=== PATIENT | male | born 1945 | race Caucasian/White ===

== ENCOUNTER 2020-09-05 13:49 | Inpatient (IN) | payer MEDICARE, BC ==
--- NOTE | 2020-09-05 14:18 | EDM.PDOC ---
ED HPI GENERAL MEDICAL PROBLEM - General Chief Complaint: General Time Seen by Provider: 09/05/20 14:00 Source of Information: Reports: Patient History Limitations: Reports: No Limitations - History of Present Illness INITIAL COMMENTS - FREE TEXT/NARRATIVE: This 75 yo male was brought to the ED due to a ground level fall. The patient reports he was found on the floor by his son just prior to calling the ambulance. The patient reports he has a history of MS and fell at about midnight due to his left leg giving out while he was attempting to get back to bed. The patient reports he has been experiencing increased pain in his left knee, left foot, right elbow and right shoulder due to the fall. The patient reports he did not hit his head or have any loss of consciousness. The patient reports he could not get himself off the floor due to the MS. Onset: Today Duration: Hour(s):, Constant Location: Reports: Upper Extremity, Right, Lower Extremity, Left Quality: Reports: Ache, Dull, Throbbing Severity: Moderate Improves with: Reports: None Worsens with: Reports: None Context: Reports: Activity Associated Symptoms: Reports: No Other Symptoms Left Foot Pain Score (Numeric/FACES): 2 - Related Data Allergies Allergy/AdvReac Type Severity Reaction Status Date / Time No Known Allergies Allergy Verified 09/05/20 13:58 Home Meds: Home Meds . [No Known Home Meds] 09/05/20 [History] Past Medical History HEENT History: Reports: None Cardiovascular History: Reports: Stents Respiratory History: Reports: None Gastrointestinal History: Reports: None Genitourinary History: Reports: None Musculoskeletal History: Reports: Other (See Below) Other Musculoskeletal History: MS Neurological History: Reports: None Psychiatric History: Reports: None Endocrine/Metabolic History: Reports: None Hematologic History: Reports: None Oncologic (Cancer) History: Reports: None Dermatologic History: Reports: None - Infectious Disease History Infectious Disease History: Reports: None - Past Surgical History Head Surgeries/Procedures: Reports: None Social & Family History - Family History Family Medical History: No Pertinent Family History - Caffeine Use Caffeine Use: Reports: Soda - Recreational Drug Use Recreational Drug Use: No ED ROS GENERAL - Review of Systems Review Of Systems: Comprehensive ROS is negative, except as noted in HPI. ED EXAM, GENERAL - Physical Exam Exam: See Below Exam Limited By: No Limitations General Appearance: Alert, WD/WN, Moderate Distress Eye Exam: Bilateral Eye: EOMI, Normal Inspection, PERRL Ears: Normal External Exam, Normal Canal, Hearing Grossly Normal, Normal TMs Nose: Normal Inspection, Normal Mucosa, No Blood Throat/Mouth: Normal Inspection, Normal Lips, Normal Teeth, Normal Gums, Normal Oropharynx, Normal Voice, No Airway Compromise Head: Atraumatic, Normocephalic Neck: Normal Inspection, Supple, Non-Tender, Full Range of Motion Respiratory/Chest: No Respiratory Distress, Lungs Clear, Normal Breath Sounds, No Accessory Muscle Use, Chest Non-Tender Cardiovascular: Normal Peripheral Pulses, Regular Rate, Rhythm, No Edema, No Gallop, No JVD, No Murmur, No Rub GI/Abdominal: Normal Bowel Sounds, Soft, Non-Tender, No Organomegaly, No Distention, No Abnormal Bruit, No Mass, Pelvis Stable (Male) Exam: Deferred Rectal (Males) Exam: Deferred Back Exam: Normal Inspection, Full Range of Motion, NT Extremities: Arm Pain (right anterior shoulder pain, right elbow pain and redness, left knee pain with bruising and left foot pain with lateral bruising) Neurological: Alert, Oriented, CN II-XII Intact, Normal Cognition Psychiatric: Normal Affect, Normal Mood Skin Exam: Warm, Dry, Intact, No Rash Lymphatic: No Adenopathy Course - Vital Signs Last Recorded V/S: Last Vital Signs Temp 36.4 C 09/05/20 13:51 Pulse 107 H 09/05/20 14:38 Resp 18 09/05/20 14:38 BP 135/90 09/05/20 14:38 Pulse Ox 95 09/05/20 14:38 Departure - Departure Time of Disposition: 15:52 Disposition: Refer to Observation Condition: Fair Clinical Impression: Fall from ground level, Left leg weakness, Impaired activities of daily living - Discharge Information Care Plan Goals: Discussed the patient's history, examination and x-ray results with Dr. Chi. Dr. Chi accepted the patient for continued evaluation and further management as an observation patient at [facility] in [place]. Sepsis Event Note (ED) - Evaluation Sepsis Screening Result: No Definite Risk - Focused Exam Vital Signs: Vital Signs Temp Pulse Resp BP Pulse Ox 09/05/20 14:38 107 H 18 135/90 95 09/05/20 13:51 36.4 C 110 H 20 150/75 H 97
--- NOTE | 2020-09-05 14:44 | CR ---
EXAMINATION: Knee 3V Lt SEX: Male AGE: 75 years CLINICAL HISTORY: 75-year-old male injured in ground-level fall. Interpretation (3 views): Soft tissue swelling anteromedially. Homogeneous normal bone mineral density for age and gender. Reactive arthritic sclerosis and bone spurs involving the margins of the tibial plateau as well as intercondylar tibial spine and patellofemoral surface of the patella. No sign of joint effusion, left knee fracture or dislocation. No foreign bodies.
--- NOTE | 2020-09-05 14:45 | CR ---
EXAMINATION: Foot Comp Min 3V Lt SEX: Male AGE: 75 years CLINICAL HISTORY: 75-year-old male injured in ground-level fall Interpretation: Pes cavus and mild arthritic changes left forefoot. Reactive arthritic changes talonavicular joint. Tiny heel spur at insertion Achilles tendon posteriorly on the os calcis. No sign of left foot fracture or dislocation. No foreign bodies.
--- NOTE | 2020-09-05 14:47 | CR ---
EXAMINATION: Shoulder Comp Rt SEX: Male AGE: 75 years CLINICAL HISTORY: 75-year-old male injured right shoulder (Ground level fall). INTERPRETATION: Subtle changes suggesting possible rotator cuff damage. Hill-Sachs notch like deformity lateral aspect of the humeral head. No juxta-articular rotator cuff tendon calcifications. No sign of right shoulder fracture, acute glenohumeral dislocation or acromioclavicular separation. No foreign bodies. Underlying right lung apex clear. CONCLUSION: No fracture or dislocation right shoulder.
--- NOTE | 2020-09-05 14:54 | CR ---
EXAMINATION: Elbow 4V Rt SEX: Male AGE: 75 years CLINICAL HISTORY: 75-year-old male injured right elbow (ground level fall). Interpretation: Severe arthritic reactive changes (sclerosis) radial head and ulnar aspect right elbow. Large bone spur arising off the olecranon process proximal right ulna. Cortical irregularity proximal radius suggesting occult radial head fracture and/or impaction but .... No joint effusion. "Fracture" may be old and close clinical correlation requested (point tenderness laterally? ) No sign of other fracture or dislocation right elbow. No foreign bodies.
[2020-09-05] MEDS ORDERED: Acetaminophen 325 MG Tab PO PRN (16:40)
[2020-09-05] MEDS ORDERED: Docusate Sodium 100 MG Cap PO PRN (16:40)
[2020-09-05] MEDS ORDERED: Magnesium Hydroxide 400 MG/5 ML Susp 30 ML Cup PO PRN (16:40)
[2020-09-05] MEDS ORDERED: Ondansetron 4 MG/2 ML SDV IVPUSH PRN (16:40)
[2020-09-05] MEDS ORDERED: Sodium Chloride 0.9% 1,000 ML IV SCH (16:45)
--- NOTE | 2020-09-05 16:52 | PCM.HP ---
H&P History of Present Illness - General Date of Service: 09/05/20 Admit Problem/Dx: Admission Diagnosis/Problem Admission Diagnosis/Problem Lower extremity pain, diffuse Source of Information: Patient History Limitations: Reports: No Limitations - History of Present Illness Initial Comments - Free Text/Narative: Luan is 75-year-old male with history of multiple sclerosis with weakness to the right lower extremities, not on any home medication, patient currently does not Dr. Rodrigo Oakley, PCP who lives at home by himself. He was brought to the ED in the company of son for evaluation following a ground-level fall. Per patient he fell down last night and was unable to get up. Son tried to reach out to him but there was no response. He decided to check on him this morning and found him on the floor by his bed. He denies hitting his head or losing consciousness. It is unclear how long patient was on the floor. Of note patient fell last Saturday and sustained multiple bruises to the bilateral knees, ankles and lower back. He reports mild pain to the knees. He is unable to bear weight. Denies any other symptoms. Trauma work-up was negative for fractures. Admission was requested for further management. Onset of Symptoms: Reports: Sudden Duration of Symptoms: Reports: Hour(s): Location: Reports: Lower Extremity, Left, Lower Extremity, Right Quality: Reports: Ache (Per HPI) Improves with: Reports: None Worsens with: Reports: None Associated Symptoms: Reports: No Other Symptoms Left Foot Pain Score (Numeric/FACES): 2 - Related Data Allergies/Adverse Reactions: Allergies Allergy/AdvReac Type Severity Reaction Status Date / Time No Known Allergies Allergy Verified 09/05/20 16:24 Home Medications: Home Meds . [No Known Home Meds] 09/05/20 [History] Past Medical History HEENT History: Reports: None Cardiovascular History: Reports: Stents Respiratory History: Reports: None Gastrointestinal History: Reports: Chronic Constipation Genitourinary History: Reports: Retention, Urinary Musculoskeletal History: Reports: Fracture, Other (See Below) Other Musculoskeletal History: MS Neurological History: Reports: None Psychiatric History: Reports: None Endocrine/Metabolic History: Reports: None Hematologic History: Reports: None Oncologic (Cancer) History: Reports: None Dermatologic History: Reports: None - Infectious Disease History Infectious Disease History: Reports: None - Past Surgical History HEENT Surgical History: Reports: Tonsillectomy Cardiovascular Surgical History: Reports: Other (See Below) Other Cardiovascular Surgeries/Procedures: Aortic stent GI Surgical History: Reports: Appendectomy Male Surgical History: Reports: None Musculoskeletal Surgical History: Reports: None Social & Family History - Family History Family Medical History: No Pertinent Family History - Tobacco Use Tobacco Use Status *Q: Never Tobacco User - Caffeine Use Caffeine Use: Reports: Soda - Recreational Drug Use Recreational Drug Use: No H&P Review of Systems - Review of Systems: Review Of Systems: See Below (As per HPI) General: Reports: No Symptoms HEENT: Reports: No Symptoms Pulmonary: Reports: No Symptoms Cardiovascular: Reports: No Symptoms Gastrointestinal: Reports: No Symptoms Genitourinary: Reports: No Symptoms Musculoskeletal: Reports: No Symptoms Skin: Reports: No Symptoms Psychiatric: Reports: No Symptoms Neurological: Reports: No Symptoms Hematologic/Lymphatic: Reports: No Symptoms Immunologic: Reports: No Symptoms Exam - Exam Exam: See Below (As per HPI) - Vital Signs Vital Signs: Last Vital Signs Temp 97.6 F 09/05/20 13:51 Pulse 107 H 09/05/20 14:38 Resp 18 09/05/20 14:38 BP 135/90 09/05/20 14:38 Pulse Ox 95 09/05/20 14:38 Weight: 206 lb 4.8 oz - Exam General: Alert, Oriented, 4 HEENT: PERRLA, Hearing Intact, Mucosa Moist & [place], Nares Patent, Normal Nasal Septum, Posterior Pharynx Clear, Conjunctiva Clear, EOMI, EACs Clear, TMs Clear Neck: Supple, Trachea Midline, 2 Lungs: Clear to Auscultation, Normal Respiratory Effort Cardiovascular: Regular Rate, Regular Rhythm GI/Abdominal Exam: Normal Bowel Sounds, Soft, Non-Tender, No Organomegaly, No Distention, No Abnormal Bruit, No Mass, Pelvis Stable (Male) Exam: No Hernia, Normal Inspection, Normal Prostate, Circumcised Rectal (Males) Exam: Normal Exam, Normal Rectal Tone, Prostate Normal Back Exam: Normal Inspection, Full Range of Motion, NT Extremities: Normal Range of Motion, Non-Tender, No Pedal Edema, Normal Capillary Refill, Other (Multiple bruises to bilateral knees and ankles and normal from previous fall) Skin: Warm, Dry, Intact Neurological: Cranial Nerves Intact, Reflexes Equal Bilateral Neuro Extensive - Mental Status: Alert, Oriented x3, Normal Mood/Affect, Normal Cognition Neuro Extensive - Motor, Sensory, Reflexes: CN II-XII Intact, Normal Gait, Normal Reflexes Psychiatric: Alert, Normal Affect, Normal Mood - Patient Data Lab Results Last 24 hrs: Laboratory Results - last 24 hr 09/05/20 Range/Units 15:55 SARS CoV-2 RNA Rapid DAYAMI Negative (NEGATIVE) Problem List Initiated/Reviewed/Updated: Yes Orders Last 24hrs: Active Orders 24 hr Category Date Time Status Admission Diagnosis [ADT] Urgent ADT 09/05/20 15:47 Ordered Admission Status [Patient Status] [ADT] Routine ADT 09/05/20 15:47 Active Ambulate [RC] ASDIRECTED Care 09/05/20 16:40 Ordered Intake and Output [RC] QSHIFT Care 09/05/20 16:40 Ordered Oxygen Therapy [RC] PRN Care 09/05/20 16:40 Ordered VTE/DVT Education [RC] PER UNIT ROUTINE Care 09/05/20 16:40 Ordered Vital Signs [RC] Q4H Care 09/05/20 16:40 Ordered OT Evaluation and Treatment [CONS] Routine Cons 09/05/20 16:40 Ordered PT Evaluation and Treatment [CONS] Routine Cons 09/05/20 16:40 Ordered Regular Diet [DIET] Diet 09/05/20 Dinner Ordered Acetaminophen [TylenoL] Med 09/05/20 16:40 Ordered 650 mg PO Q4H PRN Docusate Sodium [Colace] Med 09/05/20 16:40 Ordered 100 mg PO BID PRN Heparin Sodium Med 09/05/20 21:00 Ordered 5,000 units SUBCUT Q12HR Magnesium Hydroxide [Milk of Magnesia] Med 09/05/20 16:40 Ordered 30 ml PO Q12H PRN Ondansetron [Zofran] Med 09/05/20 16:40 Ordered 4 mg IVPUSH Q6H PRN Sodium Chloride 0.9% @ 125 MLS/HR (1000ml) Med 09/05/20 16:45 Ordered Sodium Chloride 0.9% [Normal Saline] 1,000 ml IV ASDIRECTED Resuscitation Status Routine Resus Stat 09/05/20 16:40 Ordered Assessment/Plan Comment:: #Status post ground-level fall Patient with recurrent falls at home Trauma work-up negative Admit to medical floor Monitor vitals IV fluids Sent for BMP, CBC, CK, magnesium, phosphorus Physical therapy and Occupational Therapy #Multiple sclerosis with left-sided weakness Physical therapy and Occupational Therapy obesity #Obesity Counseling provided #General diet #CODE STATUS -I discussion with patient and he preferred to remain full code at this time
[2020-09-05 19:06] LABS: ANION GAP 14.6 mEq/L (7-13); CHLORIDE,CL 105 mmol/L (98-107); SODIUM,NA 143 mmol/L (136-145)
[2020-09-05] MEDS: Heparin Sodium 5,000 Units/ML Vial SUBCUT SCH (20:34)
[2020-09-06] MEDS: Sodium Chloride 0.9% 1,000 ML IV SCH ×2 (00:24→07:26)
[2020-09-06 07:06] LABS: ANION GAP 16.6 mEq/L (7-13); CHLORIDE,CL 107 mmol/L (98-107); SODIUM,NA 145 mmol/L (136-145)
[2020-09-06] MEDS: Heparin Sodium 5,000 Units/ML Vial SUBCUT SCH (08:51)
[2020-09-06] MEDS ORDERED: Metoprolol Tartrate 5 MG/5 ML SDV IVPUSH ONE (09:13)
--- NOTE | 2020-09-06 09:39 | CR ---
PROCEDURE INFORMATION: Exam: XR Chest, 1 View Exam date and time: 09/06/2020 9:32 AM Age: 75 years old Clinical indication: Other: Sepsis TECHNIQUE: Imaging protocol: XR of the chest Views: 1 view. COMPARISON: No relevant prior studies available. FINDINGS: Limitations: The patient is leaning toward the right there is mild NEWMAN positioning. Lungs: The lungs are normally expanded and clear. Pleural spaces: No pleural effusion or pneumothorax. Heart/Mediastinum: Normal dimensions of the heart. Vasculature: Normal pulmonary vessels and width of the vascular pedicle. Bones/joints: Median sternotomy wires are present. IMPRESSION: No acute disease.
[2020-09-06] MEDS ORDERED: Sodium Chloride 0.9% 1,000 ML IV SCH (09:45)
[2020-09-06] MEDS ORDERED: Adenosine 6 MG/2 ML SDV IVPUSH ONE ×2 (09:47→10:29)
[2020-09-06] MEDS ORDERED: Piperacillin/Tazobactam 3.375 GM in Sodium Chloride 0.9% 100 ML IV SCH (10:00)
--- NOTE | 2020-09-06 11:03 | PCM.DCSUM1 ---
Discharge Summary - Hospital Course Free Text/Narrative:: Luan is 75-year-old male with history of multiple sclerosis with weakness to the right lower extremities, not on any home medication, patient currently does not doctor with PCP who lives at home by himself. He was brought to the ED in the company of son for evaluation following a ground-level fall. Per patient he fell down last night and was unable to get up. Trauma work-up was negative. CPK was elevated at > 4000. He had leukocytosis at 18 K thought to be reactive. Vitals were within normal limits. Patient was admitted for strengthening. He was started on IV fluid for rhabdomyolysis. This morning patient reported he was tachycardic. He was placed on telemetry on monitor with heart rate in the 170s. He became hypotensive. Patient did not complain of any symptoms. No dizziness, chest pain. Repeat labs this morning; electrolytes within normal limits. WBC is trending down to 16. EKG shows SVT 175. Adenosine 6 mg IV push was administered. Heart rate improved to 97 and blood pressure also improved 106/76. 1 L of NS bolus was running. He was started on empiric antibiotic with Vanco and Zosyn. Decision was made to transfer the patient to higher level of care. I spoke with Dr. Quintanilla at [facility] in [place] who agreed to accept patient. Patient was transferred to above facility by [facility]. - Discharge Data Discharge Date: 09/06/20 Discharge Disposition: DC/Tfer to Acute Hospital 02 Condition: Good - Referral to Home Health Primary Care Physician: PCP None - Patient Summary/Data Consults: Consultations 09/05/20 16:40 OT Evaluation and Treatment [CONS] Routine PT Evaluation and Treatment [CONS] Routine - Patient Instructions Diet: Heart Healthy Diet Activity: As Tolerated Showering/Bathing: November Shower - Discharge Plan *PRESCRIPTION DRUG MONITORING PROGRAM REVIEWED*: Not Applicable *COPY OF PRESCRIPTION DRUG MONITORING REPORT IN PATIENT DAWOOD: Not Applicable Home Medications: Home Meds . [No Known Home Meds] 09/05/20 [History] Oxygen Therapy Mode: Room Air Referrals: PCP,None [Primary Care Provider] - - Discharge Summary/Plan Comment DC Time >30 min.: Yes - General Info Date of Service: 09/06/20 Admission Dx/Problem (Free Text: Admission Diagnosis/Problem Admission Diagnosis/Problem Lower extremity pain,weakness Functional Status: Reports: Pain Controlled - Review of Systems General: Reports: No Symptoms HEENT: Reports: No Symptoms Pulmonary: Reports: No Symptoms Cardiovascular: Reports: No Symptoms Gastrointestinal: Reports: No Symptoms Genitourinary: Reports: No Symptoms Musculoskeletal: Reports: No Symptoms Skin: Reports: No Symptoms Neurological: Reports: No Symptoms Psychiatric: Reports: No Symptoms - Patient Data Vitals - Most Recent: Last Vital Signs Temp 98.9 F 09/05/20 23:09 Pulse 180 H 09/06/20 10:02 Resp 20 09/05/20 23:09 BP 79/59 L 09/06/20 10:02 Pulse Ox 96 09/05/20 23:09 Weight - Most Recent: 213 lb I&O - Last 24 hours: Intake & Output 09/05/20 09/06/20 09/06/20 22:59 06:59 14:59 Intake Total 200 240 Balance 200 240 Lab Results - Last 24 hrs: Laboratory Results - last 24 hr 09/05/20 09/05/20 09/05/20 Range/Units 15:55 18:25 18:25 WBC 18.3 H (5.0-10.0) 10^3/uL RBC 5.00 (4.6-6.2) 10^6/uL Hgb 16.4 (14.0-18.0) g/dL Hct 47.3 (40.0-54.0) % MCV 94.6 (80-100) fL MCH 32.8 (27.0-34.0) pg MCHC 34.7 (33.0-35.0) g/dL Plt Count 198 (150-450) 10^3/uL Neut % (Auto) 86.0 H (42.2-75.2) % Lymph % (Auto) 7.2 L (20.5-50.1) % Scott % (Auto) 6.6 (2-8) % Eos % (Auto) 0.1 L (1.0-3.0) % Baso % (Auto) 0.1 (0.0-1.0) % Sodium 143 (136-145) mmol/L Potassium 3.6 (3.5-5.1) mmol/L Chloride 105 (98-107) mmol/L Carbon Dioxide 27 (21-32) mmol/L Anion Gap 14.6 H (7-13) mEq/L BUN 17 (7-18) mg/dL Creatinine 1.12 (0.70-1.30) mg/dL Est Cr Clr Drug Dosing 53.28 mL/min Estimated GFR (MDRD) > 60 Glucose 153 H (74-99) mg/dL Calcium 9.0 (8.5-10.1) mg/dL Phosphorus 2.3 L (2.6-4.7) mg/dL Magnesium 1.9 (1.8-2.4) mg/dL Creatine Kinase 5162 H (39-308) U/L SARS CoV-2 RNA Rapid DAYAMI Negative (NEGATIVE) 09/06/20 09/06/20 09/06/20 Range/Units 05:55 05:55 05:55 WBC 16.4 H (5.0-10.0) 10^3/uL RBC 4.73 (4.6-6.2) 10^6/uL Hgb 15.6 (14.0-18.0) g/dL Hct 45.6 (40.0-54.0) % MCV 96.4 (80-100) fL MCH 33.0 (27.0-34.0) pg MCHC 34.2 (33.0-35.0) g/dL Plt Count 183 (150-450) 10^3/uL Neut % (Auto) 76.0 H (42.2-75.2) % Lymph % (Auto) 13.9 L (20.5-50.1) % Scott % (Auto) 9.6 H (2-8) % Eos % (Auto) 0.4 L (1.0-3.0) % Baso % (Auto) 0.1 (0.0-1.0) % Sodium 145 (136-145) mmol/L Potassium 3.6 (3.5-5.1) mmol/L Chloride 107 (98-107) mmol/L Carbon Dioxide 25 (21-32) mmol/L Anion Gap 16.6 H (7-13) mEq/L BUN 18 (7-18) mg/dL Creatinine 1.06 (0.70-1.30) mg/dL Est Cr Clr Drug Dosing 56.30 mL/min Estimated GFR (MDRD) > 60 Glucose 113 H (74-99) mg/dL Calcium 8.4 L (8.5-10.1) mg/dL Phosphorus 2.8 (2.6-4.7) mg/dL Magnesium 1.9 (1.8-2.4) mg/dL Creatine Kinase 4654 H (39-308) U/L SARS CoV-2 RNA Rapid DAYAMI (NEGATIVE) Med Orders - Current: Current Medications Acetaminophen (Tylenol) 650 mg PO Q4H PRN PRN Reason: Pain (Mild 1-3)/fever Last Admin: 09/05/20 20:31 Dose: 650 mg Documented by: Docusate Sodium (Colace) 100 mg PO BID PRN PRN Reason: Constipation Heparin Sodium (Porcine) (Heparin Sodium) 5,000 units SUBCUT Q12HR [facility] Last Admin: 09/06/20 08:51 Dose: 5,000 units Documented by: Sodium Chloride (Normal Saline) 1,000 mls @ 250 mls[facility] Last Admin: 09/06/20 07:26 Dose: 150 mls/hr Documented by: Sodium Chloride (Normal Saline) 1,000 mls @ 999 mls[facility] Last Admin: 09/06/20 09:25 Dose: 999 mls/hr Documented by: Piperacillin Sod/Tazobactam (Sod 3.375 gm/ Sodium Chloride) 100 mls @ 200 mls/hr IV Q6H [facility] Last Admin: 09/06/20 09:49 Dose: 200 mls/hr Documented by: Vancomycin HCl 1 gm/ Sodium (Chloride) 250 mls @ 166.667 mls/hr IV Q8H [facility] Last Admin: 09/06/20 10:22 Dose: 166.667 mls/hr Documented by: Magnesium Hydroxide (Milk Of Magnesia) 30 ml PO Q12H PRN PRN Reason: Constipation Ondansetron HCl (Zofran) 4 mg IVPUSH Q6H PRN PRN Reason: Nausea/Vomiting Vancomycin HCl (Pharmacy To Dose - Vancomycin) 1 dose .XX ASDIRECTED [facility] Discontinued Medications Adenosine (Adenocard) 6 mg IVPUSH NOW ONE Stop: 09/06/20 09:48 Last Admin: 09/06/20 09:56 Dose: 6 mg Documented by: Adenosine (Adenocard) 12 mg IVPUSH NOW ONE Stop: 09/06/20 10:30 Sodium Chloride (Normal Saline) 1,000 mls @ 125 mls/hr IV ASDIRECTED JOSLYN Last Infusion: 09/05/20 20:33 Dose: 150 mls/hr Documented by: Metoprolol Tartrate (Lopressor) 5 mg IVPUSH ONETIME ONE Stop: 09/06/20 09:14 Last Admin: 09/06/20 10:02 Dose: Not Given Documented by: - Exam Quality Assessment: Reports: DVT Prophylaxis General: Reports: Alert, Oriented HEENT: Reports: Pupils Equal, Pupils Reactive, EOMI, Mucous Membr. Moist/[place] Neck: Reports: Supple Lungs: Reports: Clear to Auscultation, Normal Respiratory Effort Cardiovascular: Reports: Regular Rate, Regular Rhythm GI/Abdominal Exam: Normal Bowel Sounds, Soft, Non-Tender, No Organomegaly, No Distention, No Abnormal Bruit, No Mass, Pelvis Stable (Male) Exam: No Hernia, Normal Inspection, Normal Prostate, Circumcised Rectal (Males) Exam: Normal Exam, Normal Rectal Tone, Prostate Normal Back Exam: Reports: Normal Inspection, Full Range of Motion Extremities: Normal Inspection, Normal Range of Motion, Non-Tender, No Pedal Edema, Normal Capillary Refill Skin: Reports: Warm, Dry, Intact Wound/Incisions: Reports: Healing Well Neurological: Reports: No New Focal Deficit Psy/Mental Status: Reports: Alert, Normal Affect, Normal Mood
== END 2020-09-06 10:55 | DRG 558 ==
LOC: DL.ED 13:49 → DL.MS 15:47 → OBSVTOIN 09-06 09:12
PROVIDERS: ADMIT Student in an Organized Health Care Education/Training Program; ATTEND Student in an Organized Health Care Education/Training Program
DX: M62.82 Rhabdomyolysis (principal); R53.1 Weakness; G35 Multiple sclerosis; I95.9 Hypotension, unspecified; R00.0 Tachycardia, unspecified; Z95.5 Presence of coronary angioplasty implant and graft; K59.09 Other constipation; R33.9 Retention of urine, unspecified; Z90.89 Acquired absence of other organs; Z90.49 Acquired absence of other specified parts of digestive tract; W19.XXXA Unspecified fall, initial encounter; R29.6 Repeated falls; Y92.009 Unspecified place in unspecified non-institutional (private) residence as the place of occurrence of the external cause; E66.9 Obesity, unspecified; Z20.822 Contact with and (suspected) exposure to COVID-19; Z68.33 Body mass index [BMI] 33.0-33.9, adult
CPT/HCPCS: 36415 ×2; 73030; 73080; 73562; 73630; 80048 ×2; 82550 ×2; 83735 ×2; 84100 ×2; 84145; 85025 ×2; A9270; J1644 ×2; J7030 ×3; U0002; 71045; 87040; 93005; 96372; 99284; G0378; J0153; J2543; J3370; J3490; J7050

== ENCOUNTER 2020-10-14 18:19 | Inpatient (IN) | payer MEDICARE, BC ==
--- NOTE | 2020-10-14 18:55 | EDM.PDOC ---
<Angelo Crawford Elise - Last Filed: 10/14/20 18:48> ED HPI GENERAL MEDICAL PROBLEM - General Chief Complaint: Lower Extremity Injury/Pain Stated Complaint: LEFT HIP PAIN Time Seen by Provider: 10/14/20 18:56 Source of Information: Reports: Patient, Family History Limitations: Reports: Other (pt and son are poor historians) - History of Present Illness INITIAL COMMENTS - FREE TEXT/NARRATIVE: 75 y/o F c/o L hip pn x 1 month. The pn is constant but increases with movement, rates it 01/21. Pt was evaluated at [place] [facility] Sep 05 of this year after falling in his home and injuring is L leg. Pt was admitted but then on Sep 06 he was flown to [place] for cardiac workup. Pt was treated adn discharged from [place] on September 14 and sent to [facility] here in [place]. On Saturday pt was discharged from [facility] into the care of his two sons. Pt went to live at one of the son's house. Today the sons broguth pt to ER because they cannot take care of him as he cannot bear weight on his L hip and therefore cannot get around the house. Sons report poor food intake but state he is drinking ok. Hx of MS and decreased mobility. Denies fever, cough, chills, drugs, etoh, cp, db, abd pn, vision prob. Onset: Gradual Duration: Day(s): Location: Reports: Lower Extremity, Left Quality: Reports: Ache, Sharp Severity: Moderate Improves with: Reports: None Worsens with: Reports: Movement - Related Data Allergies Allergy/AdvReac Type Severity Reaction Status Date / Time atorvastatin AdvReac Intermediate Muscle Verified 10/14/20 18:32 Aches Home Meds: Home Meds Ibuprofen 400 mg PO Q6HR PRN 10/14/20 [History] Melatonin 3 mg PO BEDTIME PRN 10/14/20 [History] Metoprolol Tartrate 75 mg PO BID 10/14/20 [History] Tamsulosin [Tamsulosin 24 Hr] 0.4 mg PO DAILY 10/14/20 [History] polyethylene glycoL 3350 [MiraLAX] 17 gm PO DAILY PRN 10/14/20 [History] Past Medical History HEENT History: Reports: None Cardiovascular History: Reports: Stents Respiratory History: Reports: None Gastrointestinal History: Reports: Chronic Constipation Genitourinary History: Reports: Retention, Urinary Musculoskeletal History: Reports: Fracture, Other (See Below) Other Musculoskeletal History: MS Neurological History: Reports: None Psychiatric History: Reports: None Endocrine/Metabolic History: Reports: None Hematologic History: Reports: None Oncologic (Cancer) History: Reports: None Dermatologic History: Reports: None - Infectious Disease History Infectious Disease History: Reports: None - Past Surgical History HEENT Surgical History: Reports: Tonsillectomy Cardiovascular Surgical History: Reports: Other (See Below) Other Cardiovascular Surgeries/Procedures: Aortic stent GI Surgical History: Reports: Appendectomy Male Surgical History: Reports: None Musculoskeletal Surgical History: Reports: None Social & Family History - Family History Family Medical History: No Pertinent Family History - Caffeine Use Caffeine Use: Reports: Soda Review of Systems - Review of Systems Review Of Systems: Comprehensive ROS is negative, except as noted in HPI. Departure - Departure Disposition: Home, Self-Care 01 Clinical Impression: Tinea, Multiple sclerosis, Left hip pain, Hypokalemia Decubitus skin ulcer Qualifiers: Pressure injury location: buttock Pressure injury stage: stage 3 Laterality: unspecified laterality Qualified Code(s): L89.303 - Pressure ulcer of unspecified buttock, stage 3 - Discharge Information <Josefina Coleman - Last Filed: 10/15/20 05:42> ED HPI GENERAL MEDICAL PROBLEM Left Hip Pain Score (Numeric/FACES): 6 ED EXAM, GENERAL - Physical Exam Exam: See Below Exam Limited By: No Limitations General Appearance: Alert, Mild Distress, Other (generalized weakness, pain with movment left hip, grimacing) Eye Exam: Bilateral Eye: EOMI Ears: Normal External Exam, Hearing Grossly Normal Nose: Normal Inspection Throat/Mouth: Normal Inspection Head: Atraumatic, Normocephalic Neck: Normal Inspection Respiratory/Chest: No Respiratory Distress, Lungs Clear, Normal Breath Sounds Cardiovascular: Regular Rate, Rhythm, Tachycardia. No: No Edema (1+pedal) GI/Abdominal: Normal Bowel Sounds, Soft (Male) Exam: Rash Rectal (Males) Exam: Other (coccyx decub open, red erythematous base no drainage excoriation, odor) Back Exam: Normal Inspection Extremities: Normal Inspection Neurological: Alert, Oriented, Other (general weakness) Psychiatric: Normal Affect Course - Re-Assessments/Exams Free Text/Narrative Re-Assessment/Exam: 10/14/20 20:12 Dr Mast accepting for admission. Departure - Departure Time of Disposition: 20:09 Condition: Fair - Discharge Information *PRESCRIPTION DRUG MONITORING PROGRAM REVIEWED*: No *COPY OF PRESCRIPTION DRUG MONITORING REPORT IN PATIENT DAWOOD: No <Shahram Villaseñor - Last Filed: 10/15/20 07:40> Course - Vital Signs Last Recorded V/S: Last Vital Signs Temp 97.6 F 10/14/20 20:45 Pulse 90 10/14/20 22:19 Resp 16 10/14/20 20:45 BP 136/67 10/14/20 22:19 Pulse Ox 97 10/14/20 20:45 - Orders/Labs/Meds Orders: Active Orders 24 hr Category Date Time Status CULTURE BLOOD [BC] Stat Lab 10/14/20 19:00 Received Medication Orders Acetaminophen (Acetaminophen 325 Mg Tab) 650 mg PO Q4H PRN PRN Reason: Pain (Mild 1-3)/fever Bisacodyl (Bisacodyl 5 Mg Tab) 5 mg PO DAILY PRN PRN Reason: Constipation Docusate Sodium (Docusate Sodium 100 Mg Cap) 100 mg PO BID PRN PRN Reason: Constipation Heparin Sodium (Porcine) (Heparin Sodium 5,000 Units/Ml Vial) 5,000 units SUBCUT Q12HR JOSLYN Ibuprofen (Ibuprofen 200 Mg Tab) 400 mg PO Q6HR PRN PRN Reason: Pain Melatonin (Melatonin 3 Mg Tab) 3 mg PO BEDTIME PRN PRN Reason: Sleep Last Admin: 10/14/20 22:19 Dose: 3 mg Documented by: PEACE Metoprolol Tartrate (Metoprolol Tartrate 50 Mg Tab) 75 mg PO BID JOSLYN Nystatin (Nystatin Ointment 15 Gm Tube) 1 gm TOP QID PRN PRN Reason: Rash Last Admin: 10/14/20 22:42 Dose: 1 applic Documented by: PEACE Ondansetron HCl (Ondansetron 4 Mg/2 Ml Sdv) 4 mg IVPUSH Q4H PRN PRN Reason: Nausea/Vomiting Oxycodone/Acetaminophen (Acetaminophen/Oxycodone 325-5 Mg Tab) 1 tab PO Q4H PRN PRN Reason: Pain (moderate 4-6) Last Admin: 10/14/20 22:20 Dose: 1 tab Documented by: PEACE Polyethylene Glycol (Polyethylene Glycol 3350 Powder 17 Gm Packet) 17 gm PO DAILY PRN PRN Reason: Constipation Senna/Docusate Sodium (Docusate Sodium/Sennosides 50-8.6 Mg Tab) 1 tab PO BEDTIME PRN PRN Reason: Constipation Last Admin: 10/14/20 22:19 Dose: 1 tab Documented by: PEACE Tamsulosin HCl (Tamsulosin 0.4 Mg Cap.Er) 0.4 mg PO DAILY JOSLYN Labs: Laboratory Tests 10/14/20 10/14/20 10/14/20 Range/Units 19:00 19:00 19:00 WBC 11.0 H (5.0-10.0) 10^3/uL RBC 4.62 (4.6-6.2) 10^6/uL Hgb 14.4 (14.0-18.0) g/dL Hct 43.9 (40.0-54.0) % MCV 95.0 (80-100) fL MCH 31.2 (27.0-34.0) pg MCHC 32.8 L (33.0-35.0) g/dL Plt Count 221 (150-450) 10^3/uL Neut % (Auto) 75.2 (42.2-75.2) % Lymph % (Auto) 12.5 L (20.5-50.1) % Archer % (Auto) 8.9 H (2-8) % Eos % (Auto) 3.1 H (1.0-3.0) % Baso % (Auto) 0.3 (0.0-1.0) % PT 10.6 (9.0-12.0) SEC INR 1.1 (0.9-1.2) Sodium 146 H (136-145) mmol/L Potassium 3.2 L (3.5-5.1) mmol/L Chloride 106 (98-107) mmol/L Carbon Dioxide 26 (21-32) mmol/L Anion Gap 17.2 H (7-13) mEq/L BUN 25 H (7-18) mg/dL Creatinine 1.19 (0.70-1.30) mg/dL Est Cr Clr Drug Dosing 51.89 mL/min Estimated GFR (MDRD) 60 BUN/Creatinine Ratio 21.0 (No establ ref range) Glucose 113 H (74-99) mg/dL Calcium 8.8 (8.5-10.1) mg/dL Total Bilirubin 0.6 (0.2-1.0) mg/dL AST 14 L (15-37) U/L ALT 19 (16-63) U/L Alkaline Phosphatase 79 (46-116) U/L Creatine Kinase 117 (39-308) U/L C-Reactive Protein 13.2 H (0.0-0.9) mg/dL Total Protein 6.9 (6.4-8.2) g/dL Albumin 3.1 L (3.4-5.0) g/dL Globulin 3.8 Albumin/Globulin Ratio 0.82 Amylase 44 (25-115) U/L SARS-CoV-2 RNA (DAYAMI) (NEGATIVE) 10/14/20 Range/Units 19:00 WBC (5.0-10.0) 10^3/uL RBC (4.6-6.2) 10^6/uL Hgb (14.0-18.0) g/dL Hct (40.0-54.0) % MCV (80-100) fL MCH (27.0-34.0) pg MCHC (33.0-35.0) g/dL Plt Count (150-450) 10^3/uL Neut % (Auto) (42.2-75.2) % Lymph % (Auto) (20.5-50.1) % Archer % (Auto) (2-8) % Eos % (Auto) (1.0-3.0) % Baso % (Auto) (0.0-1.0) % PT (9.0-12.0) SEC INR (0.9-1.2) Sodium (136-145) mmol/L Potassium (3.5-5.1) mmol/L Chloride (98-107) mmol/L Carbon Dioxide (21-32) mmol/L Anion Gap (7-13) mEq/L BUN (7-18) mg/dL Creatinine (0.70-1.30) mg/dL Est Cr Clr Drug Dosing mL/min Estimated GFR (MDRD) BUN/Creatinine Ratio (No establ ref range) Glucose (74-99) mg/dL Calcium (8.5-10.1) mg/dL Total Bilirubin (0.2-1.0) mg/dL AST (15-37) U/L ALT (16-63) U/L Alkaline Phosphatase (46-116) U/L Creatine Kinase (39-308) U/L C-Reactive Protein (0.0-0.9) mg/dL Total Protein (6.4-8.2) g/dL Albumin (3.4-5.0) g/dL Globulin Albumin/Globulin Ratio Amylase (25-115) U/L SARS-CoV-2 RNA (DAYAMI) Negative (NEGATIVE) Meds: Medications Generic Name Dose Route Start Last Admin Trade Name Freq PRN Reason Stop Dose Admin Acetaminophen 650 mg 10/14/20 21:32 Acetaminophen 325 Mg Tab PO Q4H PRN Pain (Mild 1-3)/fever Bisacodyl 5 mg 10/14/20 21:32 Bisacodyl 5 Mg Tab PO DAILY PRN Constipation Docusate Sodium 100 mg 10/14/20 21:32 Docusate Sodium 100 Mg Cap PO BID PRN Constipation Heparin Sodium (Porcine) 5,000 units 10/15/20 09:00 Heparin Sodium 5,000 Units/Ml Vial SUBCUT Q12HR JOSLYN Ibuprofen 400 mg 10/14/20 21:38 Ibuprofen 200 Mg Tab PO Q6HR PRN Pain Melatonin 3 mg 10/14/20 21:38 10/14/20 22:19 Melatonin 3 Mg Tab PO 3 mg BEDTIME PRN Administration Sleep Metoprolol Tartrate 75 mg 10/15/20 09:00 Metoprolol Tartrate 50 Mg Tab PO BID JOSLYN Nystatin 1 gm 10/14/20 20:14 10/14/20 22:42 Nystatin Ointment 15 Gm Tube TOP 1 applic QID PRN Administration Rash Ondansetron HCl 4 mg 10/14/20 21:32 Ondansetron 4 Mg/2 Ml Sdv IVPUSH Q4H PRN Nausea/Vomiting Oxycodone/Acetaminophen 1 tab 10/14/20 21:32 10/14/20 22:20 Acetaminophen/Oxycodone 325-5 Mg Tab PO 1 tab Q4H PRN Administration Pain (moderate 4-6) Polyethylene Glycol 17 gm 10/14/20 21:38 Polyethylene Glycol 3350 Powder 17 Gm Packet PO DAILY PRN Constipation Senna/Docusate Sodium 1 tab 10/14/20 21:32 10/14/20 22:19 Docusate Sodium/Sennosides 50-8.6 Mg Tab PO 1 tab BEDTIME PRN Administration Constipation Tamsulosin HCl 0.4 mg 10/15/20 09:00 Tamsulosin 0.4 Mg Cap.Er PO DAILY JOSLYN Discontinued Medications Generic Name Dose Route Start Last Admin Trade Name Freq PRN Reason Stop Dose Admin Metoprolol Tartrate 75 mg 10/14/20 22:01 10/14/20 22:19 Metoprolol Tartrate 50 Mg Tab PO 10/14/20 22:02 75 mg ONETIME ONE Administration - Re-Assessments/Exams Free Text/Narrative Re-Assessment/Exam: 10/14/20 I personally performed or re-performed the physical examination and medical decision making. I have verified all student documentation or findings, including history, physical exam and/or medical decision making.
[2020-10-14 19:25] LABS: ANION GAP 17.2 mEq/L (7-13)
--- NOTE | 2020-10-14 19:52 | CT ---
PROCEDURE INFORMATION: Exam: CT Left Lower Extremity Without Contrast, Hip Exam date and time: 10/14/2020 7:33 PM Age: 75 years old Clinical indication: Other: Fell a week ago--unable to walk; Additional info: Pain, fall 09/05 non weight bearing TECHNIQUE: Imaging protocol: CT of the Left lower extremity without contrast was performed. Exam focused on the hip. Radiation optimization: All CT scans at this facility use at least one of these dose optimization techniques: automated exposure control; mA and/or kV adjustment per patient size (includes targeted exams where dose is matched to clinical indication); or iterative reconstruction. COMPARISON: No relevant prior studies available. FINDINGS: Bones/joints: Severe central spinal stenosis L4-L5. Osteoporosis. Degenerative arthropathy both hip joints including femoroacetabular osteophytosis. Soft tissues: There is a small umbilical hernia. There is no evidence of incarceration. Vasculature: The aortoiliac vessels demonstrate mild atherosclerotic calcification. Reproductive: The prostate gland demonstrates moderate hyperplasia. IMPRESSION: 1. Moderate prostatic hyperplasia. 2. Severe central spinal stenosis L4-L5. 3. No acute findings.
[2020-10-14] MEDS ORDERED: Acetaminophen/oxyCODONE 325-5 MG Tab PO PRN (21:32)
[2020-10-14] MEDS ORDERED: Docusate Sodium 100 MG Cap PO PRN (21:32)
[2020-10-14] MEDS ORDERED: Ondansetron 4 MG/2 ML SDV IVPUSH PRN (21:32)
[2020-10-14] MEDS ORDERED: Bisacodyl 5 MG Tab PO PRN (21:32)
[2020-10-14] MEDS ORDERED: Acetaminophen 325 MG Tab PO PRN (21:32)
[2020-10-14] MEDS ORDERED: Polyethylene Glycol 3350 Powder 17 GM Packet PO PRN (21:38)
[2020-10-14] MEDS ORDERED: Melatonin 3 MG Tab PO PRN (21:38)
[2020-10-14] MEDS ORDERED: Ibuprofen 200 MG Tab PO PRN (21:38)
--- NOTE | 2020-10-14 21:46 | PCM.HP ---
H&P History of Present Illness - General Date of Service: 10/14/20 Admit Problem/Dx: Admission Diagnosis/Problem Admission Diagnosis/Problem Weakness Source of Information: Patient, Provider (ER) History Limitations: Reports: No Limitations - History of Present Illness Initial Comments - Free Text/Narative: 75 y/o F c/o L hip pn x 1 month. The pn is constant but increases with movement, rates it 01/21. Pt was evaluated at [place] [facility] Sep 05 of this year after falling in his home and injuring is L leg. Pt was admitted but then on Sep 06 he was flown to [place] for cardiac workup. Pt was treated adn discharged from [place] on September 14 and sent to [facility] here in [place]. On Saturday pt was discharged from [facility] into the care of his two sons. Pt went to live at one of the son's house. Today the sons broguth pt to ER because they cannot take care of him as he cannot bear weight on his L hip and therefore cannot get around the house. Sons report poor food intake but state he is drinking ok. Hx of MS and decreased mobility unability to walk since Aug 2020. Used to walk with walker Denies fever, cough, chills, drugs, etoh, cp, db, abd pn, vision prob. Pt had urinary and stool inconstance. His left hip pian is better at present Decubitus ulcer noted in ER PSH: Stent to thoracic aortic aneurism, Appendicitis . Onset of Symptoms: Reports: Gradual Duration of Symptoms: Reports: Week(s): Improves with: Reports: None Worsens with: Reports: None Associated Symptoms: Reports: No Other Symptoms Left Hip Pain Score (Numeric/FACES): 6 - Related Data Allergies/Adverse Reactions: Allergies Allergy/AdvReac Type Severity Reaction Status Date / Time atorvastatin AdvReac Intermediate Muscle Verified 10/14/20 18:32 Aches Home Medications: Home Meds Ibuprofen 400 mg PO Q6HR PRN 10/14/20 [History] Melatonin 3 mg PO BEDTIME PRN 10/14/20 [History] Metoprolol Tartrate 75 mg PO BID 10/14/20 [History] Tamsulosin [Tamsulosin 24 Hr] 0.4 mg PO DAILY 10/14/20 [History] polyethylene glycoL 3350 [MiraLAX] 17 gm PO DAILY PRN 10/14/20 [History] Past Medical History HEENT History: Reports: None Cardiovascular History: Reports: Stents Respiratory History: Reports: None Gastrointestinal History: Reports: Chronic Constipation Genitourinary History: Reports: Retention, Urinary, Urinary Incontinence Musculoskeletal History: Reports: Fracture, Other (See Below) Other Musculoskeletal History: MS Neurological History: Reports: None, MS Psychiatric History: Reports: None Endocrine/Metabolic History: Reports: None Hematologic History: Reports: None Oncologic (Cancer) History: Reports: None Dermatologic History: Reports: None - Infectious Disease History Infectious Disease History: Reports: None - Past Surgical History Head Surgeries/Procedures: Reports: None HEENT Surgical History: Reports: Tonsillectomy Cardiovascular Surgical History: Reports: Other (See Below) Other Cardiovascular Surgeries/Procedures: Aortic stent GI Surgical History: Reports: Appendectomy Male Surgical History: Reports: None Musculoskeletal Surgical History: Reports: None Social & Family History - Family History Family Medical History: No Pertinent Family History - Tobacco Use Tobacco Use Status *Q: Never Tobacco User - Caffeine Use Caffeine Use: Reports: None - Recreational Drug Use Recreational Drug Use: No H&P Review of Systems - Review of Systems: Review Of Systems: See Below General: Denies: Fever, Chills Pulmonary: Denies: Shortness of Breath Cardiovascular: Denies: Chest Pain Gastrointestinal: Reports: Other (stool incontenet ). Denies: Abdominal Pain Genitourinary: Reports: Other (urine icnconetent ) Musculoskeletal: Denies: Neck Pain Psychiatric: Reports: Other (ulcer to lower back). Denies: Confusion Neurological: Reports: Other (reports memory dificulties ). Denies: Confusion Exam - Exam Exam: See Below - Vital Signs Vital Signs: Last Vital Signs Temp 97.6 F 10/14/20 20:45 Pulse 91 10/14/20 20:45 Resp 16 10/14/20 20:45 BP 121/72 10/14/20 20:45 Pulse Ox 97 10/14/20 20:45 Weight: 200 lb - Exam Quality Assessment: No: Supplemental Oxygen General: Alert, Oriented HEENT: Conjunctiva Clear Neck: Supple Lungs: Clear to Auscultation Cardiovascular: Regular Rate, Regular Rhythm (Male) Exam: Deferred, Other (diaper ) Rectal (Males) Exam: Deferred Extremities: Limited Range of Motion (worse on RT Lower ext) Neuro Extensive - Mental Status: Alert Neuro Extensive - Motor, Sensory, Reflexes: Other (RT lower ext weakness, Leg> arm) Psychiatric: Alert, Normal Affect - Patient Data Lab Results Last 24 hrs: Laboratory Results - last 24 hr 10/14/20 10/14/20 10/14/20 Range/Units 19:00 19:00 19:00 WBC 11.0 H (5.0-10.0) 10^3/uL RBC 4.62 (4.6-6.2) 10^6/uL Hgb 14.4 (14.0-18.0) g/dL Hct 43.9 (40.0-54.0) % MCV 95.0 (80-100) fL MCH 31.2 (27.0-34.0) pg MCHC 32.8 L (33.0-35.0) g/dL Plt Count 221 (150-450) 10^3/uL Neut % (Auto) 75.2 (42.2-75.2) % Lymph % (Auto) 12.5 L (20.5-50.1) % Motley % (Auto) 8.9 H (2-8) % Eos % (Auto) 3.1 H (1.0-3.0) % Baso % (Auto) 0.3 (0.0-1.0) % PT 10.6 (9.0-12.0) SEC INR 1.1 (0.9-1.2) Sodium 146 H (136-145) mmol/L Potassium 3.2 L (3.5-5.1) mmol/L Chloride 106 (98-107) mmol/L Carbon Dioxide 26 (21-32) mmol/L Anion Gap 17.2 H (7-13) mEq/L BUN 25 H (7-18) mg/dL Creatinine 1.19 (0.70-1.30) mg/dL Est Cr Clr Drug Dosing 51.89 mL/min Estimated GFR (MDRD) 60 BUN/Creatinine Ratio 21.0 (No establ ref range) Glucose 113 H (74-99) mg/dL Calcium 8.8 (8.5-10.1) mg/dL Total Bilirubin 0.6 (0.2-1.0) mg/dL AST 14 L (15-37) U/L ALT 19 (16-63) U/L Alkaline Phosphatase 79 (46-116) U/L Creatine Kinase 117 (39-308) U/L C-Reactive Protein 13.2 H (0.0-0.9) mg/dL Total Protein 6.9 (6.4-8.2) g/dL Albumin 3.1 L (3.4-5.0) g/dL Globulin 3.8 Albumin/Globulin Ratio 0.82 Amylase 44 (25-115) U/L SARS-CoV-2 RNA (DAYAMI) (NEGATIVE) 10/14/20 Range/Units 19:00 WBC (5.0-10.0) 10^3/uL RBC (4.6-6.2) 10^6/uL Hgb (14.0-18.0) g/dL Hct (40.0-54.0) % MCV (80-100) fL MCH (27.0-34.0) pg MCHC (33.0-35.0) g/dL Plt Count (150-450) 10^3/uL Neut % (Auto) (42.2-75.2) % Lymph % (Auto) (20.5-50.1) % Motley % (Auto) (2-8) % Eos % (Auto) (1.0-3.0) % Baso % (Auto) (0.0-1.0) % PT (9.0-12.0) SEC INR (0.9-1.2) Sodium (136-145) mmol/L Potassium (3.5-5.1) mmol/L Chloride (98-107) mmol/L Carbon Dioxide (21-32) mmol/L Anion Gap (7-13) mEq/L BUN (7-18) mg/dL Creatinine (0.70-1.30) mg/dL Est Cr Clr Drug Dosing mL/min Estimated GFR (MDRD) BUN/Creatinine Ratio (No establ ref range) Glucose (74-99) mg/dL Calcium (8.5-10.1) mg/dL Total Bilirubin (0.2-1.0) mg/dL AST (15-37) U/L ALT (16-63) U/L Alkaline Phosphatase (46-116) U/L Creatine Kinase (39-308) U/L C-Reactive Protein (0.0-0.9) mg/dL Total Protein (6.4-8.2) g/dL Albumin (3.4-5.0) g/dL Globulin Albumin/Globulin Ratio Amylase (25-115) U/L SARS-CoV-2 RNA (DAYAMI) Negative (NEGATIVE) Result Diagrams: 10/14/20 19:00 10/14/20 19:00 Problem List Initiated/Reviewed/Updated: Yes Orders Last 24hrs: Active Orders 24 hr Category Date Time Status Admission Diagnosis [ADT] Stat ADT 10/14/20 20:12 Ordered Admission Status [Patient Status] [ADT] Routine ADT 10/14/20 20:12 Active Oxygen Therapy [RC] PRN Care 10/14/20 21:32 Ordered VTE/DVT Education [RC] PER UNIT ROUTINE Care 10/14/20 21:32 Ordered Vital Signs [RC] Q4H Care 10/14/20 21:32 Ordered Consult to Wound Ostomy Continence Nurse [CONS] Routine Cons 10/14/20 21:32 Ordered OT Evaluation and Treatment [CONS] Routine Cons 10/14/20 21:32 Ordered PT Evaluation and Treatment [CONS] Routine Cons 10/14/20 21:32 Ordered Regular Diet [DIET] Diet 10/14/20 Breakfast Ordered CULTURE BLOOD [BC] Stat Lab 10/14/20 19:00 Received UA RFX PHILIP AND CULT IF INDIC [URIN] Stat Lab 10/14/20 18:52 Ordered Acetaminophen [TylenoL] Med 10/14/20 21:32 Ordered 650 mg PO Q4H PRN Acetaminophen/oxyCODONE [Percocet 325-5 MG] Med 10/14/20 21:32 Ordered 1 tab PO Q4H PRN Docusate Sodium [Colace] Med 10/14/20 21:32 Ordered 100 mg PO BID PRN Docusate Sodium/Sennosides [Senna Plus] Med 10/14/20 21:32 Ordered 1 tab PO BEDTIME PRN Heparin Sodium Med 10/15/20 09:00 Ordered 5,000 units SUBCUT Q12HR Ibuprofen [Motrin] Med 10/14/20 21:38 Ordered 400 mg PO Q6HR PRN Melatonin Med 10/14/20 21:38 Ordered 3 mg PO BEDTIME PRN Metoprolol Tartrate [Lopressor] Med 10/15/20 09:00 Ordered 75 mg PO BID Nystatin [Nystatin Ointment] Med 10/14/20 20:14 Active 1 gm TOP QID PRN Ondansetron [Zofran] Med 10/14/20 21:32 Ordered 4 mg IVPUSH Q4H PRN Tamsulosin [Flomax] Med 10/15/20 09:00 Ordered 0.4 mg PO DAILY bisacodyL [Dulcolax] Med 10/14/20 21:32 Ordered 5 mg PO DAILY PRN polyethylene glycoL 3350 [MiraLAX] Med 10/14/20 21:38 Ordered 17 gm PO DAILY PRN Resuscitation Status Routine Resus Stat 10/14/20 21:32 Ordered Medication Orders Acetaminophen (Acetaminophen 325 Mg Tab) 650 mg PO Q4H PRN PRN Reason: Pain (Mild 1-3)/fever Bisacodyl (Bisacodyl 5 Mg Tab) 5 mg PO DAILY PRN PRN Reason: Constipation Docusate Sodium (Docusate Sodium 100 Mg Cap) 100 mg PO BID PRN PRN Reason: Constipation Heparin Sodium (Porcine) (Heparin Sodium 5,000 Units/Ml Vial) 5,000 units SUBCUT Q12HR JOSLYN Ibuprofen (Ibuprofen 200 Mg Tab) 400 mg PO Q6HR PRN PRN Reason: Pain Melatonin (Melatonin 3 Mg Tab) 3 mg PO BEDTIME PRN PRN Reason: Sleep Metoprolol Tartrate (Metoprolol Tartrate 50 Mg Tab) 75 mg PO BID [facility] Nystatin (Nystatin Ointment 15 Gm Tube) 1 gm TOP QID PRN PRN Reason: Rash Ondansetron HCl (Ondansetron 4 Mg/2 Ml Sdv) 4 mg IVPUSH Q4H PRN PRN Reason: Nausea/Vomiting Oxycodone/Acetaminophen (Acetaminophen/Oxycodone 325-5 Mg Tab) 1 tab PO Q4H PRN PRN Reason: Pain (moderate 4-6) Polyethylene Glycol (Polyethylene Glycol 3350 Powder 17 Gm Packet) 17 gm PO DAILY PRN PRN Reason: Constipation Senna/Docusate Sodium (Docusate Sodium/Sennosides 50-8.6 Mg Tab) 1 tab PO BEDTIME PRN PRN Reason: Constipation Tamsulosin HCl (Tamsulosin 0.4 Mg Cap.Er) 0.4 mg PO DAILY [facility]
[2020-10-14] MEDS ORDERED: Metoprolol Tartrate 50 MG Tab PO ONE (22:01)
[2020-10-14] MEDS: Nystatin Ointment 15 GM Tube TOP PRN (22:42)
[2020-10-15] MEDS: Heparin Sodium 5,000 Units/ML Vial SUBCUT SCH ×2 (09:43→21:22)
[2020-10-15] MEDS: Tamsulosin 0.4 MG Cap.ER PO SCH (09:44)
[2020-10-15] MEDS: Metoprolol Tartrate 50 MG Tab PO SCH ×2 (09:44→21:22)
[2020-10-15] MEDS: Nystatin Ointment 15 GM Tube TOP PRN (09:47)
--- NOTE | 2020-10-15 09:54 | PCM.SN.2 ---
- Free Text/Narrative Note: This is an addindum to the H/P from October 14/2021 A/P Left hip injury X 2 months ago, advanced MS, urinary and stool incontinence, inability to ambulate PT/OT and social research assistant consultation. Pressure ulcer to sacral area: pressure ulcer precautions DVT prophylaxis with heparin Pt expressed his wishes to be listed as DNR/DNI
--- NOTE | 2020-10-15 10:00 | PCM.PN ---
- General Info Date of Service: 10/15/20 Admission Dx/Problem (Free Text): Admission Diagnosis/Problem Admission Diagnosis/Problem Weakness Subjective Update: no pain in Left hip since arrival to hospital Functional Status: Reports: Pain Controlled - Review of Systems General: Denies: Fever Pulmonary: Denies: Shortness of Breath Cardiovascular: Denies: Chest Pain Gastrointestinal: Reports: Other (stool incontenace ). Denies: Abdominal Pain Genitourinary: Reports: Other (urianry incontenence ). Denies: Dysuria Skin: Reports: Other (no pain to left hip) Neurological: Denies: Confusion Psychiatric: Denies: Confusion - Patient Data Vitals - Most Recent: Last Vital Signs Temp 98.5 F 10/15/20 08:00 Pulse 74 10/15/20 09:44 Resp 20 10/15/20 08:00 BP 106/59 L 10/15/20 09:44 Pulse Ox 96 10/15/20 08:00 Weight - Most Recent: 200 lb I&O - Last 24 Hours: Intake & Output 10/14/20 10/15/20 10/15/20 22:59 06:59 14:59 Intake Total 600 100 Balance 600 100 Lab Results Last 24 Hours: Laboratory Results - last 24 hr 10/14/20 10/14/20 10/14/20 Range/Units 19:00 19:00 19:00 WBC 11.0 H (5.0-10.0) 10^3/uL RBC 4.62 (4.6-6.2) 10^6/uL Hgb 14.4 (14.0-18.0) g/dL Hct 43.9 (40.0-54.0) % MCV 95.0 (80-100) fL MCH 31.2 (27.0-34.0) pg MCHC 32.8 L (33.0-35.0) g/dL Plt Count 221 (150-450) 10^3/uL Neut % (Auto) 75.2 (42.2-75.2) % Lymph % (Auto) 12.5 L (20.5-50.1) % Coffee % (Auto) 8.9 H (2-8) % Eos % (Auto) 3.1 H (1.0-3.0) % Baso % (Auto) 0.3 (0.0-1.0) % PT 10.6 (9.0-12.0) SEC INR 1.1 (0.9-1.2) Sodium 146 H (136-145) mmol/L Potassium 3.2 L (3.5-5.1) mmol/L Chloride 106 (98-107) mmol/L Carbon Dioxide 26 (21-32) mmol/L Anion Gap 17.2 H (7-13) mEq/L BUN 25 H (7-18) mg/dL Creatinine 1.19 (0.70-1.30) mg/dL Est Cr Clr Drug Dosing 51.89 mL/min Estimated GFR (MDRD) 60 BUN/Creatinine Ratio 21.0 (No establ ref range) Glucose 113 H (74-99) mg/dL Calcium 8.8 (8.5-10.1) mg/dL Total Bilirubin 0.6 (0.2-1.0) mg/dL AST 14 L (15-37) U/L ALT 19 (16-63) U/L Alkaline Phosphatase 79 (46-116) U/L Creatine Kinase 117 (39-308) U/L C-Reactive Protein 13.2 H (0.0-0.9) mg/dL Total Protein 6.9 (6.4-8.2) g/dL Albumin 3.1 L (3.4-5.0) g/dL Globulin 3.8 Albumin/Globulin Ratio 0.82 Amylase 44 (25-115) U/L SARS-CoV-2 RNA (DAYAMI) (NEGATIVE) 10/14/20 Range/Units 19:00 WBC (5.0-10.0) 10^3/uL RBC (4.6-6.2) 10^6/uL Hgb (14.0-18.0) g/dL Hct (40.0-54.0) % MCV (80-100) fL MCH (27.0-34.0) pg MCHC (33.0-35.0) g/dL Plt Count (150-450) 10^3/uL Neut % (Auto) (42.2-75.2) % Lymph % (Auto) (20.5-50.1) % Coffee % (Auto) (2-8) % Eos % (Auto) (1.0-3.0) % Baso % (Auto) (0.0-1.0) % PT (9.0-12.0) SEC INR (0.9-1.2) Sodium (136-145) mmol/L Potassium (3.5-5.1) mmol/L Chloride (98-107) mmol/L Carbon Dioxide (21-32) mmol/L Anion Gap (7-13) mEq/L BUN (7-18) mg/dL Creatinine (0.70-1.30) mg/dL Est Cr Clr Drug Dosing mL/min Estimated GFR (MDRD) BUN/Creatinine Ratio (No establ ref range) Glucose (74-99) mg/dL Calcium (8.5-10.1) mg/dL Total Bilirubin (0.2-1.0) mg/dL AST (15-37) U/L ALT (16-63) U/L Alkaline Phosphatase (46-116) U/L Creatine Kinase (39-308) U/L C-Reactive Protein (0.0-0.9) mg/dL Total Protein (6.4-8.2) g/dL Albumin (3.4-5.0) g/dL Globulin Albumin/Globulin Ratio Amylase (25-115) U/L SARS-CoV-2 RNA (DAYAMI) Negative (NEGATIVE) Med Orders - Current: Current Medications Acetaminophen (Acetaminophen 325 Mg Tab) 650 mg PO Q4H PRN PRN Reason: Pain (Mild 1-3)/fever Bisacodyl (Bisacodyl 5 Mg Tab) 5 mg PO DAILY PRN PRN Reason: Constipation Docusate Sodium (Docusate Sodium 100 Mg Cap) 100 mg PO BID PRN PRN Reason: Constipation Heparin Sodium (Porcine) (Heparin Sodium 5,000 Units/Ml Vial) 5,000 units SUBCUT Q12HR [facility] Last Admin: 10/15/20 09:43 Dose: 5,000 units Documented by: Ibuprofen (Ibuprofen 200 Mg Tab) 400 mg PO Q6HR PRN PRN Reason: Pain Melatonin (Melatonin 3 Mg Tab) 3 mg PO BEDTIME PRN PRN Reason: Sleep Last Admin: 10/14/20 22:19 Dose: 3 mg Documented by: Metoprolol Tartrate (Metoprolol Tartrate 50 Mg Tab) 75 mg PO BID [facility] Last Admin: 10/15/20 09:44 Dose: 75 mg Documented by: Nystatin (Nystatin Ointment 15 Gm Tube) 1 gm TOP QID PRN PRN Reason: Rash Last Admin: 10/15/20 09:47 Dose: 1 applic Documented by: Ondansetron HCl (Ondansetron 4 Mg/2 Ml Sdv) 4 mg IVPUSH Q4H PRN PRN Reason: Nausea/Vomiting Oxycodone/Acetaminophen (Acetaminophen/Oxycodone 325-5 Mg Tab) 1 tab PO Q4H PRN PRN Reason: Pain (moderate 4-6) Last Admin: 10/14/20 22:20 Dose: 1 tab Documented by: Polyethylene Glycol (Polyethylene Glycol 3350 Powder 17 Gm Packet) 17 gm PO DAILY PRN PRN Reason: Constipation Senna/Docusate Sodium (Docusate Sodium/Sennosides 50-8.6 Mg Tab) 1 tab PO BEDTIME PRN PRN Reason: Constipation Last Admin: 10/14/20 22:19 Dose: 1 tab Documented by: Tamsulosin HCl (Tamsulosin 0.4 Mg Cap.Er) 0.4 mg PO DAILY [facility] Last Admin: 10/15/20 09:44 Dose: 0.4 mg Documented by: Discontinued Medications Metoprolol Tartrate (Metoprolol Tartrate 50 Mg Tab) 75 mg PO ONETIME ONE Stop: 10/14/20 22:02 Last Admin: 10/14/20 22:19 Dose: 75 mg Documented by: - Exam Quality Assessment: No: Supplemental Oxygen General: Oriented Lungs: Clear to Auscultation Cardiovascular: Regular Rhythm GI/Abdominal Exam: Soft, Non-Tender (Male) Exam: Deferred Skin: Other (3 X3 cmX 0.2 CM in depth ulcer to sacral area) Neurological: Other (RT side weakness worse in leg ( chronic)) Psy/Mental Status: Alert - Patient Data Lab Results Last 24 hrs: Laboratory Results - last 24 hr 10/14/20 10/14/20 10/14/20 Range/Units 19:00 19:00 19:00 WBC 11.0 H (5.0-10.0) 10^3/uL RBC 4.62 (4.6-6.2) 10^6/uL Hgb 14.4 (14.0-18.0) g/dL Hct 43.9 (40.0-54.0) % MCV 95.0 (80-100) fL MCH 31.2 (27.0-34.0) pg MCHC 32.8 L (33.0-35.0) g/dL Plt Count 221 (150-450) 10^3/uL Neut % (Auto) 75.2 (42.2-75.2) % Lymph % (Auto) 12.5 L (20.5-50.1) % Coffee % (Auto) 8.9 H (2-8) % Eos % (Auto) 3.1 H (1.0-3.0) % Baso % (Auto) 0.3 (0.0-1.0) % PT 10.6 (9.0-12.0) SEC INR 1.1 (0.9-1.2) Sodium 146 H (136-145) mmol/L Potassium 3.2 L (3.5-5.1) mmol/L Chloride 106 (98-107) mmol/L Carbon Dioxide 26 (21-32) mmol/L Anion Gap 17.2 H (7-13) mEq/L BUN 25 H (7-18) mg/dL Creatinine 1.19 (0.70-1.30) mg/dL Est Cr Clr Drug Dosing 51.89 mL/min Estimated GFR (MDRD) 60 BUN/Creatinine Ratio 21.0 (No establ ref range) Glucose 113 H (74-99) mg/dL Calcium 8.8 (8.5-10.1) mg/dL Total Bilirubin 0.6 (0.2-1.0) mg/dL AST 14 L (15-37) U/L ALT 19 (16-63) U/L Alkaline Phosphatase 79 (46-116) U/L Creatine Kinase 117 (39-308) U/L C-Reactive Protein 13.2 H (0.0-0.9) mg/dL Total Protein 6.9 (6.4-8.2) g/dL Albumin 3.1 L (3.4-5.0) g/dL Globulin 3.8 Albumin/Globulin Ratio 0.82 Amylase 44 (25-115) U/L SARS-CoV-2 RNA (DAYAMI) (NEGATIVE) 10/14/20 Range/Units 19:00 WBC (5.0-10.0) 10^3/uL RBC (4.6-6.2) 10^6/uL Hgb (14.0-18.0) g/dL Hct (40.0-54.0) % MCV (80-100) fL MCH (27.0-34.0) pg MCHC (33.0-35.0) g/dL Plt Count (150-450) 10^3/uL Neut % (Auto) (42.2-75.2) % Lymph % (Auto) (20.5-50.1) % Coffee % (Auto) (2-8) % Eos % (Auto) (1.0-3.0) % Baso % (Auto) (0.0-1.0) % PT (9.0-12.0) SEC INR (0.9-1.2) Sodium (136-145) mmol/L Potassium (3.5-5.1) mmol/L Chloride (98-107) mmol/L Carbon Dioxide (21-32) mmol/L Anion Gap (7-13) mEq/L BUN (7-18) mg/dL Creatinine (0.70-1.30) mg/dL Est Cr Clr Drug Dosing mL/min Estimated GFR (MDRD) BUN/Creatinine Ratio (No establ ref range) Glucose (74-99) mg/dL Calcium (8.5-10.1) mg/dL Total Bilirubin (0.2-1.0) mg/dL AST (15-37) U/L ALT (16-63) U/L Alkaline Phosphatase (46-116) U/L Creatine Kinase (39-308) U/L C-Reactive Protein (0.0-0.9) mg/dL Total Protein (6.4-8.2) g/dL Albumin (3.4-5.0) g/dL Globulin Albumin/Globulin Ratio Amylase (25-115) U/L SARS-CoV-2 RNA (DAYAMI) Negative (NEGATIVE) Result Diagrams: 10/14/20 19:00 10/14/20 19:00 Sepsis Event Note - Evaluation Sepsis Screening Result: No Definite Risk - Focused Exam Vital Signs: Vital Signs Temp Pulse Pulse Resp BP BP Pulse Ox 10/15/20 09:44 74 106/59 L 10/15/20 08:00 98.5 F 74 20 106/59 L 96 10/14/20 22:19 90 136/67 - Problem List Review Problem List Initiated/Reviewed/Updated: Yes - My Orders Last 24 Hours: My Active Orders 10/14/20 21:32 Oxygen Therapy [RC] PRN VTE/DVT Education [RC] 08,20 Vital Signs [RC] 00,04,08,12,16,20 Consult to Wound Ostomy Continence Nurse [CONS] Routine OT Evaluation and Treatment [CONS] Routine PT Evaluation and Treatment [CONS] Routine Acetaminophen [TylenoL] 650 mg PO Q4H PRN Acetaminophen/oxyCODONE [Percocet 325-5 MG] 1 tab PO Q4H PRN Docusate Sodium [Colace] 100 mg PO BID PRN Docusate Sodium/Sennosides [Senna Plus] 1 tab PO BEDTIME PRN Ondansetron [Zofran] 4 mg IVPUSH Q4H PRN bisacodyL [Dulcolax] 5 mg PO DAILY PRN Resuscitation Status Routine 10/14/20 21:38 Ibuprofen [Motrin] 400 mg PO Q6HR PRN Melatonin 3 mg PO BEDTIME PRN polyethylene glycoL 3350 [MiraLAX] 17 gm PO DAILY PRN 10/14/20 22:52 Up With Assistance [RC] ASDIRECTED 10/15/20 09:00 Heparin Sodium 5,000 units SUBCUT Q12HR Metoprolol Tartrate [Lopressor] 75 mg PO BID Tamsulosin [Flomax] 0.4 mg PO DAILY - Plan Plan:: A/P Left hip injury X 2 months ago, advanced MS, urinary and stool incontinence, inability to ambulate PT/OT and social welfare research worker consultation. Pressure ulcer to sacral area: pressure ulcer precautions DVT prophylaxis with heparin Pt expressed his wishes to be listed as DNR/DNI Detailed discussion with pt and his son Tomer [phone]: for PT and social welfare research worker consultation
[2020-10-15] MEDS ORDERED: Potassium Chloride 10 MEQ Tab.ER PO ONE (10:05)
[2020-10-15] MEDS: Nystatin Topical Powder 30 GM Bottle TOP SCH ×3 (12:47→21:24)
[2020-10-15] MEDS ORDERED: Carboxymethylcellulose Sodium 1% Ophth Gel 0.4 ML UD EYEBOTH PRN (19:43)
[2020-10-16] MEDS: Nystatin Topical Powder 30 GM Bottle TOP SCH ×2 (07:59→15:43)
[2020-10-16] MEDS: Metoprolol Tartrate 50 MG Tab PO SCH ×2 (07:59→21:34)
[2020-10-16] MEDS: Tamsulosin 0.4 MG Cap.ER PO SCH (07:59)
[2020-10-16] MEDS: Heparin Sodium 5,000 Units/ML Vial SUBCUT SCH ×2 (07:59→21:35)
--- NOTE | 2020-10-16 11:15 | PCM.PN ---
- General Info Date of Service: 10/16/20 Functional Status: Reports: Pain Controlled - Review of Systems General: Denies: Fever Pulmonary: Denies: Shortness of Breath Cardiovascular: Denies: Chest Pain Gastrointestinal: Denies: Abdominal Pain Musculoskeletal: Reports: Joint Pain (mild left hip pain with movement ) - Patient Data Vitals - Most Recent: Last Vital Signs Temp 98.3 F 10/16/20 08:00 Pulse 69 10/16/20 08:00 Resp 18 10/16/20 08:00 BP 106/68 10/16/20 08:00 Pulse Ox 93 L 10/16/20 08:00 Weight - Most Recent: 200 lb I&O - Last 24 Hours: Intake & Output 10/15/20 10/16/20 10/16/20 22:59 06:59 14:59 Intake Total 600 80 Balance 600 80 [place] Results Last 24 Hours: Microbiology 10/14/20 19:00 Aerobic Blood Culture - Preliminary Blood NO GROWTH AFTER 1 DAY Anaerobic Blood Culture - Preliminary NO GROWTH AFTER 1 DAY Med Orders - Current: Current Medications Acetaminophen (Acetaminophen 325 Mg Tab) 650 mg PO Q4H PRN PRN Reason: Pain (Mild 1-3)/fever Artificial Tears (Carboxymethylcellulose Sodium 1% Ophth Gel 0.4 Ml Ud) 0 each EYEBOTH TID PRN PRN Reason: Dry Eyes Bisacodyl (Bisacodyl 5 Mg Tab) 5 mg PO DAILY PRN PRN Reason: Constipation Last Admin: 10/16/20 07:59 Dose: 5 mg Documented by: Docusate Sodium (Docusate Sodium 100 Mg Cap) 100 mg PO BID PRN PRN Reason: Constipation Heparin Sodium (Porcine) (Heparin Sodium 5,000 Units/Ml Vial) 5,000 units SUBCUT Q12HR [facility] Last Admin: 10/16/20 07:59 Dose: 5,000 units Documented by: Ibuprofen (Ibuprofen 200 Mg Tab) 400 mg PO Q6HR PRN PRN Reason: Pain Melatonin (Melatonin 3 Mg Tab) 3 mg PO BEDTIME PRN PRN Reason: Sleep Last Admin: 10/14/20 22:19 Dose: 3 mg Documented by: Metoprolol Tartrate (Metoprolol Tartrate 50 Mg Tab) 75 mg PO BID [facility] Last Admin: 10/16/20 07:59 Dose: 75 mg Documented by: Nystatin (Nystatin Ointment 15 Gm Tube) 1 gm TOP QID PRN PRN Reason: Rash Last Admin: 10/14/20 22:42 Dose: 1 applic Documented by: Nystatin (Nystatin Topical Powder 30 Gm Bottle) 0 gm TOP TID [facility] Last Admin: 10/16/20 07:59 Dose: 1 applic Documented by: Ondansetron HCl (Ondansetron 4 Mg/2 Ml Sdv) 4 mg IVPUSH Q4H PRN PRN Reason: Nausea/Vomiting Oxycodone/Acetaminophen (Acetaminophen/Oxycodone 325-5 Mg Tab) 1 tab PO Q4H PRN PRN Reason: Pain (moderate 4-6) Last Admin: 10/14/20 22:20 Dose: 1 tab Documented by: Polyethylene Glycol (Polyethylene Glycol 3350 Powder 17 Gm Packet) 17 gm PO DAILY PRN PRN Reason: Constipation Last Admin: 10/16/20 08:02 Dose: 17 gm Documented by: Senna/Docusate Sodium (Docusate Sodium/Sennosides 50-8.6 Mg Tab) 1 tab PO BEDTIME PRN PRN Reason: Constipation Last Admin: 10/14/20 22:19 Dose: 1 tab Documented by: Tamsulosin HCl (Tamsulosin 0.4 Mg Cap.Er) 0.4 mg PO DAILY [facility] Last Admin: 10/16/20 07:59 Dose: 0.4 mg Documented by: Discontinued Medications Metoprolol Tartrate (Metoprolol Tartrate 50 Mg Tab) 75 mg PO ONETIME ONE Stop: 10/14/20 22:02 Last Admin: 10/14/20 22:19 Dose: 75 mg Documented by: Potassium Chloride (Potassium Chloride 10 Meq Tab.Er) 20 meq PO ONETIME ONE Stop: 10/15/20 10:06 Last Admin: 10/15/20 11:01 Dose: 20 meq Documented by: - Exam Quality Assessment: No: Supplemental Oxygen General: Oriented Lungs: Clear to Auscultation Cardiovascular: Regular Rate, Regular Rhythm GI/Abdominal Exam: Normal Bowel Sounds, Soft (Male) Exam: Deferred Extremities: No Pedal Edema, Other (able to bend his left thigh with no pain) - Patient Data Result Diagrams: 10/14/20 19:00 10/14/20 19:00 [place] Results Last 24 hrs: Microbiology 10/14/20 19:00 Aerobic Blood Culture - Preliminary Blood NO GROWTH AFTER 1 DAY Anaerobic Blood Culture - Preliminary NO GROWTH AFTER 1 DAY Sepsis Event Note - Evaluation Sepsis Screening Result: No Definite Risk - Focused Exam Vital Signs: Vital Signs Temp Pulse Pulse Resp BP BP Pulse Ox 10/16/20 08:00 98.3 F 69 18 106/68 93 L 10/16/20 07:59 69 106/68 10/16/20 04:00 98.1 F 69 18 122/59 L 95 10/16/20 00:00 98.3 F 65 18 136/69 98 - Problem List Review Problem List Initiated/Reviewed/Updated: Yes - My Orders Last 24 Hours: My Active Orders 10/15/20 14:00 Nystatin [Nystop] See Dose Instructions TOP TID 10/15/20 19:43 Carboxymethylcellulose Sodium [Refresh Celluvisc] 0 each EYEBOTH TID PRN - Plan Plan:: A/P Left hip injury X 2 months ago, advanced MS, urinary and stool incontinence, inability to ambulate PT/OT and director social consultation. Pressure ulcer to sacral area: pressure ulcer precautions DVT prophylaxis with heparin Pt expressed his wishes to be listed as DNR/DNI Detailed discussion with pt and his son Tomer [phone] on October 15: for PT and director social consultation
[2020-10-16] MEDS ORDERED: Magnesium Hydroxide 400 MG/5 ML Susp 30 ML Cup PO PRN (14:22)
[2020-10-17] MEDS: Nystatin Topical Powder 30 GM Bottle TOP SCH ×4 (00:39→20:20)
[2020-10-17] MEDS: Tamsulosin 0.4 MG Cap.ER PO SCH (08:42)
[2020-10-17] MEDS: Metoprolol Tartrate 50 MG Tab PO SCH ×2 (08:42→20:15)
[2020-10-17] MEDS: Heparin Sodium 5,000 Units/ML Vial SUBCUT SCH ×2 (08:43→20:20)
--- NOTE | 2020-10-17 11:20 | PCM.PN ---
- General Info Date of Service: 10/17/20 Functional Status: Reports: Pain Controlled - Review of Systems General: Denies: Fever Pulmonary: Denies: Shortness of Breath Cardiovascular: Denies: Chest Pain Musculoskeletal: Reports: Joint Pain (mild pain to Left hip) Neurological: Denies: Confusion Psychiatric: Denies: Confusion - Patient Data Vitals - Most Recent: Last Vital Signs Temp 98.1 F 10/17/20 08:00 Pulse 74 10/17/20 08:42 Resp 18 10/17/20 08:00 BP 104/66 10/17/20 08:42 Pulse Ox 95 10/17/20 08:00 Weight - Most Recent: 200 lb I&O - Last 24 Hours: Intake & Output 10/16/20 10/17/20 10/17/20 22:59 06:59 14:59 Intake Total 660 100 240 Balance 660 100 240 [place] Results Last 24 Hours: Microbiology 10/14/20 19:00 Aerobic Blood Culture - Preliminary Blood NO GROWTH AFTER 2 DAYS Anaerobic Blood Culture - Preliminary NO GROWTH AFTER 2 DAYS Med Orders - Current: Current Medications Acetaminophen (Acetaminophen 325 Mg Tab) 650 mg PO Q4H PRN PRN Reason: Pain (Mild 1-3)/fever Artificial Tears (Carboxymethylcellulose Sodium 1% Ophth Gel 0.4 Ml Ud) 0 each EYEBOTH TID PRN PRN Reason: Dry Eyes Bisacodyl (Bisacodyl 5 Mg Tab) 5 mg PO DAILY PRN PRN Reason: Constipation Last Admin: 10/16/20 07:59 Dose: 5 mg Documented by: Docusate Sodium (Docusate Sodium 100 Mg Cap) 100 mg PO BID PRN PRN Reason: Constipation Heparin Sodium (Porcine) (Heparin Sodium 5,000 Units/Ml Vial) 5,000 units SUBCUT Q12HR [facility] Last Admin: 10/17/20 08:43 Dose: 5,000 units Documented by: Ibuprofen (Ibuprofen 200 Mg Tab) 400 mg PO Q6HR PRN PRN Reason: Pain Magnesium Hydroxide (Magnesium Hydroxide 400 Mg/5 Ml Susp 30 Ml Cup) 30 ml PO BID PRN PRN Reason: Constipation Melatonin (Melatonin 3 Mg Tab) 3 mg PO BEDTIME PRN PRN Reason: Sleep Last Admin: 10/14/20 22:19 Dose: 3 mg Documented by: Metoprolol Tartrate (Metoprolol Tartrate 50 Mg Tab) 75 mg PO BID [facility] Last Admin: 10/17/20 08:42 Dose: 75 mg Documented by: Nystatin (Nystatin Ointment 15 Gm Tube) 1 gm TOP QID PRN PRN Reason: Rash Last Admin: 10/14/20 22:42 Dose: 1 applic Documented by: Nystatin (Nystatin Topical Powder 30 Gm Bottle) 0 gm TOP TID [facility] Last Admin: 10/17/20 08:45 Dose: 1 applic Documented by: Ondansetron HCl (Ondansetron 4 Mg/2 Ml Sdv) 4 mg IVPUSH Q4H PRN PRN Reason: Nausea/Vomiting Oxycodone/Acetaminophen (Acetaminophen/Oxycodone 325-5 Mg Tab) 1 tab PO Q4H PRN PRN Reason: Pain (moderate 4-6) Last Admin: 10/14/20 22:20 Dose: 1 tab Documented by: Polyethylene Glycol (Polyethylene Glycol 3350 Powder 17 Gm Packet) 17 gm PO DAILY PRN PRN Reason: Constipation Last Admin: 10/16/20 08:02 Dose: 17 gm Documented by: Senna/Docusate Sodium (Docusate Sodium/Sennosides 50-8.6 Mg Tab) 1 tab PO BEDTIME PRN PRN Reason: Constipation Last Admin: 10/14/20 22:19 Dose: 1 tab Documented by: Tamsulosin HCl (Tamsulosin 0.4 Mg Cap.Er) 0.4 mg PO DAILY [facility] Last Admin: 10/17/20 08:42 Dose: 0.4 mg Documented by: Discontinued Medications Metoprolol Tartrate (Metoprolol Tartrate 50 Mg Tab) 75 mg PO ONETIME ONE Stop: 10/14/20 22:02 Last Admin: 10/14/20 22:19 Dose: 75 mg Documented by: Potassium Chloride (Potassium Chloride 10 Meq Tab.Er) 20 meq PO ONETIME ONE Stop: 10/15/20 10:06 Last Admin: 10/15/20 11:01 Dose: 20 meq Documented by: - Exam Quality Assessment: No: Supplemental Oxygen (Male) Exam: Deferred Extremities: Normal Inspection, Other (able to bend Left hip) Skin: Intact Neurological: No: No New Focal Deficit Psy/Mental Status: Alert, Normal Affect, Normal Mood - Patient Data Result Diagrams: 10/14/20 19:00 10/14/20 19:00 [place] Results Last 24 hrs: Microbiology 10/14/20 19:00 Aerobic Blood Culture - Preliminary Blood NO GROWTH AFTER 2 DAYS Anaerobic Blood Culture - Preliminary NO GROWTH AFTER 2 DAYS Sepsis Event Note - Evaluation Sepsis Screening Result: No Definite Risk - Focused Exam Vital Signs: Vital Signs Temp Pulse Pulse Resp BP BP Pulse Ox 10/17/20 08:42 74 104/66 10/17/20 08:00 98.1 F 74 18 104/66 95 10/17/20 04:00 98.3 F 69 18 116/59 L 94 L 10/17/20 00:00 98.7 F 65 18 107/64 95 - Problem List Review Problem List Initiated/Reviewed/Updated: Yes - My Orders Last 24 Hours: My Active Orders 10/16/20 14:22 Magnesium Hydroxide [Milk of Magnesia] 30 ml PO BID PRN - Plan Plan:: A/P Left hip injury X 2 months ago, advanced MS, urinary and stool incontinence, inability to ambulate PT/OT and social media marketing analyst consultation. Pressure ulcer to sacral area: pressure ulcer precautions DVT prophylaxis with heparin Pt expressed his wishes to be listed as DNR/DNI Detailed discussion with pt and his son Tomer [phone] on October 15: for PT and social media marketing analyst consultation
--- NOTE | 2020-10-18 08:38 | PCM.DCSUM1 ---
Discharge Summary - Hospital Course Free Text/Narrative:: 75 y/o F c/o L hip pain x 1 month. The painn is constant but increases with movement, rates it 7/10. Pt was evaluated at [facility] Sep 05 of this year after falling in his home and injuring is L leg. Pt was admitted but then on Sep 06 he was flown to [place] for cardiac workup. Pt was discharged from [place] on September 14 and sent to [facility] here in [place]. [facility] into the care of his two sons. Pt went to live at one of the son's house. The Pt's sons brought pt to ER because they cannot take care of him as he cannot bear weight on his L hip and therefore cannot get around the house. Sons report poor food intake but state he is drinking ok. Hx of MS and decreased mobility inability to walk since Aug 2020. Used to walk with walker Pt had urinary and stool incontinence. PSH: Stent to thoracic aortic aneurism, Appendicitis. 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 To consider outpt referrals with neurology and ortho. Pressure ulcer to sacral area: pressure ulcer precautions DVT prophylaxis with heparin Pt expressed his wishes to be listed as DNR/DNI - Discharge Data Discharge Date: 10/18/20 Discharge Disposition: DC/Tfer to [facility] Condition: Poor - Referral to Home Health Primary Care Physician: PCP None - Patient Summary/Data Consults: Consultations 10/14/20 21:32 Consult to Wound Ostomy Continence Nurse [CONS] Routine OT Evaluation and Treatment [CONS] Routine PT Evaluation and Treatment [CONS] Routine - Patient Instructions Other/Special Instructions: TO consider referrals to ortho about Left hip pain and spinal stenosis. and to neurology about MS. - Discharge Plan *PRESCRIPTION DRUG MONITORING PROGRAM REVIEWED*: No *COPY OF PRESCRIPTION DRUG MONITORING REPORT IN PATIENT DAWOOD: No Home Medications: Home Meds Ibuprofen 400 mg PO Q6HR PRN 10/14/20 [History] Melatonin 3 mg PO BEDTIME PRN 10/14/20 [History] Metoprolol Tartrate 75 mg PO BID 10/14/20 [History] Tamsulosin [Tamsulosin 24 Hr] 0.4 mg PO DAILY 10/14/20 [History] polyethylene glycoL 3350 [MiraLAX] 17 gm PO DAILY PRN 10/14/20 [History] Oxygen Therapy Mode: Room Air Referrals: PCP,None [Primary Care Provider] - - Discharge Summary/Plan Comment DC Time >30 min.: No - General Info Date of Service: 10/18/20 Functional Status: Reports: Pain Controlled - Review of Systems General: Denies: Fever Pulmonary: Denies: Shortness of Breath Cardiovascular: Denies: Chest Pain Neurological: Denies: Confusion Psychiatric: Reports: Confusion - Patient Data Vitals - Most Recent: Last Vital Signs Temp 97.8 F 10/18/20 07:52 Pulse 72 10/18/20 07:52 Resp 20 10/18/20 07:52 BP 123/68 10/18/20 07:52 Pulse Ox 93 L 10/18/20 07:52 Weight - Most Recent: 200 lb I&O - Last 24 hours: Intake & Output 10/17/20 10/18/20 10/18/20 22:59 06:59 14:59 Intake Total 220 Balance 220 Lab Results - Last 24 hrs: Laboratory Results - last 24 hr 10/18/20 Range/Units 06:00 SARS-CoV-2 RNA (DAYAMI) Negative (NEGATIVE) PHILIP Results - Last 24 hrs: Microbiology 10/14/20 19:00 Aerobic Blood Culture - Preliminary Blood NO GROWTH AFTER 3 DAYS Anaerobic Blood Culture - Preliminary NO GROWTH AFTER 3 DAYS Med Orders - Current: Current Medications Acetaminophen (Acetaminophen 325 Mg Tab) 650 mg PO Q4H PRN PRN Reason: Pain (Mild 1-3)/fever Artificial Tears (Carboxymethylcellulose Sodium 1% Ophth Gel 0.4 Ml Ud) 0 each EYEBOTH TID PRN PRN Reason: Dry Eyes Bisacodyl (Bisacodyl 5 Mg Tab) 5 mg PO DAILY PRN PRN Reason: Constipation Last Admin: 10/16/20 07:59 Dose: 5 mg Documented by: Docusate Sodium (Docusate Sodium 100 Mg Cap) 100 mg PO BID PRN PRN Reason: Constipation Heparin Sodium (Porcine) (Heparin Sodium 5,000 Units/Ml Vial) 5,000 units SUBCUT Q12HR JOSLYN Last Admin: 10/17/20 20:20 Dose: 5,000 units Documented by: Ibuprofen (Ibuprofen 200 Mg Tab) 400 mg PO Q6HR PRN PRN Reason: Pain Magnesium Hydroxide (Magnesium Hydroxide 400 Mg/5 Ml Susp 30 Ml Cup) 30 ml PO BID PRN PRN Reason: Constipation Melatonin (Melatonin 3 Mg Tab) 3 mg PO BEDTIME PRN PRN Reason: Sleep Last Admin: 10/14/20 22:19 Dose: 3 mg Documented by: Metoprolol Tartrate (Metoprolol Tartrate 50 Mg Tab) 75 mg PO BID [facility] Last Admin: 10/17/20 20:15 Dose: 75 mg Documented by: Nystatin (Nystatin Ointment 15 Gm Tube) 1 gm TOP QID PRN PRN Reason: Rash Last Admin: 10/14/20 22:42 Dose: 1 applic Documented by: Nystatin (Nystatin Topical Powder 30 Gm Bottle) 0 gm TOP TID [facility] Last Admin: 10/17/20 20:20 Dose: 1 applic Documented by: Ondansetron HCl (Ondansetron 4 Mg/2 Ml Sdv) 4 mg IVPUSH Q4H PRN PRN Reason: Nausea/Vomiting Oxycodone/Acetaminophen (Acetaminophen/Oxycodone 325-5 Mg Tab) 1 tab PO Q4H PRN PRN Reason: Pain (moderate 4-6) Last Admin: 10/14/20 22:20 Dose: 1 tab Documented by: Polyethylene Glycol (Polyethylene Glycol 3350 Powder 17 Gm Packet) 17 gm PO DAILY PRN PRN Reason: Constipation Last Admin: 10/16/20 08:02 Dose: 17 gm Documented by: Senna/Docusate Sodium (Docusate Sodium/Sennosides 50-8.6 Mg Tab) 1 tab PO BEDTIME PRN PRN Reason: Constipation Last Admin: 10/14/20 22:19 Dose: 1 tab Documented by: Tamsulosin HCl (Tamsulosin 0.4 Mg Cap.Er) 0.4 mg PO DAILY [facility] Last Admin: 10/17/20 08:42 Dose: 0.4 mg Documented by: Discontinued Medications Metoprolol Tartrate (Metoprolol Tartrate 50 Mg Tab) 75 mg PO ONETIME ONE Stop: 10/14/20 22:02 Last Admin: 10/14/20 22:19 Dose: 75 mg Documented by: Potassium Chloride (Potassium Chloride 10 Meq Tab.Er) 20 meq PO ONETIME ONE Stop: 10/15/20 10:06 Last Admin: 10/15/20 11:01 Dose: 20 meq Documented by: - Exam Quality Assessment: Denies: Supplemental Oxygen General: Reports: Oriented HEENT: Reports: EOMI Lungs: Reports: Clear to Auscultation Cardiovascular: Reports: Regular Rate, Regular Rhythm GI/Abdominal Exam: Soft (Male) Exam: Deferred Rectal (Males) Exam: Deferred Skin: Reports: Other (decubetus to lower back) Neurological: Reports: No New Focal Deficit Psy/Mental Status: Reports: Alert, Normal Affect
[2020-10-18] MEDS: Metoprolol Tartrate 50 MG Tab PO SCH (09:06)
[2020-10-18] MEDS: Tamsulosin 0.4 MG Cap.ER PO SCH (09:06)
[2020-10-18] MEDS: Heparin Sodium 5,000 Units/ML Vial SUBCUT SCH (09:08)
[2020-10-18] MEDS: Nystatin Topical Powder 30 GM Bottle TOP SCH (09:11)
== END 2020-10-18 09:30 | DRG 948 ==
LOC: DL.ED 18:19 → DL.MS 20:12
PROVIDERS: ADMIT Internal Medicine; ATTEND Internal Medicine
DX: L89.303 Pressure ulcer of unspecified buttock, stage 3 (principal); E87.6 Hypokalemia; M25.552 Pain in left hip; B35.9 Dermatophytosis, unspecified; G35 Multiple sclerosis; Z95.5 Presence of coronary angioplasty implant and graft; R53.1 Weakness; R33.9 Retention of urine, unspecified; Z88.8 Allergy status to other drugs, medicaments and biological substances; Z79.899 Other long term (current) drug therapy; K59.09 Other constipation; Z90.89 Acquired absence of other organs; Z90.49 Acquired absence of other specified parts of digestive tract; Z66 Do not resuscitate; L89.159 Pressure ulcer of sacral region, unspecified stage; R32 Unspecified urinary incontinence; Z20.822 Contact with and (suspected) exposure to COVID-19
CPT/HCPCS: 36415; 73700; 80053; 82150; 82550; 85025; 85610; 86140; 87040; 99284 ×2; U0002; 97162-GP; 97166-GO; A9270-GY; J1644

== ENCOUNTER 2021-03-10 22:02 | Emergency (ER) | payer MEDICARE, BC ==
--- NOTE | 2021-03-10 23:16 | EDM.PDOC ---
ED HPI GENERAL MEDICAL PROBLEM - General Chief Complaint: Genitourinary Problem Stated Complaint: AMBULANCE Time Seen by Provider: 03/10/21 23:07 Source of Information: Reports: Patient, RN Notes Reviewed History Limitations: Reports: No Limitations - History of Present Illness INITIAL COMMENTS - FREE TEXT/NARRATIVE: Pt is here because his romero stopped draining over the last 3 days and he is feeling a lot of pressure in his lower abdomen. He denies any fevers or chills. He has had this romero in for about 1 month. He did not note any blood in it until after they tried to flush it at home and change the catheter. None of his interventions worked so he came to the ER. Bladder scan on arrival was about 800 cc. Romero was changed here with release of about 900 cc of blood tinged urine. Pt reports he is feeling much better. He denies any fevers or chills. Duration: Day(s): (3) Location: Reports: Abdomen - Related Data Allergies Allergy/AdvReac Type Severity Reaction Status Date / Time atorvastatin AdvReac Intermediate Muscle Verified 10/14/20 18:32 Aches Home Meds: Home Meds Ibuprofen 400 mg PO Q6HR PRN 10/14/20 [History] Melatonin 3 mg PO BEDTIME PRN 10/14/20 [History] Metoprolol Tartrate 75 mg PO BID 10/14/20 [History] Tamsulosin [Tamsulosin 24 Hr] 0.4 mg PO DAILY 10/14/20 [History] polyethylene glycoL 3350 [MiraLAX] 17 gm PO DAILY PRN 10/14/20 [History] Past Medical History HEENT History: Reports: None Cardiovascular History: Reports: Stents Respiratory History: Reports: None Gastrointestinal History: Reports: Chronic Constipation Genitourinary History: Reports: Retention, Urinary, Urinary Incontinence Musculoskeletal History: Reports: Fracture, Other (See Below) Other Musculoskeletal History: MS Neurological History: Reports: None, MS Psychiatric History: Reports: None Endocrine/Metabolic History: Reports: None Hematologic History: Reports: None Oncologic (Cancer) History: Reports: None Dermatologic History: Reports: None - Infectious Disease History Infectious Disease History: Reports: None - Past Surgical History Head Surgeries/Procedures: Reports: None HEENT Surgical History: Reports: Tonsillectomy Cardiovascular Surgical History: Reports: Other (See Below) Other Cardiovascular Surgeries/Procedures: Aortic stent GI Surgical History: Reports: Appendectomy Male Surgical History: Reports: None Musculoskeletal Surgical History: Reports: None Social & Family History - Family History Family Medical History: No Pertinent Family History - Caffeine Use Caffeine Use: Reports: None ED ROS GENERAL - Review of Systems Review Of Systems: Comprehensive ROS is negative, except as noted in HPI. ED EXAM, RENAL/ - Physical Exam Exam: See Below Exam Limited By: No Limitations General Appearance: Alert, WD/WN, No Apparent Distress Eye Exam: Bilateral Eye: Normal Inspection Throat/Mouth: Normal Inspection, Normal Voice, No Airway Compromise Head: Atraumatic, Normocephalic Neck: Supple, Non-Tender Respiratory/Chest: No Respiratory Distress, Lungs Clear, Normal Breath Sounds, No Accessory Muscle Use Cardiovascular: Normal Peripheral Pulses, Regular Rate, Rhythm, No Murmur GI/Abdominal: Soft, Non-Tender (Male) Exam: Other (romero in place) Rectal (Males) Exam: Deferred Back Exam: Normal Inspection, Full Range of Motion Extremities: Normal Inspection, Normal Capillary Refill Neurological: Alert, Oriented, Normal Cognition, No Motor/Sensory Deficits Psychiatric: Normal Affect, Normal Mood Skin Exam: Warm, Dry, Intact, Normal Color, No Rash Lymphatic: No Adenopathy Course - Vital Signs Last Recorded V/S: Last Vital Signs Temp 99.1 F 03/10/21 22:04 Pulse 101 H 03/10/21 22:04 Resp 18 03/10/21 22:04 BP 148/80 H 03/10/21 22:04 Pulse Ox 97 03/10/21 22:04 - Orders/Labs/Meds Orders: Active Orders 24 hr Category Date Time Status CULTURE URINE [RM] Stat Lab 03/10/21 23:07 Received cefTRIAXone 1 GM,Lidocaine 1% 2.1 ML Med 03/11/21 00:26 Ordered cefTRIAXone [Rocephin] 1 gm Lidocaine 1% [Xylocaine-MPF 1%] 2.1 ml IM ONETIME Medication Orders Ceftriaxone Sodium 1 gm/ (Lidocaine HCl 2.1 ml) 0 gm IM ONETIME ONE Stop: 03/11/21 00:27 Labs: Laboratory Tests 03/10/21 03/10/21 03/10/21 Range/Units 23:07 23:20 23:20 WBC 19.4 H (5.0-10.0) 10^3/uL RBC 4.82 (4.6-6.2) 10^6/uL Hgb 14.7 (14.0-18.0) g/dL Hct 44.5 (40.0-54.0) % MCV 92.3 (80-100) fL MCH 30.5 (27.0-34.0) pg MCHC 33.0 (33.0-35.0) g/dL Plt Count 248 (150-450) 10^3/uL Neut % (Auto) 84.6 H (42.2-75.2) % Lymph % (Auto) 6.9 L (20.5-50.1) % [place] % (Auto) 7.2 (2-8) % Eos % (Auto) 1.1 (1.0-3.0) % Baso % (Auto) 0.2 (0.0-1.0) % Sodium 142 (136-145) mmol/L Potassium 3.9 (3.5-5.1) mmol/L Chloride 104 (98-107) mmol/L Carbon Dioxide 28 (21-32) mmol/L Anion Gap 13.9 H (7-13) mEq/L BUN 12 (7-18) mg/dL Creatinine 0.97 (0.70-1.30) mg/dL Est Cr Clr Drug Dosing 60.57 mL/min Estimated GFR (MDRD) > 60 BUN/Creatinine Ratio 12.4 (No establ ref range) Glucose 115 H (70-99) mg/dL Calcium 9.0 (8.5-10.1) mg/dL Total Bilirubin 0.6 (0.2-1.0) mg/dL AST 11 L (15-37) U/L ALT 18 (16-63) U/L Alkaline Phosphatase 101 (46-116) U/L Total Protein 6.9 (6.4-8.2) g/dL Albumin 3.3 L (3.4-5.0) g/dL Globulin 3.6 Albumin/Globulin Ratio 0.92 Urine Color [place] (YELLOW) Urine Appearance Cloudy (CLEAR) Urine pH 7.0 (5.0-9.0) Ur Specific [place] 1.015 (1.005-1.030) Urine Protein 100 H (NEGATIVE) Urine Glucose (UA) Negative (NEGATIVE) Urine Ketones Negative (NEGATIVE) Urine Occult Blood Large H (NEGATIVE) Urine Nitrite Negative (NEGATIVE) Urine Bilirubin Negative (NEGATIVE) Urine Urobilinogen 0.2 (0.2-1.0) mg/dL Ur Leukocyte Esterase Large H (NEGATIVE) Urine RBC >100 H (0-5) /HPF Urine WBC 75-100 H (0-5/HPF) /HPF Ur Epithelial Cells Rare (NOT SEEN) /HPF Amorphous Sediment Few (NOT SEEN) /HPF Urine Bacteria Few (0-FEW/HPF) /HPF Urine Mucus Not seen (NOT SEEN) /LPF Meds: Medications Generic Name Dose Route Start Last Admin Trade Name Freq PRN Reason Stop Dose Admin Ceftriaxone Sodium 1 gm/ 0 gm 03/11/21 00:26 Lidocaine HCl 2.1 ml IM 03/11/21 00:27 ONETIME ONE Departure - Departure Time of Disposition: 00:27 Disposition: Home, Self-Care 01 Condition: Good Clinical Impression: UTI, Urinary tract infectious disease Romero catheter problem Qualifiers: Encounter type: initial encounter Qualified Code(s): T83.9XXA - Unspecified complication of genitourinary prosthetic device, implant and graft, initial encounter - Discharge Information *PRESCRIPTION DRUG MONITORING PROGRAM REVIEWED*: Not Applicable *COPY OF PRESCRIPTION DRUG MONITORING REPORT IN PATIENT [place]WOOD: Not Applicable Instructions: Indwelling Urinary Catheter Care, Adult, Urinary Tract Infection, Adult, [id number] Forms: ED Department Discharge Additional Instructions: Rocephin shot given in the ER for the UTI Monitor for signs of recurrence of the obstruction. If this occurs, call/return to the ER Follow up with your primary care provider in 3-5 days Sepsis Event Note (ED) - Focused Exam Vital Signs: Vital Signs Temp Pulse Resp BP Pulse Ox 03/10/21 22:04 99.1 F 101 H 18 148/80 H 97 - My Orders Last 24 Hours: My Active Orders 03/10/21 23:07 CULTURE URINE [RM] Stat 03/11/21 00:26 cefTRIAXone 1 GM,Lidocaine 1% 2.1 ML cefTRIAXone [Rocephin] 1 gm Lidocaine 1% [Xylocaine-MPF 1%] 2.1 ml IM ONETIME - Assessment/Plan Last 24 Hours: My Active Orders 03/10/21 23:07 CULTURE URINE [RM] Stat 03/11/21 00:26 cefTRIAXone 1 GM,Lidocaine 1% 2.1 ML cefTRIAXone [Rocephin] 1 gm Lidocaine 1% [Xylocaine-MPF 1%] 2.1 ml IM ONETIME
[2021-03-10 23:43] LABS: ANION GAP 13.9 mEq/L (7-13); CHLORIDE,CL 104 mmol/L (98-107); SODIUM,NA 142 mmol/L (136-145)
[2021-03-11] MEDS ORDERED: cefTRIAXone 1 GM, Lidocaine 1% 2.1 ML IM ONE ×2 (00:26)
== END 2021-03-11 01:05 | disposition home or self-care (01) ==
LOC: DL.ED 22:02
DX: T83.9XXA Unspecified complication of genitourinary prosthetic device, implant and graft, initial encounter (principal); N39.0 Urinary tract infection, site not specified; Z88.8 Allergy status to other drugs, medicaments and biological substances; Z79.899 Other long term (current) drug therapy
CPT/HCPCS: 36415; 51702; 80053; 81001; 85025; 87086; 87088; 87186; 96372; 99284-25; J0696

== ENCOUNTER 2021-04-13 12:59 | Inpatient (IN) | payer MEDICARE, BC ==
--- NOTE | 2021-04-13 13:00 | EDM.PDOC ---
"ED HPI GENERAL MEDICAL PROBLEM - General Chief Complaint: Genitourinary Problem Stated Complaint: IN BY AMBULANCE Time Seen by Provider: 04/13/21 13:00 Source of Information: Reports: Patient, EMS, Old Records, RN, RN Notes Reviewed History Limitations: Reports: No Limitations - History of Present Illness INITIAL COMMENTS - FREE TEXT/NARRATIVE: Pt arrives to ER via EMS from home for evaluation of bladder pain, discolored urine. Pt reports that his chronic indwelling Whyte catheter was changed last week, but he feels like he has an infection. Pt presents with yellow, thick, c reamy urine in the catheter tube. He is noted to have a dry cough, but states that it is chronic and stable. He denies fever or chills, N/V, or diarrhea. Pt has Hx of MS. He lives at home with assistance of caregivers and his sons. Onset: Gradual, Unknown/Unsure Duration: Constant, Getting Worse Location: Reports: Other (Urinary) Quality: Reports: Ache, Burning, Pressure Severity: Severe Improves with: Reports: None Worsens with: Reports: None Associated Symptoms: Reports: No Other Symptoms Lower Abdomen Pain Score (Numeric/FACES): 4 - Related Data Allergies Allergy/AdvReac Type Severity Reaction Status Date / Time atorvastatin AdvReac Intermediate Muscle Verified 10/14/20 18:32 Aches Home Meds: Home Meds Ibuprofen 400 mg PO Q6HR PRN 10/14/20 [History] Melatonin 3 mg PO BEDTIME PRN 10/14/20 [History] Metoprolol Tartrate 75 mg PO BID 10/14/20 [History] Tamsulosin [Tamsulosin 24 Hr] 0.4 mg PO DAILY 10/14/20 [History] polyethylene glycoL 3350 [MiraLAX] 17 gm PO DAILY PRN 10/14/20 [History] Past Medical History HEENT History: Reports: None Cardiovascular History: Reports: Stents Respiratory History: Reports: None Gastrointestinal History: Reports: Chronic Constipation Genitourinary History: Reports: Retention, Urinary, Urinary Incontinence Musculoskeletal History: Reports: Fracture, Other (See Below) Other Musculoskeletal History: MS Neurological History: Reports: None, MS Psychiatric History: Reports: None Endocrine/Metabolic History: Reports: None Hematologic History: Reports: None Oncologic (Cancer) History: Reports: None Dermatologic History: Reports: None - Infectious Disease History Infectious Disease History: Reports: None - Past Surgical History Head Surgeries/Procedures: Reports: None HEENT Surgical History: Reports: Tonsillectomy Cardiovascular Surgical History: Reports: Other (See Below) Other Cardiovascular Surgeries/Procedures: Aortic stent GI Surgical History: Reports: Appendectomy Male Surgical History: Reports: None Musculoskeletal Surgical History: Reports: None Social & Family History - Family History Family Medical History: No Pertinent Family History - Caffeine Use Caffeine Use: Reports: None - Living Situation & Occupation Living situation: Reports: Single, with Family Occupation: Retired ED ROS GENERAL - Review of Systems Review Of Systems: Comprehensive ROS is negative, except as noted in HPI. ED EXAM, RENAL/ - Physical Exam Exam: See Below Exam Limited By: No Limitations General Appearance: Alert, No Apparent Distress Eye Exam: Bilateral Eye: Normal Inspection Ears: Normal External Exam, Hearing Grossly Normal Nose: Normal Inspection, No Blood Throat/Mouth: Normal Inspection, Normal Lips, Normal Voice, No Airway Compromise Head: Atraumatic, Normocephalic Neck: Normal Inspection, Non-Tender Respiratory/Chest: No Respiratory Distress, Lungs Clear, No Accessory Muscle Use, Chest Non-Tender, Decreased Breath Sounds. No: Crackles, Rales, Rhonchi, Wheezing Cardiovascular: Regular Rate, Rhythm, Tachycardia GI/Abdominal: Normal Bowel Sounds, Soft, Tender (Suprapubic). No: Guarding, Rigid, Rebound (Male) Exam: Other (Indwelling Whyte catheter with purulent appearing urine) Rectal (Males) Exam: Deferred Back Exam: Normal Inspection Extremities: Normal Capillary Refill, Pedal Edema, Other (Abrasion to Rt knee, appear to be a few days old, no sign of infection.). No: Joint Swelling Neurological: Alert, Oriented, Other (Chronic MS related deficits, no acute motor deficits.) Psychiatric: Normal Mood Skin Exam: Warm, Dry Course - Vital Signs Last Recorded V/S: Last Vital Signs Temp 97.9 F 04/13/21 13:10 Pulse 98 04/13/21 14:56 Resp 26 H 04/13/21 14:56 BP 140/81 04/13/21 14:56 Pulse Ox 93 L 04/13/21 14:56 - Orders/Labs/Meds Orders: Active Orders 24 hr Category Date Time Status Peripheral IV Care [RC] . DIRECTED Care 04/13/21 13:21 Active CBC WITH AUTO DIFF [HEME] Stat Lab 04/13/21 13:40 Results CULTURE BLOOD [BC] Stat Lab 04/13/21 13:40 Received CULTURE BLOOD [BC] Stat Lab 04/13/21 13:48 Received CULTURE URINE [RM] Stat Lab 04/13/21 14:30 Received MANUAL DIFFERENTIAL QA/NC [HEME] Stat Lab 04/13/21 13:40 Results REFLEX LACTIC ACID YES OR NO [CHEM] Routine Lab 04/13/21 14:30 Received UA W/MICROSCOPIC [URIN] Stat Lab 04/13/21 14:30 Results Sodium Chloride 0.9% [Normal Saline] 1,000 ml Med 04/13/21 14:14 Active IV .BOLUS Sodium Chloride 0.9% [Normal Saline] 1,000 ml Med 04/13/21 14:56 Active IV .BOLUS Sodium Chloride 0.9% [Saline Flush] Med 04/13/21 13:20 Active 10 ml FLUSH ASDIRECTED PRN VANCOmycin 1.5 GM/300 ML 1.5 gm Med 04/13/21 15:00 Active Premix Bag 1 bag IV ONETIME Blood Culture x2 Reflex Set [OM.PC] Stat Oth 04/13/21 13:20 Ordered Isolation [COMM] Routine Oth 04/13/21 13:21 Active Peripheral IV Insertion Adult [OM.PC] Stat Oth 04/13/21 13:21 Ordered Medication Orders Sodium Chloride (Normal Saline) 1,000 mls @ 999 mls/hr IV .BOLUS ONE Stop: 04/13/21 15:14 Last Admin: 04/13/21 14:42 Dose: 999 mls/hr Documented by: NATALY Vancomycin HCl 1.5 gm/ Premix 300 mls @ 200 mls/hr IV ONETIME ONE Stop: 04/13/21 16:29 Last Admin: 04/13/21 14:48 Dose: 200 mls/hr Documented by: DONNAAM Sodium Chloride (Normal Saline) 1,000 mls @ 999 mls/hr IV .BOLUS ONE Stop: 04/13/21 15:56 Last Admin: 04/13/21 15:01 Dose: 999 mls/hr Documented by: NATALY Sodium Chloride (Sodium Chloride 0.9% 10 Ml Syringe) 10 ml FLUSH ASDIRECTED PRN PRN Reason: Keep Vein Open Last Admin: 04/13/21 13:42 Dose: 10 ml Documented by: NATALY Labs: Laboratory Tests 04/13/21 04/13/21 04/13/21 Range/Units 13:40 13:40 13:40 WBC 34.2 H* (5.0-10.0) 10^3/uL RBC 5.17 (4.6-6.2) 10^6/uL Hgb 15.9 (14.0-18.0) g/dL Hct 46.5 (40.0-54.0) % MCV 89.9 (80-100) fL MCH 30.8 (27.0-34.0) pg MCHC 34.2 (33.0-35.0) g/dL Plt Count 100 L D (150-450) 10^3/uL Neut % (Auto) 94.3 H (42.2-75.2) % Lymph % (Auto) 1.5 L (20.5-50.1) % [place] % (Auto) 4.1 (2-8) % Eos % (Auto) 0.1 L (1.0-3.0) % Baso % (Auto) 0.0 (0.0-1.0) % Add Manual Diff Yes Sodium 135 L (136-145) mmol/L Potassium 5.7 H D (3.5-5.1) mmol/L Chloride 98 (98-107) mmol/L Carbon Dioxide 19 L (21-32) mmol/L Anion Gap 23.7 H (7-13) mEq/L BUN 81 H D (7-18) mg/dL Creatinine 7.44 H* D (0.70-1.30) mg/dL Est Cr Clr Drug Dosing 7.90 mL/min Estimated GFR (MDRD) 7 BUN/Creatinine Ratio 10.9 (No establ ref range) Glucose 118 H (70-99) mg/dL Lactic Acid (0.4-2.0) mmol/L Calcium 8.5 (8.5-10.1) mg/dL Total Bilirubin 1.3 H (0.2-1.0) mg/dL AST 207 H (15-37) U/L ALT 93 H (16-63) U/L Alkaline Phosphatase 143 H (46-116) U/L C-Reactive Protein > 36.0 H (0.0-0.9) mg/dL B-Natriuretic Peptide 95 (0-100) pg/ml Total Protein 7.0 (6.4-8.2) g/dL Albumin 2.4 L (3.4-5.0) g/dL Globulin 4.6 Albumin/Globulin Ratio 0.52 Urine Color (YELLOW) Urine Appearance (CLEAR) Urine pH (5.0-9.0) Ur Specific [place] (1.005-1.030) Urine Protein (NEGATIVE) Urine Glucose (UA) (NEGATIVE) Urine Ketones (NEGATIVE) Urine Occult Blood (NEGATIVE) Urine Nitrite (NEGATIVE) Urine Bilirubin (NEGATIVE) Urine Urobilinogen (0.2-1.0) mg/dL Ur Leukocyte Esterase (NEGATIVE) Influenza Type A RNA Negative (NEGATIVE) Influenza Type B RNA Negative (NEGATIVE) SARS-CoV-2 RNA (DAYAMI) Negative (NEGATIVE) 04/13/21 04/13/21 Range/Units 13:40 14:30 WBC (5.0-10.0) 10^3/uL RBC (4.6-6.2) 10^6/uL Hgb (14.0-18.0) g/dL Hct (40.0-54.0) % MCV (80-100) fL MCH (27.0-34.0) pg MCHC (33.0-35.0) g/dL Plt Count (150-450) 10^3/uL Neut % (Auto) (42.2-75.2) % Lymph % (Auto) (20.5-50.1) % [place] % (Auto) (2-8) % Eos % (Auto) (1.0-3.0) % Baso % (Auto) (0.0-1.0) % Add Manual Diff Sodium (136-145) mmol/L Potassium (3.5-5.1) mmol/L Chloride (98-107) mmol/L Carbon Dioxide (21-32) mmol/L Anion Gap (7-13) mEq/L BUN (7-18) mg/dL Creatinine (0.70-1.30) mg/dL Est Cr Clr Drug Dosing mL/min Estimated GFR (MDRD) BUN/Creatinine Ratio (No establ ref range) Glucose (70-99) mg/dL Lactic Acid 3.6 H* (0.4-2.0) mmol/L Calcium (8.5-10.1) mg/dL Total Bilirubin (0.2-1.0) mg/dL AST (15-37) U/L ALT (16-63) U/L Alkaline Phosphatase (46-116) U/L C-Reactive Protein (0.0-0.9) mg/dL B-Natriuretic Peptide (0-100) pg/ml Total Protein (6.4-8.2) g/dL Albumin (3.4-5.0) g/dL Globulin Albumin/Globulin Ratio Urine Color Brown (YELLOW) Urine Appearance Other (CLEAR) Urine pH 5.5 (5.0-9.0) Ur Specific [place] 1.025 (1.005-1.030) Urine Protein >=300 H (NEGATIVE) Urine Glucose (UA) Negative (NEGATIVE) Urine Ketones 15 H (NEGATIVE) Urine Occult Blood Large H (NEGATIVE) Urine Nitrite Negative (NEGATIVE) Urine Bilirubin Small H (NEGATIVE) Urine Urobilinogen 0.2 (0.2-1.0) mg/dL Ur Leukocyte Esterase Large H (NEGATIVE) Influenza Type A RNA (NEGATIVE) Influenza Type B RNA (NEGATIVE) SARS-CoV-2 RNA (DAYAMI) (NEGATIVE) Meds: Medications Generic Name Dose Route Start Last Admin Trade Name Freq PRN Reason Stop Dose Admin Sodium Chloride 1,000 mls @ 999 mls/hr 04/13/21 14:14 04/13/21 14:42 Normal Saline IV 04/13/21 15:14 999 mls/hr .BOLUS ONE Administration Vancomycin HCl 1.5 gm/ Premix 300 mls @ 200 mls/hr 04/13/21 15:00 04/13/21 14:48 IV 04/13/21 16:29 200 mls/hr ONETIME ONE Administration Sodium Chloride 1,000 mls @ 999 mls/hr 04/13/21 14:56 04/13/21 15:01 Normal Saline IV 04/13/21 15:56 999 mls/hr .BOLUS ONE Administration Sodium Chloride 10 ml 04/13/21 13:20 04/13/21 13:42 Sodium Chloride 0.9% 10 Ml Syringe FLUSH 10 ml ASDIRECTED PRN Administration Keep Vein Open Discontinued Medications Generic Name Dose Route Start Last Admin Trade Name Freq PRN Reason Stop Dose Admin Lidocaine HCl 30 ml 09/30/21 15:11 Lidocaine 1% 30 Ml Sdv INJECT 04/13/21 15:12 ONETIME ONE Vancomycin HCl 1 dose 04/13/21 14:13 Pharmacy To Dose - Vancomycin .XX 04/13/21 14:14 ONETIME ONE - Radiology Interpretation Free Text/Narrative:: [facility] [place] [facility] Final Radiology Report Call: [phone] assistance Online chat: [email or web address] Name: TAYO MCDONALD Age: 76Years M Date: 04/13/2021 SSN: -- : [id number] Study: CR CHEST 1V FRONTAL Requesting Physician: SYDNI MEJIA Images: 1 Addl Studies: Provided Clinical History: cough, short of breath, possible COVID Contrast: Contrast Medium: Contrast Amount: Contrast Method: Page 1 of 2 PROCEDURE INFORMATION: Exam: XR Chest Exam date and time: 04/13/2021 2:47 PM Age: 76 years old Clinical indication: Cough and shortness of breath; Additional info: Cough, short of breath, possible covid TECHNIQUE: Imaging protocol: XR of the chest. Views: 1 view. COMPARISON: CR Chest 1V Frontal 09/06/2020 9:32 AM FINDINGS: Tubes, catheters and devices: There are sternal wires consistent with previous sternotomy incision. Lungs: The pulmonary vasculature is not engorged. The lungs are normal. Pleural spaces: There are no pleural effusions visualized. Heart/Mediastinum: The heart is not enlarged. Diaphragm: There is nonspecific elevation of the right hemidiaphragm. Bones/joints: There is mild scoliosis. IMPRESSION: No acute abnormality. Thank you for allowing us to participate in the care of your patient. Dictated and Authenticated by: Black Moura MD TAYO MCDONALD | Final Radiology Report CONFIDENTIALITY STATEMENT This report is intended only for use by the referring physician, and only in accordance with law. If you received this in error, call [phone]. Page 2 of 2 04/13/2021 2:54 PM Central Time ([place] & [place]) - Re-Assessments/Exams Free Text/Narrative Re-Assessment/Exam: 04/13/21 15:03 I explained the exam and lab results to the pt, including sepsis, UTI, and MAIA. Pt declines transfer to a higher level of care, siting that he will allow treatment with IVF, antibiotics, etc, but will no consider dialysis or a nephrology consultation. He states he has MS and is DNR/DNI code status. He is willing to be admitted locally to see if his kidney function improves with fluids. Departure - Departure Time of Disposition: 15:13 (admitted to Dr. Mast) Disposition: Admitted As Inpatient 66 Condition: Fair, Serious Clinical Impression: Acute kidney injury (nontraumatic) Catheter-associated urinary tract infection Qualifiers: Indwelling urinary catheter type: indwelling urethral catheter Encounter type: initial encounter Qualified Code(s): T83.511A - Infection and inflammatory reaction due to indwelling urethral catheter, initial encounter; N39.0 - Urinary tract infection, site not specified Sepsis Qualifiers: Sepsis type: sepsis due to unspecified organism Sepsis acute organ dysfunction status: with acute organ dysfunction Severe sepsis acute organ dysfunction type: acute renal failure Acute renal failure type: unspecified Severe sepsis shock status: without septic shock Qualified Code(s): A41.9 - Sepsis, unspecified organism; R65.20 - Severe sepsis without septic shock; N17.9 - Acute kidney failure, unspecified - Discharge Information *PRESCRIPTION DRUG MONITORING PROGRAM REVIEWED*: Not Applicable *COPY OF PRESCRIPTION DRUG MONITORING REPORT IN PATIENT [place]: Not Applicable Forms: ED Department Discharge Sepsis Event Note (ED) - Focused Exam Vital Signs: Vital Signs Temp Pulse Resp BP Pulse Ox 04/13/21 14:56 98 26 H 140/81 93 L 04/13/21 13:30 104 H 24 H 94 L 04/13/21 13:10 97.9 F 110 H 26 H 146/81 H 86 L - My Orders Last 24 Hours: My Active Orders 04/13/21 13:20 Sodium Chloride 0.9% [Saline Flush] 10 ml FLUSH ASDIRECTED PRN Blood Culture x2 Reflex Set [OM.PC] Stat 04/13/21 13:21 Peripheral IV Care [RC] . DIRECTED Isolation [COMM] Routine Peripheral IV Insertion Adult [OM.PC] Stat 04/13/21 13:40 CBC WITH AUTO DIFF [HEME] Stat CULTURE BLOOD [BC] Stat MANUAL DIFFERENTIAL QA/NC [HEME] Stat 04/13/21 13:48 CULTURE BLOOD [BC] Stat 04/13/21 14:14 Sodium Chloride 0.9% [Normal Saline] 1,000 ml IV .BOLUS 04/13/21 14:30 CULTURE URINE [RM] Stat REFLEX LACTIC ACID YES OR NO [CHEM] Routine UA W/MICROSCOPIC [URIN] Stat 04/13/21 14:56 Sodium Chloride 0.9% [Normal Saline] 1,000 ml IV .BOLUS 04/13/21 15:00 VANCOmycin 1.5 GM/300 ML 1.5 gm Premix Bag 1 bag IV ONETIME - Assessment/Plan Last 24 Hours: My Active Orders 04/13/21 13:20 Sodium Chloride 0.9% [Saline Flush] 10 ml FLUSH ASDIRECTED PRN Blood Culture x2 Reflex Set [OM.PC] Stat 04/13/21 13:21 Peripheral IV Care [RC] . DIRECTED Isolation [COMM] Routine Peripheral IV Insertion Adult [OM.PC] Stat 04/13/21 13:40 CBC WITH AUTO DIFF [HEME] Stat CULTURE BLOOD [BC] Stat MANUAL DIFFERENTIAL QA/NC [HEME] Stat 04/13/21 13:48 CULTURE BLOOD [BC] Stat 04/13/21 14:14 Sodium Chloride 0.9% [Normal Saline] 1,000 ml IV .BOLUS 04/13/21 14:30 CULTURE URINE [RM] Stat REFLEX LACTIC ACID YES OR NO [CHEM] Routine UA W/MICROSCOPIC [URIN] Stat 04/13/21 14:56 Sodium Chloride 0.9% [Normal Saline] 1,000 ml IV .BOLUS 04/13/21 15:00 VANCOmycin 1.5 GM/300 ML 1.5 gm Premix Bag 1 bag IV ONETIME"
[2021-04-13] MEDS ORDERED: Sodium Chloride 0.9% 10 ML Syringe FLUSH PRN (13:20)
[2021-04-13] MEDS ORDERED: Sodium Chloride 0.9% 1,000 ML IV ONE ×2 (14:14→14:56)
[2021-04-13 14:37] LABS: ANION GAP 23.7 mEq/L (7-13); CHLORIDE,CL 98 mmol/L (98-107); CORONAVIRUS COVID-19 NAA NEGATIVE (NEGATIVE); SODIUM,NA 135 mmol/L (136-145)
--- NOTE | 2021-04-13 14:54 | CR ---
PROCEDURE INFORMATION: Exam: XR Chest Exam date and time: 04/13/2021 2:47 PM Age: 76 years old Clinical indication: Cough and shortness of breath; Additional info: Cough, short of breath, possible covid TECHNIQUE: Imaging protocol: XR of the chest. Views: 1 view. COMPARISON: CR Chest 1V Frontal 09/06/2020 9:32 AM FINDINGS: Tubes, catheters and devices: There are sternal wires consistent with previous sternotomy incision. Lungs: The pulmonary vasculature is not engorged. The lungs are normal. Pleural spaces: There are no pleural effusions visualized. Heart/Mediastinum: The heart is not enlarged. Diaphragm: There is nonspecific elevation of the right hemidiaphragm. Bones/joints: There is mild scoliosis. IMPRESSION: No acute abnormality.
[2021-04-13] MEDS ORDERED: VANCOmycin 1.5 GM/300 ML 1.5 GM in Premix Bag 1 BAG IV ONE (15:00)
[2021-04-13] MEDS ORDERED: Lidocaine 1% 30 ML SDV INJECT ONE (15:11)
[2021-04-13] MEDS ORDERED: Ondansetron 4 MG/2 ML SDV IVPUSH PRN (18:46)
[2021-04-13] MEDS ORDERED: Polyethylene Glycol 3350 Powder 17 GM Packet PO PRN (18:51)
--- NOTE | 2021-04-13 18:57 | PCM.HP ---
H&P History of Present Illness - General Date of Service: 04/13/21 Admit Problem/Dx: Admission Diagnosis/Problem Pt brought to ER via EMS from home for evaluation of bladder pain, discolored ur ine. Pt reports that his chronic indwelling Romero catheter was changed last week, but he feels like he has an infection. Pt presents with yellow, thick, creamy urine in the catheter tube. He is noted to have a dry cough, but states that it is chronic and stable. He denies fever or chills, N/V, or diarrhea. Pt has Hx of MS. He lives at home with assistance of caregivers and his sons. in ER pt was found with WBC of 35, MAIA and severe sepsis due to UTI. Pt declined transfer to higher level of care. Source of Information: Patient, Other (ER report and notes) - History of Present Illness Onset of Symptoms: Reports: Today Lower Abdomen Pain Score (Numeric/FACES): 0 - Related Data Allergies/Adverse Reactions: Allergies Allergy/AdvReac Type Severity Reaction Status Date / Time atorvastatin AdvReac Intermediate Muscle Verified 04/13/21 16:18 Aches Home Medications: Home Meds Ibuprofen 400 mg PO Q6HR PRN 10/14/20 [History] Melatonin 3 mg PO BEDTIME PRN 10/14/20 [History] Metoprolol Tartrate 75 mg PO BID 10/14/20 [History] Tamsulosin [Tamsulosin 24 Hr] 0.4 mg PO DAILY 10/14/20 [History] polyethylene glycoL 3350 [MiraLAX] 17 gm PO DAILY PRN 10/14/20 [History] Past Medical History HEENT History: Reports: None Cardiovascular History: Reports: Bypass, Stents Respiratory History: Reports: None Gastrointestinal History: Reports: Chronic Constipation Genitourinary History: Reports: Retention, Urinary, Urinary Incontinence Musculoskeletal History: Reports: Fracture, Other (See Below) Other Musculoskeletal History: MS Neurological History: Reports: MS Psychiatric History: Reports: None Endocrine/Metabolic History: Reports: None Hematologic History: Reports: None Oncologic (Cancer) History: Reports: None Dermatologic History: Reports: None - Infectious Disease History Infectious Disease History: Reports: Chicken Pox - Past Surgical History Head Surgeries/Procedures: Reports: None HEENT Surgical History: Reports: Tonsillectomy Cardiovascular Surgical History: Reports: Other (See Below) Other Cardiovascular Surgeries/Procedures: Aortic stent GI Surgical History: Reports: Appendectomy Male Surgical History: Reports: None Musculoskeletal Surgical History: Reports: None Social & Family History - Family History Family Medical History: No Pertinent Family History - Tobacco Use Tobacco Use Status *Q: Former Tobacco User Used Tobacco, but Quit: Yes Month/Year Tobacco Last Used: approximately 50 years ago - Caffeine Use Caffeine Use: Reports: None - Recreational Drug Use Recreational Drug Use: No - Living Situation & Occupation Living situation: Reports: Single, with Family Occupation: Retired H&P Review of Systems - Review of Systems: Review Of Systems: Unable To Obtain (limitted , pt is poor historian) Reason Not Obtained: poor historain General: Denies: Fever, Chills Pulmonary: Reports: Shortness of Breath (baseline) Genitourinary: Reports: Dysuria (chronic romero. gets changed every 2-3 weeks ass per pt. Last changed one week ago) Neurological: Reports: Other (MS. Bed bound) Exam - Exam Exam: See Below - Vital Signs Vital Signs: Last Vital Signs Temp 97.6 F 04/13/21 15:39 Pulse 95 04/13/21 15:39 Resp 24 H 04/13/21 15:39 BP 145/66 H 04/13/21 15:39 Pulse Ox 98 04/13/21 15:39 Weight: 441 lb 2.319 oz - Exam Quality Assessment: No: Supplemental Oxygen General: Alert, Oriented, Mild Distress HEENT: Conjunctiva Clear Neck: Supple Lungs: Clear to Auscultation Cardiovascular: Regular Rate, Regular Rhythm GI/Abdominal Exam: Soft, Non-Tender, Other (Romero in place) (Male) Exam: Other (Romero in place with cloudy urine) Extremities: Normal Inspection Skin: Warm, Dry Neurological: Cranial Nerves Intact Neuro Extensive - Mental Status: Alert, Oriented x3 Neuro Extensive - Motor, Sensory, Reflexes: Other (bed bound) - Patient Data Lab Results Last 24 hrs: Laboratory Results - last 24 hr 04/13/21 04/13/21 04/13/21 Range/Units 13:40 13:40 13:40 WBC 34.2 H* (5.0-10.0) 10^3/uL RBC 5.17 (4.6-6.2) 10^6/uL Hgb 15.9 (14.0-18.0) g/dL Hct 46.5 (40.0-54.0) % MCV 89.9 (80-100) fL MCH 30.8 (27.0-34.0) pg MCHC 34.2 (33.0-35.0) g/dL Plt Count 100 L D (150-450) 10^3/uL Neut % (Auto) 94.3 H (42.2-75.2) % Lymph % (Auto) 1.5 L (20.5-50.1) % Alexander % (Auto) 4.1 (2-8) % Eos % (Auto) 0.1 L (1.0-3.0) % Baso % (Auto) 0.0 (0.0-1.0) % Add Manual Diff Yes Neutrophils % (Manual) 87 H (42-75) % Band Neutrophils % 9 % Lymphocytes % (Manual) 1 L (20-50) % Monocytes % (Manual) 3 (2-8) % Vacuolated Monocytes 2+ moderate Toxic Granulation 1+ slight Dohle Bodies Few Platelet Estimate Decreased Sodium 135 L (136-145) mmol/L Potassium 5.7 H D (3.5-5.1) mmol/L Chloride 98 (98-107) mmol/L Carbon Dioxide 19 L (21-32) mmol/L Anion Gap 23.7 H (7-13) mEq/L BUN 81 H D (7-18) mg/dL Creatinine 7.44 H* D (0.70-1.30) mg/dL Est Cr Clr Drug Dosing 7.90 mL/min Estimated GFR (MDRD) 7 BUN/Creatinine Ratio 10.9 (No establ ref range) Glucose 118 H (70-99) mg/dL Lactic Acid (0.4-2.0) mmol/L Calcium 8.5 (8.5-10.1) mg/dL Total Bilirubin 1.3 H (0.2-1.0) mg/dL AST 207 H (15-37) U/L ALT 93 H (16-63) U/L Alkaline Phosphatase 143 H (46-116) U/L C-Reactive Protein > 36.0 H (0.0-0.9) mg/dL B-Natriuretic Peptide 95 (0-100) pg/ml Total Protein 7.0 (6.4-8.2) g/dL Albumin 2.4 L (3.4-5.0) g/dL Globulin 4.6 Albumin/Globulin Ratio 0.52 Urine Color (YELLOW) Urine Appearance (CLEAR) Urine pH (5.0-9.0) Ur Specific [place] (1.005-1.030) Urine Protein (NEGATIVE) Urine Glucose (UA) (NEGATIVE) Urine Ketones (NEGATIVE) Urine Occult Blood (NEGATIVE) Urine Nitrite (NEGATIVE) Urine Bilirubin (NEGATIVE) Urine Urobilinogen (0.2-1.0) mg/dL Ur Leukocyte Esterase (NEGATIVE) Urine RBC (0-5) /HPF Urine WBC (0-5/HPF) /HPF Ur Epithelial Cells (NOT SEEN) /HPF Urine Bacteria (0-FEW/HPF) /HPF Influenza Type A RNA Negative (NEGATIVE) Influenza Type B RNA Negative (NEGATIVE) SARS-CoV-2 RNA (DAYAMI) Negative (NEGATIVE) 04/13/21 04/13/21 04/13/21 Range/Units 13:40 14:30 16:58 WBC (5.0-10.0) 10^3/uL RBC (4.6-6.2) 10^6/uL Hgb (14.0-18.0) g/dL Hct (40.0-54.0) % MCV (80-100) fL MCH (27.0-34.0) pg MCHC (33.0-35.0) g/dL Plt Count (150-450) 10^3/uL Neut % (Auto) (42.2-75.2) % Lymph % (Auto) (20.5-50.1) % Alexander % (Auto) (2-8) % Eos % (Auto) (1.0-3.0) % Baso % (Auto) (0.0-1.0) % Add Manual Diff Neutrophils % (Manual) (42-75) % Band Neutrophils % % Lymphocytes % (Manual) (20-50) % Monocytes % (Manual) (2-8) % Vacuolated Monocytes Toxic Granulation Dohle Bodies Platelet Estimate Sodium (136-145) mmol/L Potassium (3.5-5.1) mmol/L Chloride (98-107) mmol/L Carbon Dioxide (21-32) mmol/L Anion Gap (7-13) mEq/L BUN (7-18) mg/dL Creatinine (0.70-1.30) mg/dL Est Cr Clr Drug Dosing mL/min Estimated GFR (MDRD) BUN/Creatinine Ratio (No establ ref range) Glucose (70-99) mg/dL Lactic Acid 3.6 H* 2.1 H* (0.4-2.0) mmol/L Calcium (8.5-10.1) mg/dL Total Bilirubin (0.2-1.0) mg/dL AST (15-37) U/L ALT (16-63) U/L Alkaline Phosphatase (46-116) U/L C-Reactive Protein (0.0-0.9) mg/dL B-Natriuretic Peptide (0-100) pg/ml Total Protein (6.4-8.2) g/dL Albumin (3.4-5.0) g/dL Globulin Albumin/Globulin Ratio Urine Color Brown (YELLOW) Urine Appearance Other (CLEAR) Urine pH 5.5 (5.0-9.0) Ur Specific [place] 1.025 (1.005-1.030) Urine Protein >=300 H (NEGATIVE) Urine Glucose (UA) Negative (NEGATIVE) Urine Ketones 15 H (NEGATIVE) Urine Occult Blood Large H (NEGATIVE) Urine Nitrite Negative (NEGATIVE) Urine Bilirubin Small H (NEGATIVE) Urine Urobilinogen 0.2 (0.2-1.0) mg/dL Ur Leukocyte Esterase Large H (NEGATIVE) Urine RBC Packed H (0-5) /HPF Urine WBC Packed H (0-5/HPF) /HPF Ur Epithelial Cells Not seen (NOT SEEN) /HPF Urine Bacteria Many H (0-FEW/HPF) /HPF Influenza Type A RNA (NEGATIVE) Influenza Type B RNA (NEGATIVE) SARS-CoV-2 RNA (DAYAMI) (NEGATIVE) Result Diagrams: 04/13/21 13:40 04/13/21 13:40 Problem List Initiated/Reviewed/Updated: Yes Orders Last 24hrs: Active Orders 24 hr Category Date Time Status Admission Diagnosis [ADT] Stat ADT 04/13/21 15:20 Ordered Patient Status [ADT] Routine ADT 04/13/21 15:20 Active Insert Romero Catheter [Insert Urinary Catheter] [OM.PC] Care 04/13/21 19:00 Ordered Q24H Oxygen Therapy [RC] PRN Care 04/13/21 18:46 Ordered Peripheral IV Care [RC] . DIRECTED Care 04/13/21 13:21 Active Urinary Catheter Assessment [RC] ASDIRECTED Care 04/13/21 18:53 Ordered VTE/DVT Education [RC] PER UNIT ROUTINE Care 04/13/21 18:46 Ordered Vaccine to be Administered/Admin Charge [RC] ASDIRECTED Care 04/13/21 17:31 Active Vital Signs [RC] Q4H Care 04/13/21 18:46 Ordered Regular Diet [DIET] Diet 04/13/21 Dinner Active Abdomen Comp [US] Routine Exams 04/13/21 18:55 Ordered BASIC METABOLIC PANEL,BMP [CHEM] AM Lab 04/14/21 05:11 Ordered BASIC METABOLIC PANEL,BMP [CHEM] AM Lab 04/15/21 05:11 Ordered BASIC METABOLIC PANEL,BMP [CHEM] AM Lab 04/16/21 05:11 Ordered BASIC METABOLIC PANEL,BMP [CHEM] AM Lab 04/17/21 05:11 Ordered BASIC METABOLIC PANEL,BMP [CHEM] AM Lab 04/18/21 05:11 Ordered BASIC METABOLIC PANEL,BMP [CHEM] AM Lab 04/19/21 05:11 Ordered BASIC METABOLIC PANEL,BMP [CHEM] AM Lab 04/20/21 05:11 Ordered BASIC METABOLIC PANEL,BMP [CHEM] Stat Lab 04/13/21 18:46 Ordered CBC WITH AUTO DIFF [HEME] AM Lab 04/14/21 05:11 Ordered CBC WITH AUTO DIFF [HEME] AM Lab 04/15/21 05:11 Ordered CBC WITH AUTO DIFF [HEME] AM Lab 04/16/21 05:11 Ordered CBC WITH AUTO DIFF [HEME] AM Lab 04/17/21 05:11 Ordered CBC WITH AUTO DIFF [HEME] AM Lab 04/18/21 05:11 Ordered CBC WITH AUTO DIFF [HEME] AM Lab 04/19/21 05:11 Ordered CBC WITH AUTO DIFF [HEME] AM Lab 04/20/21 05:11 Ordered CBC WITH AUTO DIFF [HEME] Stat Lab 04/13/21 18:46 Ordered CULTURE BLOOD [BC] Stat Lab 04/13/21 13:40 Received CULTURE BLOOD [BC] Stat Lab 04/13/21 13:48 Received CULTURE URINE [RM] Stat Lab 04/13/21 14:30 Received Acetaminophen [TylenoL] Med 04/13/21 18:46 Ordered 650 mg PO Q6H PRN Heparin Sodium Med 04/13/21 21:00 Ordered 5,000 units SUBCUT Q12HR Melatonin Med 04/13/21 18:51 Ordered 3 mg PO BEDTIME PRN Meropenem [Merrem] 0.5 gm Med 04/13/21 22:00 Ordered Sodium Chloride 0.9% [Normal Saline] 100 ml IV Q8HR Metoprolol Tartrate [Lopressor] Med 04/13/21 21:00 Ordered 75 mg PO BID Ondansetron [Zofran] Med 04/13/21 18:46 Ordered 4 mg IVPUSH Q6H PRN Pharmacy to Dose - InFluenza V [Pharmacy to Dose - Med 04/14/21 09:00 Pending InFluenza Vaccine] 1 each IM DAILY Sodium Chloride 0.9% [Normal Saline] 1,000 ml Med 04/13/21 19:00 Ordered IV ASDIRECTED Sodium Chloride 0.9% [Saline Flush] Med 04/13/21 13:20 Active 10 ml FLUSH ASDIRECTED PRN Tamsulosin [Flomax] Med 04/13/21 19:00 Ordered 0.4 mg PO DAILY polyethylene glycoL 3350 [MiraLAX] Med 04/13/21 18:51 Ordered 17 gm PO DAILY PRN Blood Culture x2 Reflex Set [OM.PC] Stat Oth 04/13/21 13:20 Ordered Isolation [COMM] Routine Ot 04/13/21 13:21 Active Peripheral IV Insertion Adult [OM.PC] Stat Oth 04/13/21 13:21 Ordered Resuscitation Status Routine Resus Stat 04/13/21 18:46 Ordered Medication Orders Acetaminophen (Acetaminophen 325 Mg Tab) 650 mg PO Q6H PRN PRN Reason: Pain (Mild 1-3)/fever Heparin Sodium (Porcine) (Heparin Sodium 5,000 Units/Ml Vial) 5,000 units SUBCUT Q12HR JOSLYN Sodium Chloride (Normal Saline) 1,000 mls @ 70 mls/hr IV ASDIRECTED JOSLYN Meropenem 0.5 gm/ Sodium (Chloride) 100 mls @ 200 mls/hr IV Q8HR JOSLYN Influenza Virus Vaccine (Pharmacy To Dose - Influenza Vaccine) 1 each IM DAILY JOSLYN Melatonin (Melatonin 3 Mg Tab) 3 mg PO BEDTIME PRN PRN Reason: Sleep Metoprolol Tartrate (Metoprolol Tartrate 50 Mg Tab) 75 mg PO BID JOSLYN Ondansetron HCl (Ondansetron 4 Mg/2 Ml Sdv) 4 mg IVPUSH Q6H PRN PRN Reason: Nausea/Vomiting Polyethylene Glycol (Polyethylene Glycol 3350 Powder 17 Gm Packet) 17 gm PO DAILY PRN PRN Reason: Constipation Sodium Chloride (Sodium Chloride 0.9% 10 Ml Syringe) 10 ml FLUSH ASDIRECTED PRN PRN Reason: Keep Vein Open Last Admin: 04/13/21 13:42 Dose: 10 ml Documented by: DIEDIANE Tamsulosin HCl (Tamsulosin 0.4 Mg Cap.Er) 0.4 mg PO DAILY JOSLYN Assessment/Plan Comment:: Severe sepsis due to UTI MAIA Hyperkalemia Chronic Romero MS Pt has already received 2 L of IVF in ER. TO continue at rate 70 ml/hr to change Romero Add Meropenem to [place] awaiting urine cult Repeat ( including K) Labs now and in AM DC Ibuprofen FOR abd US in AM At this time pt does not want to be transfered to higher level of care DNR/ DNI
[2021-04-13] MEDS ORDERED: Meropenem 500 MG SDV IV ONE (19:30)
[2021-04-13] MEDS: Tamsulosin 0.4 MG Cap.ER PO SCH (20:05)
[2021-04-13] MEDS ORDERED: Water For Injection, Sterile 20 ML ONE (20:18)
[2021-04-13] MEDS: Heparin Sodium 5,000 Units/ML Vial SUBCUT SCH (21:35)
[2021-04-13] MEDS: Acetaminophen 325 MG Tab PO PRN (21:36)
[2021-04-13] MEDS: Metoprolol Tartrate 50 MG Tab PO SCH (21:36)
[2021-04-13] MEDS: Melatonin 3 MG Tab PO PRN (21:37)
[2021-04-13] MEDS: Sodium Chloride 0.9% 1,000 ML IV SCH (23:01)
[2021-04-14 06:59] LABS: ANION GAP 24.9 mEq/L (7-13)
[2021-04-14] MEDS ORDERED: Meropenem 500 MG in Sodium Chloride 0.9% 100 ML IV SCH ×2 (09:00→10:00)
[2021-04-14] MEDS: Heparin Sodium 5,000 Units/ML Vial SUBCUT SCH ×2 (09:25→21:05)
[2021-04-14] MEDS: Tamsulosin 0.4 MG Cap.ER PO SCH (09:25)
[2021-04-14] MEDS: Nystatin Topical Powder 30 GM Bottle TOP SCH ×2 (09:26→20:52)
[2021-04-14] MEDS: Metoprolol Tartrate 50 MG Tab PO SCH ×2 (09:30→20:53)
--- NOTE | 2021-04-14 10:33 | PCM.PN ---
- General Info Date of Service: 04/14/21 Functional Status: Reports: Tolerating Diet - Review of Systems General: Denies: Fever Pulmonary: Denies: Shortness of Breath Cardiovascular: Denies: Chest Pain Gastrointestinal: Denies: Abdominal Pain Genitourinary: Denies: Dysuria Neurological: Reports: Other (MS. no new symptoms) Psychiatric: Reports: No Symptoms - Patient Data Vitals - Most Recent: Last Vital Signs Temp 99.1 F 04/14/21 04:00 Pulse 97 04/14/21 09:30 Resp 24 H 04/14/21 04:00 BP 114/61 04/14/21 09:30 Pulse Ox 92 L 04/14/21 04:00 Weight - Most Recent: 441 lb 2.319 oz I&O - Last 24 Hours: Intake & Output 04/13/21 04/14/21 04/14/21 22:59 06:59 14:59 Intake Total 50 Output Total 225 400 Balance -225 -350 Lab Results Last 24 Hours: Laboratory Results - last 24 hr 04/13/21 04/13/21 04/13/21 Range/Units 13:40 13:40 13:40 WBC 34.2 H* (5.0-10.0) 10^3/uL RBC 5.17 (4.6-6.2) 10^6/uL Hgb 15.9 (14.0-18.0) g/dL Hct 46.5 (40.0-54.0) % MCV 89.9 (80-100) fL MCH 30.8 (27.0-34.0) pg MCHC 34.2 (33.0-35.0) g/dL Plt Count 100 L D (150-450) 10^3/uL Neut % (Auto) 94.3 H (42.2-75.2) % Lymph % (Auto) 1.5 L (20.5-50.1) % [place] % (Auto) 4.1 (2-8) % Eos % (Auto) 0.1 L (1.0-3.0) % Baso % (Auto) 0.0 (0.0-1.0) % Add Manual Diff Yes Neutrophils % (Manual) 87 H (42-75) % Band Neutrophils % 9 % Lymphocytes % (Manual) 1 L (20-50) % Monocytes % (Manual) 3 (2-8) % Vacuolated Monocytes 2+ moderate Toxic Granulation 1+ slight Dohle Bodies Few Platelet Estimate Decreased Sodium 135 L (136-145) mmol/L Potassium 5.7 H D (3.5-5.1) mmol/L Chloride 98 (98-107) mmol/L Carbon Dioxide 19 L (21-32) mmol/L Anion Gap 23.7 H (7-13) mEq/L BUN 81 H D (7-18) mg/dL Creatinine 7.44 H* D (0.70-1.30) mg/dL Est Cr Clr Drug Dosing 7.90 mL/min Estimated GFR (MDRD) 7 BUN/Creatinine Ratio 10.9 (No establ ref range) Glucose 118 H (70-99) mg/dL Lactic Acid (0.4-2.0) mmol/L Calcium 8.5 (8.5-10.1) mg/dL Total Bilirubin 1.3 H (0.2-1.0) mg/dL AST 207 H (15-37) U/L ALT 93 H (16-63) U/L Alkaline Phosphatase 143 H (46-116) U/L C-Reactive Protein > 36.0 H (0.0-0.9) mg/dL B-Natriuretic Peptide 95 (0-100) pg/ml Total Protein 7.0 (6.4-8.2) g/dL Albumin 2.4 L (3.4-5.0) g/dL Globulin 4.6 Albumin/Globulin Ratio 0.52 Urine Color (YELLOW) Urine Appearance (CLEAR) Urine pH (5.0-9.0) Ur Specific [place] (1.005-1.030) Urine Protein (NEGATIVE) Urine Glucose (UA) (NEGATIVE) Urine Ketones (NEGATIVE) Urine Occult Blood (NEGATIVE) Urine Nitrite (NEGATIVE) Urine Bilirubin (NEGATIVE) Urine Urobilinogen (0.2-1.0) mg/dL Ur Leukocyte Esterase (NEGATIVE) Urine RBC (0-5) /HPF Urine WBC (0-5/HPF) /HPF Ur Epithelial Cells (NOT SEEN) /HPF Urine Bacteria (0-FEW/HPF) /HPF Influenza Type A RNA Negative (NEGATIVE) Influenza Type B RNA Negative (NEGATIVE) SARS-CoV-2 RNA (DAYAMI) Negative (NEGATIVE) 04/13/21 04/13/21 04/13/21 Range/Units 13:40 14:30 16:58 WBC (5.0-10.0) 10^3/uL RBC (4.6-6.2) 10^6/uL Hgb (14.0-18.0) g/dL Hct (40.0-54.0) % MCV (80-100) fL MCH (27.0-34.0) pg MCHC (33.0-35.0) g/dL Plt Count (150-450) 10^3/uL Neut % (Auto) (42.2-75.2) % Lymph % (Auto) (20.5-50.1) % [place] % (Auto) (2-8) % Eos % (Auto) (1.0-3.0) % Baso % (Auto) (0.0-1.0) % Add Manual Diff Neutrophils % (Manual) (42-75) % Band Neutrophils % % Lymphocytes % (Manual) (20-50) % Monocytes % (Manual) (2-8) % Vacuolated Monocytes Toxic Granulation Dohle Bodies Platelet Estimate Sodium (136-145) mmol/L Potassium (3.5-5.1) mmol/L Chloride (98-107) mmol/L Carbon Dioxide (21-32) mmol/L Anion Gap (7-13) mEq/L BUN (7-18) mg/dL Creatinine (0.70-1.30) mg/dL Est Cr Clr Drug Dosing mL/min Estimated GFR (MDRD) BUN/Creatinine Ratio (No establ ref range) Glucose (70-99) mg/dL Lactic Acid 3.6 H* 2.1 H* (0.4-2.0) mmol/L Calcium (8.5-10.1) mg/dL Total Bilirubin (0.2-1.0) mg/dL AST (15-37) U/L ALT (16-63) U/L Alkaline Phosphatase (46-116) U/L C-Reactive Protein (0.0-0.9) mg/dL B-Natriuretic Peptide (0-100) pg/ml Total Protein (6.4-8.2) g/dL Albumin (3.4-5.0) g/dL Globulin Albumin/Globulin Ratio Urine Color Brown (YELLOW) Urine Appearance Other (CLEAR) Urine pH 5.5 (5.0-9.0) Ur Specific [place] 1.025 (1.005-1.030) Urine Protein >=300 H (NEGATIVE) Urine Glucose (UA) Negative (NEGATIVE) Urine Ketones 15 H (NEGATIVE) Urine Occult Blood Large H (NEGATIVE) Urine Nitrite Negative (NEGATIVE) Urine Bilirubin Small H (NEGATIVE) Urine Urobilinogen 0.2 (0.2-1.0) mg/dL Ur Leukocyte Esterase Large H (NEGATIVE) Urine RBC Packed H (0-5) /HPF Urine WBC Packed H (0-5/HPF) /HPF Ur Epithelial Cells Not seen (NOT SEEN) /HPF Urine Bacteria Many H (0-FEW/HPF) /HPF Influenza Type A RNA (NEGATIVE) Influenza Type B RNA (NEGATIVE) SARS-CoV-2 RNA (DAYAMI) (NEGATIVE) 04/13/21 04/13/21 04/14/21 Range/Units 19:05 19:05 05:45 WBC 26.4 H* 23.5 H (5.0-10.0) 10^3/uL RBC 5.08 4.66 (4.6-6.2) 10^6/uL Hgb 15.4 14.2 (14.0-18.0) g/dL Hct 46.8 41.8 (40.0-54.0) % MCV 92.1 89.7 (80-100) fL MCH 30.3 30.5 (27.0-34.0) pg MCHC 32.9 L 34.0 (33.0-35.0) g/dL Plt Count 88 L 71 L (150-450) 10^3/uL Neut % (Auto) 95.3 H 92.3 H (42.2-75.2) % Lymph % (Auto) 1.4 L 2.2 L (20.5-50.1) % [place] % (Auto) 3.3 5.5 (2-8) % Eos % (Auto) 0.0 L 0.0 L (1.0-3.0) % Baso % (Auto) 0.0 0.0 (0.0-1.0) % Add Manual Diff Neutrophils % (Manual) (42-75) % Band Neutrophils % % Lymphocytes % (Manual) (20-50) % Monocytes % (Manual) (2-8) % Vacuolated Monocytes Toxic Granulation Dohle Bodies Platelet Estimate Sodium 137 (136-145) mmol/L Potassium 5.0 (3.5-5.1) mmol/L Chloride 100 (98-107) mmol/L Carbon Dioxide 20 L (21-32) mmol/L Anion Gap 22.0 H (7-13) mEq/L BUN 85 H (7-18) mg/dL Creatinine 7.08 H* (0.70-1.30) mg/dL Est Cr Clr Drug Dosing 8.30 mL/min Estimated GFR (MDRD) 8 BUN/Creatinine Ratio (No establ ref range) Glucose 112 H (70-99) mg/dL Lactic Acid (0.4-2.0) mmol/L Calcium 8.0 L (8.5-10.1) mg/dL Total Bilirubin (0.2-1.0) mg/dL AST (15-37) U/L ALT (16-63) U/L Alkaline Phosphatase (46-116) U/L C-Reactive Protein (0.0-0.9) mg/dL B-Natriuretic Peptide (0-100) pg/ml Total Protein (6.4-8.2) g/dL Albumin (3.4-5.0) g/dL Globulin Albumin/Globulin Ratio Urine Color (YELLOW) Urine Appearance (CLEAR) Urine pH (5.0-9.0) Ur Specific [place] (1.005-1.030) Urine Protein (NEGATIVE) Urine Glucose (UA) (NEGATIVE) Urine Ketones (NEGATIVE) Urine Occult Blood (NEGATIVE) Urine Nitrite (NEGATIVE) Urine Bilirubin (NEGATIVE) Urine Urobilinogen (0.2-1.0) mg/dL Ur Leukocyte Esterase (NEGATIVE) Urine RBC (0-5) /HPF Urine WBC (0-5/HPF) /HPF Ur Epithelial Cells (NOT SEEN) /HPF Urine Bacteria (0-FEW/HPF) /HPF Influenza Type A RNA (NEGATIVE) Influenza Type B RNA (NEGATIVE) SARS-CoV-2 RNA (DAYAMI) (NEGATIVE) 04/14/21 Range/Units 05:45 WBC (5.0-10.0) 10^3/uL RBC (4.6-6.2) 10^6/uL Hgb (14.0-18.0) g/dL Hct (40.0-54.0) % MCV (80-100) fL MCH (27.0-34.0) pg MCHC (33.0-35.0) g/dL Plt Count (150-450) 10^3/uL Neut % (Auto) (42.2-75.2) % Lymph % (Auto) (20.5-50.1) % [place] % (Auto) (2-8) % Eos % (Auto) (1.0-3.0) % Baso % (Auto) (0.0-1.0) % Add Manual Diff Neutrophils % (Manual) (42-75) % Band Neutrophils % % Lymphocytes % (Manual) (20-50) % Monocytes % (Manual) (2-8) % Vacuolated Monocytes Toxic Granulation Dohle Bodies Platelet Estimate Sodium 137 (136-145) mmol/L Potassium 4.9 (3.5-5.1) mmol/L Chloride 101 (98-107) mmol/L Carbon Dioxide 16 L (21-32) mmol/L Anion Gap 24.9 H (7-13) mEq/L BUN 93 H (7-18) mg/dL Creatinine 6.66 H* (0.70-1.30) mg/dL Est Cr Clr Drug Dosing 8.82 mL/min Estimated GFR (MDRD) 8 BUN/Creatinine Ratio (No establ ref range) Glucose 121 H (70-99) mg/dL Lactic Acid (0.4-2.0) mmol/L Calcium 7.7 L (8.5-10.1) mg/dL Total Bilirubin (0.2-1.0) mg/dL AST (15-37) U/L ALT (16-63) U/L Alkaline Phosphatase (46-116) U/L C-Reactive Protein (0.0-0.9) mg/dL B-Natriuretic Peptide (0-100) pg/ml Total Protein (6.4-8.2) g/dL Albumin (3.4-5.0) g/dL Globulin Albumin/Globulin Ratio Urine Color (YELLOW) Urine Appearance (CLEAR) Urine pH (5.0-9.0) Ur Specific [place] (1.005-1.030) Urine Protein (NEGATIVE) Urine Glucose (UA) (NEGATIVE) Urine Ketones (NEGATIVE) Urine Occult Blood (NEGATIVE) Urine Nitrite (NEGATIVE) Urine Bilirubin (NEGATIVE) Urine Urobilinogen (0.2-1.0) mg/dL Ur Leukocyte Esterase (NEGATIVE) Urine RBC (0-5) /HPF Urine WBC (0-5/HPF) /HPF Ur Epithelial Cells (NOT SEEN) /HPF Urine Bacteria (0-FEW/HPF) /HPF Influenza Type A RNA (NEGATIVE) Influenza Type B RNA (NEGATIVE) SARS-CoV-2 RNA (DAYAMI) (NEGATIVE) [place] Results Last 24 Hours: Microbiology 04/13/21 14:30 Urine Culture - Preliminary Urine, Ibarra Cath ([place]) 04/13/21 13:48 Aerobic Blood Culture - Preliminary Blood - Venous 04/13/21 13:40 Aerobic Blood Culture - Preliminary Blood - Venous - Lab Draw Anaerobic Blood Culture - Preliminary Med Orders - Current: Current Medications Acetaminophen (Acetaminophen 325 Mg Tab) 650 mg PO Q6H PRN PRN Reason: Pain (Mild 1-3)/fever Last Admin: 04/13/21 21:36 Dose: 650 mg Documented by: Heparin Sodium (Porcine) (Heparin Sodium 5,000 Units/Ml Vial) 5,000 units SUBCUT Q12HR [facility] Last Admin: 04/14/21 09:25 Dose: 5,000 units Documented by: Sodium Chloride (Normal Saline) 1,000 mls @ 70 mls/hr IV ASDIRECTED [facility] Last Admin: 04/13/21 23:01 Dose: 70 mls/hr Documented by: Meropenem 500 mg/ Sodium (Chloride) 100 mls @ 200 mls/hr IV Q12H [facility] Last Admin: 04/14/21 09:24 Dose: 200 mls/hr Documented by: Influenza Virus Vaccine (Pharmacy To Dose - Influenza Vaccine) 1 each IM DAILY [facility] Melatonin (Melatonin 3 Mg Tab) 3 mg PO BEDTIME PRN PRN Reason: Sleep Last Admin: 04/13/21 21:37 Dose: 3 mg Documented by: Metoprolol Tartrate (Metoprolol Tartrate 50 Mg Tab) 75 mg PO BID [facility] Last Admin: 04/14/21 09:30 Dose: 75 mg Documented by: Nystatin (Nystatin Topical Powder 30 Gm Bottle) 0 gm TOP BID [facility] Last Admin: 04/14/21 09:26 Dose: 30 gram Documented by: Ondansetron HCl (Ondansetron 4 Mg/2 Ml Sdv) 4 mg IVPUSH Q6H PRN PRN Reason: Nausea/Vomiting Polyethylene Glycol (Polyethylene Glycol 3350 Powder 17 Gm Packet) 17 gm PO DAILY PRN PRN Reason: Constipation Sodium Chloride (Sodium Chloride 0.9% 10 Ml Syringe) 10 ml FLUSH ASDIRECTED PRN PRN Reason: Keep Vein Open Last Admin: 04/13/21 13:42 Dose: 10 ml Documented by: Tamsulosin HCl (Tamsulosin 0.4 Mg Cap.Er) 0.4 mg PO DAILY [facility] Last Admin: 04/14/21 09:25 Dose: 0.4 mg Documented by: Vancomycin HCl (Pharmacy To Dose - Vancomycin) 1 dose .XX ASDIRECTED JOSLYN Discontinued Medications Sodium Chloride (Normal Saline) 1,000 mls @ 999 mls/hr IV .BOLUS ONE Stop: 04/13/21 15:14 Last Admin: 04/13/21 14:42 Dose: 999 mls/hr Documented by: Vancomycin HCl 1.5 gm/ Premix 300 mls @ 200 mls/hr IV ONETIME ONE Stop: 04/13/21 16:29 Last Admin: 04/13/21 14:48 Dose: 200 mls/hr Documented by: Sodium Chloride (Normal Saline) 1,000 mls @ 999 mls/hr IV .BOLUS ONE Stop: 04/13/21 15:56 Last Admin: 04/13/21 15:01 Dose: 999 mls/hr Documented by: Meropenem 500 mg/ Sodium (Chloride) 100 mls @ 200 mls/hr IV Q24H [facility] Last Admin: 04/14/21 09:28 Dose: Not Given Documented by: Sterile Water (Sterile Water For Injection) Confirm Administered Dose 20 mls @ as directed .ROUTE .STK-MED ONE Stop: 04/13/21 20:19 Last Admin: 04/13/21 20:25 Dose: 10 mls/hr Documented by: Meropenem (Meropenem 500 Mg Sdv) 500 mg IV ONETIME ONE Stop: 04/13/21 19:31 Last Admin: 04/13/21 20:25 Dose: 500 mg Documented by: Vancomycin HCl (Pharmacy To Dose - Vancomycin) 1 dose .XX ONETIME ONE Stop: 04/13/21 14:14 Last Admin: 04/13/21 21:44 Dose: Not Given Documented by: - Exam Quality Assessment: No: Supplemental Oxygen General: Alert, Oriented HEENT: EOMI Lungs: Clear to Auscultation Cardiovascular: Regular Rate, Regular Rhythm GI/Abdominal Exam: Soft (Male) Exam: Other (Ibarra in place: draining less rickie urine) Back Exam: Normal Inspection Extremities: No Pedal Edema Skin: Warm, Dry Wound/Incisions: Other (2 CM , supperfical scratch to the sacral area) Psy/Mental Status: Alert - Patient Data Lab Results Last 24 hrs: Laboratory Results - last 24 hr 04/13/21 04/13/21 04/13/21 Range/Units 13:40 13:40 13:40 WBC 34.2 H* (5.0-10.0) 10^3/uL RBC 5.17 (4.6-6.2) 10^6/uL Hgb 15.9 (14.0-18.0) g/dL Hct 46.5 (40.0-54.0) % MCV 89.9 (80-100) fL MCH 30.8 (27.0-34.0) pg MCHC 34.2 (33.0-35.0) g/dL Plt Count 100 L D (150-450) 10^3/uL Neut % (Auto) 94.3 H (42.2-75.2) % Lymph % (Auto) 1.5 L (20.5-50.1) % [place] % (Auto) 4.1 (2-8) % Eos % (Auto) 0.1 L (1.0-3.0) % Baso % (Auto) 0.0 (0.0-1.0) % Add Manual Diff Yes Neutrophils % (Manual) 87 H (42-75) % Band Neutrophils % 9 % Lymphocytes % (Manual) 1 L (20-50) % Monocytes % (Manual) 3 (2-8) % Vacuolated Monocytes 2+ moderate Toxic Granulation 1+ slight Dohle Bodies Few Platelet Estimate Decreased Sodium 135 L (136-145) mmol/L Potassium 5.7 H D (3.5-5.1) mmol/L Chloride 98 (98-107) mmol/L Carbon Dioxide 19 L (21-32) mmol/L Anion Gap 23.7 H (7-13) mEq/L BUN 81 H D (7-18) mg/dL Creatinine 7.44 H* D (0.70-1.30) mg/dL Est Cr Clr Drug Dosing 7.90 mL/min Estimated GFR (MDRD) 7 BUN/Creatinine Ratio 10.9 (No establ ref range) Glucose 118 H (70-99) mg/dL Lactic Acid (0.4-2.0) mmol/L Calcium 8.5 (8.5-10.1) mg/dL Total Bilirubin 1.3 H (0.2-1.0) mg/dL AST 207 H (15-37) U/L ALT 93 H (16-63) U/L Alkaline Phosphatase 143 H (46-116) U/L C-Reactive Protein > 36.0 H (0.0-0.9) mg/dL B-Natriuretic Peptide 95 (0-100) pg/ml Total Protein 7.0 (6.4-8.2) g/dL Albumin 2.4 L (3.4-5.0) g/dL Globulin 4.6 Albumin/Globulin Ratio 0.52 Urine Color (YELLOW) Urine Appearance (CLEAR) Urine pH (5.0-9.0) Ur Specific [place] (1.005-1.030) Urine Protein (NEGATIVE) Urine Glucose (UA) (NEGATIVE) Urine Ketones (NEGATIVE) Urine Occult Blood (NEGATIVE) Urine Nitrite (NEGATIVE) Urine Bilirubin (NEGATIVE) Urine Urobilinogen (0.2-1.0) mg/dL Ur Leukocyte Esterase (NEGATIVE) Urine RBC (0-5) /HPF Urine WBC (0-5/HPF) /HPF Ur Epithelial Cells (NOT SEEN) /HPF Urine Bacteria (0-FEW/HPF) /HPF Influenza Type A RNA Negative (NEGATIVE) Influenza Type B RNA Negative (NEGATIVE) SARS-CoV-2 RNA (DAYAMI) Negative (NEGATIVE) 04/13/21 04/13/21 04/13/21 Range/Units 13:40 14:30 16:58 WBC (5.0-10.0) 10^3/uL RBC (4.6-6.2) 10^6/uL Hgb (14.0-18.0) g/dL Hct (40.0-54.0) % MCV (80-100) fL MCH (27.0-34.0) pg MCHC (33.0-35.0) g/dL Plt Count (150-450) 10^3/uL Neut % (Auto) (42.2-75.2) % Lymph % (Auto) (20.5-50.1) % [place] % (Auto) (2-8) % Eos % (Auto) (1.0-3.0) % Baso % (Auto) (0.0-1.0) % Add Manual Diff Neutrophils % (Manual) (42-75) % Band Neutrophils % % Lymphocytes % (Manual) (20-50) % Monocytes % (Manual) (2-8) % Vacuolated Monocytes Toxic Granulation Dohle Bodies Platelet Estimate Sodium (136-145) mmol/L Potassium (3.5-5.1) mmol/L Chloride (98-107) mmol/L Carbon Dioxide (21-32) mmol/L Anion Gap (7-13) mEq/L BUN (7-18) mg/dL Creatinine (0.70-1.30) mg/dL Est Cr Clr Drug Dosing mL/min Estimated GFR (MDRD) BUN/Creatinine Ratio (No establ ref range) Glucose (70-99) mg/dL Lactic Acid 3.6 H* 2.1 H* (0.4-2.0) mmol/L Calcium (8.5-10.1) mg/dL Total Bilirubin (0.2-1.0) mg/dL AST (15-37) U/L ALT (16-63) U/L Alkaline Phosphatase (46-116) U/L C-Reactive Protein (0.0-0.9) mg/dL B-Natriuretic Peptide (0-100) pg/ml Total Protein (6.4-8.2) g/dL Albumin (3.4-5.0) g/dL Globulin Albumin/Globulin Ratio Urine Color Brown (YELLOW) Urine Appearance Other (CLEAR) Urine pH 5.5 (5.0-9.0) Ur Specific [place] 1.025 (1.005-1.030) Urine Protein >=300 H (NEGATIVE) Urine Glucose (UA) Negative (NEGATIVE) Urine Ketones 15 H (NEGATIVE) Urine Occult Blood Large H (NEGATIVE) Urine Nitrite Negative (NEGATIVE) Urine Bilirubin Small H (NEGATIVE) Urine Urobilinogen 0.2 (0.2-1.0) mg/dL Ur Leukocyte Esterase Large H (NEGATIVE) Urine RBC Packed H (0-5) /HPF Urine WBC Packed H (0-5/HPF) /HPF Ur Epithelial Cells Not seen (NOT SEEN) /HPF Urine Bacteria Many H (0-FEW/HPF) /HPF Influenza Type A RNA (NEGATIVE) Influenza Type B RNA (NEGATIVE) SARS-CoV-2 RNA (DAYAMI) (NEGATIVE) 04/13/21 04/13/21 04/14/21 Range/Units 19:05 19:05 05:45 WBC 26.4 H* 23.5 H (5.0-10.0) 10^3/uL RBC 5.08 4.66 (4.6-6.2) 10^6/uL Hgb 15.4 14.2 (14.0-18.0) g/dL Hct 46.8 41.8 (40.0-54.0) % MCV 92.1 89.7 (80-100) fL MCH 30.3 30.5 (27.0-34.0) pg MCHC 32.9 L 34.0 (33.0-35.0) g/dL Plt Count 88 L 71 L (150-450) 10^3/uL Neut % (Auto) 95.3 H 92.3 H (42.2-75.2) % Lymph % (Auto) 1.4 L 2.2 L (20.5-50.1) % [place] % (Auto) 3.3 5.5 (2-8) % Eos % (Auto) 0.0 L 0.0 L (1.0-3.0) % Baso % (Auto) 0.0 0.0 (0.0-1.0) % Add Manual Diff Neutrophils % (Manual) (42-75) % Band Neutrophils % % Lymphocytes % (Manual) (20-50) % Monocytes % (Manual) (2-8) % Vacuolated Monocytes Toxic Granulation Dohle Bodies Platelet Estimate Sodium 137 (136-145) mmol/L Potassium 5.0 (3.5-5.1) mmol/L Chloride 100 (98-107) mmol/L Carbon Dioxide 20 L (21-32) mmol/L Anion Gap 22.0 H (7-13) mEq/L BUN 85 H (7-18) mg/dL Creatinine 7.08 H* (0.70-1.30) mg/dL Est Cr Clr Drug Dosing 8.30 mL/min Estimated GFR (MDRD) 8 BUN/Creatinine Ratio (No establ ref range) Glucose 112 H (70-99) mg/dL Lactic Acid (0.4-2.0) mmol/L Calcium 8.0 L (8.5-10.1) mg/dL Total Bilirubin (0.2-1.0) mg/dL AST (15-37) U/L ALT (16-63) U/L Alkaline Phosphatase (46-116) U/L C-Reactive Protein (0.0-0.9) mg/dL B-Natriuretic Peptide (0-100) pg/ml Total Protein (6.4-8.2) g/dL Albumin (3.4-5.0) g/dL Globulin Albumin/Globulin Ratio Urine Color (YELLOW) Urine Appearance (CLEAR) Urine pH (5.0-9.0) Ur Specific [place] (1.005-1.030) Urine Protein (NEGATIVE) Urine Glucose (UA) (NEGATIVE) Urine Ketones (NEGATIVE) Urine Occult Blood (NEGATIVE) Urine Nitrite (NEGATIVE) Urine Bilirubin (NEGATIVE) Urine Urobilinogen (0.2-1.0) mg/dL Ur Leukocyte Esterase (NEGATIVE) Urine RBC (0-5) /HPF Urine WBC (0-5/HPF) /HPF Ur Epithelial Cells (NOT SEEN) /HPF Urine Bacteria (0-FEW/HPF) /HPF Influenza Type A RNA (NEGATIVE) Influenza Type B RNA (NEGATIVE) SARS-CoV-2 RNA (DAYAMI) (NEGATIVE) 04/14/21 Range/Units 05:45 WBC (5.0-10.0) 10^3/uL RBC (4.6-6.2) 10^6/uL Hgb (14.0-18.0) g/dL Hct (40.0-54.0) % MCV (80-100) fL MCH (27.0-34.0) pg MCHC (33.0-35.0) g/dL Plt Count (150-450) 10^3/uL Neut % (Auto) (42.2-75.2) % Lymph % (Auto) (20.5-50.1) % [place] % (Auto) (2-8) % Eos % (Auto) (1.0-3.0) % Baso % (Auto) (0.0-1.0) % Add Manual Diff Neutrophils % (Manual) (42-75) % Band Neutrophils % % Lymphocytes % (Manual) (20-50) % Monocytes % (Manual) (2-8) % Vacuolated Monocytes Toxic Granulation Dohle Bodies Platelet Estimate Sodium 137 (136-145) mmol/L Potassium 4.9 (3.5-5.1) mmol/L Chloride 101 (98-107) mmol/L Carbon Dioxide 16 L (21-32) mmol/L Anion Gap 24.9 H (7-13) mEq/L BUN 93 H (7-18) mg/dL Creatinine 6.66 H* (0.70-1.30) mg/dL Est Cr Clr Drug Dosing 8.82 mL/min Estimated GFR (MDRD) 8 BUN/Creatinine Ratio (No establ ref range) Glucose 121 H (70-99) mg/dL Lactic Acid (0.4-2.0) mmol/L Calcium 7.7 L (8.5-10.1) mg/dL Total Bilirubin (0.2-1.0) mg/dL AST (15-37) U/L ALT (16-63) U/L Alkaline Phosphatase (46-116) U/L C-Reactive Protein (0.0-0.9) mg/dL B-Natriuretic Peptide (0-100) pg/ml Total Protein (6.4-8.2) g/dL Albumin (3.4-5.0) g/dL Globulin Albumin/Globulin Ratio Urine Color (YELLOW) Urine Appearance (CLEAR) Urine pH (5.0-9.0) Ur Specific [place] (1.005-1.030) Urine Protein (NEGATIVE) Urine Glucose (UA) (NEGATIVE) Urine Ketones (NEGATIVE) Urine Occult Blood (NEGATIVE) Urine Nitrite (NEGATIVE) Urine Bilirubin (NEGATIVE) Urine Urobilinogen (0.2-1.0) mg/dL Ur Leukocyte Esterase (NEGATIVE) Urine RBC (0-5) /HPF Urine WBC (0-5/HPF) /HPF Ur Epithelial Cells (NOT SEEN) /HPF Urine Bacteria (0-FEW/HPF) /HPF Influenza Type A RNA (NEGATIVE) Influenza Type B RNA (NEGATIVE) SARS-CoV-2 RNA ([place]) (NEGATIVE) Result Diagrams: 04/14/21 05:45 04/14/21 05:45 [place] Results Last 24 hrs: Microbiology 04/13/21 14:30 Urine Culture - Preliminary Urine, Ibarra Cath (Indwelling) 04/13/21 13:48 Aerobic Blood Culture - Preliminary Blood - Venous 04/13/21 13:40 Aerobic Blood Culture - Preliminary Blood - Venous - Lab Draw Anaerobic Blood Culture - Preliminary Sepsis Event Note - Evaluation Sepsis Screening Result: Severe Sepsis Risk - Focused Exam Vital Signs: Vital Signs Temp Pulse Pulse Resp BP BP Pulse Ox 04/14/21 09:30 97 114/61 04/14/21 04:00 99.1 F 100 24 H 142/64 H 92 L 04/13/21 22:46 97.5 F 101 H 20 134/67 92 L - Problem List Review Problem List Initiated/Reviewed/Updated: Yes - My Orders Last 24 Hours: My Active Orders 04/13/21 Dinner Regular Diet [DIET] 04/13/21 17:31 Vaccine to be Administered/Admin Charge [RC] ASDIRECTED 04/13/21 18:46 Oxygen Therapy [RC] PRN VTE/DVT Education [RC] Vital Signs [RC] 20,00,04,08,12,16,20 Acetaminophen [TylenoL] 650 mg PO Q6H PRN Ondansetron [Zofran] 4 mg IVPUSH Q6H PRN Resuscitation Status Routine 04/13/21 18:51 Melatonin 3 mg PO BEDTIME PRN polyethylene glycoL 3350 [MiraLAX] 17 gm PO DAILY PRN 04/13/21 18:53 Urinary Catheter Assessment [RC] 04/13/21 18:55 Abdomen Comp [US] Routine 04/13/21 19:00 Insert Ibarra Catheter [Insert Urinary Catheter] [OM.PC] Q24H Sodium Chloride 0.9% [Normal Saline] 1,000 ml IV ASDIRECTED Tamsulosin [Flomax] 0.4 mg PO DAILY 04/13/21 21:00 Heparin Sodium 5,000 units SUBCUT Q12HR Metoprolol Tartrate [Lopressor] 75 mg PO BID 04/14/21 08:59 Consult to Occupational Therapy [OT Evaluation and Treatment] [CONS] Routine 04/14/21 09:00 Nystatin [Nystop] See Dose Instructions TOP BID Pharmacy to Dose - InFluenza V [Pharmacy to Dose - InFluenza Vaccine] 1 each IM DAILY 04/14/21 09:30 Pharmacy to Dose - Vancomycin 1 dose .XX ASDIRECTED 04/14/21 10:00 Meropenem [Merrem] 500 mg Sodium Chloride 0.9% [Normal Saline] 100 ml IV Q12H 04/14/21 10:03 VANCOMYCIN RANDOM [CHEM] Routine 04/15/21 05:11 BASIC METABOLIC PANEL,BMP [CHEM] AM CBC WITH AUTO DIFF [HEME] AM 04/16/21 05:11 BASIC METABOLIC PANEL,BMP [CHEM] AM CBC WITH AUTO DIFF [HEME] AM 04/17/21 05:11 BASIC METABOLIC PANEL,BMP [CHEM] AM CBC WITH AUTO DIFF [HEME] AM 04/18/21 05:11 BASIC METABOLIC PANEL,BMP [CHEM] AM CBC WITH AUTO DIFF [HEME] AM 04/19/21 05:11 BASIC METABOLIC PANEL,BMP [CHEM] AM CBC WITH AUTO DIFF [HEME] AM 04/20/21 05:11 BASIC METABOLIC PANEL,BMP [CHEM] AM CBC WITH AUTO DIFF [HEME] AM - Plan Plan:: Severe sepsis due to UTI with gram neg bacteremia ( 2/). Urine cult is also showing gram positive cocci. MAIA: ATN? 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 DVT prophylaxis Decubitus prophylaxis DNR/ DNI
--- NOTE | 2021-04-14 11:36 | US ---
PROCEDURE INFORMATION: Exam: US Retroperitoneal; Complete; Kidneys and Bladder Exam date and time: 04/14/2021 8:43 AM Age: 76 years old Clinical indication: Other: Sepsis due to UTI TECHNIQUE: Imaging protocol: Real-time ultrasound of the retroperitoneum with image documentation. Complete exam focused on the kidneys and bladder. COMPARISON: CT Hip wo Cont Lt, Hip wo Cont Lt 10/14/2020 7:33 PM FINDINGS: Right kidney: No stones. Moderate bilateral hydronephrosis. Left kidney: No stones. Moderate hydronephrosis. Urinary bladder: Whyte catheter in the urinary bladder. The bladder was not distended. IMPRESSION: Moderate bilateral hydronephrosis. Whyte catheter in the urinary bladder.
[2021-04-14] MEDS: Sodium Chloride 0.9% 1,000 ML IV SCH (13:42)
[2021-04-14] MEDS ORDERED: VANCOmycin 1.5 GM/300 ML 1.5 GM in Premix Bag 1 BAG IV ONE (15:00)
[2021-04-14] MEDS: Meropenem 500 MG in Sodium Chloride 0.9% 100 ML IV SCH (20:46)
[2021-04-14] MEDS: Acetaminophen 325 MG Tab PO PRN (20:52)
[2021-04-14] MEDS: Melatonin 3 MG Tab PO PRN (20:53)
[2021-04-14] MEDS: Sodium Chloride 0.9% 10 ML Syringe FLUSH PRN (20:59)
[2021-04-15] MEDS: Sodium Chloride 0.9% 1,000 ML IV SCH (05:41)
[2021-04-15 06:25] LABS: ANION GAP 20.1 mEq/L (7-13)
[2021-04-15] MEDS: Metoprolol Tartrate 50 MG Tab PO SCH ×3 (08:53→20:54)
[2021-04-15] MEDS: Tamsulosin 0.4 MG Cap.ER PO SCH (08:53)
[2021-04-15] MEDS: Meropenem 500 MG in Sodium Chloride 0.9% 100 ML IV SCH ×2 (08:57→21:11)
[2021-04-15] MEDS: Nystatin Topical Powder 30 GM Bottle TOP SCH ×2 (09:00→21:11)
--- NOTE | 2021-04-15 09:02 | PCM.PN ---
- General Info Date of Service: 04/15/21 Functional Status: Reports: Tolerating Diet, Urinating (Whyte) - Review of Systems General: Denies: Fever Pulmonary: Denies: Shortness of Breath Cardiovascular: Denies: Chest Pain Gastrointestinal: Denies: Abdominal Pain Genitourinary: Denies: Dysuria Psychiatric: Denies: Confusion - Patient Data Vitals - Most Recent: Last Vital Signs Temp 98 F 04/15/21 03:14 Pulse 69 04/15/21 08:53 Resp 20 04/15/21 03:14 BP 102/58 L 04/15/21 08:53 Pulse Ox 96 04/15/21 03:14 Weight - Most Recent: 441 lb 2.319 oz I&O - Last 24 Hours: Intake & Output 04/14/21 04/15/21 04/15/21 22:59 06:59 14:59 Intake Total 2001 62 Output Total 375 525 Balance 1627 103 Lab Results Last 24 Hours: Laboratory Results - last 24 hr 04/14/21 04/15/21 04/15/21 Range/Units 10:03 06:00 06:00 WBC 20.6 H (5.0-10.0) 10^3/uL RBC 4.18 L (4.6-6.2) 10^6/uL Hgb 12.8 L (14.0-18.0) g/dL Hct 37.2 L (40.0-54.0) % MCV 89.0 (80-100) fL MCH 30.6 (27.0-34.0) pg MCHC 34.4 (33.0-35.0) g/dL Plt Count 57 L (150-450) 10^3/uL Neut % (Auto) 88.9 H (42.2-75.2) % Lymph % (Auto) 3.1 L (20.5-50.1) % [place] % (Auto) 8.0 (2-8) % Eos % (Auto) 0.0 L (1.0-3.0) % Baso % (Auto) 0.0 (0.0-1.0) % Sodium 137 (136-145) mmol/L Potassium 4.1 (3.5-5.1) mmol/L Chloride 102 (98-107) mmol/L Carbon Dioxide 19 L (21-32) mmol/L Anion Gap 20.1 H (7-13) mEq/L BUN 115 H (7-18) mg/dL Creatinine 5.23 H* D (0.70-1.30) mg/dL Est Cr Clr Drug Dosing 11.23 mL/min Estimated GFR (MDRD) 11 Glucose 102 H (70-99) mg/dL Calcium 7.8 L (8.5-10.1) mg/dL Random Vancomycin 16.6 (No Normal Range) ug/mL [place] Results Last 24 Hours: Microbiology 04/13/21 14:30 Urine Culture - Final Urine, Whyte Cath (Indwelling) Enterobacter Cloacae Enterococcus Faecalis 04/13/21 13:40 Aerobic Blood Culture - Preliminary Blood - Venous - Lab Draw Anaerobic Blood Culture - Preliminary 04/13/21 13:48 Aerobic Blood Culture - Preliminary Blood - Venous Anaerobic Blood Culture - Preliminary NO GROWTH AFTER 1 DAY Med Orders - Current: Current Medications Acetaminophen (Acetaminophen 325 Mg Tab) 650 mg PO Q6H PRN PRN Reason: Pain (Mild 1-3)/fever Last Admin: 04/14/21 20:52 Dose: 650 mg Documented by: Heparin Sodium (Porcine) (Heparin Sodium 5,000 Units/Ml Vial) 5,000 units [place]UR[place] BCUT Q12HR [facility] Last Admin: 04/14/21 21:05 Dose: Not Given Documented by: Sodium Chloride (Normal Saline) 1,000 mls @ 70 mls/hr IV ASDIRECTED [facility] Last Admin: 04/15/21 05:41 Dose: 70 mls/hr Documented by: Meropenem 500 mg/ Sodium (Chloride) 100 mls @ 200 mls/hr IV Q12H [facility] Last Admin: 04/15/21 08:57 Dose: 100 mls/hr Documented by: Influenza Virus Vaccine (Pharmacy To Dose - Influenza Vaccine) 1 each IM DAILY [facility] Last Admin: 04/14/21 10:35 Dose: Not Given Documented by: Melatonin (Melatonin 3 Mg Tab) 3 mg PO BEDTIME PRN PRN Reason: Sleep Last Admin: 04/14/21 20:53 Dose: 3 mg Documented by: Metoprolol Tartrate (Metoprolol Tartrate 50 Mg Tab) 75 mg PO BID [facility] Last Admin: 04/15/21 08:53 Dose: 75 mg Documented by: Nystatin (Nystatin Topical Powder 30 Gm Bottle) 0 gm TOP BID [facility] Last Admin: 04/14/21 20:52 Dose: 1 applic Documented by: Ondansetron HCl (Ondansetron 4 Mg/2 Ml Sdv) 4 mg IVPUSH Q6H PRN PRN Reason: Nausea/Vomiting Polyethylene Glycol (Polyethylene Glycol 3350 Powder 17 Gm Packet) 17 gm PO DAILY PRN PRN Reason: Constipation Sodium Chloride (Sodium Chloride 0.9% 10 Ml Syringe) 10 ml FLUSH ASDIRECTED PRN PRN Reason: Keep Vein Open Last Admin: 04/14/21 20:59 Dose: 10 ml Documented by: Tamsulosin HCl (Tamsulosin 0.4 Mg Cap.Er) 0.4 mg PO DAILY [facility] Last Admin: 04/15/21 08:53 Dose: 0.4 mg Documented by: Vancomycin HCl (Pharmacy To Dose - Vancomycin) 1 dose .XX ASDIRECTED JOSLYN Discontinued Medications Sodium Chloride (Normal Saline) 1,000 mls @ 999 mls/hr IV .BOLUS ONE Stop: 04/13/21 15:14 Last Admin: 04/13/21 14:42 Dose: 999 mls/hr Documented by: Vancomycin HCl 1.5 gm/ Premix 300 mls @ 200 mls/hr IV ONETIME ONE Stop: 04/13/21 16:29 Last Admin: 04/13/21 14:48 Dose: 200 mls/hr Documented by: Sodium Chloride (Normal Saline) 1,000 mls @ 999 mls/hr IV .BOLUS ONE Stop: 04/13/21 15:56 Last Admin: 04/13/21 15:01 Dose: 999 mls/hr Documented by: Meropenem 500 mg/ Sodium (Chloride) 100 mls @ 200 mls/hr IV Q24H [facility] Last Admin: 04/14/21 09:28 Dose: Not Given Documented by: Sterile Water (Sterile Water For Injection) Confirm Administered Dose 20 mls @ as directed .ROUTE .STK-MED ONE Stop: 04/13/21 20:19 Last Admin: 04/13/21 20:25 Dose: 10 mls/hr Documented by: Meropenem 500 mg/ Sodium (Chloride) 100 mls @ 200 mls/hr IV Q12H [facility] Last Infusion: 04/14/21 10:46 Dose: Infused Documented by: Vancomycin HCl 1.5 gm/ Premix 300 mls @ 200 mls/hr IV ONETIME ONE Stop: 04/14/21 16:29 Last Admin: 04/14/21 15:21 Dose: 200 mls/hr Documented by: Meropenem (Meropenem 500 Mg Sdv) 500 mg IV ONETIME ONE Stop: 04/13/21 19:31 Last Admin: 04/13/21 20:25 Dose: 500 mg Documented by: Sodium Chloride (Sodium Chloride 0.9% 10 Ml Syringe) 10 ml FLUSH ASDIRECTED PRN PRN Reason: Keep Vein Open Last Admin: 04/13/21 13:42 Dose: 10 ml Documented by: Vancomycin HCl (Pharmacy To Dose - Vancomycin) 1 dose .XX ONETIME ONE Stop: 04/13/21 14:14 Last Admin: 04/13/21 21:44 Dose: Not Given Documented by: - Exam Quality Assessment: Supplemental Oxygen Urinary Catheter Total Time: 0Days 7Hours General: Alert, Oriented Neck: Supple Lungs: Clear to Auscultation Cardiovascular: Regular Rate, Regular Rhythm GI/Abdominal Exam: Soft, Non-Tender Extremities: Pedal Edema (mild) Skin: Dry Neurological: No New Focal Deficit Psy/Mental Status: Alert - Patient Data Lab Results Last 24 hrs: Laboratory Results - last 24 hr 04/14/21 04/15/21 04/15/21 Range/Units 10:03 06:00 06:00 WBC 20.6 H (5.0-10.0) 10^3/uL RBC 4.18 L (4.6-6.2) 10^6/uL Hgb 12.8 L (14.0-18.0) g/dL Hct 37.2 L (40.0-54.0) % MCV 89.0 (80-100) fL MCH 30.6 (27.0-34.0) pg MCHC 34.4 (33.0-35.0) g/dL Plt Count 57 L (150-450) 10^3/uL Neut % (Auto) 88.9 H (42.2-75.2) % Lymph % (Auto) 3.1 L (20.5-50.1) % [place] % (Auto) 8.0 (2-8) % Eos % (Auto) 0.0 L (1.0-3.0) % Baso % (Auto) 0.0 (0.0-1.0) % Sodium 137 (136-145) mmol/L Potassium 4.1 (3.5-5.1) mmol/L Chloride 102 (98-107) mmol/L Carbon Dioxide 19 L (21-32) mmol/L Anion Gap 20.1 H (7-13) mEq/L BUN 115 H (7-18) mg/dL Creatinine 5.23 H* D (0.70-1.30) mg/dL Est Cr Clr Drug Dosing 11.23 mL/min Estimated GFR (MDRD) 11 Glucose 102 H (70-99) mg/dL Calcium 7.8 L (8.5-10.1) mg/dL Random Vancomycin 16.6 (No Normal Range) ug/mL Result Diagrams: 04/15/21 06:00 04/15/21 06:00 [place] Results Last 24 hrs: Microbiology 04/13/21 14:30 Urine Culture - Final Urine, Whyte Cath (Indwelling) Enterobacter Cloacae Enterococcus Faecalis 04/13/21 13:40 Aerobic Blood Culture - Preliminary Blood - Venous - Lab Draw Anaerobic Blood Culture - Preliminary 04/13/21 13:48 Aerobic Blood Culture - Preliminary Blood - Venous Anaerobic Blood Culture - Preliminary NO GROWTH AFTER 1 DAY Sepsis Event Note - Evaluation Sepsis Screening Result: Severe Sepsis Risk - Focused Exam Vital Signs: Vital Signs Temp Pulse Pulse Resp BP BP Pulse Ox 04/15/21 08:53 69 102/58 L 04/15/21 03:14 98 F 72 20 102/56 L 96 04/14/21 23:41 97.9 F 16 90/46 L 96 - Problem List Review Problem List Initiated/Reviewed/Updated: Yes - My Orders Last 24 Hours: My Active Orders 04/14/21 08:59 Consult to Occupational Therapy [OT Evaluation and Treatment] [CONS] Routine 04/14/21 09:00 Nystatin [Nystop] See Dose Instructions TOP BID Pharmacy to Dose - InFluenza V [Pharmacy to Dose - InFluenza Vaccine] 1 each IM DAILY 04/14/21 09:30 Pharmacy to Dose - Vancomycin 1 dose .XX ASDIRECTED 04/14/21 10:33 Pressure Ulcer Prevention [OM.PC] Routine 04/14/21 13:13 Sodium Chloride 0.9% [Saline Flush] 10 ml FLUSH ASDIRECTED PRN 04/14/21 14:00 Dietary Supplements [RC] TIDMEALS 04/14/21 15:30 Blood Culture x2 Reflex Set [OM.PC] Stat 04/14/21 Dinner Pureed Diet [DIET] 04/14/21 21:00 Meropenem [Merrem] 500 mg Sodium Chloride 0.9% [Normal Saline] 100 ml IV Q12H 04/15/21 05:40 CULTURE URINE [RM] Routine 04/15/21 06:00 CULTURE BLOOD [BC] Routine 04/16/21 05:11 BASIC METABOLIC PANEL,BMP [CHEM] AM CBC WITH AUTO DIFF [HEME] AM 04/17/21 05:11 BASIC METABOLIC PANEL,BMP [CHEM] AM CBC WITH AUTO DIFF [HEME] AM 04/18/21 05:11 BASIC METABOLIC PANEL,BMP [CHEM] AM CBC WITH AUTO DIFF [HEME] AM 04/19/21 05:11 BASIC METABOLIC PANEL,BMP [CHEM] AM CBC WITH AUTO DIFF [HEME] AM 04/20/21 05:11 BASIC METABOLIC PANEL,BMP [CHEM] AM CBC WITH AUTO DIFF [HEME] AM - Plan Plan:: Severe sepsis due to UTI with gram neg bacteremia ( 2/). Urine cult is also showing gram positive cocci and gram neg. MAIA: ATN? vs hypovolemia : improved Hyperkalemia: resolved Chronic Whyte MS Bed bound, inability to care for self independently Thromocytopenia: most likely due to sepsis VS antibiotics. Hold Heparin. 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 DVT prophylaxis Decubitus prophylaxis DNR/ DNI
[2021-04-15] MEDS: Heparin Sodium 5,000 Units/ML Vial SUBCUT SCH ×2 (09:08→20:19)
[2021-04-15] MEDS: Acetaminophen 325 MG Tab PO PRN (16:01)
[2021-04-15 18:52] LABS: ANION GAP 19.1 mEq/L (7-13)
--- NOTE | 2021-04-15 19:08 | CR ---
PROCEDURE INFORMATION: Exam: XR Chest Exam date and time: 04/15/2021 6:44 PM Age: 76 years old Clinical indication: Shortness of breath; Additional info: Sepsis TECHNIQUE: Imaging protocol: XR of the chest. Views: 1 view. COMPARISON: CR Chest 1V Frontal 04/13/2021 2:47 PM FINDINGS: Tubes, catheters and devices: There are sternal wires consistent with previous sternotomy incision. Lungs: The pulmonary vasculature is not engorged. The lung bases are not well evaluated due to underinflation. Pleural spaces: There are no pleural effusions visualized. Heart/Mediastinum: The heart demonstrates moderate diffuse enlargement. The phase of inspiration is suboptimal accentuating the heart size and pulmonary markings. Bones/joints: There is mild scoliosis. IMPRESSION: 1. Moderate cardiomegaly. 2. No acute lung opacity is seen but the bases are somewhat obscured by underinflation.
--- NOTE | 2021-04-15 20:17 | PCM.PN ---
- General Info Date of Service: 04/15/21 Subjective Update: I was called by RN that the pt looks worse than am. - Review of Systems General: Reports: Fever Pulmonary: Reports: Shortness of Breath - Patient Data Vitals - Most Recent: Last Vital Signs Temp 99.2 F 04/15/21 18:34 Pulse 81 04/15/21 18:34 Resp 16 04/15/21 18:34 BP 128/69 04/15/21 18:34 Pulse Ox 96 04/15/21 18:34 Weight - Most Recent: 441 lb 2.319 oz I&O - Last 24 Hours: Intake & Output 04/15/21 04/15/21 04/15/21 06:59 14:59 22:59 Intake Total 628 1020 180 Output Total 525 775 Balance 103 245 180 Lab Results Last 24 Hours: Laboratory Results - last 24 hr 04/15/21 04/15/21 04/15/21 Range/Units 06:00 06:00 18:30 WBC 20.6 H (5.0-10.0) 10^3/uL RBC 4.18 L (4.6-6.2) 10^6/uL Hgb 12.8 L (14.0-18.0) g/dL Hct 37.2 L (40.0-54.0) % MCV 89.0 (80-100) fL MCH 30.6 (27.0-34.0) pg MCHC 34.4 (33.0-35.0) g/dL Plt Count 57 L (150-450) 10^3/uL Neut % (Auto) 88.9 H (42.2-75.2) % Lymph % (Auto) 3.1 L (20.5-50.1) % [place] % (Auto) 8.0 (2-8) % Eos % (Auto) 0.0 L (1.0-3.0) % Baso % (Auto) 0.0 (0.0-1.0) % Sodium 137 (136-145) mmol/L Potassium 4.1 (3.5-5.1) mmol/L Chloride 102 (98-107) mmol/L Carbon Dioxide 19 L (21-32) mmol/L Anion Gap 20.1 H (7-13) mEq/L BUN 115 H (7-18) mg/dL Creatinine 5.23 H* D (0.70-1.30) mg/dL Est Cr Clr Drug Dosing 11.23 mL/min Estimated GFR (MDRD) 11 Glucose 102 H (70-99) mg/dL Calcium 7.8 L (8.5-10.1) mg/dL Random Vancomycin 23.4 (No Normal Range) ug/mL 04/15/21 04/15/21 Range/Units 18:31 19:00 WBC 20.5 H (5.0-10.0) 10^3/uL RBC 4.38 L (4.6-6.2) 10^6/uL Hgb 13.4 L (14.0-18.0) g/dL Hct 39.0 L (40.0-54.0) % MCV 89.0 (80-100) fL MCH 30.6 (27.0-34.0) pg MCHC 34.4 (33.0-35.0) g/dL Plt Count 71 L (150-450) 10^3/uL Neut % (Auto) (42.2-75.2) % Lymph % (Auto) (20.5-50.1) % [place] % (Auto) (2-8) % Eos % (Auto) (1.0-3.0) % Baso % (Auto) (0.0-1.0) % Sodium 139 (136-145) mmol/L Potassium 4.1 (3.5-5.1) mmol/L Chloride 102 (98-107) mmol/L Carbon Dioxide 22 (21-32) mmol/L Anion Gap 19.1 H (7-13) mEq/L BUN 125 H (7-18) mg/dL Creatinine 4.94 H* (0.70-1.30) mg/dL Est Cr Clr Drug Dosing 11.89 mL/min Estimated GFR (MDRD) 11 Glucose 94 (70-99) mg/dL Calcium 8.3 L (8.5-10.1) mg/dL Random Vancomycin (No Normal Range) ug/mL [place] Results Last 24 Hours: Microbiology 04/13/21 13:48 Aerobic Blood Culture - Preliminary Blood - Venous Anaerobic Blood Culture - Preliminary NO GROWTH AFTER 2 DAYS 04/13/21 14:30 Urine Culture - Final Urine, Whyte Cath (Indwelling) Enterobacter Cloacae Enterococcus Faecalis 04/13/21 13:40 Aerobic Blood Culture - Preliminary Blood - Venous - Lab Draw Anaerobic Blood Culture - Preliminary Med Orders - Current: Current Medications Acetaminophen (Acetaminophen 325 Mg Tab) 650 mg PO Q6H PRN PRN Reason: Pain (Mild 1-3)/fever Last Admin: 04/15/21 16:01 Dose: 650 mg Documented by: Heparin Sodium (Porcine) (Heparin Sodium 5,000 Units/Ml Vial) 5,000 units [place] BCUT Q12HR [facility] Last Admin: 04/15/21 09:08 Dose: Not Given Documented by: Sodium Chloride (Normal Saline) 1,000 mls @ 70 mls/hr IV ASDIRECTED [facility] Last Admin: 04/15/21 05:41 Dose: 70 mls/hr Documented by: Meropenem 500 mg/ Sodium (Chloride) 100 mls @ 200 mls/hr IV Q12H [facility] Last Admin: 04/15/21 08:57 Dose: 100 mls/hr Documented by: Piperacillin Sod/Tazobactam (Sod 2.25 gm/ Sodium Chloride) 50 mls @ 100 mls/hr IV Q6HR [facility] Influenza Virus Vaccine (Pharmacy To Dose - Influenza Vaccine) 1 each IM DAILY [facility] Last Admin: 04/15/21 13:23 Dose: Not Given Documented by: Melatonin (Melatonin 3 Mg Tab) 3 mg PO BEDTIME PRN PRN Reason: Sleep Last Admin: 04/14/21 20:53 Dose: 3 mg Documented by: Metoprolol Tartrate (Metoprolol Tartrate 50 Mg Tab) 75 mg PO BID [facility] Last Admin: 04/15/21 08:53 Dose: 75 mg Documented by: Nystatin (Nystatin Topical Powder 30 Gm Bottle) 0 gm TOP BID [facility] Last Admin: 04/15/21 09:00 Dose: 1 applic Documented by: Ondansetron HCl (Ondansetron 4 Mg/2 Ml Sdv) 4 mg IVPUSH Q6H PRN PRN Reason: Nausea/Vomiting Last Admin: 04/15/21 17:18 Dose: 4 mg Documented by: Polyethylene Glycol (Polyethylene Glycol 3350 Powder 17 Gm Packet) 17 gm PO DAILY PRN PRN Reason: Constipation Last Admin: 04/15/21 17:18 Dose: 17 gm Documented by: Sodium Chloride (Sodium Chloride 0.9% 10 Ml Syringe) 10 ml FLUSH ASDIRECTED PRN PRN Reason: Keep Vein Open Last Admin: 04/14/21 20:59 Dose: 10 ml Documented by: Tamsulosin HCl (Tamsulosin 0.4 Mg Cap.Er) 0.4 mg PO DAILY [facility] Last Admin: 04/15/21 08:53 Dose: 0.4 mg Documented by: Vancomycin HCl (Pharmacy To Dose - Vancomycin) 1 dose .XX ASDIRECTED JOSLYN Discontinued Medications Sodium Chloride (Normal Saline) 1,000 mls @ 999 mls/hr IV .BOLUS ONE Stop: 04/13/21 15:14 Last Admin: 04/13/21 14:42 Dose: 999 mls/hr Documented by: Vancomycin HCl 1.5 gm/ Premix 300 mls @ 200 mls/hr IV ONETIME ONE Stop: 04/13/21 16:29 Last Admin: 04/13/21 14:48 Dose: 200 mls/hr Documented by: Sodium Chloride (Normal Saline) 1,000 mls @ 999 mls/hr IV .BOLUS ONE Stop: 04/13/21 15:56 Last Admin: 04/13/21 15:01 Dose: 999 mls/hr Documented by: Meropenem 500 mg/ Sodium (Chloride) 100 mls @ 200 mls/hr IV Q24H [facility] Last Admin: 04/14/21 09:28 Dose: Not Given Documented by: Sterile Water (Sterile Water For Injection) Confirm Administered Dose 20 mls @ as directed .ROUTE .STK-MED ONE Stop: 04/13/21 20:19 Last Admin: 04/13/21 20:25 Dose: 10 mls/hr Documented by: Meropenem 500 mg/ Sodium (Chloride) 100 mls @ 200 mls/hr IV Q12H [facility] Last Infusion: 04/14/21 10:46 Dose: Infused Documented by: Vancomycin HCl 1.5 gm/ Premix 300 mls @ 200 mls/hr IV ONETIME ONE Stop: 04/14/21 16:29 Last Admin: 04/14/21 15:21 Dose: 200 mls/hr Documented by: Meropenem (Meropenem 500 Mg Sdv) 500 mg IV ONETIME ONE Stop: 04/13/21 19:31 Last Admin: 04/13/21 20:25 Dose: 500 mg Documented by: Sodium Chloride (Sodium Chloride 0.9% 10 Ml Syringe) 10 ml FLUSH ASDIRECTED PRN PRN Reason: Keep Vein Open Last Admin: 04/13/21 13:42 Dose: 10 ml Documented by: Vancomycin HCl (Pharmacy To Dose - Vancomycin) 1 dose .XX ONETIME ONE Stop: 04/13/21 14:14 Last Admin: 04/13/21 21:44 Dose: Not Given Documented by: - Exam Quality Assessment: Supplemental Oxygen Urinary Catheter Total Time: 0Days 21Hours General: Alert, Oriented Lungs: Crackles Cardiovascular: Regular Rate, Regular Rhythm GI/Abdominal Exam: Soft Extremities: Pedal Edema (mild) - Patient Data Lab Results Last 24 hrs: Laboratory Results - last 24 hr 04/15/21 04/15/21 04/15/21 Range/Units 06:00 06:00 18:30 WBC 20.6 H (5.0-10.0) 10^3/uL RBC 4.18 L (4.6-6.2) 10^6/uL Hgb 12.8 L (14.0-18.0) g/dL Hct 37.2 L (40.0-54.0) % MCV 89.0 (80-100) fL MCH 30.6 (27.0-34.0) pg MCHC 34.4 (33.0-35.0) g/dL Plt Count 57 L (150-450) 10^3/uL Neut % (Auto) 88.9 H (42.2-75.2) % Lymph % (Auto) 3.1 L (20.5-50.1) % [place] % (Auto) 8.0 (2-8) % Eos % (Auto) 0.0 L (1.0-3.0) % Baso % (Auto) 0.0 (0.0-1.0) % Sodium 137 (136-145) mmol/L Potassium 4.1 (3.5-5.1) mmol/L Chloride 102 (98-107) mmol/L Carbon Dioxide 19 L (21-32) mmol/L Anion Gap 20.1 H (7-13) mEq/L BUN 115 H (7-18) mg/dL Creatinine 5.23 H* D (0.70-1.30) mg/dL Est Cr Clr Drug Dosing 11.23 mL/min Estimated GFR (MDRD) 11 Glucose 102 H (70-99) mg/dL Calcium 7.8 L (8.5-10.1) mg/dL Random Vancomycin 23.4 (No Normal Range) ug/mL 04/15/21 04/15/21 Range/Units 18:31 19:00 WBC 20.5 H (5.0-10.0) 10^3/uL RBC 4.38 L (4.6-6.2) 10^6/uL Hgb 13.4 L (14.0-18.0) g/dL Hct 39.0 L (40.0-54.0) % MCV 89.0 (80-100) fL MCH 30.6 (27.0-34.0) pg MCHC 34.4 (33.0-35.0) g/dL Plt Count 71 L (150-450) 10^3/uL Neut % (Auto) (42.2-75.2) % Lymph % (Auto) (20.5-50.1) % [place] % (Auto) (2-8) % Eos % (Auto) (1.0-3.0) % Baso % (Auto) (0.0-1.0) % Sodium 139 (136-145) mmol/L Potassium 4.1 (3.5-5.1) mmol/L Chloride 102 (98-107) mmol/L Carbon Dioxide 22 (21-32) mmol/L Anion Gap 19.1 H (7-13) mEq/L BUN 125 H (7-18) mg/dL Creatinine 4.94 H* (0.70-1.30) mg/dL Est Cr Clr Drug Dosing 11.89 mL/min Estimated GFR (MDRD) 11 Glucose 94 (70-99) mg/dL Calcium 8.3 L (8.5-10.1) mg/dL Random Vancomycin (No Normal Range) ug/mL Result Diagrams: 04/15/21 19:00 04/15/21 18:31 [place] Results Last 24 hrs: Microbiology 04/13/21 13:48 Aerobic Blood Culture - Preliminary Blood - Venous Anaerobic Blood Culture - Preliminary NO GROWTH AFTER 2 DAYS 04/13/21 14:30 Urine Culture - Final Urine, Whyte Cath (Indwelling) Enterobacter Cloacae Enterococcus Faecalis 04/13/21 13:40 Aerobic Blood Culture - Preliminary Blood - Venous - Lab Draw Anaerobic Blood Culture - Preliminary Sepsis Event Note - Evaluation Sepsis Screening Result: Severe Sepsis Risk - Focused Exam Vital Signs: Vital Signs Temp Pulse Pulse Resp BP BP Pulse Ox 04/15/21 18:34 99.2 F 81 16 128/69 96 04/15/21 17:25 98.3 F 78 14 125/63 95 04/15/21 16:00 98.5 F 72 14 95/52 L 93 L 04/15/21 12:00 97.9 F 76 23 H 115/69 95 04/15/21 08:53 69 102/58 L - Problem List Review Problem List Initiated/Reviewed/Updated: Yes - My Orders Last 24 Hours: My Active Orders 04/14/21 21:00 Meropenem [Merrem] 500 mg Sodium Chloride 0.9% [Normal Saline] 100 ml IV Q12H 04/15/21 05:40 CULTURE URINE [RM] Routine 04/15/21 06:00 CULTURE BLOOD [BC] Routine 04/15/21 19:30 Piperacillin/Tazobactam [Zosyn] 2.25 gm Sodium Chloride 0.9% [Normal Saline] 50 ml IV Q6HR 04/16/21 05:11 BASIC METABOLIC PANEL,BMP [CHEM] AM CBC WITH AUTO DIFF [HEME] AM 04/16/21 12:00 VANCOMYCIN RANDOM [CHEM] Timed 04/17/21 05:11 BASIC METABOLIC PANEL,BMP [CHEM] AM CBC WITH AUTO DIFF [HEME] AM 04/18/21 05:11 BASIC METABOLIC PANEL,BMP [CHEM] AM CBC WITH AUTO DIFF [HEME] AM 04/19/21 05:11 BASIC METABOLIC PANEL,BMP [CHEM] AM CBC WITH AUTO DIFF [HEME] AM 04/20/21 05:11 BASIC METABOLIC PANEL,BMP [CHEM] AM CBC WITH AUTO DIFF [HEME] AM - Plan Plan:: Severe sepsis due to UTI with gram neg bacteremia ( 2/2). Urine cult is also showing gram positive cocci and gram neg. MAIA: ATN? vs hypovolemia : improved Hyperkalemia: resolved Chronic Whyte MS Bed bound, inability to care for self independently Thromocytopenia: most likely due to sepsis VS antibiotics. Hold Heparin. Hold IVF Whyte changed COntinue with Meropenem. Chnage Vanco to Tazosyn repeat cults done today Repeat Labs in AM DC Ibuprofen abd US: showed B hydronephrosis At this time pt agrees to be transferred to higher level of care. D/W pt s son Mr. Jeff and he agrees with transfer. Yonis Carter and [place] social contact worker to review available support at home vs possible placement. DVT prophylaxis Decubitus prophylaxis DNR/ DNI
[2021-04-15] MEDS: Piperacillin/Tazobactam 2.25 GM in Sodium Chloride 0.9% 50 ML IV SCH ×2 (20:19→23:50)
[2021-04-15] MEDS ORDERED: Sodium Chloride 0.9% 1,000 ML IV SCH (20:30)
[2021-04-15] MEDS ORDERED: Sodium Chloride 0.9% 250 ML IV SCH (21:15)
--- NOTE | 2021-04-15 21:44 | PCM.SN.2 ---
- Free Text/Narrative Note: BP dropped 84/50 . IVF bolus started. [facility] call: no bed. Menan: I spoke to Dr. Su , hospitalist. They have only one bed and she declined the transfer. Dr. Su advised that pt is getting the appropriate leve l of care and she recommended comfort care with IVF and antibiotics. Pt was son was called and his was updated in details ( 30 min) about the situation . He was informed about the current critical status of his father along with multiple chronic comorbidities. He agrees with comfort measures including antibiotics and IVF without ICU or any escalation of care. repeat BP 90/47. Rest of exam remained stable. Total time spent 90 min Time Documentation
[2021-04-16] MEDS: Piperacillin/Tazobactam 2.25 GM in Sodium Chloride 0.9% 50 ML IV SCH ×4 (05:51→23:48)
[2021-04-16] MEDS: Tamsulosin 0.4 MG Cap.ER PO SCH (08:21)
[2021-04-16] MEDS: Heparin Sodium 5,000 Units/ML Vial SUBCUT SCH ×2 (08:21→20:44)
[2021-04-16] MEDS: Nystatin Topical Powder 30 GM Bottle TOP SCH ×2 (08:22→20:55)
[2021-04-16] MEDS: Acetaminophen 325 MG Tab PO PRN ×2 (08:22→18:12)
[2021-04-16] MEDS: Metoprolol Tartrate 50 MG Tab PO SCH ×2 (08:29→21:01)
[2021-04-16] MEDS: Meropenem 500 MG in Sodium Chloride 0.9% 100 ML IV SCH ×2 (08:37→20:49)
--- NOTE | 2021-04-16 09:19 | PCM.PN ---
- General Info Date of Service: 04/16/21 Functional Status: Denies: Pain Controlled - Review of Systems General: Denies: Fever Pulmonary: Reports: Shortness of Breath (mild) Gastrointestinal: Denies: Abdominal Pain Genitourinary: Denies: Dysuria Neurological: Denies: No Symptoms Psychiatric: Denies: No Symptoms - Patient Data Vitals - Most Recent: Last Vital Signs Temp 97.8 F 04/16/21 07:41 Pulse 75 04/16/21 08:29 Resp 20 04/16/21 07:41 BP 106/54 L 04/16/21 08:29 Pulse Ox 94 L 04/16/21 07:41 Weight - Most Recent: 441 lb 2.319 oz I&O - Last 24 Hours: Intake & Output 04/15/21 04/16/21 04/16/21 22:59 06:59 14:59 Intake Total 280 100 10 Output Total 750 675 Balance -470 -575 10 Lab Results Last 24 Hours: Laboratory Results - last 24 hr 04/15/21 04/15/21 04/15/21 Range/Units 18:30 18:31 19:00 WBC 20.5 H (5.0-10.0) 10^3/uL RBC 4.38 L (4.6-6.2) 10^6/uL Hgb 13.4 L (14.0-18.0) g/dL Hct 39.0 L (40.0-54.0) % MCV 89.0 (80-100) fL MCH 30.6 (27.0-34.0) pg MCHC 34.4 (33.0-35.0) g/dL Plt Count 71 L (150-450) 10^3/uL Neut % (Auto) (42.2-75.2) % Lymph % (Auto) (20.5-50.1) % Gilmer % (Auto) (2-8) % Eos % (Auto) (1.0-3.0) % Baso % (Auto) (0.0-1.0) % Sodium 139 (136-145) mmol/L Potassium 4.1 (3.5-5.1) mmol/L Chloride 102 (98-107) mmol/L Carbon Dioxide 22 (21-32) mmol/L Anion Gap 19.1 H (7-13) mEq/L BUN 125 H (7-18) mg/dL Creatinine 4.94 H* (0.70-1.30) mg/dL Est Cr Clr Drug Dosing 11.89 mL/min Estimated GFR (MDRD) 11 Glucose 94 (70-99) mg/dL Calcium 8.3 L (8.5-10.1) mg/dL Random Vancomycin 23.4 (No Normal Range) ug/mL 04/16/21 04/16/21 Range/Units 05:40 05:40 WBC 24.0 H (5.0-10.0) 10^3/uL RBC 4.22 L (4.6-6.2) 10^6/uL Hgb 12.8 L (14.0-18.0) g/dL Hct 37.8 L (40.0-54.0) % MCV 89.6 (80-100) fL MCH 30.3 (27.0-34.0) pg MCHC 33.9 (33.0-35.0) g/dL Plt Count 80 L (150-450) 10^3/uL Neut % (Auto) 87.0 H (42.2-75.2) % Lymph % (Auto) 4.3 L (20.5-50.1) % Gilmer % (Auto) 8.4 H (2-8) % Eos % (Auto) 0.3 L (1.0-3.0) % Baso % (Auto) 0.0 (0.0-1.0) % Sodium 141 (136-145) mmol/L Potassium 4.0 (3.5-5.1) mmol/L Chloride 106 (98-107) mmol/L Carbon Dioxide 19 L (21-32) mmol/L Anion Gap 20.0 H (7-13) mEq/L BUN 122 H (7-18) mg/dL Creatinine 4.21 H (0.70-1.30) mg/dL Est Cr Clr Drug Dosing 13.96 mL/min Estimated GFR (MDRD) 14 Glucose 93 (70-99) mg/dL Calcium 8.0 L (8.5-10.1) mg/dL Random Vancomycin (No Normal Range) ug/mL [place] Results Last 24 Hours: Microbiology 04/13/21 13:40 Aerobic Blood Culture - Final Blood - Venous - Lab Draw Enterobacter Cloacae Anaerobic Blood Culture - Final Enterobacter Cloacae 04/13/21 13:48 Aerobic Blood Culture - Final Blood - Venous Enterobacter Cloacae Anaerobic Blood Culture - Preliminary NO GROWTH AFTER 2 DAYS 04/15/21 05:40 Urine Culture - Preliminary Urine, Catheterized 04/15/21 06:00 Aerobic Blood Culture - Preliminary Blood - Arm, Left NO GROWTH AFTER 1 DAY Anaerobic Blood Culture - Preliminary NO GROWTH AFTER 1 DAY 04/13/21 14:30 Urine Culture - Final Urine, Whyte Cath (Indwelling) Enterobacter Cloacae Enterococcus Faecalis Med Orders - Current: Current Medications Acetaminophen (Acetaminophen 325 Mg Tab) 650 mg PO Q6H PRN PRN Reason: Pain (Mild 1-3)/fever Last Admin: 04/16/21 08:22 Dose: 650 mg Documented by: Heparin Sodium (Porcine) (Heparin Sodium 5,000 Units/Ml Vial) 5,000 units SUBCUT Q12HR [facility] Last Admin: 04/16/21 08:21 Dose: Not Given Documented by: Meropenem 500 mg/ Sodium (Chloride) 100 mls @ 200 mls/hr IV Q12H [facility] Last Admin: 04/16/21 08:37 Dose: 100 mls/hr Documented by: Piperacillin Sod/Tazobactam (Sod 2.25 gm/ Sodium Chloride) 50 mls @ 100 mls/hr IV Q6HR [facility] Last Admin: 04/16/21 05:51 Dose: 100 mls/hr Documented by: Sodium Chloride (Normal Saline) 1,000 mls @ 60 mls/hr IV ASDIRECTED [facility] Influenza Virus Vaccine (Pharmacy To Dose - Influenza Vaccine) 1 each IM DAILY [facility] Last Admin: 04/16/21 08:21 Dose: Not Given Documented by: Melatonin (Melatonin 3 Mg Tab) 3 mg PO BEDTIME PRN PRN Reason: Sleep Last Admin: 04/14/21 20:53 Dose: 3 mg Documented by: Metoprolol Tartrate (Metoprolol Tartrate 50 Mg Tab) 75 mg PO BID [facility] Last Admin: 04/16/21 08:29 Dose: Not Given Documented by: Nystatin (Nystatin Topical Powder 30 Gm Bottle) 0 gm TOP BID [facility] Last Admin: 04/16/21 08:22 Dose: 1 applic Documented by: Ondansetron HCl (Ondansetron 4 Mg/2 Ml Sdv) 4 mg IVPUSH Q6H PRN PRN Reason: Nausea/Vomiting Last Admin: 04/15/21 17:18 Dose: 4 mg Documented by: Polyethylene Glycol (Polyethylene Glycol 3350 Powder 17 Gm Packet) 17 gm PO DAILY PRN PRN Reason: Constipation Last Admin: 04/15/21 17:18 Dose: 17 gm Documented by: Sodium Chloride (Sodium Chloride 0.9% 10 Ml Syringe) 10 ml FLUSH ASDIRECTED PRN PRN Reason: Keep Vein Open Last Admin: 04/14/21 20:59 Dose: 10 ml Documented by: Tamsulosin HCl (Tamsulosin 0.4 Mg Cap.Er) 0.4 mg PO DAILY [facility] Last Admin: 04/16/21 08:21 Dose: 0.4 mg Documented by: Discontinued Medications Sodium Chloride (Normal Saline) 1,000 mls @ 999 mls/hr IV .BOLUS ONE Stop: 04/13/21 15:14 Last Admin: 04/13/21 14:42 Dose: 999 mls/hr Documented by: Vancomycin HCl 1.5 gm/ Premix 300 mls @ 200 mls/hr IV ONETIME ONE Stop: 04/13/21 16:29 Last Admin: 04/13/21 14:48 Dose: 200 mls/hr Documented by: Sodium Chloride (Normal Saline) 1,000 mls @ 999 mls/hr IV .BOLUS ONE Stop: 04/13/21 15:56 Last Admin: 04/13/21 15:01 Dose: 999 mls/hr Documented by: Sodium Chloride (Normal Saline) 1,000 mls @ 70 mls/hr IV ASDIRECTED [facility] Last Infusion: 04/15/21 23:33 Dose: Infused Documented by: Meropenem 500 mg/ Sodium (Chloride) 100 mls @ 200 mls/hr IV Q24H [facility] Last Admin: 04/14/21 09:28 Dose: Not Given Documented by: Sterile Water (Sterile Water For Injection) Confirm Administered Dose 20 mls @ as directed .ROUTE .STK-MED ONE Stop: 04/13/21 20:19 Last Admin: 04/13/21 20:25 Dose: 10 mls/hr Documented by: Meropenem 500 mg/ Sodium (Chloride) 100 mls @ 200 mls/hr IV Q12H [facility] Last Infusion: 04/14/21 10:46 Dose: Infused Documented by: Vancomycin HCl 1.5 gm/ Premix 300 mls @ 200 mls/hr IV ONETIME ONE Stop: 04/14/21 16:29 Last Admin: 04/14/21 15:21 Dose: 200 mls/hr Documented by: Sodium Chloride (Normal Saline) 1,000 mls @ 500 mls/hr IV ASDIRECTED JOSLYN Last Admin: 04/15/21 20:38 Dose: 500 mls/hr Documented by: Sodium Chloride (Normal Saline) 250 mls @ 60 mls/hr IV ASDIRECTED JOSLYN Meropenem (Meropenem 500 Mg Sdv) 500 mg IV ONETIME ONE Stop: 04/13/21 19:31 Last Admin: 04/13/21 20:25 Dose: 500 mg Documented by: Sodium Chloride (Sodium Chloride 0.9% 10 Ml Syringe) 10 ml FLUSH ASDIRECTED PRN PRN Reason: Keep Vein Open Last Admin: 04/13/21 13:42 Dose: 10 ml Documented by: Vancomycin HCl (Pharmacy To Dose - Vancomycin) 1 dose .XX ONETIME ONE Stop: 04/13/21 14:14 Last Admin: 04/13/21 21:44 Dose: Not Given Documented by: Vancomycin HCl (Pharmacy To Dose - Vancomycin) 1 dose .XX ASDIRECTED JOSLYN - Exam Quality Assessment: Supplemental Oxygen Urinary Catheter Total Time: 1Days 5Hours General: Alert, Oriented Lungs: Clear to Auscultation Cardiovascular: Regular Rate, Regular Rhythm GI/Abdominal Exam: Soft, Non-Tender (Male) Exam: Other (Whyte in palce) Extremities: Normal Inspection, Pedal Edema (trace) Neurological: Other (unchanged lower ext weakness) Psy/Mental Status: Alert, Normal Affect - Patient Data Lab Results Last 24 hrs: Laboratory Results - last 24 hr 04/15/21 04/15/21 04/15/21 Range/Units 18:30 18:31 19:00 WBC 20.5 H (5.0-10.0) 10^3/uL RBC 4.38 L (4.6-6.2) 10^6/uL Hgb 13.4 L (14.0-18.0) g/dL Hct 39.0 L (40.0-54.0) % MCV 89.0 (80-100) fL MCH 30.6 (27.0-34.0) pg MCHC 34.4 (33.0-35.0) g/dL Plt Count 71 L (150-450) 10^3/uL Neut % (Auto) (42.2-75.2) % Lymph % (Auto) (20.5-50.1) % Gilmer % (Auto) (2-8) % Eos % (Auto) (1.0-3.0) % Baso % (Auto) (0.0-1.0) % Sodium 139 (136-145) mmol/L Potassium 4.1 (3.5-5.1) mmol/L Chloride 102 (98-107) mmol/L Carbon Dioxide 22 (21-32) mmol/L Anion Gap 19.1 H (7-13) mEq/L BUN 125 H (7-18) mg/dL Creatinine 4.94 H* (0.70-1.30) mg/dL Est Cr Clr Drug Dosing 11.89 mL/min Estimated GFR (MDRD) 11 Glucose 94 (70-99) mg/dL Calcium 8.3 L (8.5-10.1) mg/dL Random Vancomycin 23.4 (No Normal Range) ug/mL 04/16/21 04/16/21 Range/Units 05:40 05:40 WBC 24.0 H (5.0-10.0) 10^3/uL RBC 4.22 L (4.6-6.2) 10^6/uL Hgb 12.8 L (14.0-18.0) g/dL Hct 37.8 L (40.0-54.0) % MCV 89.6 (80-100) fL MCH 30.3 (27.0-34.0) pg MCHC 33.9 (33.0-35.0) g/dL Plt Count 80 L (150-450) 10^3/uL Neut % (Auto) 87.0 H (42.2-75.2) % Lymph % (Auto) 4.3 L (20.5-50.1) % Gilmer % (Auto) 8.4 H (2-8) % Eos % (Auto) 0.3 L (1.0-3.0) % Baso % (Auto) 0.0 (0.0-1.0) % Sodium 141 (136-145) mmol/L Potassium 4.0 (3.5-5.1) mmol/L Chloride 106 (98-107) mmol/L Carbon Dioxide 19 L (21-32) mmol/L Anion Gap 20.0 H (7-13) mEq/L BUN 122 H (7-18) mg/dL Creatinine 4.21 H (0.70-1.30) mg/dL Est Cr Clr Drug Dosing 13.96 mL/min Estimated GFR (MDRD) 14 Glucose 93 (70-99) mg/dL Calcium 8.0 L (8.5-10.1) mg/dL Random Vancomycin (No Normal Range) ug/mL Result Diagrams: 04/16/21 05:40 04/16/21 05:40 [place] Results Last 24 hrs: Microbiology 04/13/21 13:40 Aerobic Blood Culture - Final Blood - Venous - Lab Draw Enterobacter Cloacae Anaerobic Blood Culture - Final Enterobacter Cloacae 04/13/21 13:48 Aerobic Blood Culture - Final Blood - Venous Enterobacter Cloacae Anaerobic Blood Culture - Preliminary NO GROWTH AFTER 2 DAYS 04/15/21 05:40 Urine Culture - Preliminary Urine, Catheterized 04/15/21 06:00 Aerobic Blood Culture - Preliminary Blood - Arm, Left NO GROWTH AFTER 1 DAY Anaerobic Blood Culture - Preliminary NO GROWTH AFTER 1 DAY 04/13/21 14:30 Urine Culture - Final Urine, Whyte Cath (Indwelling) Enterobacter Cloacae Enterococcus Faecalis Sepsis Event Note - Evaluation Sepsis Screening Result: Severe Sepsis Risk - Focused Exam Vital Signs: Vital Signs Temp Pulse Pulse Resp BP BP BP 04/16/21 08:29 75 106/54 L 04/16/21 07:41 97.8 F 75 20 106/54 L 04/16/21 04:00 97.9 F 71 18 118/61 04/16/21 00:00 97.9 F 74 18 97/41 L 04/15/21 22:25 77 97/48 L Pulse Ox 04/16/21 08:29 04/16/21 07:41 94 L 04/16/21 04:00 96 04/16/21 00:00 97 04/15/21 22:25 - Problem List Review Problem List Initiated/Reviewed/Updated: Yes - My Orders Last 24 Hours: My Active Orders 04/15/21 19:30 Piperacillin/Tazobactam [Zosyn] 2.25 gm Sodium Chloride 0.9% [Normal Saline] 50 ml IV Q6HR 04/15/21 20:23 Incentive Spirometry [RT Incentive Spirometry] [RC] Q1HWA 04/15/21 21:30 Sodium Chloride 0.9% [Normal Saline] 1,000 ml IV ASDIRECTED 04/17/21 05:11 BASIC METABOLIC PANEL,BMP [CHEM] AM CBC WITH AUTO DIFF [HEME] AM 04/18/21 05:11 BASIC METABOLIC PANEL,BMP [CHEM] AM CBC WITH AUTO DIFF [HEME] AM 04/19/21 05:11 BASIC METABOLIC PANEL,BMP [CHEM] AM CBC WITH AUTO DIFF [HEME] AM 04/20/21 05:11 BASIC METABOLIC PANEL,BMP [CHEM] AM CBC WITH AUTO DIFF [HEME] AM - Plan Plan:: Severe sepsis due to UTI with gram neg bacteremia ( 2/). Urine cult is also showing gram positive cocci and gram neg. WBC is higher today. Hypotension: improved. MAIA: ATN/ hypovolemia : improving Hyperkalemia: resolved Chronic Whyte MS Bed bound, inability to care for self independently Thrombocytopenia: most likely due to sepsis VS antibiotics. Hold Heparin. Continue with IVF Whyte already changed on admission. Continue with Meropenem and Zosyn ( from Vanco due to risk of MAIA from Vanco) repeat cults done yesterday Repeat Labs in AM DC Ibuprofen abd US: showed B hydronephrosis At this time pt would rather to stay at our hospital for IVF and antibiotics only and not to be transferred out. powder worker tnt to review available support at home vs possible placement. Decubitus prophylaxis: per protocol. DVT prophylaxis: hold heparin due to low PLT DNR/ DNI Rounds with charge account identification clerk who laso tttempted to reach pt s son Mr. Jeff: awaiting his reply.
[2021-04-16] MEDS ORDERED: Acetaminophen 325 MG Tab PO ONE (11:31)
[2021-04-16] MEDS: Sodium Chloride 0.9% 1,000 ML IV SCH (12:43)
[2021-04-16] MEDS ORDERED: Piperacillin/Tazobactam 2.25 GM in Sodium Chloride 0.9% 50 ML IV SCH (13:16)
[2021-04-16] MEDS: Melatonin 3 MG Tab PO PRN (21:01)
[2021-04-17] MEDS: Acetaminophen 325 MG Tab PO PRN ×3 (05:12→20:43)
[2021-04-17] MEDS: Piperacillin/Tazobactam 2.25 GM in Sodium Chloride 0.9% 50 ML IV SCH (05:46)
[2021-04-17] MEDS: Sodium Chloride 0.9% 1,000 ML IV SCH (05:50)
[2021-04-17 06:23] LABS: ANION GAP 15.8 mEq/L (7-13)
[2021-04-17] MEDS: Meropenem 500 MG in Sodium Chloride 0.9% 100 ML IV SCH ×2 (08:51→21:54)
[2021-04-17] MEDS: Sodium Chloride 0.9% 10 ML Syringe FLUSH PRN (08:54)
[2021-04-17] MEDS: Metoprolol Tartrate 50 MG Tab PO SCH ×2 (08:56→20:44)
[2021-04-17] MEDS: Tamsulosin 0.4 MG Cap.ER PO SCH (08:56)
[2021-04-17] MEDS: Nystatin Topical Powder 30 GM Bottle TOP SCH ×2 (08:56→21:54)
[2021-04-17] MEDS: Heparin Sodium 5,000 Units/ML Vial SUBCUT SCH ×2 (09:04→20:45)
--- NOTE | 2021-04-17 10:03 | PCM.PN ---
- General Info Date of Service: 04/17/21 Subjective Update: still feeling weak but has no new complains. Breating at baseline. no cough. eating some. no abd pain Functional Status: Reports: Pain Controlled - Review of Systems General: Denies: Fever Pulmonary: Denies: Shortness of Breath Cardiovascular: Denies: Chest Pain Gastrointestinal: Denies: Abdominal Pain Genitourinary: Denies: Dysuria Skin: Denies: No Symptoms Neurological: Reports: No Symptoms Psychiatric: Denies: No Symptoms - Patient Data Vitals - Most Recent: Last Vital Signs Temp 97.7 F 04/17/21 08:08 Pulse 62 04/17/21 08:56 Resp 16 04/17/21 08:08 BP 91/51 L 04/17/21 08:56 Pulse Ox 95 04/17/21 08:08 Weight - Most Recent: 441 lb 2.319 oz I&O - Last 24 Hours: Intake & Output 04/16/21 04/17/21 04/17/21 22:59 06:59 14:59 Intake Total 420 1270 Output Total 475 800 Balance -55 470 Lab Results Last 24 Hours: Laboratory Results - last 24 hr 04/17/21 04/17/21 Range/Units 05:40 05:40 WBC 26.6 H* (5.0-10.0) 10^3/uL RBC 4.01 L (4.6-6.2) 10^6/uL Hgb 12.2 L (14.0-18.0) g/dL Hct 37.2 L (40.0-54.0) % MCV 92.8 D (80-100) fL MCH 30.4 (27.0-34.0) pg MCHC 32.8 L (33.0-35.0) g/dL Plt Count 116 L (150-450) 10^3/uL Neut % (Auto) 86.2 H (42.2-75.2) % Lymph % (Auto) 6.5 L (20.5-50.1) % Terry % (Auto) 6.5 (2-8) % Eos % (Auto) 0.7 L (1.0-3.0) % Baso % (Auto) 0.1 (0.0-1.0) % Add Manual Diff Sodium 145 (136-145) mmol/L Potassium 3.8 (3.5-5.1) mmol/L Chloride 110 H (98-107) mmol/L Carbon Dioxide 23 (21-32) mmol/L Anion Gap 15.8 H (7-13) mEq/L BUN 102 H (7-18) mg/dL Creatinine 3.48 H (0.70-1.30) mg/dL Est Cr Clr Drug Dosing 16.88 mL/min Estimated GFR (MDRD) 17 Glucose 98 (70-99) mg/dL Calcium 7.9 L (8.5-10.1) mg/dL [place] Results Last 24 Hours: Microbiology 04/13/21 13:48 Aerobic Blood Culture - Final Blood - Venous Enterobacter Cloacae Anaerobic Blood Culture - Final 04/15/21 05:40 Urine Culture - Final Urine, Catheterized Enterobacter Cloacae Enterococcus Faecalis 04/15/21 06:00 Aerobic Blood Culture - Preliminary Blood - Arm, Left NO GROWTH AFTER 2 DAYS Anaerobic Blood Culture - Preliminary NO GROWTH AFTER 2 DAYS 04/13/21 13:40 Aerobic Blood Culture - Final Blood - Venous - Lab Draw Enterobacter Cloacae Anaerobic Blood Culture - Final Enterobacter Cloacae Med Orders - Current: Current Medications Acetaminophen (Acetaminophen 325 Mg Tab) 650 mg PO Q6H PRN PRN Reason: Pain (Mild 1-3)/fever Last Admin: 04/17/21 05:12 Dose: 650 mg Documented by: Acyclovir (Acyclovir 200 Mg Cap) 200 mg PO 5XDAY [facility] Heparin Sodium (Porcine) (Heparin Sodium 5,000 Units/Ml Vial) 5,000 units SUBCUT Q12HR [facility] Last Admin: 04/17/21 09:04 Dose: 5,000 units Documented by: Meropenem 500 mg/ Sodium (Chloride) 100 mls @ 200 mls/hr IV Q12H [facility] Last Infusion: 04/17/21 09:44 Dose: Infused Documented by: Sodium Chloride (Normal Saline) 1,000 mls @ 60 mls/hr IV ASDIRECTED [facility] Last Admin: 04/17/21 05:50 Dose: 60 mls/hr Documented by: Piperacillin Sod/Tazobactam (Sod 2.25 gm/ Sodium Chloride) 50 mls @ 100 mls/hr IV Q6HR [facility] Last Infusion: 04/17/21 06:20 Dose: Infused Documented by: Influenza Virus Vaccine (Pharmacy To Dose - Influenza Vaccine) 1 each IM DAILY [facility] Last Admin: 04/17/21 08:55 Dose: Not Given Documented by: Melatonin (Melatonin 3 Mg Tab) 3 mg PO BEDTIME PRN PRN Reason: Sleep Last Admin: 04/16/21 21:01 Dose: 3 mg Documented by: Metoprolol Tartrate (Metoprolol Tartrate 50 Mg Tab) 75 mg PO BID [facility] Last Admin: 04/17/21 08:56 Dose: Not Given Documented by: Nystatin (Nystatin Topical Powder 30 Gm Bottle) 0 gm TOP BID [facility] Last Admin: 04/17/21 08:56 Dose: 1 applic Documented by: Ondansetron HCl (Ondansetron 4 Mg/2 Ml Sdv) 4 mg IVPUSH Q6H PRN PRN Reason: Nausea/Vomiting Last Admin: 04/15/21 17:18 Dose: 4 mg Documented by: Polyethylene Glycol (Polyethylene Glycol 3350 Powder 17 Gm Packet) 17 gm PO DAILY PRN PRN Reason: Constipation Last Admin: 04/15/21 17:18 Dose: 17 gm Documented by: Sodium Chloride (Sodium Chloride 0.9% 10 Ml Syringe) 10 ml FLUSH ASDIRECTED PRN PRN Reason: Keep Vein Open Last Admin: 04/17/21 08:54 Dose: 10 ml Documented by: Tamsulosin HCl (Tamsulosin 0.4 Mg Cap.Er) 0.4 mg PO DAILY [facility] Last Admin: 04/17/21 08:56 Dose: 0.4 mg Documented by: Discontinued Medications Acetaminophen (Acetaminophen 325 Mg Tab) 650 mg PO NOW ONE Stop: 04/16/21 11:32 Last Admin: 04/16/21 11:48 Dose: 650 mg Documented by: Sodium Chloride (Normal Saline) 1,000 mls @ 999 mls/hr IV .BOLUS ONE Stop: 04/13/21 15:14 Last Admin: 04/13/21 14:42 Dose: 999 mls/hr Documented by: Vancomycin HCl 1.5 gm/ Premix 300 mls @ 200 mls/hr IV ONETIME ONE Stop: 04/13/21 16:29 Last Admin: 04/13/21 14:48 Dose: 200 mls/hr Documented by: Sodium Chloride (Normal Saline) 1,000 mls @ 999 mls/hr IV .BOLUS ONE Stop: 04/13/21 15:56 Last Admin: 04/13/21 15:01 Dose: 999 mls/hr Documented by: Sodium Chloride (Normal Saline) 1,000 mls @ 70 mls/hr IV ASDIRECTED [facility] Last Infusion: 04/15/21 23:33 Dose: Infused Documented by: Meropenem 500 mg/ Sodium (Chloride) 100 mls @ 200 mls/hr IV Q24H [facility] Last Admin: 04/14/21 09:28 Dose: Not Given Documented by: Sterile Water (Sterile Water For Injection) Confirm Administered Dose 20 mls @ as directed .ROUTE .STK-MED ONE Stop: 04/13/21 20:19 Last Admin: 04/13/21 20:25 Dose: 10 mls/hr Documented by: Meropenem 500 mg/ Sodium (Chloride) 100 mls @ 200 mls/hr IV Q12H [facility] Last Infusion: 04/14/21 10:46 Dose: Infused Documented by: Vancomycin HCl 1.5 gm/ Premix 300 mls @ 200 mls/hr IV ONETIME ONE Stop: 04/14/21 16:29 Last Admin: 04/14/21 15:21 Dose: 200 mls/hr Documented by: Piperacillin Sod/Tazobactam (Sod 2.25 gm/ Sodium Chloride) 50 mls @ 100 mls/hr IV Q6HR [facility] Last Infusion: 04/16/21 13:12 Dose: Infused Documented by: Sodium Chloride (Normal Saline) 1,000 mls @ 500 mls/hr IV ASDIRECTED [facility] Last Admin: 04/15/21 20:38 Dose: 500 mls/hr Documented by: Sodium Chloride (Normal Saline) 250 mls @ 60 mls/hr IV ASDIRECTED JOSLYN Piperacillin Sod/Tazobactam (Sod 2.25 gm/ Sodium Chloride) 50 mls @ 100 mls/hr IV Q6HR [facility] Meropenem (Meropenem 500 Mg Sdv) 500 mg IV ONETIME ONE Stop: 04/13/21 19:31 Last Admin: 04/13/21 20:25 Dose: 500 mg Documented by: Sodium Chloride (Sodium Chloride 0.9% 10 Ml Syringe) 10 ml FLUSH ASDIRECTED PRN PRN Reason: Keep Vein Open Last Admin: 04/13/21 13:42 Dose: 10 ml Documented by: Vancomycin HCl (Pharmacy To Dose - Vancomycin) 1 dose .XX ONETIME ONE Stop: 04/13/21 14:14 Last Admin: 04/13/21 21:44 Dose: Not Given Documented by: Vancomycin HCl (Pharmacy To Dose - Vancomycin) 1 dose .XX ASDIRECTED JOSLYN - Exam Quality Assessment: Supplemental Oxygen Urinary Catheter Total Time: 2Days 16Hours General: Alert, Oriented, Other (weak) HEENT: EOMI, Other (Herpes labialis) Lungs: Clear to Auscultation Cardiovascular: Regular Rate, Regular Rhythm GI/Abdominal Exam: Soft, Non-Tender (Male) Exam: Other (romero with clear urine ) Extremities: Pedal Edema (trace) Skin: Warm, Dry Neurological: No New Focal Deficit Psy/Mental Status: Alert, Normal Affect - Patient Data Lab Results Last 24 hrs: Laboratory Results - last 24 hr 04/17/21 04/17/21 Range/Units 05:40 05:40 WBC 26.6 H* (5.0-10.0) 10^3/uL RBC 4.01 L (4.6-6.2) 10^6/uL Hgb 12.2 L (14.0-18.0) g/dL Hct 37.2 L (40.0-54.0) % MCV 92.8 D (80-100) fL MCH 30.4 (27.0-34.0) pg MCHC 32.8 L (33.0-35.0) g/dL Plt Count 116 L (150-450) 10^3/uL Neut % (Auto) 86.2 H (42.2-75.2) % Lymph % (Auto) 6.5 L (20.5-50.1) % Terry % (Auto) 6.5 (2-8) % Eos % (Auto) 0.7 L (1.0-3.0) % Baso % (Auto) 0.1 (0.0-1.0) % Add Manual Diff Sodium 145 (136-145) mmol/L Potassium 3.8 (3.5-5.1) mmol/L Chloride 110 H (98-107) mmol/L Carbon Dioxide 23 (21-32) mmol/L Anion Gap 15.8 H (7-13) mEq/L BUN 102 H (7-18) mg/dL Creatinine 3.48 H (0.70-1.30) mg/dL Est Cr Clr Drug Dosing 16.88 mL/min Estimated GFR (MDRD) 17 Glucose 98 (70-99) mg/dL Calcium 7.9 L (8.5-10.1) mg/dL Result Diagrams: 04/17/21 05:40 04/17/21 05:40 [place] Results Last 24 hrs: Microbiology 04/13/21 13:48 Aerobic Blood Culture - Final Blood - Venous Enterobacter Cloacae Anaerobic Blood Culture - Final 04/15/21 05:40 Urine Culture - Final Urine, Catheterized Enterobacter Cloacae Enterococcus Faecalis 04/15/21 06:00 Aerobic Blood Culture - Preliminary Blood - Arm, Left NO GROWTH AFTER 2 DAYS Anaerobic Blood Culture - Preliminary NO GROWTH AFTER 2 DAYS 04/13/21 13:40 Aerobic Blood Culture - Final Blood - Venous - Lab Draw Enterobacter Cloacae Anaerobic Blood Culture - Final Enterobacter Cloacae Sepsis Event Note - Evaluation Sepsis Screening Result: Severe Sepsis Risk - Focused Exam Vital Signs: Vital Signs Temp Pulse Pulse Resp BP BP BP 04/17/21 08:56 62 91/51 L 04/17/21 08:08 97.7 F 62 16 91/51 L 04/17/21 03:29 98.3 F 63 20 103/56 L 04/17/21 00:34 98 F 69 20 123/56 L Pulse Ox 04/17/21 08:56 04/17/21 08:08 95 04/17/21 03:29 98 04/17/21 00:34 95 - Problem List Review Problem List Initiated/Reviewed/Updated: Yes - My Orders Last 24 Hours: My Active Orders 04/16/21 18:00 Piperacillin/Tazobactam [Zosyn] 2.25 gm Sodium Chloride 0.9% [Normal Saline] 50 ml IV Q6HR 04/17/21 05:31 CULTURE URINE [RM] Routine 04/17/21 09:26 Up to Chair [RC] ASDIRECTED 04/17/21 09:45 CXR [Chest 1V Frontal] [CR] Urgent 04/17/21 09:47 Retroperitoneal Ltd [US] Routine 04/17/21 11:00 Acyclovir [Zovirax] 200 mg PO 5XDAY 04/18/21 05:11 BASIC METABOLIC PANEL,BMP [CHEM] AM CBC WITH AUTO DIFF [HEME] AM 04/19/21 05:11 BASIC METABOLIC PANEL,BMP [CHEM] AM CBC WITH AUTO DIFF [HEME] AM 04/20/21 05:11 BASIC METABOLIC PANEL,BMP [CHEM] AM CBC WITH AUTO DIFF [HEME] AM - Plan Plan:: Severe sepsis due to UTI with gram neg bacteremia ( 2/2). Urine cult is also showing gram positive cocci and gram neg. WBC is higher today. Hypotension: BP on lower side. WBC: trending up. ?? from herpes labialis MAIA: ATN/ hypovolemia : improving Hyperkalemia: resolved Chronic Romero MS Bed bound, inability to care for self independently Thrombocytopenia: most likely due to sepsis VS antibiotics. resume Heparin. Continue with IVF Romero already changed on admission. Continue with Meropenem. changed Zosyn to ampicillin repeat cults done yesterday: neg blood bu urine cult is still positive. Repeat Labs in AM DC Ibuprofen abd US: showed B hydronephrosis/ for repeat to r/o abscess. At this time pt would rather to stay at our hospital for IVF and antibiotics only and not to be transferred out. 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 Decubitus prophylaxis: per protocol. DVT prophylaxis: resume heparin. DNR/ DNI I discussed care with pt s son Mr. Jeff yesterday and he agrees with the plan.
[2021-04-17] MEDS ORDERED: Ampicillin 2 GM in Sodium Chloride 0.9% 100 ML IV SCH (10:15)
[2021-04-17] MEDS: Acyclovir 200 MG Cap PO SCH ×4 (11:18→20:45)
[2021-04-17] MEDS: Ampicillin 2 GM in Sodium Chloride 0.9% 100 ML IV SCH ×3 (11:18→23:26)
--- NOTE | 2021-04-17 11:37 | CR ---
EXAMINATION: Chest 1V Frontal SEX: Male AGE: 76 years CLINICAL HISTORY: 76-year-old male with clinical "sepsis". Comparison films 13 April and 15 April 2021. Interpretation: Sternotomy wires. Mild scoliosis. *No new signs of pneumonia despite less than optimal inspiratory effort. No alveolar consolidation, air bronchograms, atelectasis/collapse, or peripheral "groundglass" interstitial lung densities. Normal cardiac silhouette i.e. size and configuration unchanged. No pulmonary vascular congestion, cephalization of vascular flow, alveolar edema or dependent pleural fluid accumulation (subtle asymmetric "blunting" right CP angle). No lung mass or hilar lymphadenopathy. Calcifications arch of the ectatic aorta.
--- NOTE | 2021-04-17 15:29 | US ---
EXAMINATION: Retroperitoneal Ltd SEX: Male AGE: 76 years CLINICAL HISTORY: 76-year-old septic patient with persistent bacteriuria despite treatment. Renal abscess? Renal sonogram 14 April 2021 revealed "moderate hydronephrosis; No stones; Whyte catheter." Interpretation: 1. Urinary bladder collapsed around inflated Whyte catheter balloon, mid pelvis. 2. Normal reniform configuration bilaterally with persistent bilateral pyelocaliectasis (left greater than right). 3. Left kidney 15.43 cm L x 7.55 cm W x 6.27 cm AP diameter.... larger than the contralateral right kidney (11.83 cm L x 7.18 cm W x 6.42 cm AP diameter). 4. No new signs of cystic or solid renal cortical mass lesion. No abnormal perinephric fluid collections. 5. No echogenic "shadowing" renal calcifications. INTERPRETATION: Bilateral pyelocaliectasis suggesting distal midline obstruction. No renal cortical mass or nephrolithiasis. (prostate gland enlargement? Bladder trigone mass?) Suggest follow-up CT exam would be helpful.
[2021-04-18] MEDS: Sodium Chloride 0.9% 1,000 ML IV SCH ×2 (01:55→20:39)
[2021-04-18] MEDS: Ampicillin 2 GM in Sodium Chloride 0.9% 100 ML IV SCH ×3 (05:52→17:00)
[2021-04-18 06:43] LABS: ANION GAP 14.5 mEq/L (7-13)
[2021-04-18] MEDS: Meropenem 500 MG in Sodium Chloride 0.9% 100 ML IV SCH ×2 (08:10→20:40)
[2021-04-18] MEDS: Heparin Sodium 5,000 Units/ML Vial SUBCUT SCH ×2 (08:12→21:25)
[2021-04-18] MEDS: Acyclovir 200 MG Cap PO SCH ×5 (08:12→21:26)
[2021-04-18] MEDS: Metoprolol Tartrate 50 MG Tab PO SCH ×2 (08:12→21:26)
[2021-04-18] MEDS: Tamsulosin 0.4 MG Cap.ER PO SCH (08:12)
[2021-04-18] MEDS: Nystatin Topical Powder 30 GM Bottle TOP SCH ×2 (08:14→22:00)
--- NOTE | 2021-04-18 10:02 | PCM.PN ---
- General Info Date of Service: 04/18/21 Subjective Update: Feels about the same. Functional Status: Reports: Pain Controlled, Tolerating Diet - Review of Systems General: Denies: Fever Pulmonary: Denies: Shortness of Breath Cardiovascular: Denies: Chest Pain Genitourinary: Denies: Dysuria Neurological: Reports: Other (no change) Psychiatric: Reports: No Symptoms - Patient Data Vitals - Most Recent: Last Vital Signs Temp 99.3 F 04/18/21 08:00 Pulse 80 04/18/21 08:12 Resp 20 04/18/21 08:00 BP 126/64 04/18/21 08:12 Pulse Ox 98 04/18/21 08:00 Weight - Most Recent: 441 lb 2.319 oz I&O - Last 24 Hours: Intake & Output 04/17/21 04/18/21 04/18/21 22:59 06:59 14:59 Intake Total 300 300 95 Output Total 1075 1350 Balance -775 -1050 95 Lab Results Last 24 Hours: Laboratory Results - last 24 hr 04/18/21 04/18/21 04/18/21 Range/Units 05:40 05:40 05:40 WBC 21.6 H (5.0-10.0) 10^3/uL RBC 4.45 L (4.6-6.2) 10^6/uL Hgb 13.6 L (14.0-18.0) g/dL Hct 41.4 (40.0-54.0) % MCV 93.0 (80-100) fL MCH 30.6 (27.0-34.0) pg MCHC 32.9 L (33.0-35.0) g/dL Plt Count 179 (150-450) 10^3/uL Neut % (Auto) 87.6 H (42.2-75.2) % Lymph % (Auto) 6.1 L (20.5-50.1) % [place] % (Auto) 5.2 (2-8) % Eos % (Auto) 1.0 (1.0-3.0) % Baso % (Auto) 0.1 (0.0-1.0) % Add Manual Diff Sodium 148 H (136-145) mmol/L Potassium 3.5 (3.5-5.1) mmol/L Chloride 113 H (98-107) mmol/L Carbon Dioxide 24 (21-32) mmol/L Anion Gap 14.5 H (7-13) mEq/L BUN 82 H (7-18) mg/dL Creatinine 2.54 H (0.70-1.30) mg/dL Est Cr Clr Drug Dosing 23.13 mL/min Estimated GFR (MDRD) 25 Glucose 86 (70-99) mg/dL Calcium 8.1 L (8.5-10.1) mg/dL PSA Screen 8.76 H (0.00-4.00) ng/mL [place] Results Last 24 Hours: Microbiology 04/17/21 05:31 Urine Culture - Preliminary Urine, Catheterized NO GROWTH AFTER 1 DAY 04/15/21 06:00 Aerobic Blood Culture - Preliminary Blood - Arm, Left NO GROWTH AFTER 3 DAYS Anaerobic Blood Culture - Preliminary NO GROWTH AFTER 3 DAYS 04/13/21 13:48 Aerobic Blood Culture - Final Blood - Venous Enterobacter Cloacae Anaerobic Blood Culture - Final 04/15/21 05:40 Urine Culture - Final Urine, Catheterized Enterobacter Cloacae Enterococcus Faecalis Med Orders - Current: Current Medications Acetaminophen (Acetaminophen 325 Mg Tab) 650 mg PO Q6H PRN PRN Reason: Pain (Mild 1-3)/fever Last Admin: 04/17/21 20:43 Dose: 650 mg Documented by: Acyclovir (Acyclovir 200 Mg Cap) 200 mg PO 5XDAY [facility] Last Admin: 04/18/21 08:12 Dose: 200 mg Documented by: Heparin Sodium (Porcine) (Heparin Sodium 5,000 Units/Ml Vial) 5,000 units SUBCUT Q12HR [facility] Last Admin: 04/18/21 08:12 Dose: 5,000 units Documented by: Meropenem 500 mg/ Sodium (Chloride) 100 mls @ 200 mls/hr IV Q12H [facility] Last Admin: 04/18/21 08:10 Dose: 200 mls/hr Documented by: Sodium Chloride (Normal Saline) 1,000 mls @ 60 mls/hr IV ASDIRECTED [facility] Last Admin: 04/18/21 01:55 Dose: 60 mls/hr Documented by: Ampicillin Sodium 2 gm/ Sodium (Chloride) 100 mls @ 200 mls/hr IV Q6HR [facility] Last Admin: 04/18/21 05:52 Dose: 200 mls/hr Documented by: Influenza Virus Vaccine (Pharmacy To Dose - Influenza Vaccine) 1 each IM DAILY [facility] Last Admin: 04/18/21 08:16 Dose: Not Given Documented by: Melatonin (Melatonin 3 Mg Tab) 3 mg PO BEDTIME PRN PRN Reason: Sleep Last Admin: 04/16/21 21:01 Dose: 3 mg Documented by: Metoprolol Tartrate (Metoprolol Tartrate 50 Mg Tab) 75 mg PO BID [facility] Last Admin: 04/18/21 08:12 Dose: 75 mg Documented by: Nystatin (Nystatin Topical Powder 30 Gm Bottle) 0 gm TOP BID [facility] Last Admin: 04/18/21 08:14 Dose: 1 applic Documented by: Ondansetron HCl (Ondansetron 4 Mg/2 Ml Sdv) 4 mg IVPUSH Q6H PRN PRN Reason: Nausea/Vomiting Last Admin: 04/15/21 17:18 Dose: 4 mg Documented by: Polyethylene Glycol (Polyethylene Glycol 3350 Powder 17 Gm Packet) 17 gm PO DAILY PRN PRN Reason: Constipation Last Admin: 04/15/21 17:18 Dose: 17 gm Documented by: Sodium Chloride (Sodium Chloride 0.9% 10 Ml Syringe) 10 ml FLUSH ASDIRECTED PRN PRN Reason: Keep Vein Open Last Admin: 04/17/21 08:54 Dose: 10 ml Documented by: Tamsulosin HCl (Tamsulosin 0.4 Mg Cap.Er) 0.4 mg PO DAILY [facility] Last Admin: 04/18/21 08:12 Dose: 0.4 mg Documented by: Discontinued Medications Acetaminophen (Acetaminophen 325 Mg Tab) 650 mg PO NOW ONE Stop: 04/16/21 11:32 Last Admin: 04/16/21 11:48 Dose: 650 mg Documented by: Sodium Chloride (Normal Saline) 1,000 mls @ 999 mls/hr IV .BOLUS ONE Stop: 04/13/21 15:14 Last Admin: 04/13/21 14:42 Dose: 999 mls/hr Documented by: Vancomycin HCl 1.5 gm/ Premix 300 mls @ 200 mls/hr IV ONETIME ONE Stop: 04/13/21 16:29 Last Admin: 04/13/21 14:48 Dose: 200 mls/hr Documented by: Sodium Chloride (Normal Saline) 1,000 mls @ 999 mls/hr IV .BOLUS ONE Stop: 04/13/21 15:56 Last Admin: 04/13/21 15:01 Dose: 999 mls/hr Documented by: Sodium Chloride (Normal Saline) 1,000 mls @ 70 mls/hr IV ASDIRECTED [facility] Last Infusion: 04/15/21 23:33 Dose: Infused Documented by: Meropenem 500 mg/ Sodium (Chloride) 100 mls @ 200 mls/hr IV Q24H [facility] Last Admin: 04/14/21 09:28 Dose: Not Given Documented by: Sterile Water (Sterile Water For Injection) Confirm Administered Dose 20 mls @ as directed .ROUTE .STK-MED ONE Stop: 04/13/21 20:19 Last Admin: 04/13/21 20:25 Dose: 10 mls/hr Documented by: Meropenem 500 mg/ Sodium (Chloride) 100 mls @ 200 mls/hr IV Q12H [facility] Last Infusion: 04/14/21 10:46 Dose: Infused Documented by: Vancomycin HCl 1.5 gm/ Premix 300 mls @ 200 mls/hr IV ONETIME ONE Stop: 04/14/21 16:29 Last Admin: 04/14/21 15:21 Dose: 200 mls/hr Documented by: Piperacillin Sod/Tazobactam (Sod 2.25 gm/ Sodium Chloride) 50 mls @ 100 mls/hr IV Q6HR [facility] Last Infusion: 04/16/21 13:12 Dose: Infused Documented by: Sodium Chloride (Normal Saline) 1,000 mls @ 500 mls/hr IV ASDIRECTED [facility] Last Admin: 04/15/21 20:38 Dose: 500 mls/hr Documented by: Sodium Chloride (Normal Saline) 250 mls @ 60 mls/hr IV ASDIRECTED [facility] Piperacillin Sod/Tazobactam (Sod 2.25 gm/ Sodium Chloride) 50 mls @ 100 mls/hr IV Q6HR [facility] Piperacillin Sod/Tazobactam (Sod 2.25 gm/ Sodium Chloride) 50 mls @ 100 mls/hr IV Q6HR [facility] Last Infusion: 04/17/21 06:20 Dose: Infused Documented by: Meropenem (Meropenem 500 Mg Sdv) 500 mg IV ONETIME ONE Stop: 04/13/21 19:31 Last Admin: 04/13/21 20:25 Dose: 500 mg Documented by: Sodium Chloride (Sodium Chloride 0.9% 10 Ml Syringe) 10 ml FLUSH ASDIRECTED PRN PRN Reason: Keep Vein Open Last Admin: 04/13/21 13:42 Dose: 10 ml Documented by: Vancomycin HCl (Pharmacy To Dose - Vancomycin) 1 dose .XX ONETIME ONE Stop: 04/13/21 14:14 Last Admin: 04/13/21 21:44 Dose: Not Given Documented by: Vancomycin HCl (Pharmacy To Dose - Vancomycin) 1 dose .XX ASDIRECTED [facility] - Exam Quality Assessment: Supplemental Oxygen Urinary Catheter Total Time: 3Days 16Hours General: Alert, Oriented Lungs: Clear to Auscultation Cardiovascular: Regular Rate, Regular Rhythm GI/Abdominal Exam: Soft, Non-Tender (Male) Exam: Other (romero with clear urine) Extremities: Limited Range of Motion (of lower ext) Skin: Warm Neurological: Other (chronic weakness to B lower ext: unchanged. ) Psy/Mental Status: Alert, Normal Affect - Patient Data Lab Results Last 24 hrs: Laboratory Results - last 24 hr 04/18/21 04/18/21 04/18/21 Range/Units 05:40 05:40 05:40 WBC 21.6 H (5.0-10.0) 10^3/uL RBC 4.45 L (4.6-6.2) 10^6/uL Hgb 13.6 L (14.0-18.0) g/dL Hct 41.4 (40.0-54.0) % MCV 93.0 (80-100) fL MCH 30.6 (27.0-34.0) pg MCHC 32.9 L (33.0-35.0) g/dL Plt Count 179 (150-450) 10^3/uL Neut % (Auto) 87.6 H (42.2-75.2) % Lymph % (Auto) 6.1 L (20.5-50.1) % [place] % (Auto) 5.2 (2-8) % Eos % (Auto) 1.0 (1.0-3.0) % Baso % (Auto) 0.1 (0.0-1.0) % Add Manual Diff Sodium 148 H (136-145) mmol/L Potassium 3.5 (3.5-5.1) mmol/L Chloride 113 H (98-107) mmol/L Carbon Dioxide 24 (21-32) mmol/L Anion Gap 14.5 H (7-13) mEq/L BUN 82 H (7-18) mg/dL Creatinine 2.54 H (0.70-1.30) mg/dL Est Cr Clr Drug Dosing 23.13 mL/min Estimated GFR (MDRD) 25 Glucose 86 (70-99) mg/dL Calcium 8.1 L (8.5-10.1) mg/dL PSA Screen 8.76 H (0.00-4.00) ng/mL Result Diagrams: 04/18/21 05:40 04/18/21 05:40 [place] Results Last 24 hrs: Microbiology 04/17/21 05:31 Urine Culture - Preliminary Urine, Catheterized NO GROWTH AFTER 1 DAY 04/15/21 06:00 Aerobic Blood Culture - Preliminary Blood - Arm, Left NO GROWTH AFTER 3 DAYS Anaerobic Blood Culture - Preliminary NO GROWTH AFTER 3 DAYS 04/13/21 13:48 Aerobic Blood Culture - Final Blood - Venous Enterobacter Cloacae Anaerobic Blood Culture - Final 04/15/21 05:40 Urine Culture - Final Urine, Catheterized Enterobacter Clo[place]ae Enterococcus Faecalis Sepsis Event Note - Evaluation Sepsis Screening Result: Severe Sepsis Risk - Focused Exam Vital Signs: Vital Signs Temp Pulse Pulse Resp BP BP BP 04/18/21 08:12 80 126/64 04/18/21 08:00 99.3 F 80 20 122/64 04/18/21 04:00 97.5 F 70 18 114/52 L 04/18/21 00:00 98.1 F 72 18 98/70 Pulse Ox 04/18/21 08:12 04/18/21 08:00 98 04/18/21 04:00 97 04/18/21 00:00 100 - Problem List Review Problem List Initiated/Reviewed/Updated: Yes - My Orders Last 24 Hours: My Active Orders 04/17/21 09:26 Up to Chair [RC] 04/17/21 11:00 Acyclovir [Zovirax] 200 mg PO 5XDAY 04/17/21 12:00 Ampicillin 2 gm Sodium Chloride 0.9% [Normal Saline] 100 ml IV Q6HR 04/19/21 05:11 BASIC METABOLIC PANEL,BMP [CHEM] AM CBC WITH AUTO DIFF [HEME] AM 04/20/21 05:11 BASIC METABOLIC PANEL,BMP [CHEM] AM CBC WITH AUTO DIFF [HEME] AM - Plan Plan:: Severe sepsis due to UTI with gram neg bacteremia ( 2/). Urine cult is also showing gram positive cocci and gram neg. WBC is better today. Hypotension: BP on lower side. herpes labialis: on acyclovir MAIA: ATN/ hypovolemia : improving Hyperkalemia: resolved Chronic Romero MS Bed bound, inability to care for self independently. Thrombocytopenia: most likely due to sepsis VS antibiotics. resume Heparin. Continue with IVF Romero already changed on admission. Continue with Meropenem. changed Zosyn to ampicillin. for repeat urine cult. Repeat Labs in AM Off Ibuprofen first abd US: showed B hydronephrosis. repeat: ? midline obstruction for CT At this time pt would rather to stay at our hospital for IVF and antibiotics only and not to be transferred out. 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 Decubitus prophylaxis: per protocol. DVT prophylaxis: resume heparin. DNR/ DNI I called pt's son Mr. Jeff to provide him with an update: could not leave message (voicemail is full)
[2021-04-18] MEDS: Acetaminophen 325 MG Tab PO PRN ×2 (11:21→21:26)
[2021-04-18] MEDS: Melatonin 3 MG Tab PO PRN (21:25)
--- NOTE | 2021-04-18 21:37 | PCM.SN.2 ---
- Free Text/Narrative Note: I was notified by RN that pt is very upset and he want to go home NOW. I spoke to pt he is still demanding the same. I spoke to his son Mr. Jeff , he will talk to him to come him down Time Documentation
[2021-04-19] MEDS: Ampicillin 2 GM in Sodium Chloride 0.9% 100 ML IV SCH ×5 (01:00→23:52)
[2021-04-19 06:52] LABS: ANION GAP 15.2 mEq/L (7-13)
--- NOTE | 2021-04-19 09:34 | PCM.PN ---
- General Info Date of Service: 04/19/21 Subjective Update: Demanding to go home . stating that he will mange himself at home. Feeling about the same. Functional Status: Reports: Tolerating Diet. Denies: Pain Controlled - Review of Systems General: Denies: Fever Pulmonary: Denies: Shortness of Breath Cardiovascular: Denies: Chest Pain Gastrointestinal: Denies: Abdominal Pain Neurological: Denies: Confusion Psychiatric: Reports: Depression - Patient Data Vitals - Most Recent: Last Vital Signs Temp 98.3 F 04/19/21 08:00 Pulse 84 04/19/21 08:00 Resp 18 04/19/21 08:00 BP 138/59 L 04/19/21 08:00 Pulse Ox 97 04/19/21 08:00 Weight - Most Recent: 441 lb 2.319 oz I&O - Last 24 Hours: Intake & Output 04/18/21 04/19/21 04/19/21 22:59 06:59 14:59 Intake Total 200 600 Output Total 675 850 Balance -475 -250 Lab Results Last 24 Hours: Laboratory Results - last 24 hr 04/19/21 04/19/21 Range/Units 05:51 05:51 WBC 17.5 H (5.0-10.0) 10^3/uL RBC 3.83 L (4.6-6.2) 10^6/uL Hgb 11.9 L D (14.0-18.0) g/dL Hct 35.5 L (40.0-54.0) % MCV 92.7 (80-100) fL MCH 31.1 (27.0-34.0) pg MCHC 33.5 (33.0-35.0) g/dL Plt Count 202 (150-450) 10^3/uL Neut % (Auto) 86.4 H (42.2-75.2) % Lymph % (Auto) 7.1 L (20.5-50.1) % [place] % (Auto) 4.4 (2-8) % Eos % (Auto) 2.0 (1.0-3.0) % Baso % (Auto) 0.1 (0.0-1.0) % Add Manual Diff Sodium 147 H (136-145) mmol/L Potassium 3.2 L (3.5-5.1) mmol/L Chloride 112 H (98-107) mmol/L Carbon Dioxide 23 (21-32) mmol/L Anion Gap 15.2 H (7-13) mEq/L BUN 64 H (7-18) mg/dL Creatinine 1.83 H (0.70-1.30) mg/dL Est Cr Clr Drug Dosing 32.11 mL/min Estimated GFR (MDRD) 36 Glucose 102 H (70-99) mg/dL Calcium 7.8 L (8.5-10.1) mg/dL [facility] Results Last 24 Hours: Microbiology 04/17/21 05:31 Urine Culture - Final Urine, Catheterized NO GROWTH AFTER 2 DAYS 04/15/21 06:00 Aerobic Blood Culture - Preliminary Blood - Arm, Left NO GROWTH AFTER 4 DAYS Anaerobic Blood Culture - Preliminary NO GROWTH AFTER 4 DAYS Med Orders - Current: Current Medications Acetaminophen (Acetaminophen 325 Mg Tab) 650 mg PO Q6H PRN PRN Reason: Pain (Mild 1-3)/fever Last Admin: 04/18/21 21:26 Dose: 650 mg Documented by: Acyclovir (Acyclovir 200 Mg Cap) 200 mg PO 5XDAY [facility] Last Admin: 04/18/21 21:26 Dose: 200 mg Documented by: Citalopram Hydrobromide (Citalopram 20 Mg Tab) 20 mg PO DAILY [facility] Heparin Sodium (Porcine) (Heparin Sodium 5,000 Units/Ml Vial) 5,000 units SUBCUT Q12HR [facility] Last Admin: 04/18/21 21:25 Dose: 5,000 units Documented by: Meropenem 500 mg/ Sodium (Chloride) 100 mls @ 200 mls/hr IV Q12H [facility] Last Admin: 04/18/21 20:40 Dose: 200 mls/hr Documented by: Ampicillin Sodium 2 gm/ Sodium (Chloride) 100 mls @ 200 mls/hr IV Q6HR [facility] Last Admin: 04/19/21 06:38 Dose: 200 mls/hr Documented by: Potassium Chloride/Sodium Chloride (1/2 Ns With 20 Meq Kcl) 1,000 mls @ 75 mls/hr IV ASDIRECTED [facility] Influenza Virus Vaccine (Pharmacy To Dose - Influenza Vaccine) 1 each IM DAILY [facility] Last Admin: 04/18/21 08:16 Dose: Not Given Documented by: Melatonin (Melatonin 3 Mg Tab) 3 mg PO BEDTIME PRN PRN Reason: Sleep Last Admin: 04/18/21 21:25 Dose: 3 mg Documented by: Metoprolol Tartrate (Metoprolol Tartrate 50 Mg Tab) 75 mg PO BID [facility] Last Admin: 04/18/21 21:26 Dose: 75 mg Documented by: Nystatin (Nystatin Topical Powder 30 Gm Bottle) 0 gm TOP BID [facility] Last Admin: 04/18/21 22:00 Dose: 1 applic Documented by: Ondansetron HCl (Ondansetron 4 Mg/2 Ml Sdv) 4 mg IVPUSH Q6H PRN PRN Reason: Nausea/Vomiting Last Admin: 04/15/21 17:18 Dose: 4 mg Documented by: Polyethylene Glycol (Polyethylene Glycol 3350 Powder 17 Gm Packet) 17 gm PO DAILY PRN PRN Reason: Constipation Last Admin: 04/15/21 17:18 Dose: 17 gm Documented by: Tamsulosin HCl (Tamsulosin 0.4 Mg Cap.Er) 0.4 mg PO DAILY [facility] Last Admin: 04/18/21 08:12 Dose: 0.4 mg Documented by: Discontinued Medications Acetaminophen (Acetaminophen 325 Mg Tab) 650 mg PO NOW ONE Stop: 04/16/21 11:32 Last Admin: 04/16/21 11:48 Dose: 650 mg Documented by: Sodium Chloride (Normal Saline) 1,000 mls @ 999 mls/hr IV .BOLUS ONE Stop: 04/13/21 15:14 Last Admin: 04/13/21 14:42 Dose: 999 mls/hr Documented by: Vancomycin HCl 1.5 gm/ Premix 300 mls @ 200 mls/hr IV ONETIME ONE Stop: 04/13/21 16:29 Last Admin: 04/13/21 14:48 Dose: 200 mls/hr Documented by: Sodium Chloride (Normal Saline) 1,000 mls @ 999 mls/hr IV .BOLUS ONE Stop: 04/13/21 15:56 Last Admin: 04/13/21 15:01 Dose: 999 mls/hr Documented by: Sodium Chloride (Normal Saline) 1,000 mls @ 70 mls/hr IV ASDIRECTED [facility] Last Infusion: 04/15/21 23:33 Dose: Infused Documented by: Meropenem 500 mg/ Sodium (Chloride) 100 mls @ 200 mls/hr IV Q24H [facility] Last Admin: 04/14/21 09:28 Dose: Not Given Documented by: Sterile Water (Sterile Water For Injection) Confirm Administered Dose 20 mls @ as directed .ROUTE .STK-MED ONE Stop: 04/13/21 20:19 Last Admin: 04/13/21 20:25 Dose: 10 mls/hr Documented by: Meropenem 500 mg/ Sodium (Chloride) 100 mls @ 200 mls/hr IV Q12H [facility] Last Infusion: 04/14/21 10:46 Dose: Infused Documented by: Vancomycin HCl 1.5 gm/ Premix 300 mls @ 200 mls/hr IV ONETIME ONE Stop: 04/14/21 16:29 Last Admin: 04/14/21 15:21 Dose: 200 mls/hr Documented by: Piperacillin Sod/Tazobactam (Sod 2.25 gm/ Sodium Chloride) 50 mls @ 100 mls/hr IV Q6HR [facility] Last Infusion: 04/16/21 13:12 Dose: Infused Documented by: Sodium Chloride (Normal Saline) 1,000 mls @ 500 mls/hr IV ASDIRECTED [facility] Last Admin: 04/15/21 20:38 Dose: 500 mls/hr Documented by: Sodium Chloride (Normal Saline) 250 mls @ 60 mls/hr IV ASDIRECTED [facility] Sodium Chloride (Normal Saline) 1,000 mls @ 60 mls/hr IV ASDIRECTED [facility] Last Admin: 04/18/21 20:39 Dose: 60 mls/hr Documented by: Piperacillin Sod/Tazobactam (Sod 2.25 gm/ Sodium Chloride) 50 mls @ 100 mls/hr IV Q6HR [facility] Piperacillin Sod/Tazobactam (Sod 2.25 gm/ Sodium Chloride) 50 mls @ 100 mls/hr IV Q6HR [facility] Last Infusion: 04/17/21 06:20 Dose: Infused Documented by: Meropenem (Meropenem 500 Mg Sdv) 500 mg IV ONETIME ONE Stop: 04/13/21 19:31 Last Admin: 04/13/21 20:25 Dose: 500 mg Documented by: Sodium Chloride (Sodium Chloride 0.9% 10 Ml Syringe) 10 ml FLUSH ASDIRECTED PRN PRN Reason: Keep Vein Open Last Admin: 04/13/21 13:42 Dose: 10 ml Documented by: Sodium Chloride (Sodium Chloride 0.9% 10 Ml Syringe) 10 ml FLUSH ASDIRECTED PRN PRN Reason: Keep Vein Open Last Admin: 04/17/21 08:54 Dose: 10 ml Documented by: Vancomycin HCl (Pharmacy To Dose - Vancomycin) 1 dose .XX ONETIME ONE Stop: 04/13/21 14:14 Last Admin: 04/13/21 21:44 Dose: Not Given Documented by: Vancomycin HCl (Pharmacy To Dose - Vancomycin) 1 dose .XX ASDIRECTED [facility] - Exam Quality Assessment: Supplemental Oxygen Urinary Catheter Total Time: 4Days 8Hours General: Alert, Oriented HEENT: EOMI Lungs: Clear to Auscultation Cardiovascular: Regular Rate, Regular Rhythm Extremities: Normal Inspection Skin: Warm Neurological: No New Focal Deficit, Other (chronic weakness B lower ext) Psy/Mental Status: Alert, Normal Affect - Patient Data Lab Results Last 24 hrs: Laboratory Results - last 24 hr 04/19/21 04/19/21 Range/Units 05:51 05:51 WBC 17.5 H (5.0-10.0) 10^3/uL RBC 3.83 L (4.6-6.2) 10^6/uL Hgb 11.9 L D (14.0-18.0) g/dL Hct 35.5 L (40.0-54.0) % MCV 92.7 (80-100) fL MCH 31.1 (27.0-34.0) pg MCHC 33.5 (33.0-35.0) g/dL Plt Count 202 (150-450) 10^3/uL Neut % (Auto) 86.4 H (42.2-75.2) % Lymph % (Auto) 7.1 L (20.5-50.1) % [place] % (Auto) 4.4 (2-8) % Eos % (Auto) 2.0 (1.0-3.0) % Baso % (Auto) 0.1 (0.0-1.0) % Add Manual Diff Sodium 147 H (136-145) mmol/L Potassium 3.2 L (3.5-5.1) mmol/L Chloride 112 H (98-107) mmol/L Carbon Dioxide 23 (21-32) mmol/L Anion Gap 15.2 H (7-13) mEq/L BUN 64 H (7-18) mg/dL Creatinine 1.83 H (0.70-1.30) mg/dL Est Cr Clr Drug Dosing 32.11 mL/min Estimated GFR (MDRD) 36 Glucose 102 H (70-99) mg/dL Calcium 7.8 L (8.5-10.1) mg/dL Result Diagrams: 04/19/21 05:51 04/19/21 05:51 [facility] Results Last 24 hrs: Microbiology 04/17/21 05:31 Urine Culture - Final Urine, Catheterized NO GROWTH AFTER 2 DAYS 04/15/21 06:00 Aerobic Blood Culture - Preliminary Blood - Arm, Left NO GROWTH AFTER 4 DAYS Anaerobic Blood Culture - Preliminary NO GROWTH AFTER 4 DAYS Sepsis Event Note - Evaluation Sepsis Screening Result: Severe Sepsis Risk - Focused Exam Vital Signs: Vital Signs Temp Pulse Resp BP Pulse Ox 04/19/21 08:00 98.3 F 84 18 138/59 L 97 04/19/21 04:00 98.1 F 84 20 134/68 97 - Problem List Review Problem List Initiated/Reviewed/Updated: Yes - My Orders Last 24 Hours: My Active Orders 04/19/21 07:45 Sodium Chloride 0.45% with KCl [1/2 NS with 20 mEq KCl] 1,000 ml IV ASDIRECTED 04/19/21 09:00 Citalopram [Celexa] 20 mg PO DAILY 04/20/21 05:11 BASIC METABOLIC PANEL,BMP [CHEM] AM CBC WITH AUTO DIFF [HEME] AM - Plan Plan:: Severe sepsis due to UTI with gram neg bacteremia ( 2/2). Urine cult is also showing gram positive cocci and gram neg. WBC is better today. Hypotension: improved. IVF to 0.45 NS Whyte already changed on admission. Continue with Meropenem. changed Zosyn to ampicillin. urine cult: no growth. Pt was informed that it is recommended to complete 14 days of IV antibiotics. Pt is reluctantly accepted. Repeat Labs in AM herpes labialis: on acyclovir MAIA: ATN/ hypovolemia : improving Hyperkalemia: resolved Chronic Whyte Off Ibuprofen first abd US: showed B hydronephrosis. repeat: ? midline obstruction for CT MS Bed bound, inability to care for self independently. Thrombocytopenia: most likely due to sepsis VS antibiotics. resume Heparin. Decubitus prophylaxis: per protocol. DVT prophylaxis: resume heparin. 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 I called pt's son Mr. Jeff again this morning to provide him with an update: could not leave message (voicemail is full)
[2021-04-19] MEDS ORDERED: Potassium Chloride 10 MEQ Tab.ER PO ONE (09:35)
[2021-04-19] MEDS: Tamsulosin 0.4 MG Cap.ER PO SCH (09:40)
[2021-04-19] MEDS: Metoprolol Tartrate 50 MG Tab PO SCH ×2 (09:40→20:46)
[2021-04-19] MEDS: Meropenem 500 MG in Sodium Chloride 0.9% 100 ML IV SCH ×2 (09:41→20:45)
[2021-04-19] MEDS: Acyclovir 200 MG Cap PO SCH ×5 (09:41→20:53)
[2021-04-19] MEDS: Heparin Sodium 5,000 Units/ML Vial SUBCUT SCH ×2 (09:41→20:45)
[2021-04-19] MEDS: Citalopram 20 MG Tab PO SCH (09:41)
[2021-04-19] MEDS: Nystatin Topical Powder 30 GM Bottle TOP SCH ×2 (09:54→20:44)
[2021-04-19] MEDS: Sodium Chloride 0.45% with KCl 1,000 ML IV SCH (10:36)
[2021-04-19] MEDS: Melatonin 3 MG Tab PO PRN (20:46)
[2021-04-19] MEDS: Acetaminophen 325 MG Tab PO PRN (20:46)
[2021-04-20] MEDS: Sodium Chloride 0.45% with KCl 1,000 ML IV SCH (02:53)
[2021-04-20] MEDS: Ampicillin 2 GM in Sodium Chloride 0.9% 100 ML IV SCH ×4 (05:55→23:47)
[2021-04-20 06:56] LABS: ANION GAP 12.3 mEq/L (7-13)
[2021-04-20] MEDS: Acyclovir 200 MG Cap PO SCH ×5 (08:07→21:03)
[2021-04-20] MEDS: Tamsulosin 0.4 MG Cap.ER PO SCH (08:08)
[2021-04-20] MEDS: Metoprolol Tartrate 50 MG Tab PO SCH ×2 (08:08→21:03)
[2021-04-20] MEDS: Citalopram 20 MG Tab PO SCH (08:08)
[2021-04-20] MEDS: Heparin Sodium 5,000 Units/ML Vial SUBCUT SCH ×2 (08:13→21:10)
[2021-04-20] MEDS: Meropenem 500 MG in Sodium Chloride 0.9% 100 ML IV SCH ×2 (08:16→21:02)
[2021-04-20] MEDS: Nystatin Topical Powder 30 GM Bottle TOP SCH ×2 (08:20→21:13)
[2021-04-20] MEDS ORDERED: Potassium Chloride 10 MEQ Tab.ER PO ONE (09:00)
--- NOTE | 2021-04-20 10:39 | PCM.PN ---
- General Info Date of Service: 04/20/21 Subjective Update: Feeling about the same. Decreased appetite. - Review of Systems General: Denies: Fever Pulmonary: Denies: Shortness of Breath Cardiovascular: Denies: Chest Pain Gastrointestinal: Denies: Abdominal Pain Neurological: Reports: Pre-Existing Deficit Psychiatric: Reports: No Symptoms - Patient Data Vitals - Most Recent: Last Vital Signs Temp 97.5 F 04/20/21 08:00 Pulse 75 04/20/21 08:08 Resp 20 04/20/21 08:00 BP 142/60 H 04/20/21 08:08 Pulse Ox 99 04/20/21 08:00 Weight - Most Recent: 441 lb 2.319 oz I&O - Last 24 Hours: Intake & Output 04/19/21 04/20/21 04/20/21 22:59 06:59 14:59 Intake Total 1400 700 Output Total 1875 1000 Balance -475 -300 Lab Results Last 24 Hours: Laboratory Results - last 24 hr 04/20/21 04/20/21 Range/Units 05:55 05:55 WBC 18.0 H (5.0-10.0) 10^3/uL RBC 3.94 L (4.6-6.2) 10^6/uL Hgb 11.9 L (14.0-18.0) g/dL Hct 36.7 L (40.0-54.0) % MCV 93.1 (80-100) fL MCH 30.2 (27.0-34.0) pg MCHC 32.4 L (33.0-35.0) g/dL Plt Count 265 (150-450) 10^3/uL Neut % (Auto) 87.2 H (42.2-75.2) % Lymph % (Auto) 6.9 L (20.5-50.1) % [place] % (Auto) 4.5 (2-8) % Eos % (Auto) 1.3 (1.0-3.0) % Baso % (Auto) 0.1 (0.0-1.0) % Add Manual Diff Sodium 145 (136-145) mmol/L Potassium 3.3 L (3.5-5.1) mmol/L Chloride 111 H (98-107) mmol/L Carbon Dioxide 25 (21-32) mmol/L Anion Gap 12.3 (7-13) mEq/L BUN 47 H (7-18) mg/dL Creatinine 1.51 H (0.70-1.30) mg/dL Est Cr Clr Drug Dosing 38.91 mL/min Estimated GFR (MDRD) 45 Glucose 96 (70-99) mg/dL Calcium 7.8 L (8.5-10.1) mg/dL [place] Results Last 24 Hours: Microbiology 04/15/21 06:00 Aerobic Blood Culture - Preliminary Blood - Arm, Left Anaerobic Blood Culture - Final NO GROWTH AFTER 5 DAYS 04/17/21 05:31 Urine Culture - Final Urine, Catheterized NO GROWTH AFTER 2 DAYS Med Orders - Current: Current Medications Acetaminophen (Acetaminophen 325 Mg Tab) 650 mg PO Q6H PRN PRN Reason: Pain (Mild 1-3)/fever Last Admin: 04/19/21 20:46 Dose: 650 mg Documented by: Acyclovir (Acyclovir 200 Mg Cap) 200 mg PO 5XDAY [facility] Last Admin: 04/20/21 08:07 Dose: 200 mg Documented by: Citalopram Hydrobromide (Citalopram 20 Mg Tab) 20 mg PO DAILY [facility] Last Admin: 04/20/21 08:08 Dose: 20 mg Documented by: Heparin Sodium (Porcine) (Heparin Sodium 5,000 Units/Ml Vial) 5,000 units SUBCUT Q12HR [facility] Last Admin: 04/20/21 08:13 Dose: 5,000 units Documented by: Meropenem 500 mg/ Sodium (Chloride) 100 mls @ 200 mls/hr IV Q12H [facility] Last Infusion: 04/20/21 09:05 Dose: Infused Documented by: Ampicillin Sodium 2 gm/ Sodium (Chloride) 100 mls @ 200 mls/hr IV Q6HR [facility] Last Admin: 04/20/21 05:55 Dose: 200 mls/hr Documented by: Potassium Chloride/Sodium Chloride (1/2 Ns With 20 Meq Kcl) 1,000 mls @ 75 mls/hr IV ASDIRECTED [facility] Last Admin: 04/20/21 02:53 Dose: 75 mls/hr Documented by: Influenza Virus Vaccine (Pharmacy To Dose - Influenza Vaccine) 1 each IM DAILY [facility] Last Admin: 04/20/21 08:20 Dose: Not Given Documented by: Melatonin (Melatonin 3 Mg Tab) 3 mg PO BEDTIME PRN PRN Reason: Sleep Last Admin: 04/19/21 20:46 Dose: 3 mg Documented by: Metoprolol Tartrate (Metoprolol Tartrate 50 Mg Tab) 75 mg PO BID [facility] Last Admin: 04/20/21 08:08 Dose: 75 mg Documented by: Nystatin (Nystatin Topical Powder 30 Gm Bottle) 0 gm TOP BID [facility] Last Admin: 04/20/21 08:20 Dose: 1 applic Documented by: Ondansetron HCl (Ondansetron 4 Mg/2 Ml Sdv) 4 mg IVPUSH Q6H PRN PRN Reason: Nausea/Vomiting Last Admin: 04/15/21 17:18 Dose: 4 mg Documented by: Polyethylene Glycol (Polyethylene Glycol 3350 Powder 17 Gm Packet) 17 gm PO STEWART LY PRN PRN Reason: Constipation Last Admin: 04/15/21 17:18 Dose: 17 gm Documented by: Tamsulosin HCl (Tamsulosin 0.4 Mg Cap.Er) 0.4 mg PO DAILY [facility] Last Admin: 04/20/21 08:08 Dose: 0.4 mg Documented by: Discontinued Medications Acetaminophen (Acetaminophen 325 Mg Tab) 650 mg PO NOW ONE Stop: 04/16/21 11:32 Last Admin: 04/16/21 11:48 Dose: 650 mg Documented by: Sodium Chloride (Normal Saline) 1,000 mls @ 999 mls/hr IV .BOLUS ONE Stop: 04/13/21 15:14 Last Admin: 04/13/21 14:42 Dose: 999 mls/hr Documented by: Vancomycin HCl 1.5 gm/ Premix 300 mls @ 200 mls/hr IV ONETIME ONE Stop: 04/13/21 16:29 Last Admin: 04/13/21 14:48 Dose: 200 mls/hr Documented by: Sodium Chloride (Normal Saline) 1,000 mls @ 999 mls/hr IV .BOLUS ONE Stop: 04/13/21 15:56 Last Admin: 04/13/21 15:01 Dose: 999 mls/hr Documented by: Sodium Chloride (Normal Saline) 1,000 mls @ 70 mls/hr IV ASDIRECTED [facility] Last Infusion: 04/15/21 23:33 Dose: Infused Documented by: Meropenem 500 mg/ Sodium (Chloride) 100 mls @ 200 mls/hr IV Q24H [facility] Last Admin: 04/14/21 09:28 Dose: Not Given Documented by: Sterile Water (Sterile Water For Injection) Confirm Administered Dose 20 mls @ as directed .ROUTE .STK-MED ONE Stop: 04/13/21 20:19 Last Admin: 04/13/21 20:25 Dose: 10 mls/hr Documented by: Meropenem 500 mg/ Sodium (Chloride) 100 mls @ 200 mls/hr IV Q12H [facility] Last Infusion: 04/14/21 10:46 Dose: Infused Documented by: Vancomycin HCl 1.5 gm/ Premix 300 mls @ 200 mls/hr IV ONETIME ONE Stop: 04/14/21 16:29 Last Admin: 04/14/21 15:21 Dose: 200 mls/hr Documented by: Piperacillin Sod/Tazobactam (Sod 2.25 gm/ Sodium Chloride) 50 mls @ 100 mls/hr IV Q6HR [facility] Last Infusion: 04/16/21 13:12 Dose: Infused Documented by: Sodium Chloride (Normal Saline) 1,000 mls @ 500 mls/hr IV ASDIRECTED [facility] Last Admin: 04/15/21 20:38 Dose: 500 mls/hr Documented by: Sodium Chloride (Normal Saline) 250 mls @ 60 mls/hr IV ASDIRECTED [facility] Sodium Chloride (Normal Saline) 1,000 mls @ 60 mls/hr IV ASDIRECTED [facility] Last Admin: 04/18/21 20:39 Dose: 60 mls/hr Documented by: Piperacillin Sod/Tazobactam (Sod 2.25 gm/ Sodium Chloride) 50 mls @ 100 mls/hr IV Q6HR [facility] Piperacillin Sod/Tazobactam (Sod 2.25 gm/ Sodium Chloride) 50 mls @ 100 mls/hr IV Q6HR [facility] Last Infusion: 04/17/21 06:20 Dose: Infused Documented by: Meropenem (Meropenem 500 Mg Sdv) 500 mg IV ONETIME ONE Stop: 04/13/21 19:31 Last Admin: 04/13/21 20:25 Dose: 500 mg Documented by: Potassium Chloride (Potassium Chloride 10 Meq Tab.Er) 40 meq PO ONETIME ONE Stop: 04/19/21 09:36 Last Admin: 04/19/21 09:51 Dose: 40 meq Documented by: Potassium Chloride (Potassium Chloride 10 Meq Tab.Er) 40 meq PO ONETIME ONE Stop: 04/20/21 09:01 Last Admin: 04/20/21 09:27 Dose: 40 meq Documented by: Sodium Chloride (Sodium Chloride 0.9% 10 Ml Syringe) 10 ml FLUSH ASDIRECTED PRN PRN Reason: Keep Vein Open Last Admin: 04/13/21 13:42 Dose: 10 ml Documented by: Sodium Chloride (Sodium Chloride 0.9% 10 Ml Syringe) 10 ml FLUSH ASDIRECTED PRN PRN Reason: Keep Vein Open Last Admin: 04/17/21 08:54 Dose: 10 ml Documented by: Vancomycin HCl (Pharmacy To Dose - Vancomycin) 1 dose .XX ONETIME ONE Stop: 04/13/21 14:14 Last Admin: 04/13/21 21:44 Dose: Not Given Documented by: Vancomycin HCl (Pharmacy To Dose - Vancomycin) 1 dose .XX ASDIRECTED [facility] - Exam Quality Assessment: Supplemental Oxygen Urinary Catheter Total Time: 5Days 17Hours General: Alert, Oriented HEENT: EOMI Neck: Supple Lungs: Clear to Auscultation Cardiovascular: Regular Rate, Regular Rhythm GI/Abdominal Exam: Soft, Non-Tender (Male) Exam: Other (romero in place with clear urine) Extremities: Pedal Edema (mild) Skin: Warm Wound/Incisions: Dressing Dry and Intact Neurological: No: No New Focal Deficit (chronic ) Psy/Mental Status: Alert, Normal Affect - Patient Data Lab Results Last 24 hrs: Laboratory Results - last 24 hr 04/20/21 04/20/21 Range/Units 05:55 05:55 WBC 18.0 H (5.0-10.0) 10^3/uL RBC 3.94 L (4.6-6.2) 10^6/uL Hgb 11.9 L (14.0-18.0) g/dL Hct 36.7 L (40.0-54.0) % MCV 93.1 (80-100) fL MCH 30.2 (27.0-34.0) pg MCHC 32.4 L (33.0-35.0) g/dL Plt Count 265 (150-450) 10^3/uL Neut % (Auto) 87.2 H (42.2-75.2) % Lymph % (Auto) 6.9 L (20.5-50.1) % [place] % (Auto) 4.5 (2-8) % Eos % (Auto) 1.3 (1.0-3.0) % Baso % (Auto) 0.1 (0.0-1.0) % Add Manual Diff Sodium 145 (136-145) mmol/L Potassium 3.3 L (3.5-5.1) mmol/L Chloride 111 H (98-107) mmol/L Carbon Dioxide 25 (21-32) mmol/L Anion Gap 12.3 (7-13) mEq/L BUN 47 H (7-18) mg/dL Creatinine 1.51 H (0.70-1.30) mg/dL Est Cr Clr Drug Dosing 38.91 mL/min Estimated GFR (MDRD) 45 Glucose 96 (70-99) mg/dL Calcium 7.8 L (8.5-10.1) mg/dL Result Diagrams: 04/20/21 05:55 04/20/21 05:55 [place] Results Last 24 hrs: Microbiology 04/15/21 06:00 Aerobic Blood Culture - Preliminary Blood - Arm, Left Anaerobic Blood Culture - Final NO GROWTH AFTER 5 DAYS 04/17/21 05:31 Urine Culture - Final Urine, Catheterized NO GROWTH AFTER 2 DAYS Sepsis Event Note - Evaluation Sepsis Screening Result: Severe Sepsis Risk - Focused Exam Vital Signs: Vital Signs Temp Pulse Pulse Resp BP BP BP 04/20/21 08:08 75 142/60 H 04/20/21 08:00 97.5 F 75 20 142/60 H 04/20/21 04:00 98.1 F 85 20 116/65 04/20/21 00:00 98.3 F 80 18 112/54 L Pulse Ox 04/20/21 08:08 04/20/21 08:00 99 04/20/21 04:00 96 04/20/21 00:00 97 - Problem List Review Problem List Initiated/Reviewed/Updated: Yes - Plan Plan:: Severe sepsis due to UTI with gram neg bacteremia ( 2/2). Urine cult is also showing gram positive cocci and gram neg. WBC is better . Hypotension: improved. IVF: 0.45 NS Romero already changed on admission. Continue with Meropenem. changed Zosyn to ampicillin. urine cult: no growth. Pt was informed that it is recommended to complete 14 days of IV antibiotics. Pt is reluctantly accepted. Repeat Labs in AM herpes labialis: on acyclovir MAIA: ATN/ hypovolemia : improving Hyperkalemia: resolved Chronic Romero Off Ibuprofen first abd US: showed B hydronephrosis. repeat: ? midline obstruction for CT MS Bed bound, inability to care for self independently. Thrombocytopenia: most likely due to sepsis VS antibiotics. resume Heparin. Decubitus prophylaxis: per protocol. DVT prophylaxis: resume heparin. 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
[2021-04-21] MEDS: Ampicillin 2 GM in Sodium Chloride 0.9% 100 ML IV SCH ×3 (05:51→17:25)
[2021-04-21] MEDS ORDERED: Potassium Chloride 10 MEQ Tab.ER PO ONE (07:34)
[2021-04-21] MEDS: Metoprolol Tartrate 50 MG Tab PO SCH ×2 (09:00→21:46)
[2021-04-21] MEDS: Nystatin Topical Powder 30 GM Bottle TOP SCH ×2 (09:00→21:48)
[2021-04-21] MEDS: Acyclovir 200 MG Cap PO SCH ×5 (09:01→21:50)
[2021-04-21] MEDS: Acetaminophen 325 MG Tab PO PRN (09:01)
[2021-04-21] MEDS: Tamsulosin 0.4 MG Cap.ER PO SCH (09:01)
[2021-04-21] MEDS: Citalopram 20 MG Tab PO SCH (09:01)
[2021-04-21] MEDS: Heparin Sodium 5,000 Units/ML Vial SUBCUT SCH ×2 (09:02→21:45)
[2021-04-21] MEDS: Meropenem 500 MG in Sodium Chloride 0.9% 100 ML IV SCH ×2 (09:27→21:42)
[2021-04-22] MEDS: Ampicillin 2 GM in Sodium Chloride 0.9% 100 ML IV SCH ×4 (00:09→17:14)
[2021-04-22 09:01] LABS: ANION GAP 14.7 mEq/L (7-13); CHLORIDE,CL 112 mmol/L (98-107); SODIUM,NA 147 mmol/L (136-145)
[2021-04-22] MEDS: Meropenem 500 MG in Sodium Chloride 0.9% 100 ML IV SCH ×2 (09:28→21:02)
[2021-04-22] MEDS: Acetaminophen 325 MG Tab PO PRN (09:29)
[2021-04-22] MEDS: Metoprolol Tartrate 50 MG Tab PO SCH ×2 (09:29→21:06)
[2021-04-22] MEDS: Tamsulosin 0.4 MG Cap.ER PO SCH (09:29)
[2021-04-22] MEDS: Citalopram 20 MG Tab PO SCH (09:31)
[2021-04-22] MEDS: Acyclovir 200 MG Cap PO SCH ×5 (09:34→22:01)
[2021-04-22] MEDS: Heparin Sodium 5,000 Units/ML Vial SUBCUT SCH ×2 (09:38→21:09)
[2021-04-22] MEDS: Nystatin Topical Powder 30 GM Bottle TOP SCH ×2 (09:39→21:10)
--- NOTE | 2021-04-22 11:19 | PCM.PN ---
- General Info Date of Service: 04/22/21 Admission Dx/Problem (Free Text): Admission Diagnosis/Problem Pt brought to ER via EMS from home for evaluation of bladder pain, discolored urine. Pt reports that his chronic indwelling Romero catheter was changed last week, but he feels like he has an infection. Pt presents with yellow, thick, creamy urine in the catheter tube. He is noted to have a dry cough, but states that it is chronic and stable. He denies fever or chills, N/V, or diarrhea. Pt has Hx of MS. He lives at home with his son. in ER pt was found with WBC of 35, MAIA and severe sepsis due to UTI. Pt declined transfer to higher level of care. Subjective Update: Feeling about the same. Decreased appetite. wants to go home today Functional Status: Reports: Pain Controlled, Tolerating Diet - Review of Systems General: Denies: Fever Pulmonary: Denies: Shortness of Breath Cardiovascular: Denies: Chest Pain Gastrointestinal: Reports: Nausea. Denies: Abdominal Pain, Vomiting Genitourinary: Reports: Dysuria Skin: Reports: Other (lession to RT knee) Neurological: Denies: Confusion Psychiatric: Denies: Confusion - Patient Data Vitals - Most Recent: Last Vital Signs Temp 97.9 F 04/22/21 08:00 Pulse 66 04/22/21 09:29 Resp 18 04/22/21 08:00 BP 136/56 L 04/22/21 09:29 Pulse Ox 94 L 04/22/21 08:00 Weight - Most Recent: 441 lb 2.319 oz I&O - Last 24 Hours: Intake & Output 04/21/21 04/22/21 04/22/21 22:59 06:59 14:59 Intake Total 420 1320 Output Total 1500 1200 Balance -1080 120 Lab Results Last 24 Hours: Laboratory Results - last 24 hr 04/22/21 04/22/21 Range/Units 05:45 05:45 WBC 14.8 H (5.0-10.0) 10^3/uL RBC 3.84 L (4.6-6.2) 10^6/uL Hgb 11.9 L (14.0-18.0) g/dL Hct 35.8 L (40.0-54.0) % MCV 93.2 (80-100) fL MCH 31.0 (27.0-34.0) pg MCHC 33.2 (33.0-35.0) g/dL Plt Count 380 (150-450) 10^3/uL Sodium 147 H (136-145) mmol/L Potassium 3.7 (3.5-5.1) mmol/L Chloride 112 H (98-107) mmol/L Carbon Dioxide 24 (21-32) mmol/L Anion Gap 14.7 H (7-13) mEq/L BUN 34 H (7-18) mg/dL Creatinine 1.12 (0.70-1.30) mg/dL Est Cr Clr Drug Dosing 52.46 mL/min Estimated GFR (MDRD) > 60 Glucose 100 H (70-99) mg/dL Calcium 7.9 L (8.5-10.1) mg/dL [place] Results Last 24 Hours: Microbiology 04/15/21 06:00 Aerobic Blood Culture - Final Blood - Arm, Left Enterobacter Cloacae Anaerobic Blood Culture - Final NO GROWTH AFTER 5 DAYS Med Orders - Current: Current Medications Acetaminophen (Acetaminophen 325 Mg Tab) 650 mg PO Q6H PRN PRN Reason: Pain (Mild 1-3)/fever Last Admin: 04/22/21 09:29 Dose: 650 mg Documented by: Acyclovir (Acyclovir 200 Mg Cap) 200 mg PO 5XDAY [facility] Last Admin: 04/22/21 09:34 Dose: 200 mg Documented by: Citalopram Hydrobromide (Citalopram 20 Mg Tab) 20 mg PO DAILY [facility] Last Admin: 04/22/21 09:31 Dose: 20 mg Documented by: Heparin Sodium (Porcine) (Heparin Sodium 5,000 Units/Ml Vial) 5,000 units SUBCUT Q12HR [facility] Last Admin: 04/22/21 09:38 Dose: 5,000 units Documented by: Meropenem 500 mg/ Sodium (Chloride) 100 mls @ 200 mls/hr IV Q12H [facility] Last Admin: 04/22/21 09:28 Dose: 200 mls/hr Documented by: Ampicillin Sodium 2 gm/ Sodium (Chloride) 100 mls @ 200 mls/hr IV Q6HR [facility] Last Admin: 04/22/21 06:26 Dose: 200 mls/hr Documented by: Potassium Chloride/Sodium Chloride (1/2 Ns With 20 Meq Kcl) 1,000 mls @ 75 mls/hr IV ASDIRECTED [facility] Last Admin: 04/20/21 02:53 Dose: 75 mls/hr Documented by: Influenza Virus Vaccine (Pharmacy To Dose - Influenza Vaccine) 1 each IM DAILY [facility] Last Admin: 04/21/21 12:12 Dose: Not Given Documented by: Melatonin (Melatonin 3 Mg Tab) 3 mg PO BEDTIME PRN PRN Reason: Sleep Last Admin: 04/19/21 20:46 Dose: 3 mg Documented by: Metoprolol Tartrate (Metoprolol Tartrate 50 Mg Tab) 75 mg PO BID [facility] Last Admin: 04/22/21 09:29 Dose: 75 mg Documented by: Nystatin (Nystatin Topical Powder 30 Gm Bottle) 0 gm TOP BID [facility] Last Admin: 04/22/21 09:39 Dose: 1 applic Documented by: Ondansetron HCl (Ondansetron 4 Mg/2 Ml Sdv) 4 mg IVPUSH Q6H PRN PRN Reason: Nausea/Vomiting Last Admin: 04/15/21 17:18 Dose: 4 mg Documented by: Polyethylene Glycol (Polyethylene Glycol 3350 Powder 17 Gm Packet) 17 gm PO DAILY PRN PRN Reason: Constipation Last Admin: 04/15/21 17:18 Dose: 17 gm Documented by: Tamsulosin HCl (Tamsulosin 0.4 Mg Cap.Er) 0.4 mg PO DAILY [facility] Last Admin: 04/22/21 09:29 Dose: 0.4 mg Documented by: Discontinued Medications Acetaminophen (Acetaminophen 325 Mg Tab) 650 mg PO NOW ONE Stop: 04/16/21 11:32 Last Admin: 04/16/21 11:48 Dose: 650 mg Documented by: Sodium Chloride (Normal Saline) 1,000 mls @ 999 mls/hr IV .BOLUS ONE Stop: 04/13/21 15:14 Last Admin: 04/13/21 14:42 Dose: 999 mls/hr Documented by: Vancomycin HCl 1.5 gm/ Premix 300 mls @ 200 mls/hr IV ONETIME ONE Stop: 04/13/21 16:29 Last Admin: 04/13/21 14:48 Dose: 200 mls/hr Documented by: Sodium Chloride (Normal Saline) 1,000 mls @ 999 mls/hr IV .BOLUS ONE Stop: 04/13/21 15:56 Last Admin: 04/13/21 15:01 Dose: 999 mls/hr Documented by: Sodium Chloride (Normal Saline) 1,000 mls @ 70 mls/hr IV ASDIRECTED [facility] Last Infusion: 04/15/21 23:33 Dose: Infused Documented by: Meropenem 500 mg/ Sodium (Chloride) 100 mls @ 200 mls/hr IV Q24H [facility] Last Admin: 04/14/21 09:28 Dose: Not Given Documented by: Sterile Water (Sterile Water For Injection) Confirm Administered Dose 20 mls @ as directed .ROUTE .STK-MED ONE Stop: 04/13/21 20:19 Last Admin: 04/13/21 20:25 Dose: 10 mls/hr Documented by: Meropenem 500 mg/ Sodium (Chloride) 100 mls @ 200 mls/hr IV Q12H [facility] Last Infusion: 04/14/21 10:46 Dose: Infused Documented by: Vancomycin HCl 1.5 gm/ Premix 300 mls @ 200 mls/hr IV ONETIME ONE Stop: 04/14/21 16:29 Last Admin: 04/14/21 15:21 Dose: 200 mls/hr Documented by: Piperacillin Sod/Tazobactam (Sod 2.25 gm/ Sodium Chloride) 50 mls @ 100 mls/hr IV Q6HR [facility] Last Infusion: 04/16/21 13:12 Dose: Infused Documented by: Sodium Chloride (Normal Saline) 1,000 mls @ 500 mls/hr IV ASDIRECTED [facility] Last Admin: 04/15/21 20:38 Dose: 500 mls/hr Documented by: Sodium Chloride (Normal Saline) 250 mls @ 60 mls/hr IV ASDIRECTED [facility] Sodium Chloride (Normal Saline) 1,000 mls @ 60 mls/hr IV ASDIRECTED [facility] Last Admin: 04/18/21 20:39 Dose: 60 mls/hr Documented by: Piperacillin Sod/Tazobactam (Sod 2.25 gm/ Sodium Chloride) 50 mls @ 100 mls/hr IV Q6HR [facility] Piperacillin Sod/Tazobactam (Sod 2.25 gm/ Sodium Chloride) 50 mls @ 100 mls/hr IV Q6HR [facility] Last Infusion: 04/17/21 06:20 Dose: Infused Documented by: Meropenem (Meropenem 500 Mg Sdv) 500 mg IV ONETIME ONE Stop: 04/13/21 19:31 Last Admin: 04/13/21 20:25 Dose: 500 mg Documented by: Potassium Chloride (Potassium Chloride 10 Meq Tab.Er) 40 meq PO ONETIME ONE Stop: 04/19/21 09:36 Last Admin: 04/19/21 09:51 Dose: 40 meq Documented by: Potassium Chloride (Potassium Chloride 10 Meq Tab.Er) 40 meq PO ONETIME ONE Stop: 04/20/21 09:01 Last Admin: 04/20/21 09:27 Dose: 40 meq Documented by: Potassium Chloride (Potassium Chloride 10 Meq Tab.Er) 40 meq PO ONETIME ONE Stop: 04/21/21 07:35 Last Admin: 04/21/21 09:00 Dose: 40 meq Documented by: Sodium Chloride (Sodium Chloride 0.9% 10 Ml Syringe) 10 ml FLUSH ASDIRECTED PRN PRN Reason: Keep Vein Open Last Admin: 04/13/21 13:42 Dose: 10 ml Documented by: Sodium Chloride (Sodium Chloride 0.9% 10 Ml Syringe) 10 ml FLUSH ASDIRECTED PRN PRN Reason: Keep Vein Open Last Admin: 04/17/21 08:54 Dose: 10 ml Documented by: Vancomycin HCl (Pharmacy To Dose - Vancomycin) 1 dose .XX ONETIME ONE Stop: 04/13/21 14:14 Last Admin: 04/13/21 21:44 Dose: Not Given Documented by: Vancomycin HCl (Pharmacy To Dose - Vancomycin) 1 dose .XX ASDIRECTED [facility] - Exam Quality Assessment: No: Supplemental Oxygen Urinary Catheter Total Time: 7Days 8Hours General: Alert, Oriented HEENT: EOMI Neck: Supple, No JVD Lungs: Clear to Auscultation, Normal Respiratory Effort Cardiovascular: Regular Rate, Regular Rhythm GI/Abdominal Exam: Soft, Non-Tender (Male) Exam: Other (daper, romero in place with clear urine. ) Extremities: Pedal Edema Skin: Other (supperfical lession to left knee. 1.5X2 CM. Pt states that he had for long time due to an old injury.) Neurological: No New Focal Deficit Psy/Mental Status: Alert - Patient Data Lab Results Last 24 hrs: Laboratory Results - last 24 hr 04/22/21 04/22/21 Range/Units 05:45 05:45 WBC 14.8 H (5.0-10.0) 10^3/uL RBC 3.84 L (4.6-6.2) 10^6/uL Hgb 11.9 L (14.0-18.0) g/dL Hct 35.8 L (40.0-54.0) % MCV 93.2 (80-100) fL MCH 31.0 (27.0-34.0) pg MCHC 33.2 (33.0-35.0) g/dL Plt Count 380 (150-450) 10^3/uL Sodium 147 H (136-145) mmol/L Potassium 3.7 (3.5-5.1) mmol/L Chloride 112 H (98-107) mmol/L Carbon Dioxide 24 (21-32) mmol/L Anion Gap 14.7 H (7-13) mEq/L BUN 34 H (7-18) mg/dL Creatinine 1.12 (0.70-1.30) mg/dL Est Cr Clr Drug Dosing 52.46 mL/min Estimated GFR (MDRD) > 60 Glucose 100 H (70-99) mg/dL Calcium 7.9 L (8.5-10.1) mg/dL Result Diagrams: 04/22/21 05:45 04/22/21 05:45 [place] Results Last 24 hrs: Microbiology 04/15/21 06:00 Aerobic Blood Culture - Final Blood - Arm, Left Enterobacter Cloacae Anaerobic Blood Culture - Final NO GROWTH AFTER 5 DAYS Sepsis Event Note - Evaluation Sepsis Screening Result: Possible Sepsis Risk - Focused Exam Vital Signs: Vital Signs Temp Pulse Pulse Resp BP BP Pulse Ox 04/22/21 09:29 66 136/56 L 04/22/21 08:00 97.9 F 86 18 136/59 L 94 L 04/22/21 04:00 97.8 F 93 16 127/62 96 04/22/21 00:00 97.9 F 71 18 131/59 L 100 - Problem List Review Problem List Initiated/Reviewed/Updated: No - My Orders Last 24 Hours: My Active Orders 04/23/21 08:32 CBC W/O DIFF,HEMOGRAM [HEME] DAILY 04/23/21 08:33 BASIC METABOLIC PANEL,BMP [CHEM] DAILY 04/24/21 08:32 CBC W/O DIFF,HEMOGRAM [HEME] DAILY 04/24/21 08:33 BASIC METABOLIC PANEL,BMP [CHEM] DAILY 04/25/21 08:33 BASIC METABOLIC PANEL,BMP [CHEM] DAILY 04/26/21 08:33 BASIC METABOLIC PANEL,BMP [CHEM] DAILY 04/27/21 08:33 BASIC METABOLIC PANEL,BMP [CHEM] DAILY 04/28/21 08:33 BASIC METABOLIC PANEL,BMP [CHEM] DAILY - Plan Plan:: Severe sepsis due to UTI with gram neg bacteremia ( 2/2). Urine cult is also showing gram positive cocci and gram neg. WBC is better . Hypotension: improved. Romero already changed on admission. Continue with Meropenem. changed Zosyn to ampicillin. urine cult: no growth. Pt was informed that it is recommended to complete 14 days of IV antibiotics. Pt is reluctantly accepted. Repeat Labs in AM herpes labialis: on acyclovir MAIA: ATN/ hypovolemia : improving Hyperkalemia: resolved Chronic Romero Off Ibuprofen first abd US: showed B hydronephrosis. repeat: ? midline obstruction for CT. will repeat US (w ll avoid CT with due to risk of JENNY). MS Bed bound, inability to care for self independently. Pt is insisting to go home. Pt was advised to discuss with his son to get more support at home vs possible placement. Pt has been refusing NH placement in spite that he is almost totally dependent. Thrombocytopenia: most likely due to sepsis VS antibiotics. resume Heparin. Skin lesion to RT knee : for outpt dermatology evaluation. Decubitus prophylaxis: per protocol. DVT prophylaxis: resume heparin. DNR/ DNI
[2021-04-22] MEDS ORDERED: Bacitracin Oint 28.35 GM Tube TOP PRN (19:51)
[2021-04-23] MEDS: Ampicillin 2 GM in Sodium Chloride 0.9% 100 ML IV SCH ×4 (00:07→17:42)
[2021-04-23 07:06] LABS: ANION GAP 12.9 mEq/L (7-13); CHLORIDE,CL 111 mmol/L (98-107); SODIUM,NA 144 mmol/L (136-145)
[2021-04-23] MEDS: Metoprolol Tartrate 50 MG Tab PO SCH ×2 (08:56→21:30)
[2021-04-23] MEDS: Tamsulosin 0.4 MG Cap.ER PO SCH (08:56)
[2021-04-23] MEDS: Acyclovir 200 MG Cap PO SCH ×2 (08:56→11:47)
[2021-04-23] MEDS: Heparin Sodium 5,000 Units/ML Vial SUBCUT SCH ×2 (08:57→21:31)
[2021-04-23] MEDS: Citalopram 20 MG Tab PO SCH (08:57)
[2021-04-23] MEDS: Meropenem 500 MG in Sodium Chloride 0.9% 100 ML IV SCH ×2 (09:03→21:32)
[2021-04-23] MEDS: Nystatin Topical Powder 30 GM Bottle TOP SCH ×2 (09:07→21:34)
--- NOTE | 2021-04-23 11:05 | PCM.PN ---
- General Info Date of Service: 04/23/21 Functional Status: Reports: Pain Controlled, Tolerating Diet - Review of Systems General: Denies: Fever, Weakness Pulmonary: Reports: No Symptoms Cardiovascular: Reports: No Symptoms Gastrointestinal: Reports: No Symptoms Genitourinary: Reports: Other (romero in place) Skin: Reports: Other (ulcerative lession to RT knee) Neurological: Reports: Confusion Psychiatric: Reports: No Symptoms - Patient Data Vitals - Most Recent: Last Vital Signs Temp 98.4 F 04/23/21 08:00 Pulse 88 04/23/21 08:56 Resp 20 04/23/21 08:00 BP 128/65 04/23/21 08:56 Pulse Ox 97 04/23/21 08:00 Weight - Most Recent: 441 lb 2.319 oz I&O - Last 24 Hours: Intake & Output 04/22/21 04/23/21 04/23/21 22:59 06:59 14:59 Intake Total 500 700 460 Output Total 1550 1300 Balance -1050 -600 460 Lab Results Last 24 Hours: Laboratory Results - last 24 hr 04/23/21 04/23/21 Range/Units 06:03 06:03 WBC 11.9 H (5.0-10.0) 10^3/uL RBC 3.63 L (4.6-6.2) 10^6/uL Hgb 11.2 L (14.0-18.0) g/dL Hct 34.0 L (40.0-54.0) % MCV 93.7 (80-100) fL MCH 30.9 (27.0-34.0) pg MCHC 32.9 L (33.0-35.0) g/dL Plt Count 374 (150-450) 10^3/uL Sodium 144 (136-145) mmol/L Potassium 3.9 (3.5-5.1) mmol/L Chloride 111 H (98-107) mmol/L Carbon Dioxide 24 (21-32) mmol/L Anion Gap 12.9 (7-13) mEq/L BUN 26 H (7-18) mg/dL Creatinine 1.05 (0.70-1.30) mg/dL Est Cr Clr Drug Dosing 55.96 mL/min Estimated GFR (MDRD) > 60 Glucose 85 (70-99) mg/dL Calcium 8.1 L (8.5-10.1) mg/dL [place] Results Last 24 Hours: Microbiology 04/15/21 06:00 Aerobic Blood Culture - Final Blood - Arm, Left Enterobacter Cloacae Anaerobic Blood Culture - Final NO GROWTH AFTER 5 DAYS Med Orders - Current: Current Medications Acetaminophen (Acetaminophen 325 Mg Tab) 650 mg PO Q6H PRN PRN Reason: Pain (Mild 1-3)/fever Last Admin: 04/22/21 09:29 Dose: 650 mg Documented by: Bacitracin (Bacitracin Oint 28.35 Gm Tube) 1 gm TOP DAILY PRN PRN Reason: Wound Care Last Admin: 04/22/21 20:57 Dose: 1 applic Documented by: Citalopram Hydrobromide (Citalopram 20 Mg Tab) 20 mg PO DAILY [facility] Last Admin: 04/23/21 08:57 Dose: 20 mg Documented by: Heparin Sodium (Porcine) (Heparin Sodium 5,000 Units/Ml Vial) 5,000 units SUBCUT Q12HR [facility] Last Admin: 04/23/21 08:57 Dose: 5,000 units Documented by: Meropenem 500 mg/ Sodium (Chloride) 100 mls @ 200 mls/hr IV Q12H [facility] Last Infusion: 04/23/21 09:35 Dose: Infused Documented by: Ampicillin Sodium 2 gm/ Sodium (Chloride) 100 mls @ 200 mls/hr IV Q6HR [facility] Last Admin: 04/23/21 05:52 Dose: 200 mls/hr Documented by: Influenza Virus Vaccine (Pharmacy To Dose - Influenza Vaccine) 1 each IM DAILY [facility] Last Admin: 04/23/21 08:58 Dose: Not Given Documented by: Melatonin (Melatonin 3 Mg Tab) 3 mg PO BEDTIME PRN PRN Reason: Sleep Last Admin: 04/19/21 20:46 Dose: 3 mg Documented by: Metoprolol Tartrate (Metoprolol Tartrate 50 Mg Tab) 75 mg PO BID [facility] Last Admin: 04/23/21 08:56 Dose: 75 mg Documented by: Nystatin (Nystatin Topical Powder 30 Gm Bottle) 0 gm TOP BID [facility] Last Admin: 04/23/21 09:07 Dose: 1 applic Documented by: Ondansetron HCl (Ondansetron 4 Mg/2 Ml Sdv) 4 mg IVPUSH Q6H PRN PRN Reason: Nausea/Vomiting Last Admin: 04/15/21 17:18 Dose: 4 mg Documented by: Polyethylene Glycol (Polyethylene Glycol 3350 Powder 17 Gm Packet) 17 gm PO DAILY PRN PRN Reason: Constipation Last Admin: 04/15/21 17:18 Dose: 17 gm Documented by: Tamsulosin HCl (Tamsulosin 0.4 Mg Cap.Er) 0.4 mg PO DAILY [facility] Last Admin: 04/23/21 08:56 Dose: 0.4 mg Documented by: Discontinued Medications Acetaminophen (Acetaminophen 325 Mg Tab) 650 mg PO NOW ONE Stop: 04/16/21 11:32 Last Admin: 04/16/21 11:48 Dose: 650 mg Documented by: Acyclovir (Acyclovir 200 Mg Cap) 200 mg PO 5XDAY [facility] Last Admin: 04/23/21 08:56 Dose: 200 mg Documented by: Sodium Chloride (Normal Saline) 1,000 mls @ 999 mls/hr IV .BOLUS ONE Stop: 04/13/21 15:14 Last Admin: 04/13/21 14:42 Dose: 999 mls/hr Documented by: Vancomycin HCl 1.5 gm/ Premix 300 mls @ 200 mls/hr IV ONETIME ONE Stop: 04/13/21 16:29 Last Admin: 04/13/21 14:48 Dose: 200 mls/hr Documented by: Sodium Chloride (Normal Saline) 1,000 mls @ 999 mls/hr IV .BOLUS ONE Stop: 04/13/21 15:56 Last Admin: 04/13/21 15:01 Dose: 999 mls/hr Documented by: Sodium Chloride (Normal Saline) 1,000 mls @ 70 mls/hr IV ASDIRECTED [facility] Last Infusion: 04/15/21 23:33 Dose: Infused Documented by: Meropenem 500 mg/ Sodium (Chloride) 100 mls @ 200 mls/hr IV Q24H [facility] Last Admin: 04/14/21 09:28 Dose: Not Given Documented by: Sterile Water (Sterile Water For Injection) Confirm Administered Dose 20 mls @ as directed .ROUTE .STK-MED ONE Stop: 04/13/21 20:19 Last Admin: 04/13/21 20:25 Dose: 10 mls/hr Documented by: Meropenem 500 mg/ Sodium (Chloride) 100 mls @ 200 mls/hr IV Q12H [facility] Last Infusion: 04/14/21 10:46 Dose: Infused Documented by: Vancomycin HCl 1.5 gm/ Premix 300 mls @ 200 mls/hr IV ONETIME ONE Stop: 04/14/21 16:29 Last Admin: 04/14/21 15:21 Dose: 200 mls/hr Documented by: Piperacillin Sod/Tazobactam (Sod 2.25 gm/ Sodium Chloride) 50 mls @ 100 mls/hr IV Q6HR [facility] Last Infusion: 04/16/21 13:12 Dose: Infused Documented by: Sodium Chloride (Normal Saline) 1,000 mls @ 500 mls/hr IV ASDIRECTED [facility] Last Admin: 04/15/21 20:38 Dose: 500 mls/hr Documented by: Sodium Chloride (Normal Saline) 250 mls @ 60 mls/hr IV ASDIRECTED [facility]OS[facility] Sodium Chloride (Normal Saline) 1,000 mls @ 60 mls/hr IV ASDIRECTED [facility] Last Admin: 04/18/21 20:39 Dose: 60 mls/hr Documented by: Piperacillin Sod/Tazobactam (Sod 2.25 gm/ Sodium Chloride) 50 mls @ 100 mls/hr IV Q6HR [facility] Piperacillin Sod/Tazobactam (Sod 2.25 gm/ Sodium Chloride) 50 mls @ 100 mls/hr IV Q6HR [facility] Last Infusion: 04/17/21 06:20 Dose: Infused Documented by: Potassium Chloride/Sodium Chloride (1/2 Ns With 20 Meq Kcl) 1,000 mls @ 75 mls/hr IV ASDIRECTED [facility] Last Admin: 04/20/21 02:53 Dose: 75 mls/hr Documented by: Meropenem (Meropenem 500 Mg Sdv) 500 mg IV ONETIME ONE Stop: 04/13/21 19:31 Last Admin: 04/13/21 20:25 Dose: 500 mg Documented by: Potassium Chloride (Potassium Chloride 10 Meq Tab.Er) 40 meq PO ONETIME ONE Stop: 04/19/21 09:36 Last Admin: 04/19/21 09:51 Dose: 40 meq Documented by: Potassium Chloride (Potassium Chloride 10 Meq Tab.Er) 40 meq PO ONETIME ONE Stop: 04/20/21 09:01 Last Admin: 04/20/21 09:27 Dose: 40 meq Documented by: Potassium Chloride (Potassium Chloride 10 Meq Tab.Er) 40 meq PO ONETIME ONE Stop: 04/21/21 07:35 Last Admin: 04/21/21 09:00 Dose: 40 meq Documented by: Sodium Chloride (Sodium Chloride 0.9% 10 Ml Syringe) 10 ml FLUSH ASDIRECTED PRN PRN Reason: Keep Vein Open Last Admin: 04/13/21 13:42 Dose: 10 ml Documented by: Sodium Chloride (Sodium Chloride 0.9% 10 Ml Syringe) 10 ml FLUSH ASDIRECTED PRN PRN Reason: Keep Vein Open Last Admin: 04/17/21 08:54 Dose: 10 ml Documented by: Vancomycin HCl (Pharmacy To Dose - Vancomycin) 1 dose .XX ONETIME ONE Stop: 04/13/21 14:14 Last Admin: 04/13/21 21:44 Dose: Not Given Documented by: Vancomycin HCl (Pharmacy To Dose - Vancomycin) 1 dose .XX ASDIRECTED [facility]OS[facility]N - Exam Urinary Catheter Total Time: 8Days 16Hours General: Alert, Oriented HEENT: EOMI Neck: No JVD Lungs: Clear to Auscultation Cardiovascular: Regular Rate, Regular Rhythm GI/Abdominal Exam: Soft, Non-Tender Extremities: Pedal Edema, Other (heel protectos B) Skin: Warm, Dry, Intact, Other (lession to RT knww) Neurological: No New Focal Deficit Psy/Mental Status: Alert, Normal Affect - Patient Data Lab Results Last 24 hrs: Laboratory Results - last 24 hr 04/23/21 04/23/21 Range/Units 06:03 06:03 WBC 11.9 H (5.0-10.0) 10^3/uL RBC 3.63 L (4.6-6.2) 10^6/uL Hgb 11.2 L (14.0-18.0) g/dL Hct 34.0 L (40.0-54.0) % MCV 93.7 (80-100) fL MCH 30.9 (27.0-34.0) pg MCHC 32.9 L (33.0-35.0) g/dL Plt Count 374 (150-450) 10^3/uL Sodium 144 (136-145) mmol/L Potassium 3.9 (3.5-5.1) mmol/L Chloride 111 H (98-107) mmol/L Carbon Dioxide 24 (21-32) mmol/L Anion Gap 12.9 (7-13) mEq/L BUN 26 H (7-18) mg/dL Creatinine 1.05 (0.70-1.30) mg/dL Est Cr Clr Drug Dosing 55.96 mL/min Estimated GFR (MDRD) > 60 Glucose 85 (70-99) mg/dL Calcium 8.1 L (8.5-10.1) mg/dL Result Diagrams: 04/23/21 06:03 04/23/21 06:03 [place] Results Last 24 hrs: Microbiology 04/15/21 06:00 Aerobic Blood Culture - Final Blood - Arm, Left Enterobacter Cloacae Anaerobic Blood Culture - Final NO GROWTH AFTER 5 DAYS Sepsis Event Note - Evaluation Sepsis Screening Result: Possible Sepsis Risk - Focused Exam Vital Signs: Vital Signs Temp Pulse Pulse Resp BP BP Pulse Ox 04/23/21 08:56 88 128/65 04/23/21 08:00 98.4 F 88 20 128/65 97 04/23/21 04:00 98.4 F 80 18 130/63 96 04/23/21 00:00 99 F 79 16 125/65 96 - Problem List Review Problem List Initiated/Reviewed/Updated: No - My Orders Last 24 Hours: My Active Orders 04/22/21 18:21 Blood Culture x2 Reflex Set [OM.PC] Stat 04/22/21 19:01 CULTURE BLOOD [BC] Stat CULTURE BLOOD [BC] Stat 04/22/21 19:51 Bacitracin [Bacitracin Oint] 1 gm TOP DAILY PRN 04/22/21 20:00 CULTURE URINE [RM] Routine 04/23/21 09:01 Daily Weight [Height and Weight] [RC] DAILY 04/24/21 07:00 Retroperitoneal Ltd [US] Routine 04/24/21 08:32 CBC W/O DIFF,HEMOGRAM [HEME] DAILY 04/24/21 08:33 BASIC METABOLIC PANEL,BMP [CHEM] DAILY 04/25/21 08:33 BASIC METABOLIC PANEL,BMP [CHEM] DAILY 04/26/21 08:33 BASIC METABOLIC PANEL,BMP [CHEM] DAILY 04/27/21 08:33 BASIC METABOLIC PANEL,BMP [CHEM] DAILY 04/28/21 08:33 BASIC METABOLIC PANEL,BMP [CHEM] DAILY - Plan Plan:: Severe sepsis due to UTI with gram neg bacteremia ( 2/2). Urine cult is also showing gram positive cocci and gram neg. WBC is better . Hypotension: improved. Romero already changed on admission. Continue with Meropenem. changed Zosyn to ampicillin. urine cult: no growth. Pt was informed that it is recommended to complete 14 days of IV antibiotics. Pt is reluctantly accepted. Repeat Labs in AM Urine cult from Apr 7 and 8 are still the same growth ( collected form catheter) herpes labialis: on acyclovir. to DC MAIA: ATN/ hypovolemia : improving Hyperkalemia: resolved Chronic Romero Off Ibuprofen first abd US: showed B hydronephrosis. repeat: ? midline obstruction for CT. ricardo l repeat US (w ll avoid CT with due to risk of JENNY). MS Bed bound, inability to care for self independently. Pt is insisting to go home. Pt was advised to discuss with his son to get more support at home vs possible placement. Pt has been refusing NH placement in spite that he is almost totally dependent. Thrombocytopenia: most likely due to sepsis VS antibiotics. resume Heparin. Skin lesion to RT knee : for outpt dermatology evaluation. Decubitus prophylaxis: per protocol. DVT prophylaxis: resume heparin. DNR/ DNI
[2021-04-24] MEDS: Ampicillin 2 GM in Sodium Chloride 0.9% 100 ML IV SCH ×3 (00:35→12:21)
[2021-04-24 07:07] LABS: ANION GAP 13.5 mEq/L (7-13); CHLORIDE,CL 110 mmol/L (98-107); SODIUM,NA 145 mmol/L (136-145)
[2021-04-24] MEDS: Meropenem 500 MG in Sodium Chloride 0.9% 100 ML IV SCH (09:08)
[2021-04-24] MEDS: Heparin Sodium 5,000 Units/ML Vial SUBCUT SCH (09:11)
[2021-04-24] MEDS: Metoprolol Tartrate 50 MG Tab PO SCH (09:38)
[2021-04-24] MEDS: Tamsulosin 0.4 MG Cap.ER PO SCH (09:38)
[2021-04-24] MEDS: Citalopram 20 MG Tab PO SCH (09:38)
[2021-04-24] MEDS: Nystatin Topical Powder 30 GM Bottle TOP SCH (09:40)
--- NOTE | 2021-04-24 11:09 | PCM.DCSUM1 ---
Discharge Summary - Hospital Course Free Text/Narrative:: Pt brought to ER via EMS from home for evaluation of bladder pain, discolored urine. Pt reports that his chronic indwelling Romero catheter was changed last week, but he feels like he has an infection. in ER , Pt was noted with yellow, thick, creamy urine in the catheter tube. He is noted to have a dry cough, but states that it is chronic and stable. He denies fever or chills, N/V, or diarrhea. Pt has Hx of MS. He lives at home with assistance of his son. in ER pt was found with WBC of 35, MAIA and severe sepsis due to UTI. Pt declined transfer to higher level of care. During his stay he was treated for the following: Severe sepsis due to UTI with Enterobacter. Urine cult is also showing enterococcus and gram Enterobacter . WBC improved from 34 on admission to 11.1 today . Pt was treated with Meropenem. and Zosyn which was changed later to ampicillin. repeat blood cult are neg so far. repeat urine cult: showed the same organisms but thy were all obtained form the Romero. Romero was changed again on Apr 23 and repeat cult was obtain. Cult is neg so far. Pt was advised to stay till the final cult is released after two more day s but pt declined and insisted to leave today. I discussed with pt son that pt remains at risk for UTIs recurrence due to the chronic Romero. Hypotension: improved. Chronic Romero: Romero was changed on admission and charged again on Apr 2304/2021. TO f/u with PCP for further advice. herpes labialis: on acyclovir. completed treatment. MAIA: ATN/ hypovolemia : Cr improved from 7.44 on admission to 1.05 today. first abd US: showed B hydronephrosis. repeat: ? midline obstruction for CT. (w ll avoid CT with due to risk of JENNY). repeat US done today " result is still pending. Hyperkalemia: resolved. Ibuprofen was DC on admission. Advanced MS/ Bed bound, inability to care for self independently. Pt was advised to discuss with his son to get more support at home vs possible placement. Pt refused NH placement in spite that he is almost totally dependent and he insisted to go home. Thrombocytopenia: most likely due to sepsis. resolved. Skin lesion to RT knee : for outpt dermatology evaluation. Depression: started on Celexa. Decubitus prophylaxis: to continue care at home. DNR/ DNI - Discharge Data Discharge Date: 04/24/21 Discharge Disposition: Home, Self-Care 01 Condition: Stable - Referral to Home Health Date of Face to Face Encounter: 04/24/21 Primary Care Physician: PCP None Skilled Need: Evalaution on proper romero carte. SN to change romero catheter as directed by PCP , to educate family on signs and symptoms of infection. - Patient Summary/Data Consults: Consultations 04/14/21 08:59 Consult to Occupational Therapy [OT Evaluation and Treatment] [CONS] Routine Labs Pending at D/C: CBC and BMP in one week. results to PCP Recommended Follow-up Testing/Procedures: Follow up with PCP and one week. - Patient Instructions Diet: Heart Healthy Diet Fluid Restriction: 2000 mL Activity: As Tolerated Notify Provider of: Fever, Increased Pain, Swelling and Redness, Drainage, Nausea and/or Vomiting Other/Special Instructions: To see PCP in one week. to follow up with dermatolgy about the skin lesion over right knee. Return to ER if not better or any change. - Discharge Plan *PRESCRIPTION DRUG MONITORING PROGRAM REVIEWED*: Not Applicable *COPY OF PRESCRIPTION DRUG MONITORING REPORT IN PATIENT [place]: Not Applicable Prescriptions/Med Rec: Arginine/Ascorbate Sod/Carlos A AC [Arginaid Powder] 1 each PO BID #60 powd.pack Bacitracin [Bacitracin Oint] 1 gm TOP DAILY PRN 7 Days #1 tube PRN Reason: Wound Care Citalopram [Citalopram HBr] 20 mg PO DAILY 15 Days #15 tablet Home Medications: Home Meds Melatonin 3 mg PO BEDTIME PRN 10/14/20 [History] Metoprolol Tartrate 75 mg PO BID 10/14/20 [History] Tamsulosin [Flomax] 0.4 mg PO DAILY 10/14/20 [History] Acetaminophen [Tylenol] 650 mg PO Q6H PRN tablet 04/24/21 [Rx] Arginine/Ascorbate Sod/Carlos A AC [Arginaid Powder] 1 each PO BID #60 powd.pack 04/24/21 [Rx] Bacitracin [Bacitracin Oint] 1 gm TOP DAILY PRN 7 Days #1 tube 04/24/21 [Rx] Citalopram [Citalopram HBr] 20 mg PO DAILY 15 Days #15 tablet 04/24/21 [Rx] Heparin Sodium 5,000 units SUBCUT Q12HR vial 04/24/21 [Rx] polyethylene glycoL 3350 [MiraLAX] 17 gm PO DAILY PRN packet 04/24/21 [Rx] Oxygen Therapy Mode: Room Air Forms: ED Department Discharge Referrals: Akin Vital MD [Physician] - - Discharge Summary/Plan Comment DC Time >30 min.: Yes Total # of Minutes for Discharge Time: 45 min - General Info Functional Status: Reports: Pain Controlled, Tolerating Diet - Review of Systems General: Denies: Fever Pulmonary: Denies: Shortness of Breath Cardiovascular: Denies: Chest Pain Gastrointestinal: Denies: Abdominal Pain Genitourinary: Denies: Dysuria Neurological: Denies: Confusion Psychiatric: Denies: Confusion - Patient Data Vitals - Most Recent: Last Vital Signs Temp 98.2 F 04/24/21 08:00 Pulse 86 04/24/21 09:38 Resp 20 04/24/21 08:00 BP 123/61 04/24/21 09:38 Pulse Ox 95 04/24/21 08:00 Weight - Most Recent: 441 lb 2.319 oz I&O - Last 24 hours: Intake & Output 04/23/21 04/24/21 04/24/21 22:59 06:59 14:59 Intake Total 300 Output Total 600 1550 Balance -300 -1550 Lab Results - Last 24 hrs: Laboratory Results - last 24 hr 04/23/21 04/24/21 04/24/21 Range/Units 17:20 06:10 06:10 WBC 11.1 H (5.0-10.0) 10^3/uL RBC 3.79 L (4.6-6.2) 10^6/uL Hgb 11.6 L (14.0-18.0) g/dL Hct 36.0 L (40.0-54.0) % MCV 95.0 (80-100) fL MCH 30.6 (27.0-34.0) pg MCHC 32.2 L (33.0-35.0) g/dL Plt Count 398 (150-450) 10^3/uL Sodium 145 (136-145) mmol/L Potassium 3.5 (3.5-5.1) mmol/L Chloride 110 H (98-107) mmol/L Carbon Dioxide 25 (21-32) mmol/L Anion Gap 13.5 H (7-13) mEq/L BUN 21 H (7-18) mg/dL Creatinine 1.05 (0.70-1.30) mg/dL Est Cr Clr Drug Dosing 55.96 mL/min Estimated GFR (MDRD) > 60 Glucose 89 (70-99) mg/dL Calcium 8.3 L (8.5-10.1) mg/dL Urine Color Yellow (YELLOW) Urine Appearance Turbid (CLEAR) Urine pH 7.5 (5.0-9.0) Ur Specific [place] 1.020 (1.005-1.030) Urine Protein Trace H (NEGATIVE) Urine Glucose (UA) Negative (NEGATIVE) Urine Ketones Negative (NEGATIVE) Urine Occult Blood Large H (NEGATIVE) Urine Nitrite Negative (NEGATIVE) Urine Bilirubin Negative (NEGATIVE) Urine Urobilinogen 0.2 (0.2-1.0) mg/dL Ur Leukocyte Esterase Moderate H (NEGATIVE) Urine RBC >100 H (0-5) /HPF Urine WBC 10-20 H (0-5/HPF) /HPF Ur Epithelial Cells Not seen (NOT SEEN) /HPF Calcium Oxalate Crystal Rare (NOT SEEN) /HPF Urine Bacteria Rare (0-FEW/HPF) /HPF PHILIP Results - Last 24 hrs: Microbiology 04/22/21 20:00 Urine Culture - Preliminary Urine, Catheterized NO GROWTH AFTER 1 DAY 04/22/21 19:01 Aerobic Blood Culture - Preliminary Blood - Venous - Lab Draw NO GROWTH AFTER 1 DAY Anaerobic Blood Culture - Preliminary NO GROWTH AFTER 1 DAY 04/22/21 19:01 Aerobic Blood Culture - Preliminary Blood - Arm, Left NO GROWTH AFTER 1 DAY Anaerobic Blood Culture - Preliminary NO GROWTH AFTER 1 DAY Med Orders - Current: Current Medications Acetaminophen (Acetaminophen 325 Mg Tab) 650 mg PO Q6H PRN PRN Reason: Pain (Mild 1-3)/fever Last Admin: 04/22/21 09:29 Dose: 650 mg Documented by: Bacitracin (Bacitracin Oint 28.35 Gm Tube) 1 gm TOP DAILY PRN PRN Reason: Wound Care Last Admin: 04/22/21 20:57 Dose: 1 applic Documented by: Citalopram Hydrobromide (Citalopram 20 Mg Tab) 20 mg PO DAILY JOSLYN Last Admin: 04/24/21 09:38 Dose: 20 mg Documented by: Heparin Sodium (Porcine) (Heparin Sodium 5,000 Units/Ml Vial) 5,000 units SUBCUT Q12HR [facility] Last Admin: 04/24/21 09:11 Dose: 5,000 units Documented by: Meropenem 500 mg/ Sodium (Chloride) 100 mls @ 200 mls/hr IV Q12H [facility] Last Admin: 04/24/21 09:08 Dose: 200 mls/hr Documented by: Ampicillin Sodium 2 gm/ Sodium (Chloride) 100 mls @ 200 mls/hr IV Q6HR [facility] Last Admin: 04/24/21 06:13 Dose: 200 mls/hr Documented by: Influenza Virus Vaccine (Pharmacy To Dose - Influenza Vaccine) 1 each IM DAILY [facility] Last Admin: 04/23/21 08:58 Dose: Not Given Documented by: Melatonin (Melatonin 3 Mg Tab) 3 mg PO BEDTIME PRN PRN Reason: Sleep Last Admin: 04/19/21 20:46 Dose: 3 mg Documented by: Metoprolol Tartrate (Metoprolol Tartrate 50 Mg Tab) 75 mg PO BID [facility] Last Admin: 04/24/21 09:38 Dose: 75 mg Documented by: Nystatin (Nystatin Topical Powder 30 Gm Bottle) 0 gm TOP BID [facility] Last Admin: 04/24/21 09:40 Dose: 1 applic Documented by: Ondansetron HCl (Ondansetron 4 Mg/2 Ml Sdv) 4 mg IVPUSH Q6H PRN PRN Reason: Nausea/Vomiting Last Admin: 04/15/21 17:18 Dose: 4 mg Documented by: Polyethylene Glycol (Polyethylene Glycol 3350 Powder 17 Gm Packet) 17 gm PO DAILY PRN PRN Reason: Constipation Last Admin: 04/15/21 17:18 Dose: 17 gm Documented by: Tamsulosin HCl (Tamsulosin 0.4 Mg Cap.Er) 0.4 mg PO DAILY [facility] Last Admin: 04/24/21 09:38 Dose: 0.4 mg Documented by: Discontinued Medications Acetaminophen (Acetaminophen 325 Mg Tab) 650 mg PO NOW ONE Stop: 04/16/21 11:32 Last Admin: 04/16/21 11:48 Dose: 650 mg Documented by: Acyclovir (Acyclovir 200 Mg Cap) 200 mg PO 5XDAY [facility] Last Admin: 04/23/21 11:47 Dose: Not Given Documented by: Sodium Chloride (Normal Saline) 1,000 mls @ 999 mls/hr IV .BOLUS ONE Stop: 04/13/21 15:14 Last Admin: 04/13/21 14:42 Dose: 999 mls/hr Documented by: Vancomycin HCl 1.5 gm/ Premix 300 mls @ 200 mls/hr IV ONETIME ONE Stop: 04/13/21 16:29 Last Admin: 04/13/21 14:48 Dose: 200 mls/hr Documented by: Sodium Chloride (Normal Saline) 1,000 mls @ 999 mls/hr IV .BOLUS ONE Stop: 04/13/21 15:56 Last Admin: 04/13/21 15:01 Dose: 999 mls/hr Documented by: Sodium Chloride (Normal Saline) 1,000 mls @ 70 mls/hr IV ASDIRECTED [facility] Last Infusion: 04/15/21 23:33 Dose: Infused Documented by: Meropenem 500 mg/ Sodium (Chloride) 100 mls @ 200 mls/hr IV Q24H [facility] Last Admin: 04/14/21 09:28 Dose: Not Given Documented by: Sterile Water (Sterile Water For Injection) Confirm Administered Dose 20 mls @ as directed .ROUTE .STK-MED ONE Stop: 04/13/21 20:19 Last Admin: 04/13/21 20:25 Dose: 10 mls/hr Documented by: Meropenem 500 mg/ Sodium (Chloride) 100 mls @ 200 mls/hr IV Q12H [facility] Last Infusion: 04/14/21 10:46 Dose: Infused Documented by: Vancomycin HCl 1.5 gm/ Premix 300 mls @ 200 mls/hr IV ONETIME ONE Stop: 04/14/21 16:29 Last Admin: 04/14/21 15:21 Dose: 200 mls/hr Documented by: Piperacillin Sod/Tazobactam (Sod 2.25 gm/ Sodium Chloride) 50 mls @ 100 mls/hr IV Q6HR [facility] Last Infusion: 04/16/21 13:12 Dose: Infused Documented by: Sodium Chloride (Normal Saline) 1,000 mls @ 500 mls/hr IV ASDIRECTED [facility] Last Admin: 04/15/21 20:38 Dose: 500 mls/hr Documented by: Sodium Chloride (Normal Saline) 250 mls @ 60 mls/hr IV ASDIRECTED JOSLYN Sodium Chloride (Normal Saline) 1,000 mls @ 60 mls/hr IV ASDIRECTED JOSLYN Last Admin: 04/18/21 20:39 Dose: 60 mls/hr Documented by: Piperacillin Sod/Tazobactam (Sod 2.25 gm/ Sodium Chloride) 50 mls @ 100 mls/hr IV Q6HR JOSLYN Piperacillin Sod/Tazobactam (Sod 2.25 gm/ Sodium Chloride) 50 mls @ 100 mls/hr IV Q6HR [facility] Last Infusion: 04/17/21 06:20 Dose: Infused Documented by: Potassium Chloride/Sodium Chloride (1/2 Ns With 20 Meq Kcl) 1,000 mls @ 75 mls/hr IV ASDIRECTED JOSLYN Last Admin: 04/20/21 02:53 Dose: 75 mls/hr Documented by: Meropenem (Meropenem 500 Mg Sdv) 500 mg IV ONETIME ONE Stop: 04/13/21 19:31 Last Admin: 04/13/21 20:25 Dose: 500 mg Documented by: Potassium Chloride (Potassium Chloride 10 Meq Tab.Er) 40 meq PO ONETIME ONE Stop: 04/19/21 09:36 Last Admin: 04/19/21 09:51 Dose: 40 meq Documented by: Potassium Chloride (Potassium Chloride 10 Meq Tab.Er) 40 meq PO ONETIME ONE Stop: 04/20/21 09:01 Last Admin: 04/20/21 09:27 Dose: 40 meq Documented by: Potassium Chloride (Potassium Chloride 10 Meq Tab.Er) 40 meq PO ONETIME ONE Stop: 04/21/21 07:35 Last Admin: 04/21/21 09:00 Dose: 40 meq Documented by: Sodium Chloride (Sodium Chloride 0.9% 10 Ml Syringe) 10 ml FLUSH ASDIRECTED PRN PRN Reason: Keep Vein Open Last Admin: 04/13/21 13:42 Dose: 10 ml Documented by: Sodium Chloride (Sodium Chloride 0.9% 10 Ml Syringe) 10 ml FLUSH ASDIRECTED PRN PRN Reason: Keep Vein Open Last Admin: 04/17/21 08:54 Dose: 10 ml Documented by: Vancomycin HCl (Pharmacy To Dose - Vancomycin) 1 dose .XX ONETIME ONE Stop: 04/13/21 14:14 Last Admin: 04/13/21 21:44 Dose: Not Given Documented by: Vancomycin HCl (Pharmacy To Dose - Vancomycin) 1 dose .XX ASDIRECTED JOSLYN - Exam Quality Assessment: Denies: Supplemental Oxygen General: Reports: Alert, Oriented HEENT: Reports: EOMI Neck: Reports: No JVD Lungs: Reports: Clear to Auscultation Cardiovascular: Reports: Regular Rate, Regular Rhythm GI/Abdominal Exam: Soft, Non-Tender (Male) Exam: Other (Romero in place with clear urine) Rectal (Males) Exam: Deferred Extremities: Pedal Edema Skin: Reports: Other (lession to RT knee : unchanged) Neurological: Reports: Other (B lower ext weakness : unchanged ) Psy/Mental Status: Reports: Alert, Normal Affect
--- NOTE | 2021-04-24 11:46 | US ---
EXAMINATION: Retroperitoneal Ltd SEX: Male AGE: 76 years CLINICAL HISTORY: 76-year-old male follow-up obstructive uropathy. (Prostate enlargement or bladder trigone mass?) Interpretation: Abnormal. 1. Reproducible pyelocaliectasis (renal pelvic diameter on the right measures 20.7 mm; left measures 15.8 mm) but a relative decrease in volume since 17 April 2021 comparison exam i.e some apparent improvement hydronephrosis. 2. Indwelling urinary catheter (bladder not scanned) 3. Right kidney measures 11.97 cm L x 5.76 cm W x 8.49 cm AP diameter. 4. Left kidney measures 14.5 cm L x 7.86 cm W x 6.38 cm AP diameter. 5. No retroperitoneal fluid or ascites.
== END 2021-04-24 14:30 | disposition home or self-care (01) | DRG 698 ==
LOC: DL.ED 12:59 → DL.MS 15:20
PROVIDERS: ADMIT Internal Medicine; ATTEND Internal Medicine
PROC: 3E0234Z Introduction of Serum, Toxoid and Vaccine into Muscle, Percutaneous Approach (ICD-10-PCS; 2021-04-13)
PROC: XW033N5 Introduction of Meropenem-vaborbactam Anti-infective into Peripheral Vein, Percutaneous Approach, New Technology Group 5 (ICD-10-PCS; principal; 2021-04-14)
DX: A41.9 Sepsis, unspecified organism (principal); T83.511A Infection and inflammatory reaction due to indwelling urethral catheter, initial encounter; N17.9 Acute kidney failure, unspecified; A41.59 Other Gram-negative sepsis; N17.0 Acute kidney failure with tubular necrosis; R65.20 Severe sepsis without septic shock; N13.30 Unspecified hydronephrosis; E87.5 Hyperkalemia; G35 Multiple sclerosis; A88.8 Other specified viral infections of central nervous system; D69.6 Thrombocytopenia, unspecified; Z20.822 Contact with and (suspected) exposure to COVID-19; F32.A Depression, unspecified; Z66 Do not resuscitate; L98.9 Disorder of the skin and subcutaneous tissue, unspecified; K59.09 Other constipation; R33.9 Retention of urine, unspecified; R32 Unspecified urinary incontinence; B00.1 Herpesviral vesicular dermatitis; Z88.8 Allergy status to other drugs, medicaments and biological substances; Z87.891 Personal history of nicotine dependence; Z90.49 Acquired absence of other specified parts of digestive tract; Z23 Encounter for immunization; Z95.5 Presence of coronary angioplasty implant and graft; Z79.899 Other long term (current) drug therapy
CPT/HCPCS: 0240U; 36415; 51702; 71045; 76770; 76775; 80048; 80053; 80202; 81001; 83605; 83880; 85025; 85027; 86140; 87040; 87077; 87086; 87088; 87186; 90662; 92610; 96365; 99285; A9270-GY; G0103; J0290; J1644; J2185; J2405; J2543; J3370; J3480; J7030

== ENCOUNTER 2021-04-26 11:52 | Inpatient (IN) | payer MEDICARE, BC ==
--- NOTE | 2021-04-26 12:05 | EDM.PDOC ---
ED HPI GENERAL MEDICAL PROBLEM - General Chief Complaint: Lower Extremity Injury/Pain Stated Complaint: AMBULANCE Time Seen by Provider: 04/26/21 11:52 Source of Information: Reports: Patient, EMS, Old Records, RN, RN Notes Reviewed History Limitations: Reports: No Limitations - History of Present Illness INITIAL COMMENTS - FREE TEXT/NARRATIVE: Luan is a 76 y/o male with a history of MS who presents to the ED via [facility] with complaints of left hip pain. The patient states the hip pain has been ongoing for weeks and has not worsened in severity, however he rates it 04/23 diffuse to the anterior/lateral/posterior joint. The patient was discharged from this facility two days ago for urosepsis and MAIA; he refused NH placement at discharged and opted to return home with previous home health in place. He sustained a fall to his knees the night of discharge while attempting to transfer in to bed; he denies loss of consciousness or striking his head during the event. The patient states he has been laying in bed since discharge. The patient states he now feels he requires a higher level of care at baseline and is requesting NH placement. He denies fever, shaking chills, dizziness, vision changes, chest pain/pressure, palpitations, shortness of breath, abdominal pain, nausea, vomiting, hematuria, constipation, or diarrhea. Left Hip Pain Score (Numeric/FACES): 7 - Related Data Allergies Allergy/AdvReac Type Severity Reaction Status Date / Time atorvastatin AdvReac Intermediate Muscle Verified 04/26/21 15:07 Aches Home Meds: Home Meds Metoprolol Tartrate 75 mg PO BID 10/14/20 [History] Acetaminophen [Tylenol] 650 mg PO Q6H PRN tablet 04/24/21 [Rx] Arginine/Ascorbate Sod/Carlos A AC [Arginaid Powder] 1 each PO BID #60 powd.pack 04/24/21 [Rx] Citalopram [Citalopram HBr] 20 mg PO DAILY 15 Days #15 tablet 04/24/21 [Rx] polyethylene glycoL 3350 [MiraLAX] 17 gm PO DAILY PRN packet 04/24/21 [Rx] Citalopram Hydrobromide [Celexa] 20 mg PO BID 04/26/21 [History] Past Medical History HEENT History: Reports: None Cardiovascular History: Reports: Bypass, Stents Respiratory History: Reports: None Gastrointestinal History: Reports: Chronic Constipation Genitourinary History: Reports: Retention, Urinary, Urinary Incontinence Musculoskeletal History: Reports: Fracture, Other (See Below) Other Musculoskeletal History: MS Neurological History: Reports: MS Psychiatric History: Reports: None Endocrine/Metabolic History: Reports: None Hematologic History: Reports: None Oncologic (Cancer) History: Reports: None Dermatologic History: Reports: None - Infectious Disease History Infectious Disease History: Reports: Chicken Pox - Past Surgical History Head Surgeries/Procedures: Reports: None HEENT Surgical History: Reports: Tonsillectomy Cardiovascular Surgical History: Reports: Other (See Below) Other Cardiovascular Surgeries/Procedures: Aortic stent GI Surgical History: Reports: Appendectomy Male Surgical History: Reports: None Musculoskeletal Surgical History: Reports: None Social & Family History - Family History Family Medical History: No Pertinent Family History - Caffeine Use Caffeine Use: Reports: None - Living Situation & Occupation Living situation: Reports: Single, with Family Occupation: Retired Review of Systems - Review of Systems Review Of Systems: Comprehensive ROS is negative, except as noted in HPI. ED EXAM, GENERAL - Physical Exam Exam: See Below Exam Limited By: No Limitations General Appearance: Alert, No Apparent Distress Course - Vital Signs Last Recorded V/S: Last Vital Signs Temp 98.6 F 04/27/21 11:28 Pulse 76 04/27/21 11:28 Resp 20 04/27/21 11:28 BP 121/59 L 04/27/21 11:28 Pulse Ox 97 04/27/21 11:28 - Orders/Labs/Meds Orders: Active Orders 24 hr Category Date Time Status CULTURE URINE [RM] Stat Lab 04/26/21 12:06 Results Medication Orders Acetaminophen (Acetaminophen 325 Mg Tab) 650 mg PO Q4H PRN PRN Reason: Pain (Mild 1-3)/fever Last Admin: 04/26/21 21:36 Dose: 650 mg Documented by: PEACE Albuterol/Ipratropium (Albuterol/Ipratropium 3.0-0.5 Mg/3 Ml Neb Soln) 3 ml NEB Q4H PRN PRN Reason: shortness of breath/wheezing Bisacodyl (Bisacodyl 5 Mg Tab) 5 mg PO DAILY PRN PRN Reason: Constipation Citalopram Hydrobromide (Citalopram 20 Mg Tab) 20 mg PO DAILY JOSLYN Last Admin: 04/27/21 08:37 Dose: 20 mg Documented by: TALYA Docusate Sodium (Docusate Sodium 100 Mg Cap) 100 mg PO BID PRN PRN Reason: Constipation Enoxaparin Sodium (Enoxaparin 40 Mg/0.4 Ml Syringe) 40 mg SUBCUT DAILY [facility] Last Admin: 04/27/21 08:38 Dose: 40 mg Documented by: TALYA Ampicillin Sodium 2 gm/ Sodium (Chloride) 100 mls @ 200 mls/hr IV Q6H [facility] Last Admin: 04/27/21 10:28 Dose: 200 mls/hr Documented by: Admin: 04/27/21 04:08 Dose: 200 mls/hr Documented by: Admin: 04/26/21 22:20 Dose: 200 mls/hr Documented by: PEACE Meropenem 1 gm/ Sodium (Chloride) 100 mls @ 200 mls/hr IV Q8HR [facility] Last Admin: 04/27/21 06:01 Dose: 200 mls/hr Documented by: KIET Melatonin (Melatonin 3 Mg Tab) 3 mg PO BEDTIME PRN PRN Reason: Insomnia Last Admin: 04/26/21 21:36 Dose: 3 mg Documented by: PEACE Metoprolol Tartrate (Metoprolol Tartrate 25 Mg Tab) 75 mg PO BID [facility] Last Admin: 04/27/21 08:37 Dose: 75 mg Documented by: Admin: 04/26/21 20:59 Dose: Not Given Documented by: PEACE Ondansetron HCl (Ondansetron 4 Mg/2 Ml Sdv) 4 mg IVPUSH Q6H PRN PRN Reason: Nausea/Vomiting Polyethylene Glycol (Polyethylene Glycol 3350 Powder 17 Gm Packet) 17 gm PO DAILY PRN PRN Reason: Constipation Potassium Chloride (Potassium Chloride 10 Meq Tab.Er) 40 meq PO BEDTIME [facility] Stop: 04/27/21 23:59 Senna/Docusate Sodium (Docusate Sodium/Sennosides 50-8.6 Mg Tab) 1 tab PO BEDTIME PRN PRN Reason: Constipation Zolpidem Tartrate (Zolpidem 5 Mg Tab) 5 mg PO BEDTIME PRN PRN Reason: Sleep Last Admin: 04/27/21 00:24 Dose: 5 mg Documented by: PEACE Labs: Laboratory Tests 04/26/21 04/26/21 04/26/21 Range/Units 11:58 11:58 11:58 WBC 14.0 H (5.0-10.0) 10^3/uL RBC 3.69 L (4.6-6.2) 10^6/uL Hgb 11.6 L (14.0-18.0) g/dL Hct 35.0 L (40.0-54.0) % MCV 94.9 (80-100) fL MCH 31.4 (27.0-34.0) pg MCHC 33.1 (33.0-35.0) g/dL Plt Count 365 (150-450) 10^3/uL Neut % (Auto) 82.8 H (42.2-75.2) % Lymph % (Auto) 8.2 L (20.5-50.1) % [place] % (Auto) 8.0 (2-8) % Eos % (Auto) 0.4 L (1.0-3.0) % Baso % (Auto) 0.6 (0.0-1.0) % Sodium 141 (136-145) mmol/L Potassium 3.8 (3.5-5.1) mmol/L Chloride 107 (98-107) mmol/L Carbon Dioxide 22 (21-32) mmol/L Anion Gap 15.8 H (7-13) mEq/L BUN 18 (7-18) mg/dL Creatinine 0.98 (0.70-1.30) mg/dL Est Cr Clr Drug Dosing 59.95 mL/min Estimated GFR (MDRD) > 60 BUN/Creatinine Ratio 18.4 (No establ ref range) Glucose 70 (70-99) mg/dL Lactic Acid 0.8 (0.4-2.0) mmol/L Calcium 8.2 L (8.5-10.1) mg/dL Magnesium 1.8 (1.8-2.4) mg/dL Total Bilirubin 0.6 (0.2-1.0) mg/dL AST 16 (15-37) U/L ALT 28 (16-63) U/L Alkaline Phosphatase 81 (46-116) U/L Creatine Kinase 29 L (39-308) U/L C-Reactive Protein (0.0-0.9) mg/dL Total Protein 5.6 L (6.4-8.2) g/dL Albumin 1.7 L (3.4-5.0) g/dL Globulin 3.9 Albumin/Globulin Ratio 0.44 Urine Color (YELLOW) Urine Appearance (CLEAR) Urine pH (5.0-9.0) Ur Specific [place] (1.005-1.030) Urine Protein (NEGATIVE) Urine Glucose (UA) (NEGATIVE) Urine Ketones (NEGATIVE) Urine Occult Blood (NEGATIVE) Urine Nitrite (NEGATIVE) Urine Bilirubin (NEGATIVE) Urine Urobilinogen (0.2-1.0) mg/dL Ur Leukocyte Esterase (NEGATIVE) U Hyaline Cast (Auto) Urine RBC (0-5) /HPF Urine WBC (0-5/HPF) /HPF Ur Epithelial Cells (NOT SEEN) /HPF Amorphous Sediment (NOT SEEN) /HPF Urine Bacteria (0-FEW/HPF) /HPF Urine Mucus (NOT SEEN) /LPF Urine Other SARS-CoV-2 RNA (DAYAMI) (NEGATIVE) 04/26/21 04/26/21 04/26/21 Range/Units 11:58 12:06 13:35 WBC (5.0-10.0) 10^3/uL RBC (4.6-6.2) 10^6/uL Hgb (14.0-18.0) g/dL Hct (40.0-54.0) % MCV (80-100) fL MCH (27.0-34.0) pg MCHC (33.0-35.0) g/dL Plt Count (150-450) 10^3/uL Neut % (Auto) (42.2-75.2) % Lymph % (Auto) (20.5-50.1) % [place] % (Auto) (2-8) % Eos % (Auto) (1.0-3.0) % Baso % (Auto) (0.0-1.0) % Sodium (136-145) mmol/L Potassium (3.5-5.1) mmol/L Chloride (98-107) mmol/L Carbon Dioxide (21-32) mmol/L Anion Gap (7-13) mEq/L BUN (7-18) mg/dL Creatinine (0.70-1.30) mg/dL Est Cr Clr Drug Dosing mL/min Estimated GFR (MDRD) BUN/Creatinine Ratio (No establ ref range) Glucose (70-99) mg/dL Lactic Acid (0.4-2.0) mmol/L Calcium (8.5-10.1) mg/dL Magnesium (1.8-2.4) mg/dL Total Bilirubin (0.2-1.0) mg/dL AST (15-37) U/L ALT (16-63) U/L Alkaline Phosphatase (46-116) U/L Creatine Kinase (39-308) U/L C-Reactive Protein 20.8 H (0.0-0.9) mg/dL Total Protein (6.4-8.2) g/dL Albumin (3.4-5.0) g/dL Globulin Albumin/Globulin Ratio Urine Color Yellow (YELLOW) Urine Appearance Slightly cloudy (CLEAR) Urine pH 5.0 (5.0-9.0) Ur Specific [place] 1.025 (1.005-1.030) Urine Protein Negative (NEGATIVE) Urine Glucose (UA) Negative (NEGATIVE) Urine Ketones 80 H (NEGATIVE) Urine Occult Blood Moderate H (NEGATIVE) Urine Nitrite Negative (NEGATIVE) Urine Bilirubin Negative (NEGATIVE) Urine Urobilinogen 0.2 (0.2-1.0) mg/dL Ur Leukocyte Esterase Small H (NEGATIVE) U Hyaline Cast (Auto) Few Urine RBC 20-30 H (0-5) /HPF Urine WBC 20-30 H (0-5/HPF) /HPF Ur Epithelial Cells Not seen (NOT SEEN) /HPF Amorphous Sediment Moderate (NOT SEEN) /HPF Urine Bacteria Few (0-FEW/HPF) /HPF Urine Mucus Few H (NOT SEEN) /LPF Urine Other See note SARS-CoV-2 RNA (DAYAMI) Negative (NEGATIVE) Meds: Medications Generic Name Dose Route Start Last Admin Trade Name Freq PRN Reason Stop Dose Admin Acetaminophen 650 mg 04/26/21 15:58 04/26/21 21:36 Acetaminophen 325 Mg Tab PO 650 mg Q4H PRN Administration Pain (Mild 1-3)/fever Albuterol/Ipratropium 3 ml 04/26/21 15:58 Albuterol/Ipratropium 3.0-0.5 Mg/3 Ml Neb Soln NEB Q4H PRN shortness of breath/wheezing Bisacodyl 5 mg 04/26/21 15:58 Bisacodyl 5 Mg Tab PO DAILY PRN Constipation Citalopram Hydrobromide 20 mg 04/27/21 09:00 04/27/21 08:37 Citalopram 20 Mg Tab PO 20 mg DAILY JOSLYN Administration Docusate Sodium 100 mg 04/26/21 15:58 Docusate Sodium 100 Mg Cap PO BID PRN Constipation Enoxaparin Sodium 40 mg 04/27/21 09:00 04/27/21 08:38 Enoxaparin 40 Mg/0.4 Ml Syringe SUBCUT 40 mg DAILY JOSLYN Administration Ampicillin Sodium 2 gm/ Sodium 100 mls @ 200 mls/hr 04/26/21 22:00 04/27/21 10:28 Chloride IV 200 mls/hr Q6H JOSLYN Administration Meropenem 1 gm/ Sodium 100 mls @ 200 mls/hr 04/27/21 06:00 04/27/21 06:01 Chloride IV 200 mls/hr Q8HR JOSLYN Administration Melatonin 3 mg 04/26/21 16:39 04/26/21 21:36 Melatonin 3 Mg Tab PO 3 mg BEDTIME PRN Administration Insomnia Metoprolol Tartrate 75 mg 04/26/21 21:00 04/27/21 08:37 Metoprolol Tartrate 25 Mg Tab PO 75 mg BID JOSLYN Administration Ondansetron HCl 4 mg 04/26/21 15:58 Ondansetron 4 Mg/2 Ml Sdv IVPUSH Q6H PRN Nausea/Vomiting Polyethylene Glycol 17 gm 04/26/21 16:37 Polyethylene Glycol 3350 Powder 17 Gm Packet PO DAILY PRN Constipation Potassium Chloride 40 meq 04/27/21 21:00 Potassium Chloride 10 Meq Tab.Er PO 04/27/21 23:59 BEDTIME JOSLYN Senna/Docusate Sodium 1 tab 04/26/21 15:58 Docusate Sodium/Sennosides 50-8.6 Mg Tab PO BEDTIME PRN Constipation Zolpidem Tartrate 5 mg 04/27/21 00:13 04/27/21 00:24 Zolpidem 5 Mg Tab PO 5 mg BEDTIME PRN Administration Sleep Discontinued Medications Generic Name Dose Route Start Last Admin Trade Name Freq PRN Reason Stop Dose Admin Acetaminophen 1,000 mg 04/26/21 12:53 04/26/21 13:41 Acetaminophen 500 Mg Tab PO 04/26/21 12:54 1,000 mg ONETIME ONE Administration Adenosine 6 mg 04/26/21 20:23 04/26/21 20:40 Adenosine 6 Mg/2 Ml Sdv IVPUSH 04/26/21 20:24 6 mg NOW ONE Administration Diltiazem HCl Confirm 04/26/21 20:21 04/26/21 20:41 Diltiazem 25 Mg/5 Ml Sdv Administered 04/26/21 20:22 25 mg Dose Administration 25 mg .ROUTE .STK-MED ONE Ampicillin Sodium 2 gm/ Sodium 100 mls @ 200 mls/hr 04/26/21 15:00 Chloride IV Q6H JOSLYN Piperacillin Sod/Tazobactam 100 mls @ 200 mls/hr 04/26/21 14:53 Sod 3.375 gm/ Sodium Chloride IV 04/26/21 15:22 ONETIME ONE Sodium Chloride 1,000 mls @ 60 mls/hr 04/26/21 19:45 04/26/21 20:03 Normal Saline IV 60 mls/hr ASDIRECTED JOSLYN Administration Ampicillin Sodium 1 gm/ Sodium 100 mls @ 200 mls/hr 04/26/21 19:45 04/27/21 05:30 Chloride IV Not Given Q8H JOSLYN Meropenem 1 gm/ Sodium 100 mls @ 200 mls/hr 04/26/21 22:00 Chloride IV Q8HR JOSLYN Diltiazem HCl 125 mg/ Sodium 125 mls @ 5 mls/hr 04/26/21 20:30 04/26/21 20:42 Chloride IV 5 mg/hr TITRATE JOSLYN 5 mls/hr Administration Protocol 5 MG/HR Sodium Chloride 1,000 mls @ 999 mls/hr 04/26/21 20:24 04/26/21 20:21 Normal Saline IV 04/26/21 21:24 999 mls/hr BOLUS ONE Administration Magnesium Sulfate/Dextrose 1 gm in 100 mls @ 100 mls/hr 04/26/21 23:00 04/26/21 23:03 Magnesium Sulfate In D5w 1 Gm/100 Ml IV 04/26/21 23:59 100 mls/hr ONETIME ONE Administration Sterile Water Confirm 04/27/21 03:55 04/27/21 05:28 Sterile Water For Injection Administered 04/27/21 03:56 Not Given Dose 20 mls @ as directed .ROUTE .STK-MED ONE Meropenem 1 gm 04/26/21 22:00 04/26/21 21:00 Meropenem 1 Gm Sdv IVPUSH Not Given Q8H JOSLYN Non-Formulary Medication 1 each 04/26/21 21:00 Arginine/Ascorbate Sod/Carlos A Ac [Arginaid Powder] PO BID JOSLYN Potassium Chloride 40 meq 04/26/21 22:09 04/26/21 22:31 Potassium Chloride 10 Meq Tab.Er PO 04/26/21 22:10 40 meq ONETIME ONE Administration - Re-Assessments/Exams Free Text/Narrative Re-Assessment/Exam: 04/26/[address] Mast who kindly accepted patient for admission to this facility. Findings of examination, lab work, and imaging reviewed with patient. Patient verbalized understanding and agreement with the plan of care. Departure - Departure Time of Disposition: 14:50 Disposition: Admitted As Inpatient 66 Condition: Fair Clinical Impression: Fall from ground level, Chronic indwelling Whyte catheter, Personal history of multiple sclerosis Falls Qualifiers: Encounter type: initial encounter Qualified Code(s): W19.XXXA - Unspecified fall, initial encounter Urinary tract infection Qualifiers: Urinary tract infection type: site unspecified Hematuria presence: with hematuria Qualified Code(s): N39.0 - Urinary tract infection, site not specified; R31.9 - Hematuria, unspecified - Discharge Information - My Orders Last 24 Hours: My Active Orders 04/26/21 12:06 CULTURE URINE [RM] Stat - Assessment/Plan Last 24 Hours: My Active Orders 04/26/21 12:06 CULTURE URINE [RM] Stat
[2021-04-26 12:22] LABS: ANION GAP 15.8 mEq/L (7-13); CHLORIDE,CL 107 mmol/L (98-107); SODIUM,NA 141 mmol/L (136-145)
--- NOTE | 2021-04-26 12:45 | CR ---
EXAMINATION: Hip Min 2V or 3V Lt SEX: Male AGE: 76 years CLINICAL HISTORY: 76-year-old male injured in fall (2 days ago). Rule out left hip fracture. Interpretation: Suspicious. *Subtle sclerotic line ringing the femoral neck suggests possible occult, nondisplaced, impacted fracture proximal femur. Suggest unenhanced CT scan pelvis and left hip. No sign of other left hip fracture or joint dislocation. No appreciable arthritic degenerative changes of the left hip or ipsilateral SI joints. Pubic symphysis unremarkable. No foreign bodies.
[2021-04-26] MEDS ORDERED: Acetaminophen 500 MG Tab PO ONE (12:53)
--- NOTE | 2021-04-26 14:32 | CT ---
EXAMINATION: Pelvis wo Cont SEX: Male AGE: 76 years CLINICAL HISTORY: 76-year-old male injured left hip (fall 2 days ago). Suspicious plain film exam. r/o occult fracture Scan technique: Volume acquisition of data emergency unenhanced CT scan of the lower lumbar spine, pelvis and both hips/proximal femurs obtained with the patient lying supine on the Siemens multislice scanner [place], [place]. All data archived in the PACS system for storage, reformatting axial/sagittal/coronal planes and study. Interpretation: No fractures. 1. 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 2. Symmetric spacing normal-appearing SI and hip joints without appreciable arthritic degenerative change. 3. Homogeneous normal bone mineral density for age and gender. 4. Subcapital sclerosis both femoral necks. No sign of bony cortical break or fracture. 5. No pelvic fracture or dislocation. No pathologic lytic or blastic bone lesions. 6. Indwelling catheter urinary bladder.
[2021-04-26] MEDS ORDERED: Piperacillin/Tazobactam 3.375 GM in Sodium Chloride 0.9% 100 ML IV ONE (14:53)
[2021-04-26] MEDS ORDERED: Ampicillin 2 GM in Sodium Chloride 0.9% 100 ML IV SCH (15:00)
[2021-04-26] MEDS ORDERED: Albuterol/Ipratropium 3.0-0.5 MG/3 ML Neb Soln NEB PRN (15:58)
[2021-04-26] MEDS ORDERED: Polyethylene Glycol 3350 Powder 17 GM Packet PO PRN ×2 (15:58→16:37)
[2021-04-26] MEDS ORDERED: Docusate Sodium 100 MG Cap PO PRN (15:58)
[2021-04-26] MEDS ORDERED: Bisacodyl 5 MG Tab PO PRN (15:58)
[2021-04-26] MEDS ORDERED: Ondansetron 4 MG/2 ML SDV IVPUSH PRN (15:58)
--- NOTE | 2021-04-26 16:09 | PCM.HP ---
H&P History of Present Illness - General Date of Service: 04/26/21 Admit Problem/Dx: Admission Diagnosis/Problem Admission Diagnosis/Problem Falls Source of Information: Patient, Provider (ER), RN History Limitations: Reports: Other (not cooperative) - History of Present Illness Initial Comments - Free Text/Narative: Luan is a 76 y/o male with a history of MS who presents to the ED with complaints of left hip pain after a fall at home. The patient was discharged from this facility two days ago for urosepsis and MAIA; he refused NH placement at discharged and opted to return home with previous home health in place. He sustained a fall to his knees the night of discharge while attempting to transfer in to bed. Left Hip Pain Score (Numeric/FACES): 7 - Related Data Allergies/Adverse Reactions: Allergies Allergy/AdvReac Type Severity Reaction Status Date / Time atorvastatin AdvReac Intermediate Muscle Verified 04/26/21 15:07 Aches Home Medications: Home Meds Metoprolol Tartrate 75 mg PO BID 10/14/20 [History] Acetaminophen [Tylenol] 650 mg PO Q6H PRN tablet 04/24/21 [Rx] Arginine/Ascorbate Sod/Carlos A AC [Arginaid Powder] 1 each PO BID #60 powd.pack 04/24/21 [Rx] Citalopram [Citalopram HBr] 20 mg PO DAILY 15 Days #15 tablet 04/24/21 [Rx] polyethylene glycoL 3350 [MiraLAX] 17 gm PO DAILY PRN packet 04/24/21 [Rx] Citalopram Hydrobromide [Celexa] 20 mg PO BID 04/26/21 [History] Past Medical History HEENT History: Reports: None Cardiovascular History: Reports: Bypass, Stents Respiratory History: Reports: None Gastrointestinal History: Reports: Chronic Constipation Genitourinary History: Reports: Retention, Urinary, Urinary Incontinence Musculoskeletal History: Reports: Fracture, Other (See Below) Other Musculoskeletal History: MS Neurological History: Reports: MS Psychiatric History: Reports: None Endocrine/Metabolic History: Reports: None Hematologic History: Reports: None Oncologic (Cancer) History: Reports: None Dermatologic History: Reports: None - Infectious Disease History Infectious Disease History: Reports: Chicken Pox - Past Surgical History Head Surgeries/Procedures: Reports: None HEENT Surgical History: Reports: Tonsillectomy Cardiovascular Surgical History: Reports: Other (See Below) Other Cardiovascular Surgeries/Procedures: Aortic stent GI Surgical History: Reports: Appendectomy Male Surgical History: Reports: None Musculoskeletal Surgical History: Reports: None Social & Family History - Family History Family Medical History: No Pertinent Family History - Tobacco Use Tobacco Use Status *Q: Never Tobacco User Second Hand Smoke Exposure: No - Caffeine Use Caffeine Use: Reports: Soda - Recreational Drug Use Recreational Drug Use: No - Living Situation & Occupation Living situation: Reports: Single, with Family Occupation: Retired H&P Review of Systems - Review of Systems: Review Of Systems: Unable To Obtain (pt is not cooperative) Reason Not Obtained: Pt not cooperative General: Denies: Fever, Chills Pulmonary: Denies: Shortness of Breath, Hemoptysis Gastrointestinal: Denies: Abdominal Pain Skin: Denies: No Symptoms Exam - Exam Exam: See Below - Vital Signs Vital Signs: Last Vital Signs Temp 97.6 F 04/26/21 15:26 Pulse 79 04/26/21 15:26 Resp 20 04/26/21 15:26 BP 120/58 L 04/26/21 15:26 Pulse Ox 97 04/26/21 15:26 Weight: 203 lb 6.4 oz - Exam Quality Assessment: Urinary Catheter General: No: Cooperative, Mild Distress HEENT: EOMI Lungs: Clear to Auscultation Cardiovascular: Regular Rate, Regular Rhythm GI/Abdominal Exam: Soft, Non-Tender (Male) Exam: Deferred, Other (Whyte in palce with clear urine. ) Rectal (Males) Exam: Deferred Extremities: Limited Range of Motion (of left hip due to pain) Skin: Dry, Other (skin loession to RT knee) Neurological: Cranial Nerves Intact Neuro Extensive - Mental Status: Alert, Oriented x3 Neuro Extensive - Motor, Sensory, Reflexes: CN II-XII Intact Psychiatric: Alert, Normal Affect - Patient Data Lab Results Last 24 hrs: Laboratory Results - last 24 hr 04/26/21 04/26/21 04/26/21 Range/Units 11:58 11:58 11:58 WBC 14.0 H (5.0-10.0) 10^3/uL RBC 3.69 L (4.6-6.2) 10^6/uL Hgb 11.6 L (14.0-18.0) g/dL Hct 35.0 L (40.0-54.0) % MCV 94.9 (80-100) fL MCH 31.4 (27.0-34.0) pg MCHC 33.1 (33.0-35.0) g/dL Plt Count 365 (150-450) 10^3/uL Neut % (Auto) 82.8 H (42.2-75.2) % Lymph % (Auto) 8.2 L (20.5-50.1) % [place] % (Auto) 8.0 (2-8) % Eos % (Auto) 0.4 L (1.0-3.0) % Baso % (Auto) 0.6 (0.0-1.0) % Sodium 141 (136-145) mmol/L Potassium 3.8 (3.5-5.1) mmol/L Chloride 107 (98-107) mmol/L Carbon Dioxide 22 (21-32) mmol/L Anion Gap 15.8 H (7-13) mEq/L BUN 18 (7-18) mg/dL Creatinine 0.98 (0.70-1.30) mg/dL Est Cr Clr Drug Dosing 59.95 mL/min Estimated GFR (MDRD) > 60 BUN/Creatinine Ratio 18.4 (No establ ref range) Glucose 70 (70-99) mg/dL Lactic Acid 0.8 (0.4-2.0) mmol/L Calcium 8.2 L (8.5-10.1) mg/dL Magnesium 1.8 (1.8-2.4) mg/dL Total Bilirubin 0.6 (0.2-1.0) mg/dL AST 16 (15-37) U/L ALT 28 (16-63) U/L Alkaline Phosphatase 81 (46-116) U/L Creatine Kinase 29 L (39-308) U/L C-Reactive Protein (0.0-0.9) mg/dL Total Protein 5.6 L (6.4-8.2) g/dL Albumin 1.7 L (3.4-5.0) g/dL Globulin 3.9 Albumin/Globulin Ratio 0.44 Urine Color (YELLOW) Urine Appearance (CLEAR) Urine pH (5.0-9.0) Ur Specific [place] (1.005-1.030) Urine Protein (NEGATIVE) Urine Glucose (UA) (NEGATIVE) Urine Ketones (NEGATIVE) Urine Occult Blood (NEGATIVE) Urine Nitrite (NEGATIVE) Urine Bilirubin (NEGATIVE) Urine Urobilinogen (0.2-1.0) mg/dL Ur Leukocyte Esterase (NEGATIVE) U Hyaline Cast (Auto) Urine RBC (0-5) /HPF Urine WBC (0-5/HPF) /HPF Ur Epithelial Cells (NOT SEEN) /HPF Amorphous Sediment (NOT SEEN) /HPF Urine Bacteria (0-FEW/HPF) /HPF Urine Mucus (NOT SEEN) /LPF Urine Other SARS-CoV-2 RNA (DAYAMI) (NEGATIVE) 04/26/21 04/26/21 04/26/21 Range/Units 11:58 12:06 13:35 WBC (5.0-10.0) 10^3/uL RBC (4.6-6.2) 10^6/uL Hgb (14.0-18.0) g/dL Hct (40.0-54.0) % MCV (80-100) fL MCH (27.0-34.0) pg MCHC (33.0-35.0) g/dL Plt Count (150-450) 10^3/uL Neut % (Auto) (42.2-75.2) % Lymph % (Auto) (20.5-50.1) % Aiken % (Auto) (2-8) % Eos % (Auto) (1.0-3.0) % Baso % (Auto) (0.0-1.0) % Sodium (136-145) mmol/L Potassium (3.5-5.1) mmol/L Chloride (98-107) mmol/L Carbon Dioxide (21-32) mmol/L Anion Gap (7-13) mEq/L BUN (7-18) mg/dL Creatinine (0.70-1.30) mg/dL Est Cr Clr Drug Dosing mL/min Estimated GFR (MDRD) BUN/Creatinine Ratio (No establ ref range) Glucose (70-99) mg/dL Lactic Acid (0.4-2.0) mmol/L Calcium (8.5-10.1) mg/dL Magnesium (1.8-2.4) mg/dL Total Bilirubin (0.2-1.0) mg/dL AST (15-37) U/L ALT (16-63) U/L Alkaline Phosphatase (46-116) U/L Creatine Kinase (39-308) U/L C-Reactive Protein 20.8 H (0.0-0.9) mg/dL Total Protein (6.4-8.2) g/dL Albumin (3.4-5.0) g/dL Globulin Albumin/Globulin Ratio Urine Color Yellow (YELLOW) Urine Appearance Slightly cloudy (CLEAR) Urine pH 5.0 (5.0-9.0) Ur Specific [place] 1.025 (1.005-1.030) Urine Protein Negative (NEGATIVE) Urine Glucose (UA) Negative (NEGATIVE) Urine Ketones 80 H (NEGATIVE) Urine Occult Blood Moderate H (NEGATIVE) Urine Nitrite Negative (NEGATIVE) Urine Bilirubin Negative (NEGATIVE) Urine Urobilinogen 0.2 (0.2-1.0) mg/dL Ur Leukocyte Esterase Small H (NEGATIVE) U Hyaline Cast (Auto) Few Urine RBC 20-30 H (0-5) /HPF Urine WBC 20-30 H (0-5/HPF) /HPF Ur Epithelial Cells Not seen (NOT SEEN) /HPF Amorphous Sediment Moderate (NOT SEEN) /HPF Urine Bacteria Few (0-FEW/HPF) /HPF Urine Mucus Few H (NOT SEEN) /LPF Urine Other See note SARS-CoV-2 RNA (DAYAMI) Negative (NEGATIVE) Result Diagrams: 04/26/21 11:58 04/26/21 11:58 Problem List Initiated/Reviewed/Updated: No Orders Last 24hrs: Active Orders 24 hr Category Date Time Status Admission Diagnosis [ADT] Stat ADT 04/26/21 14:51 Ordered Admission Status [Patient Status] [ADT] Routine ADT 04/26/21 14:51 Active Consult to Case Management/Student Development Advisor [CONS] Cons 04/26/21 15:37 Active Routine CULTURE URINE [RM] Stat Lab 04/26/21 12:06 Received Ampicillin 2 gm Med 04/26/21 15:00 Active Sodium Chloride 0.9% [Normal Saline] 100 ml IV Q6H Medication Orders Ampicillin Sodium 2 gm/ Sodium (Chloride) 100 mls @ 200 mls/hr IV Q6H JOSLYN Assessment/Plan Comment:: Left hip pian / post fall at home: CT scan showed no fx. Post recent Severe sepsis due to UTI with Enterobacter and enterococcus: completed his treatment last admission. His Cult were neg on discharge. Chronic Whyte: Whyte was last changed on Apr 2304/2021. 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 MAIA: ATN/ hypovolemia : Cr improved from 7.44 on admission to 1.05 on discharge. Today is better. . B hydronephrosis. repeat: ? midline obstruction for CT. (w ll avoid CT with due to risk of JENNY). for oupt urology f/u [facility]/ Bed bound, inability to care for self independently for possible placement. Skin lesion to RT knee : for outpt dermatology evaluation. Depression: started on Celexa. Decubitus prophylaxis: to continue care at home. DNR/ DNI
[2021-04-26] MEDS ORDERED: Sodium Chloride 0.9% 1,000 ML IV SCH (19:45)
[2021-04-26] MEDS ORDERED: Ampicillin 1 GM in Sodium Chloride 0.9% 100 ML IV SCH (19:45)
[2021-04-26] MEDS: Meropenem 1 GM SDV IVPUSH SCH ×2 (20:10→21:00)
[2021-04-26] MEDS ORDERED: Diltiazem 25 MG/5 ML SDV ONE (20:21)
[2021-04-26] MEDS ORDERED: Adenosine 6 MG/2 ML SDV IVPUSH ONE (20:23)
[2021-04-26] MEDS ORDERED: Sodium Chloride 0.9% 1,000 ML IV ONE (20:24)
[2021-04-26] MEDS ORDERED: Diltiazem 125 MG in Sodium Chloride 0.9% 100 ML IV SCH (20:30)
--- NOTE | 2021-04-26 20:36 | PCM.SN.2 ---
- Free Text/Narrative Note: Caaled by RN, Pt is having low BP ~ 90. ECG showed SVT. Pt is feeling palpitation but no CP or SOB. Haeart: Tachy CTA: No edema pt is alert Ext: mild edema (unchanged) BP 79/57, HR 167 ECG:SVT Adenosine 6 6 mg IVP > returned to sinus tach rate ~106 IL IVF bolus Adinosin 5 mg /hr Antibiotics Re BMP and Mg Pt 's son ( Mr. Jeff) was called and informed. re peat ECG: sinus tachy. Total critical time 30 min Time Documentation
[2021-04-26] MEDS: Metoprolol Tartrate 25 MG Tab PO SCH (20:59)
[2021-04-26] MEDS ORDERED: Non-Formulary Medication 1 Each (Arginine/Ascorbate Sod/Vite Ac [Arginaid Powder] 1 EACH P PO SCH (21:00)
[2021-04-26 21:34] LABS: ANION GAP 16.3 mEq/L (7-13); CHLORIDE,CL 107 mmol/L (98-107); SODIUM,NA 140 mmol/L (136-145)
[2021-04-26] MEDS: Acetaminophen 325 MG Tab PO PRN (21:36)
[2021-04-26] MEDS: Melatonin 3 MG Tab PO PRN (21:36)
[2021-04-26] MEDS ORDERED: Meropenem 1 GM in Sodium Chloride 0.9% 100 ML IV SCH (22:00)
[2021-04-26] MEDS ORDERED: Potassium Chloride 10 MEQ Tab.ER PO ONE (22:09)
[2021-04-26] MEDS: Ampicillin 2 GM in Sodium Chloride 0.9% 100 ML IV SCH (22:20)
[2021-04-26] MEDS ORDERED: Magnesium Sulfate/D5W 1 GM/100 ML BAG IV ONE (23:00)
[2021-04-27] MEDS: Zolpidem 5 MG Tab PO PRN ×2 (00:24→21:09)
[2021-04-27] MEDS ORDERED: Water For Injection, Sterile 20 ML ONE (03:55)
[2021-04-27] MEDS: Ampicillin 2 GM in Sodium Chloride 0.9% 100 ML IV SCH ×4 (04:08→21:22)
[2021-04-27] MEDS: Meropenem 1 GM in Sodium Chloride 0.9% 100 ML IV SCH ×3 (06:01→21:57)
[2021-04-27 07:01] LABS: ANION GAP 13.2 mEq/L (7-13); CHLORIDE,CL 108 mmol/L (98-107); SODIUM,NA 141 mmol/L (136-145)
[2021-04-27] MEDS: Citalopram 20 MG Tab PO SCH (08:37)
[2021-04-27] MEDS: Metoprolol Tartrate 25 MG Tab PO SCH ×2 (08:37→21:07)
[2021-04-27] MEDS: Enoxaparin 40 MG/0.4 ML Syringe SUBCUT SCH (08:38)
--- NOTE | 2021-04-27 10:52 | PCM.PN ---
- General Info Date of Service: 04/27/21 Functional Status: Reports: Pain Controlled, Tolerating Diet - Review of Systems General: Denies: Fever Pulmonary: Denies: Shortness of Breath Cardiovascular: Denies: Chest Pain Gastrointestinal: Denies: Abdominal Pain Genitourinary: Denies: Dysuria Musculoskeletal: Reports: Other (pain to hip saleh simproved) Neurological: Denies: Confusion Psychiatric: Reports: No Symptoms - Patient Data Vitals - Most Recent: Last Vital Signs Temp 98.9 F 04/27/21 08:00 Pulse 104 H 04/27/21 08:37 Resp 18 04/27/21 08:00 BP 135/63 04/27/21 08:37 Pulse Ox 94 L 04/27/21 08:00 Weight - Most Recent: 205 lb I&O - Last 24 Hours: Intake & Output 04/26/21 04/27/21 04/27/21 22:59 06:59 14:59 Intake Total 100 Output Total 500 1150 Balance -400 -1150 Lab Results Last 24 Hours: Laboratory Results - last 24 hr 04/26/21 04/26/21 04/26/21 Range/Units 11:58 11:58 11:58 WBC 14.0 H (5.0-10.0) 10^3/uL RBC 3.69 L (4.6-6.2) 10^6/uL Hgb 11.6 L (14.0-18.0) g/dL Hct 35.0 L (40.0-54.0) % MCV 94.9 (80-100) fL MCH 31.4 (27.0-34.0) pg MCHC 33.1 (33.0-35.0) g/dL Plt Count 365 (150-450) 10^3/uL Neut % (Auto) 82.8 H (42.2-75.2) % Lymph % (Auto) 8.2 L (20.5-50.1) % Crosby % (Auto) 8.0 (2-8) % Eos % (Auto) 0.4 L (1.0-3.0) % Baso % (Auto) 0.6 (0.0-1.0) % Sodium 141 (136-145) mmol/L Potassium 3.8 (3.5-5.1) mmol/L Chloride 107 (98-107) mmol/L Carbon Dioxide 22 (21-32) mmol/L Anion Gap 15.8 H (7-13) mEq/L BUN 18 (7-18) mg/dL Creatinine 0.98 (0.70-1.30) mg/dL Est Cr Clr Drug Dosing 59.95 mL/min Estimated GFR (MDRD) > 60 BUN/Creatinine Ratio 18.4 (No establ ref range) Glucose 70 (70-99) mg/dL Lactic Acid 0.8 (0.4-2.0) mmol/L Calcium 8.2 L (8.5-10.1) mg/dL Magnesium 1.8 (1.8-2.4) mg/dL Total Bilirubin 0.6 (0.2-1.0) mg/dL AST 16 (15-37) U/L ALT 28 (16-63) U/L Alkaline Phosphatase 81 (46-116) U/L Creatine Kinase 29 L (39-308) U/L C-Reactive Protein (0.0-0.9) mg/dL Total Protein 5.6 L (6.4-8.2) g/dL Albumin 1.7 L (3.4-5.0) g/dL Globulin 3.9 Albumin/Globulin Ratio 0.44 Urine Color (YELLOW) Urine Appearance (CLEAR) Urine pH (5.0-9.0) Ur Specific [place] (1.005-1.030) Urine Protein (NEGATIVE) Urine Glucose (UA) (NEGATIVE) Urine Ketones (NEGATIVE) Urine Occult Blood (NEGATIVE) Urine Nitrite (NEGATIVE) Urine Bilirubin (NEGATIVE) Urine Urobilinogen (0.2-1.0) mg/dL Ur Leukocyte Esterase (NEGATIVE) U Hyaline Cast (Auto) Urine RBC (0-5) /HPF Urine WBC (0-5/HPF) /HPF Ur Epithelial Cells (NOT SEEN) /HPF Amorphous Sediment (NOT SEEN) /HPF Urine Bacteria (0-FEW/HPF) /HPF Urine Mucus (NOT SEEN) /LPF Urine Other SARS-CoV-2 RNA (DAYAMI) (NEGATIVE) 04/26/21 04/26/21 04/26/21 Range/Units 11:58 12:06 13:35 WBC (5.0-10.0) 10^3/uL RBC (4.6-6.2) 10^6/uL Hgb (14.0-18.0) g/dL Hct (40.0-54.0) % MCV (80-100) fL MCH (27.0-34.0) pg MCHC (33.0-35.0) g/dL Plt Count (150-450) 10^3/uL Neut % (Auto) (42.2-75.2) % Lymph % (Auto) (20.5-50.1) % Crosby % (Auto) (2-8) % Eos % (Auto) (1.0-3.0) % Baso % (Auto) (0.0-1.0) % Sodium (136-145) mmol/L Potassium (3.5-5.1) mmol/L Chloride (98-107) mmol/L Carbon Dioxide (21-32) mmol/L Anion Gap (7-13) mEq/L BUN (7-18) mg/dL Creatinine (0.70-1.30) mg/dL Est Cr Clr Drug Dosing mL/min Estimated GFR (MDRD) BUN/Creatinine Ratio (No establ ref range) Glucose (70-99) mg/dL Lactic Acid (0.4-2.0) mmol/L Calcium (8.5-10.1) mg/dL Magnesium (1.8-2.4) mg/dL Total Bilirubin (0.2-1.0) mg/dL AST (15-37) U/L ALT (16-63) U/L Alkaline Phosphatase (46-116) U/L Creatine Kinase (39-308) U/L C-Reactive Protein 20.8 H (0.0-0.9) mg/dL Total Protein (6.4-8.2) g/dL Albumin (3.4-5.0) g/dL Globulin Albumin/Globulin Ratio Urine Color Yellow (YELLOW) Urine Appearance Slightly cloudy (CLEAR) Urine pH 5.0 (5.0-9.0) Ur Specific [place] 1.025 (1.005-1.030) Urine Protein Negative (NEGATIVE) Urine Glucose (UA) Negative (NEGATIVE) Urine Ketones 80 H (NEGATIVE) Urine Occult Blood Moderate H (NEGATIVE) Urine Nitrite Negative (NEGATIVE) Urine Bilirubin Negative (NEGATIVE) Urine Urobilinogen 0.2 (0.2-1.0) mg/dL Ur Leukocyte Esterase Small H (NEGATIVE) U Hyaline Cast (Auto) Few Urine RBC 20-30 H (0-5) /HPF Urine WBC 20-30 H (0-5/HPF) /HPF Ur Epithelial Cells Not seen (NOT SEEN) /HPF Amorphous Sediment Moderate (NOT SEEN) /HPF Urine Bacteria Few (0-FEW/HPF) /HPF Urine Mucus Few H (NOT SEEN) /LPF Urine Other See note SARS-CoV-2 RNA (DAYAMI) Negative (NEGATIVE) 04/26/21 04/27/21 04/27/21 Range/Units 21:11 05:58 05:58 WBC 10.6 H (5.0-10.0) 10^3/uL RBC 3.52 L (4.6-6.2) 10^6/uL Hgb 10.9 L (14.0-18.0) g/dL Hct 33.4 L (40.0-54.0) % MCV 94.9 (80-100) fL MCH 31.0 (27.0-34.0) pg MCHC 32.6 L (33.0-35.0) g/dL Plt Count 342 (150-450) 10^3/uL Neut % (Auto) 74.8 (42.2-75.2) % Lymph % (Auto) 12.1 L (20.5-50.1) % Crosby % (Auto) 11.4 H (2-8) % Eos % (Auto) 1.1 (1.0-3.0) % Baso % (Auto) 0.6 (0.0-1.0) % Sodium 140 141 (136-145) mmol/L Potassium 3.3 L 3.2 L (3.5-5.1) mmol/L Chloride 107 108 H (98-107) mmol/L Carbon Dioxide 20 L 23 (21-32) mmol/L Anion Gap 16.3 H 13.2 H (7-13) mEq/L BUN 19 H 16 (7-18) mg/dL Creatinine 0.92 0.90 (0.70-1.30) mg/dL Est Cr Clr Drug Dosing 63.86 65.28 mL/min Estimated GFR (MDRD) > 60 > 60 BUN/Creatinine Ratio (No establ ref range) Glucose 117 H 88 (70-99) mg/dL Lactic Acid (0.4-2.0) mmol/L Calcium 7.8 L 7.8 L (8.5-10.1) mg/dL Magnesium 1.7 L 1.9 (1.8-2.4) mg/dL Total Bilirubin (0.2-1.0) mg/dL AST (15-37) U/L ALT (16-63) U/L Alkaline Phosphatase (46-116) U/L Creatine Kinase (39-308) U/L C-Reactive Protein (0.0-0.9) mg/dL Total Protein (6.4-8.2) g/dL Albumin (3.4-5.0) g/dL Globulin Albumin/Globulin Ratio Urine Color (YELLOW) Urine Appearance (CLEAR) Urine pH (5.0-9.0) Ur Specific [place] (1.005-1.030) Urine Protein (NEGATIVE) Urine Glucose (UA) (NEGATIVE) Urine Ketones (NEGATIVE) Urine Occult Blood (NEGATIVE) Urine Nitrite (NEGATIVE) Urine Bilirubin (NEGATIVE) Urine Urobilinogen (0.2-1.0) mg/dL Ur Leukocyte Esterase (NEGATIVE) U Hyaline Cast (Auto) Urine RBC (0-5) /HPF Urine WBC (0-5/HPF) /HPF Ur Epithelial Cells (NOT SEEN) /HPF Amorphous Sediment (NOT SEEN) /HPF Urine Bacteria (0-FEW/HPF) /HPF Urine Mucus (NOT SEEN) /LPF Urine Other SARS-CoV-2 RNA (DAYAMI) (NEGATIVE) [place] Results Last 24 Hours: Microbiology 04/26/21 12:06 Urine Culture - Preliminary Urine, Catheterized NO GROWTH AFTER 1 DAY Med Orders - Current: Current Medications Acetaminophen (Acetaminophen 325 Mg Tab) 650 mg PO Q4H PRN PRN Reason: Pain (Mild 1-3)/fever Last Admin: 04/26/21 21:36 Dose: 650 mg Documented by: Albuterol/Ipratropium (Albuterol/Ipratropium 3.0-0.5 Mg/3 Ml Neb Soln) 3 ml NEB Q4H PRN PRN Reason: shortness of breath/wheezing Bisacodyl (Bisacodyl 5 Mg Tab) 5 mg PO DAILY PRN PRN Reason: Constipation Citalopram Hydrobromide (Citalopram 20 Mg Tab) 20 mg PO DAILY JOSLYN Last Admin: 04/27/21 08:37 Dose: 20 mg Documented by: Docusate Sodium (Docusate Sodium 100 Mg Cap) 100 mg PO BID PRN PRN Reason: Constipation Enoxaparin Sodium (Enoxaparin 40 Mg/0.4 Ml Syringe) 40 mg SUBCUT DAILY [facility] Last Admin: 04/27/21 08:38 Dose: 40 mg Documented by: Ampicillin Sodium 2 gm/ Sodium (Chloride) 100 mls @ 200 mls/hr IV Q6H [facility] Last Admin: 04/27/21 10:28 Dose: 200 mls/hr Documented by: Meropenem 1 gm/ Sodium (Chloride) 100 mls @ 200 mls/hr IV Q8HR [facility] Last Admin: 04/27/21 06:01 Dose: 200 mls/hr Documented by: Melatonin (Melatonin 3 Mg Tab) 3 mg PO BEDTIME PRN PRN Reason: Insomnia Last Admin: 04/26/21 21:36 Dose: 3 mg Documented by: Metoprolol Tartrate (Metoprolol Tartrate 25 Mg Tab) 75 mg PO BID [facility] Last Admin: 04/27/21 08:37 Dose: 75 mg Documented by: Ondansetron HCl (Ondansetron 4 Mg/2 Ml Sdv) 4 mg IVPUSH Q6H PRN PRN Reason: Nausea/Vomiting Polyethylene Glycol (Polyethylene Glycol 3350 Powder 17 Gm Packet) 17 gm PO DAILY PRN PRN Reason: Constipation Potassium Chloride (Potassium Chloride 10 Meq Tab.Er) 40 meq PO BEDTIME [facility] Stop: 04/27/21 23:59 Senna/Docusate Sodium (Docusate Sodium/Sennosides 50-8.6 Mg Tab) 1 tab PO BEDTIME PRN PRN Reason: Constipation Zolpidem Tartrate (Zolpidem 5 Mg Tab) 5 mg PO BEDTIME PRN PRN Reason: Sleep Last Admin: 04/27/21 00:24 Dose: 5 mg Documented by: Discontinued Medications Acetaminophen (Acetaminophen 500 Mg Tab) 1,000 mg PO ONETIME ONE Stop: 04/26/21 12:54 Last Admin: 04/26/21 13:41 Dose: 1,000 mg Documented by: Adenosine (Adenosine 6 Mg/2 Ml Sdv) 6 mg IVPUSH NOW ONE Stop: 04/26/21 20:24 Last Admin: 04/26/21 20:40 Dose: 6 mg Documented by: Diltiazem HCl (Diltiazem 25 Mg/5 Ml Sdv) Confirm Administered Dose 25 mg .ROUTE .STK-MED ONE Stop: 04/26/21 20:22 Last Admin: 04/26/21 20:41 Dose: 25 mg Documented by: Ampicillin Sodium 2 gm/ Sodium (Chloride) 100 mls @ 200 mls/hr IV Q6H JOSLYN Piperacillin Sod/Tazobactam (Sod 3.375 gm/ Sodium Chloride) 100 mls @ 200 mls/hr IV ONETIME ONE Stop: 04/26/21 15:22 Sodium Chloride (Normal Saline) 1,000 mls @ 60 mls/hr IV ASDIRECTED JOSLYN Last Admin: 04/26/21 20:03 Dose: 60 mls/hr Documented by: Ampicillin Sodium 1 gm/ Sodium (Chloride) 100 mls @ 200 mls/hr IV Q8H JOSLYN Last Admin: 04/27/21 05:30 Dose: Not Given Documented by: Meropenem 1 gm/ Sodium (Chloride) 100 mls @ 200 mls/hr IV Q8HR JOSLYN Diltiazem HCl 125 mg/ Sodium (Chloride) 125 mls @ 5 mls/hr IV TITRATE JOSLYN; Protocol Last Admin: 04/26/21 20:42 Dose: 5 mg/hr, 5 mls/hr Documented by: Sodium Chloride (Normal Saline) 1,000 mls @ 999 mls/hr IV BOLUS ONE Stop: 04/26/21 21:24 Last Admin: 04/26/21 20:21 Dose: 999 mls/hr Documented by: Magnesium Sulfate/Dextrose (Magnesium Sulfate In D5w 1 Gm/100 Ml) 1 gm in 100 mls @ 100 mls/hr IV ONETIME ONE Stop: 04/26/21 23:59 Last Admin: 04/26/21 23:03 Dose: 100 mls/hr Documented by: Sterile Water (Sterile Water For Injection) Confirm Administered Dose 20 mls @ as directed .ROUTE .STK-MED ONE Stop: 04/27/21 03:56 Last Admin: 04/27/21 05:28 Dose: Not Given Documented by: Meropenem (Meropenem 1 Gm Sdv) 1 gm IVPUSH Q8H [facility] Last Admin: 04/26/21 21:00 Dose: Not Given Documented by: Non-Formulary Medication (Arginine/Ascorbate Sod/Carlos A Ac [Arginaid Powder]) 1 each PO BID JOSLYN Potassium Chloride (Potassium Chloride 10 Meq Tab.Er) 40 meq PO ONETIME ONE Stop: 04/26/21 22:10 Last Admin: 04/26/21 22:31 Dose: 40 meq Documented by: - Exam Quality Assessment: No: Supplemental Oxygen General: Alert, Oriented HEENT: EOMI Lungs: Clear to Auscultation, Normal Respiratory Effort Cardiovascular: Regular Rate, Regular Rhythm GI/Abdominal Exam: Soft Extremities: Pedal Edema Skin: Warm Neurological: No New Focal Deficit Psy/Mental Status: Alert, Normal Affect - Patient Data Lab Results Last 24 hrs: Laboratory Results - last 24 hr 04/26/21 04/26/21 04/26/21 Range/Units 11:58 11:58 11:58 WBC 14.0 H (5.0-10.0) 10^3/uL RBC 3.69 L (4.6-6.2) 10^6/uL Hgb 11.6 L (14.0-18.0) g/dL Hct 35.0 L (40.0-54.0) % MCV 94.9 (80-100) fL MCH 31.4 (27.0-34.0) pg MCHC 33.1 (33.0-35.0) g/dL Plt Count 365 (150-450) 10^3/uL Neut % (Auto) 82.8 H (42.2-75.2) % Lymph % (Auto) 8.2 L (20.5-50.1) % [place] % (Auto) 8.0 (2-8) % Eos % (Auto) 0.4 L (1.0-3.0) % Baso % (Auto) 0.6 (0.0-1.0) % Sodium 141 (136-145) mmol/L Potassium 3.8 (3.5-5.1) mmol/L Chloride 107 (98-107) mmol/L Carbon Dioxide 22 (21-32) mmol/L Anion Gap 15.8 H (7-13) mEq/L BUN 18 (7-18) mg/dL Creatinine 0.98 (0.70-1.30) mg/dL Est Cr Clr Drug Dosing 59.95 mL/min Estimated GFR (MDRD) > 60 BUN/Creatinine Ratio 18.4 (No establ ref range) Glucose 70 (70-99) mg/dL Lactic Acid 0.8 (0.4-2.0) mmol/L Calcium 8.2 L (8.5-10.1) mg/dL Magnesium 1.8 (1.8-2.4) mg/dL Total Bilirubin 0.6 (0.2-1.0) mg/dL AST 16 (15-37) U/L ALT 28 (16-63) U/L Alkaline Phosphatase 81 (46-116) U/L Creatine Kinase 29 L (39-308) U/L C-Reactive Protein (0.0-0.9) mg/dL Total Protein 5.6 L (6.4-8.2) g/dL Albumin 1.7 L (3.4-5.0) g/dL Globulin 3.9 Albumin/Globulin Ratio 0.44 Urine Color (YELLOW) Urine Appearance (CLEAR) Urine pH (5.0-9.0) Ur Specific [place] (1.005-1.030) Urine Protein (NEGATIVE) Urine Glucose (UA) (NEGATIVE) Urine Ketones (NEGATIVE) Urine Occult Blood (NEGATIVE) Urine Nitrite (NEGATIVE) Urine Bilirubin (NEGATIVE) Urine Urobilinogen (0.2-1.0) mg/dL Ur Leukocyte Esterase (NEGATIVE) U Hyaline Cast (Auto) Urine RBC (0-5) /HPF Urine WBC (0-5/HPF) /HPF Ur Epithelial Cells (NOT SEEN) /HPF Amorphous Sediment (NOT SEEN) /HPF Urine Bacteria (0-FEW/HPF) /HPF Urine Mucus (NOT SEEN) /LPF Urine Other SARS-CoV-2 RNA (DAYAMI) (NEGATIVE) 04/26/21 04/26/21 04/26/21 Range/Units 11:58 12:06 13:35 WBC (5.0-10.0) 10^3/uL RBC (4.6-6.2) 10^6/uL Hgb (14.0-18.0) g/dL Hct (40.0-54.0) % MCV (80-100) fL MCH (27.0-34.0) pg MCHC (33.0-35.0) g/dL Plt Count (150-450) 10^3/uL Neut % (Auto) (42.2-75.2) % Lymph % (Auto) (20.5-50.1) % [place] % (Auto) (2-8) % Eos % (Auto) (1.0-3.0) % Baso % (Auto) (0.0-1.0) % Sodium (136-145) mmol/L Potassium (3.5-5.1) mmol/L Chloride (98-107) mmol/L Carbon Dioxide (21-32) mmol/L Anion Gap (7-13) mEq/L BUN (7-18) mg/dL Creatinine (0.70-1.30) mg/dL Est Cr Clr Drug Dosing mL/min Estimated GFR (MDRD) BUN/Creatinine Ratio (No establ ref range) Glucose (70-99) mg/dL Lactic Acid (0.4-2.0) mmol/L Calcium (8.5-10.1) mg/dL Magnesium (1.8-2.4) mg/dL Total Bilirubin (0.2-1.0) mg/dL AST (15-37) U/L ALT (16-63) U/L Alkaline Phosphatase (46-116) U/L Creatine Kinase (39-308) U/L C-Reactive Protein 20.8 H (0.0-0.9) mg/dL Total Protein (6.4-8.2) g/dL Albumin (3.4-5.0) g/dL Globulin Albumin/Globulin Ratio Urine Color Yellow (YELLOW) Urine Appearance Slightly cloudy (CLEAR) Urine pH 5.0 (5.0-9.0) Ur Specific [place] 1.025 (1.005-1.030) Urine Protein Negative (NEGATIVE) Urine Glucose (UA) Negative (NEGATIVE) Urine Ketones 80 H (NEGATIVE) Urine Occult Blood Moderate H (NEGATIVE) Urine Nitrite Negative (NEGATIVE) Urine Bilirubin Negative (NEGATIVE) Urine Urobilinogen 0.2 (0.2-1.0) mg/dL Ur Leukocyte Esterase Small H (NEGATIVE) U Hyaline Cast (Auto) Few Urine RBC 20-30 H (0-5) /HPF Urine WBC 20-30 H (0-5/HPF) /HPF Ur Epithelial Cells Not seen (NOT SEEN) /HPF Amorphous Sediment Moderate (NOT SEEN) /HPF Urine Bacteria Few (0-FEW/HPF) /HPF Urine Mucus Few H (NOT SEEN) /LPF Urine Other See note SARS-CoV-2 RNA (DAYAMI) Negative (NEGATIVE) 04/26/21 04/27/21 04/27/21 Range/Units 21:11 05:58 05:58 WBC 10.6 H (5.0-10.0) 10^3/uL RBC 3.52 L (4.6-6.2) 10^6/uL Hgb 10.9 L (14.0-18.0) g/dL Hct 33.4 L (40.0-54.0) % MCV 94.9 (80-100) fL MCH 31.0 (27.0-34.0) pg MCHC 32.6 L (33.0-35.0) g/dL Plt Count 342 (150-450) 10^3/uL Neut % (Auto) 74.8 (42.2-75.2) % Lymph % (Auto) 12.1 L (20.5-50.1) % [place] % (Auto) 11.4 H (2-8) % Eos % (Auto) 1.1 (1.0-3.0) % Baso % (Auto) 0.6 (0.0-1.0) % Sodium 140 141 (136-145) mmol/L Potassium 3.3 L 3.2 L (3.5-5.1) mmol/L Chloride 107 108 H (98-107) mmol/L Carbon Dioxide 20 L 23 (21-32) mmol/L Anion Gap 16.3 H 13.2 H (7-13) mEq/L BUN 19 H 16 (7-18) mg/dL Creatinine 0.92 0.90 (0.70-1.30) mg/dL Est Cr Clr Drug Dosing 63.86 65.28 mL/min Estimated GFR (MDRD) > 60 > 60 BUN/Creatinine Ratio (No establ ref range) Glucose 117 H 88 (70-99) mg/dL Lactic Acid (0.4-2.0) mmol/L Calcium 7.8 L 7.8 L (8.5-10.1) mg/dL Magnesium 1.7 L 1.9 (1.8-2.4) mg/dL Total Bilirubin (0.2-1.0) mg/dL AST (15-37) U/L ALT (16-63) U/L Alkaline Phosphatase (46-116) U/L Creatine Kinase (39-308) U/L C-Reactive Protein (0.0-0.9) mg/dL Total Protein (6.4-8.2) g/dL Albumin (3.4-5.0) g/dL Globulin Albumin/Globulin Ratio Urine Color (YELLOW) Urine Appearance (CLEAR) Urine pH (5.0-9.0) Ur Specific [place] (1.005-1.030) Urine Protein (NEGATIVE) Urine Glucose (UA) (NEGATIVE) Urine Ketones (NEGATIVE) Urine Occult Blood (NEGATIVE) Urine Nitrite (NEGATIVE) Urine Bilirubin (NEGATIVE) Urine Urobilinogen (0.2-1.0) mg/dL Ur Leukocyte Esterase (NEGATIVE) U Hyaline Cast (Auto) Urine RBC (0-5) /HPF Urine WBC (0-5/HPF) /HPF Ur Epithelial Cells (NOT SEEN) /HPF Amorphous Sediment (NOT SEEN) /HPF Urine Bacteria (0-FEW/HPF) /HPF Urine Mucus (NOT SEEN) /LPF Urine Other SARS-CoV-2 RNA (DAYAMI) (NEGATIVE) Result Diagrams: 04/27/21 05:58 04/27/21 05:58 [place] Results Last 24 hrs: Microbiology 04/26/21 12:06 Urine Culture - Preliminary Urine, Catheterized NO GROWTH AFTER 1 DAY Sepsis Event Note - Evaluation Sepsis Screening Result: No Definite Risk - Focused Exam Vital Signs: Vital Signs Temp Pulse Pulse Resp BP BP Pulse Ox 04/27/21 08:37 104 H 135/63 04/27/21 08:00 98.9 F 95 18 130/66 94 L 04/27/21 04:00 97.9 F 90 16 107/61 97 04/27/21 00:00 98.8 F 96 16 107/57 L 97 - Problem List Review Problem List Initiated/Reviewed/Updated: No - My Orders Last 24 Hours: My Active Orders 04/26/21 15:37 Consult to Case Management/Microfilm Duplicating Unit Supervisor [CONS] Routine 04/26/21 15:58 Patient Status [ADT] Routine Height and Weight [RC] 0600 Oxygen Therapy [RC] .PRN VTE/DVT Education [RC] Vital Signs [RC] 00,04,08,12,16,20 OT Evaluation and Treatment [CONS] Routine PT Evaluation and Treatment [CONS] Routine Acetaminophen [TylenoL] 650 mg PO Q4H PRN Albuterol/Ipratropium [DuoNeb 3.0-0.5 MG/3 ML] 3 ml NEB Q4H PRN Docusate Sodium [Colace] 100 mg PO BID PRN Docusate Sodium/Sennosides [Senna Plus] 1 tab PO BEDTIME PRN Ondansetron [Zofran] 4 mg IVPUSH Q6H PRN bisacodyL [Dulcolax] 5 mg PO DAILY PRN 04/26/21 16:00 Intake and Output [RC] ,,04/26/21 16:01 RT Aerosol Therapy [RC] ASDIRECTED 04/26/21 16:04 Code Status [Resuscitation Status] Routine 04/26/21 16:37 polyethylene glycoL 3350 [MiraLAX] 17 gm PO DAILY PRN 04/26/21 16:39 Melatonin 3 mg PO BEDTIME PRN 04/26/21 Dinner Mechanical Soft Diet [DIET] 04/26/21 19:38 Blood Culture x2 Reflex Set [OM.PC] Stat 04/26/21 19:42 Telemetry Monitoring [Cardiac Monitoring] [RC] 08,20 04/26/21 19:51 CULTURE BLOOD [BC] Stat 04/26/21 20:00 CULTURE BLOOD [BC] Stat 04/26/21 21:00 Metoprolol Tartrate [Lopressor] 75 mg PO BID 04/26/21 22:00 Ampicillin 2 gm Sodium Chloride 0.9% [Normal Saline] 100 ml IV Q6H 04/27/21 00:13 Zolpidem [Ambien] 5 mg PO BEDTIME PRN 04/27/21 06:00 Meropenem [Merrem] 1 gm Sodium Chloride 0.9% [Normal Saline] 100 ml IV Q8HR 04/27/21 09:00 Citalopram [Celexa] 20 mg PO DAILY Enoxaparin [Lovenox] 40 mg SUBCUT DAILY 04/27/21 21:00 Potassium Chloride [Klor-Con 10] 40 meq PO BEDTIME 04/28/21 05:11 BASIC METABOLIC PANEL,BMP [CHEM] AM CBC WITH AUTO DIFF [HEME] AM 04/29/21 05:11 BASIC METABOLIC PANEL,BMP [CHEM] AM CBC WITH AUTO DIFF [HEME] AM 04/30/21 05:11 BASIC METABOLIC PANEL,BMP [CHEM] AM CBC WITH AUTO DIFF [HEME] AM 05/01/21 05:11 BASIC METABOLIC PANEL,BMP [CHEM] AM CBC WITH AUTO DIFF [HEME] AM 05/02/21 05:11 BASIC METABOLIC PANEL,BMP [CHEM] AM CBC WITH AUTO DIFF [HEME] AM 05/03/21 05:11 BASIC METABOLIC PANEL,BMP [CHEM] AM CBC WITH AUTO DIFF [HEME] AM - Plan Plan:: Left hip injury / post fall at home: CT scan showed no fx. SVT last night: resolved after Adenosine. DC Cardizem and resume home Lopressor. Post recent Severe sepsis due to UTI with Enterobacter and enterococcus: completed his treatment last admission. His Cult were neg on discharge. Chronic Whyte: Whyte was last changed on Apr 2304/2021. 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 Post MAIA: ATN/ hypovolemia ( last admission Cr improved from 7.44 on admission to 1.05 on discharge). Today is better. . B hydronephrosis. ??? midline obstruction. was adviseed to f/u oupt urology. Advanced MS/ Bed bound, inability to care for self independently. Case crystal is working with pt and his sons for possible placement. Skin lesion to RT knee : for outpt dermatology evaluation. Depression: started on Celexa. Decubitus prophylaxis: to continue care at home. DNR/ DNI
[2021-04-27] MEDS ORDERED: Potassium Chloride 10 MEQ Tab.ER PO SCH (21:00)
[2021-04-27] MEDS: Acetaminophen 325 MG Tab PO PRN (21:08)
[2021-04-27] MEDS: Melatonin 3 MG Tab PO PRN (22:44)
[2021-04-28] MEDS: Sodium Chloride 0.9% 10 ML Syringe FLUSH PRN ×4 (04:34→23:23)
[2021-04-28] MEDS: Ampicillin 2 GM in Sodium Chloride 0.9% 100 ML IV SCH ×4 (04:34→22:05)
[2021-04-28] MEDS: Meropenem 1 GM in Sodium Chloride 0.9% 100 ML IV SCH ×3 (05:14→23:23)
[2021-04-28 06:35] LABS: ANION GAP 10.7 mEq/L (7-13); CHLORIDE,CL 109 mmol/L (98-107); SODIUM,NA 142 mmol/L (136-145)
[2021-04-28] MEDS: Citalopram 20 MG Tab PO SCH (09:06)
[2021-04-28] MEDS: Enoxaparin 40 MG/0.4 ML Syringe SUBCUT SCH (09:06)
[2021-04-28] MEDS: Metoprolol Tartrate 25 MG Tab PO SCH ×2 (09:06→22:17)
--- NOTE | 2021-04-28 09:19 | PCM.PN ---
- General Info Date of Service: 04/28/21 Functional Status: Reports: Tolerating Diet. Denies: Pain Controlled - Review of Systems General: Denies: Fever, Weakness Pulmonary: Denies: Shortness of Breath Cardiovascular: Denies: Chest Pain Gastrointestinal: Denies: Abdominal Pain Neurological: Denies: Confusion Psychiatric: Denies: Confusion - Patient Data Vitals - Most Recent: Last Vital Signs Temp 98.7 F 04/28/21 07:16 Pulse 84 04/28/21 09:06 Resp 20 04/28/21 07:16 BP 122/66 04/28/21 09:06 Pulse Ox 94 L 04/28/21 07:16 Weight - Most Recent: 209 lb 11.2 oz I&O - Last 24 Hours: Intake & Output 04/27/21 04/28/21 04/28/21 22:59 06:59 14:59 Intake Total 1220 300 Output Total 750 700 Balance 470 -400 Lab Results Last 24 Hours: Laboratory Results - last 24 hr 04/28/21 04/28/21 Range/Units 05:35 05:35 WBC 8.1 (5.0-10.0) 10^3/uL RBC 3.24 L (4.6-6.2) 10^6/uL Hgb 10.0 L (14.0-18.0) g/dL Hct 31.2 L (40.0-54.0) % MCV 96.3 (80-100) fL MCH 30.9 (27.0-34.0) pg MCHC 32.1 L (33.0-35.0) g/dL Plt Count 300 (150-450) 10^3/uL Neut % (Auto) 67.1 (42.2-75.2) % Lymph % (Auto) 17.2 L (20.5-50.1) % [place] % (Auto) 12.8 H (2-8) % Eos % (Auto) 1.5 (1.0-3.0) % Baso % (Auto) 1.4 H (0.0-1.0) % Sodium 142 (136-145) mmol/L Potassium 3.7 (3.5-5.1) mmol/L Chloride 109 H (98-107) mmol/L Carbon Dioxide 26 (21-32) mmol/L Anion Gap 10.7 (7-13) mEq/L BUN 14 (7-18) mg/dL Creatinine 1.04 (0.70-1.30) mg/dL Est Cr Clr Drug Dosing 56.50 mL/min Estimated GFR (MDRD) > 60 Glucose 96 (70-99) mg/dL Calcium 7.8 L (8.5-10.1) mg/dL [place] Results Last 24 Hours: Microbiology 04/26/21 12:06 Urine Culture - Preliminary Urine, Catheterized NO GROWTH AFTER 2 DAYS 04/26/21 20:00 Aerobic Blood Culture - Preliminary Blood - Arm, Right NO GROWTH AFTER 1 DAY Anaerobic Blood Culture - Preliminary NO GROWTH AFTER 1 DAY 04/26/21 19:51 Aerobic Blood Culture - Preliminary Blood - Arm, Left NO GROWTH AFTER 1 DAY Anaerobic Blood Culture - Preliminary NO GROWTH AFTER 1 DAY Med Orders - Current: Current Medications Acetaminophen (Acetaminophen 325 Mg Tab) 650 mg PO Q4H PRN PRN Reason: Pain (Mild 1-3)/fever Last Admin: 04/27/21 21:08 Dose: 650 mg Documented by: Albuterol/Ipratropium (Albuterol/Ipratropium 3.0-0.5 Mg/3 Ml Neb Soln) 3 ml NEB Q4H PRN PRN Reason: shortness of breath/wheezing Bisacodyl (Bisacodyl 5 Mg Tab) 5 mg PO DAILY PRN PRN Reason: Constipation Citalopram Hydrobromide (Citalopram 20 Mg Tab) 20 mg PO DAILY [facility] Last Admin: 04/28/21 09:06 Dose: 20 mg Documented by: Docusate Sodium (Docusate Sodium 100 Mg Cap) 100 mg PO BID PRN PRN Reason: Constipation Enoxaparin Sodium (Enoxaparin 40 Mg/0.4 Ml Syringe) 40 mg SUBCUT DAILY [facility] Last Admin: 04/28/21 09:06 Dose: 40 mg Documented by: Meropenem 1 gm/ Sodium (Chloride) 100 mls @ 200 mls/hr IV Q8HR [facility] Last Infusion: 04/28/21 05:53 Dose: Infused Documented by: Ampicillin Sodium 2 gm/ Sodium (Chloride) 100 mls @ 200 mls/hr IV Q6H [facility] Last Admin: 04/28/21 04:34 Dose: 200 mls/hr Documented by: Melatonin (Melatonin 3 Mg Tab) 3 mg PO BEDTIME PRN PRN Reason: Insomnia Last Admin: 04/27/21 22:44 Dose: 3 mg Documented by: Metoprolol Tartrate (Metoprolol Tartrate 25 Mg Tab) 75 mg PO BID [facility] Last Admin: 04/28/21 09:06 Dose: 75 mg Documented by: Nystatin (Nystatin Topical Powder 30 Gm Bottle) 0 gm TOP BID [facility]OS[facility] Ondansetron HCl (Ondansetron 4 Mg/2 Ml Sdv) 4 mg IVPUSH Q6H PRN PRN Reason: Nausea/Vomiting Polyethylene Glycol (Polyethylene Glycol 3350 Powder 17 Gm Packet) 17 gm PO DAILY PRN PRN Reason: Constipation Senna/Docusate Sodium (Docusate Sodium/Sennosides 50-8.6 Mg Tab) 1 tab PO BEDTIME PRN PRN Reason: Constipation Sodium Chloride (Sodium Chloride 0.9% 10 Ml Syringe) 10 ml FLUSH ASDIRECTED PRN PRN Reason: IV Use Last Admin: 04/28/21 05:13 Dose: 10 ml Documented by: Zolpidem Tartrate (Zolpidem 5 Mg Tab) 5 mg PO BEDTIME PRN PRN Reason: Sleep Last Admin: 04/27/21 21:09 Dose: 5 mg Documented by: Discontinued Medications Acetaminophen (Acetaminophen 500 Mg Tab) 1,000 mg PO ONETIME ONE Stop: 04/26/21 12:54 Last Admin: 04/26/21 13:41 Dose: 1,000 mg Documented by: Adenosine (Adenosine 6 Mg/2 Ml Sdv) 6 mg IVPUSH NOW ONE Stop: 04/26/21 20:24 Last Admin: 04/26/21 20:40 Dose: 6 mg Documented by: Diltiazem HCl (Diltiazem 25 Mg/5 Ml Sdv) Confirm Administered Dose 25 mg .ROUTE .STK-MED ONE Stop: 04/26/21 20:22 Last Admin: 04/26/21 20:41 Dose: 25 mg Documented by: Ampicillin Sodium 2 gm/ Sodium (Chloride) 100 mls @ 200 mls/hr IV Q6H [facility] Piperacillin Sod/Tazobactam (Sod 3.375 gm/ Sodium Chloride) 100 mls @ 200 mls/hr IV ONETIME ONE Stop: 04/26/21 15:22 Sodium Chloride (Normal Saline) 1,000 mls @ 60 mls/hr IV ASDIRECTED [facility]OS[facility]N Last Admin: 04/26/21 20:03 Dose: 60 mls/hr Documented by: Ampicillin Sodium 1 gm/ Sodium (Chloride) 100 mls @ 200 mls/hr IV Q8H [facility] Last Admin: 04/27/21 05:30 Dose: Not Given Documented by: Meropenem 1 gm/ Sodium (Chloride) 100 mls @ 200 mls/hr IV Q8HR [facility] Diltiazem HCl 125 mg/ Sodium (Chloride) 125 mls @ 5 mls/hr IV TITRATE JOSLYN; Protocol Last Admin: 04/26/21 20:42 Dose: 5 mg/hr, 5 mls/hr Documented by: Sodium Chloride (Normal Saline) 1,000 mls @ 999 mls/hr IV BOLUS ONE Stop: 04/26/21 21:24 Last Admin: 04/26/21 20:21 Dose: 999 mls/hr Documented by: Ampicillin Sodium 2 gm/ Sodium (Chloride) 100 mls @ 200 mls/hr IV Q6H [facility] Last Admin: 04/27/21 10:28 Dose: 200 mls/hr Documented by: Magnesium Sulfate/Dextrose (Magnesium Sulfate In D5w 1 Gm/100 Ml) 1 gm in 100 mls @ 100 mls/hr IV ONETIME ONE Stop: 04/26/21 23:59 Last Admin: 04/26/21 23:03 Dose: 100 mls/hr Documented by: Sterile Water (Sterile Water For Injection) Confirm Administered Dose 20 mls @ as directed .ROUTE .STK-MED ONE Stop: 04/27/21 03:56 Last Admin: 04/27/21 05:28 Dose: Not Given Documented by: Meropenem (Meropenem 1 Gm Sdv) 1 gm IVPUSH Q8H [facility] Last Admin: 04/26/21 21:00 Dose: Not Given Documented by: Non-Formulary Medication (Arginine/Ascorbate Sod/Carlos A Ac [Arginaid Powder]) 1 e ach PO BID [facility] Potassium Chloride (Potassium Chloride 10 Meq Tab.Er) 40 meq PO ONETIME ONE Stop: 04/26/21 22:10 Last Admin: 04/26/21 22:31 Dose: 40 meq Documented by: Potassium Chloride (Potassium Chloride 10 Meq Tab.Er) 40 meq PO BEDTIME JOSLYN Stop: 04/27/21 23:59 Last Admin: 04/27/21 21:08 Dose: 40 meq Documented by: - Exam Quality Assessment: No: Supplemental Oxygen General: Alert, Oriented, Cooperative Lungs: Clear to Auscultation, Normal Respiratory Effort Cardiovascular: Regular Rate, Regular Rhythm GI/Abdominal Exam: Soft Extremities: Pedal Edema Skin: Warm Wound/Incisions: Healing Well Neurological: No New Focal Deficit (chronic lower ext weakness) Psy/Mental Status: Alert, Normal Affect - Patient Data Lab Results Last 24 hrs: Laboratory Results - last 24 hr 04/28/21 04/28/21 Range/Units 05:35 05:35 WBC 8.1 (5.0-10.0) 10^3/uL RBC 3.24 L (4.6-6.2) 10^6/uL Hgb 10.0 L (14.0-18.0) g/dL Hct 31.2 L (40.0-54.0) % MCV 96.3 (80-100) fL MCH 30.9 (27.0-34.0) pg MCHC 32.1 L (33.0-35.0) g/dL Plt Count 300 (150-450) 10^3/uL Neut % (Auto) 67.1 (42.2-75.2) % Lymph % (Auto) 17.2 L (20.5-50.1) % [place] % (Auto) 12.8 H (2-8) % Eos % (Auto) 1.5 (1.0-3.0) % Baso % (Auto) 1.4 H (0.0-1.0) % Sodium 142 (136-145) mmol/L Potassium 3.7 (3.5-5.1) mmol/L Chloride 109 H (98-107) mmol/L Carbon Dioxide 26 (21-32) mmol/L Anion Gap 10.7 (7-13) mEq/L BUN 14 (7-18) mg/dL Creatinine 1.04 (0.70-1.30) mg/dL Est Cr Clr Drug Dosing 56.50 mL/min Estimated GFR (MDRD) > 60 Glucose 96 (70-99) mg/dL Calcium 7.8 L (8.5-10.1) mg/dL Result Diagrams: 04/28/21 05:35 04/28/21 05:35 [place] Results Last 24 hrs: Microbiology 04/26/21 12:06 Urine Culture - Preliminary Urine, Catheterized NO GROWTH AFTER 2 DAYS 04/26/21 20:00 Aerobic Blood Culture - Preliminary Blood - Arm, Right NO GROWTH AFTER 1 DAY Anaerobic Blood Culture - Preliminary NO GROWTH AFTER 1 DAY 04/26/21 19:51 Aerobic Blood Culture - Preliminary Blood - Arm, Left NO GROWTH AFTER 1 DAY Anaerobic Blood Culture - Preliminary NO GROWTH AFTER 1 DAY Sepsis Event Note - Evaluation Sepsis Screening Result: No Definite Risk - Focused Exam Vital Signs: Vital Signs Temp Pulse Pulse Resp BP BP Pulse Ox 04/28/21 09:06 84 122/66 04/28/21 07:16 98.7 F 84 20 122/66 94 L 04/28/21 04:30 98.8 F 85 20 112/47 L 95 04/27/21 23:00 99.6 F 76 20 90/55 L 95 - Problem List Review Problem List Initiated/Reviewed/Updated: No - My Orders Last 24 Hours: My Active Orders 04/27/21 09:00 Citalopram [Celexa] 20 mg PO DAILY Enoxaparin [Lovenox] 40 mg SUBCUT DAILY 04/27/21 16:00 Ampicillin 2 gm Sodium Chloride 0.9% [Normal Saline] 100 ml IV Q6H 04/27/21 22:26 Sodium Chloride 0.9% [Saline Flush] 10 ml FLUSH ASDIRECTED PRN 04/28/21 09:15 Nystatin [Nystop] 0 gm TOP BID 04/29/21 05:11 BASIC METABOLIC PANEL,BMP [CHEM] AM CBC WITH AUTO DIFF [HEME] AM 04/30/21 05:11 BASIC METABOLIC PANEL,BMP [CHEM] AM CBC WITH AUTO DIFF [HEME] AM 05/01/21 05:11 BASIC METABOLIC PANEL,BMP [CHEM] AM CBC WITH AUTO DIFF [HEME] AM 05/02/21 05:11 BASIC METABOLIC PANEL,BMP [CHEM] AM CBC WITH AUTO DIFF [HEME] AM 05/03/21 05:11 BASIC METABOLIC PANEL,BMP [CHEM] AM CBC WITH AUTO DIFF [HEME] AM - Plan Plan:: Left hip injury / post fall at home: CT scan showed no fx. Advanced MS/ Bed bound, inability to care for self independently. [facility] crystal is working with pt and his sons for possible placement. SVT on 04/26: resolved after Adenosine. DC Cardizem and resume home Lopressor. Post recent Severe sepsis due to UTI with Enterobacter and enterococcus: completed his treatment last admission. His Cult were neg on discharge. Chronic Whyte: Whyte was last changed on Apr 2304/2021. 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 Post MAIA: ATN/ hypovolemia ( last admission Cr improved from 7.44 on admission to 1.05 on discharge). Today is better. . B hydronephrosis. ??? midline obstruction. was adviseed to f/u oupt urology. Skin lesion to RT knee : for outpt dermatology evaluation. Depression: started on Celexa. Decubitus prophylaxis: to continue care at home. DNR/ DNI
[2021-04-28] MEDS: Nystatin Topical Powder 30 GM Bottle TOP SCH ×2 (10:42→22:17)
[2021-04-28] MEDS: Acetaminophen/HYDROcodone 325-5 MG Tab PO PRN (16:43)
[2021-04-28] MEDS: Zolpidem 5 MG Tab PO PRN (22:17)
[2021-04-29] MEDS: Acetaminophen/HYDROcodone 325-5 MG Tab PO PRN ×3 (04:20→19:38)
[2021-04-29] MEDS: Sodium Chloride 0.9% 10 ML Syringe FLUSH PRN ×4 (04:22→22:14)
[2021-04-29] MEDS: Ampicillin 2 GM in Sodium Chloride 0.9% 100 ML IV SCH ×4 (04:22→21:41)
[2021-04-29] MEDS: Meropenem 1 GM in Sodium Chloride 0.9% 100 ML IV SCH ×3 (05:02→22:14)
[2021-04-29 07:07] LABS: ANION GAP 11.6 mEq/L (7-13); CHLORIDE,CL 107 mmol/L (98-107); SODIUM,NA 141 mmol/L (136-145)
[2021-04-29] MEDS ORDERED: Potassium Chloride 10 MEQ Tab.ER PO ONE (08:15)
[2021-04-29] MEDS: Metoprolol Tartrate 25 MG Tab PO SCH ×3 (09:27→20:03)
[2021-04-29] MEDS: Enoxaparin 40 MG/0.4 ML Syringe SUBCUT SCH (09:27)
[2021-04-29] MEDS: Citalopram 20 MG Tab PO SCH (09:27)
[2021-04-29] MEDS: Nystatin Topical Powder 30 GM Bottle TOP SCH ×2 (09:37→20:02)
--- NOTE | 2021-04-29 11:19 | PCM.PN ---
- General Info Date of Service: 04/29/21 Subjective Update: No complains. Functional Status: Reports: Pain Controlled, Tolerating Diet - Review of Systems General: Denies: Fever Pulmonary: Denies: Shortness of Breath Cardiovascular: Denies: Chest Pain Gastrointestinal: Denies: Abdominal Pain Neurological: Denies: Confusion Psychiatric: Denies: Confusion - Patient Data Vitals - Most Recent: Last Vital Signs Temp 98.5 F 04/29/21 08:00 Pulse 77 04/29/21 09:27 Resp 18 04/29/21 08:00 BP 109/58 L 04/29/21 09:27 Pulse Ox 98 04/29/21 08:00 Weight - Most Recent: 204 lb 11.2 oz I&O - Last 24 Hours: Intake & Output 04/28/21 04/29/21 04/29/21 22:59 06:59 14:59 Intake Total 150 600 180 Output Total 950 800 Balance -800 -200 180 Lab Results Last 24 Hours: Laboratory Results - last 24 hr 04/29/21 04/29/21 Range/Units 05:30 05:30 WBC 6.3 (5.0-10.0) 10^3/uL RBC 3.47 L (4.6-6.2) 10^6/uL Hgb 10.6 L (14.0-18.0) g/dL Hct 33.4 L (40.0-54.0) % MCV 96.3 (80-100) fL MCH 30.5 (27.0-34.0) pg MCHC 31.7 L (33.0-35.0) g/dL Plt Count 290 (150-450) 10^3/uL Neut % (Auto) 64.9 (42.2-75.2) % Lymph % (Auto) 17.6 L (20.5-50.1) % [place] % (Auto) 13.9 H (2-8) % Eos % (Auto) 2.2 (1.0-3.0) % Baso % (Auto) 1.4 H (0.0-1.0) % Sodium 141 (136-145) mmol/L Potassium 3.6 (3.5-5.1) mmol/L Chloride 107 (98-107) mmol/L Carbon Dioxide 26 (21-32) mmol/L Anion Gap 11.6 (7-13) mEq/L BUN 12 (7-18) mg/dL Creatinine 0.94 (0.70-1.30) mg/dL Est Cr Clr Drug Dosing 62.51 mL/min Estimated GFR (MDRD) > 60 Glucose 82 (70-99) mg/dL Calcium 8.0 L (8.5-10.1) mg/dL [place] Results Last 24 Hours: Microbiology 04/26/21 20:00 Aerobic Blood Culture - Preliminary Blood - Arm, Right NO GROWTH AFTER 2 DAYS Anaerobic Blood Culture - Preliminary NO GROWTH AFTER 2 DAYS 04/26/21 19:51 Aerobic Blood Culture - Preliminary Blood - Arm, Left NO GROWTH AFTER 2 DAYS Anaerobic Blood Culture - Preliminary NO GROWTH AFTER 2 DAYS 04/26/21 12:06 Urine Culture - Final Urine, Catheterized NO GROWTH AFTER 2 DAYS Med Orders - Current: Current Medications Acetaminophen (Acetaminophen 325 Mg Tab) 650 mg PO Q4H PRN PRN Reason: Pain (Mild 1-3)/fever Last Admin: 04/27/21 21:08 Dose: 650 mg Documented by: Hydrocodone Bitart/Acetaminophen (Acetaminophen/Hydrocodone 325-5 Mg Tab) 1 tab PO Q6H PRN PRN Reason: Pain (moderate 4-6) Last Admin: 04/29/21 04:20 Dose: 1 tab Documented by: Albuterol/Ipratropium (Albuterol/Ipratropium 3.0-0.5 Mg/3 Ml Neb Soln) 3 ml NEB Q4H PRN PRN Reason: shortness of breath/wheezing Bisacodyl (Bisacodyl 5 Mg Tab) 5 mg PO DAILY PRN PRN Reason: Constipation Citalopram Hydrobromide (Citalopram 20 Mg Tab) 20 mg PO DAILY [facility] Last Admin: 04/29/21 09:27 Dose: 20 mg Documented by: Docusate Sodium (Docusate Sodium 100 Mg Cap) 100 mg PO BID PRN PRN Reason: Constipation Enoxaparin Sodium (Enoxaparin 40 Mg/0.4 Ml Syringe) 40 mg SUBCUT DAILY [facility] Last Admin: 04/29/21 09:27 Dose: 40 mg Documented by: Meropenem 1 gm/ Sodium (Chloride) 100 mls @ 200 mls/hr IV Q8HR [facility] Last Infusion: 04/29/21 05:38 Dose: Infused Documented by: Ampicillin Sodium 2 gm/ Sodium (Chloride) 100 mls @ 200 mls/hr IV Q6H [facility] Last Admin: 04/29/21 09:35 Dose: 200 mls/hr Documented by: Melatonin (Melatonin 3 Mg Tab) 3 mg PO BEDTIME PRN PRN Reason: Insomnia Last Admin: 04/27/21 22:44 Dose: 3 mg Documented by: Metoprolol Tartrate (Metoprolol Tartrate 25 Mg Tab) 75 mg PO BID [facility] Last Admin: 04/29/21 09:27 Dose: 75 mg Documented by: Nystatin (Nystatin Topical Powder 30 Gm Bottle) 0 gm TOP BID [facility] Last Admin: 04/29/21 09:37 Dose: 1 applic Documented by: Ondansetron HCl (Ondansetron 4 Mg/2 Ml Sdv) 4 mg IVPUSH Q6H PRN PRN Reason: Nausea/Vomiting Polyethylene Glycol (Polyethylene Glycol 3350 Powder 17 Gm Packet) 17 gm PO DAILY PRN PRN Reason: Constipation Senna/Docusate Sodium (Docusate Sodium/Sennosides 50-8.6 Mg Tab) 1 tab PO BEDTIME PRN PRN Reason: Constipation Sodium Chloride (Sodium Chloride 0.9% 10 Ml Syringe) 10 ml FLUSH ASDIRECTED PRN PRN Reason: IV Use Last Admin: 04/29/21 05:02 Dose: 10 ml Documented by: Zolpidem Tartrate (Zolpidem 5 Mg Tab) 5 mg PO BEDTIME PRN PRN Reason: Sleep Last Admin: 04/28/21 22:17 Dose: 5 mg Documented by: Discontinued Medications Acetaminophen (Acetaminophen 500 Mg Tab) 1,000 mg PO ONETIME ONE Stop: 04/26/21 12:54 Last Admin: 04/26/21 13:41 Dose: 1,000 mg Documented by: Adenosine (Adenosine 6 Mg/2 Ml Sdv) 6 mg IVPUSH NOW ONE Stop: 04/26/21 20:24 Last Admin: 04/26/21 20:40 Dose: 6 mg Documented by: Diltiazem HCl (Diltiazem 25 Mg/5 Ml Sdv) Confirm Administered Dose 25 mg .ROUTE .STK-MED ONE Stop: 04/26/21 20:22 Last Admin: 04/26/21 20:41 Dose: 25 mg Documented by: Ampicillin Sodium 2 gm/ Sodium (Chloride) 100 mls @ 200 mls/hr IV Q6H [facility]OS[facility] Piperacillin Sod/Tazobactam (Sod 3.375 gm/ Sodium Chloride) 100 mls @ 200 mls/hr IV ONETIME ONE Stop: 04/26/21 15:22 Sodium Chloride (Normal Saline) 1,000 mls @ 60 mls/hr IV ASDIRECTED [facility] Last Admin: 04/26/21 20:03 Dose: 60 mls/hr Documented by: Ampicillin Sodium 1 gm/ Sodium (Chloride) 100 mls @ 200 mls/hr IV Q8H [facility] Last Admin: 04/27/21 05:30 Dose: Not Given Documented by: Meropenem 1 gm/ Sodium (Chloride) 100 mls @ 200 mls/hr IV Q8HR [facility] Diltiazem HCl 125 mg/ Sodium (Chloride) 125 mls @ 5 mls/hr IV TITRATE JOSLYN; Protocol Last Admin: 04/26/21 20:42 Dose: 5 mg/hr, 5 mls/hr Documented by: Sodium Chloride (Normal Saline) 1,000 mls @ 999 mls/hr IV BOLUS ONE Stop: 04/26/21 21:24 Last Admin: 04/26/21 20:21 Dose: 999 mls/hr Documented by: Ampicillin Sodium 2 gm/ Sodium (Chloride) 100 mls @ 200 mls/hr IV Q6H [facility] Last Admin: 04/27/21 10:28 Dose: 200 mls/hr Documented by: Magnesium Sulfate/Dextrose (Magnesium Sulfate In D5w 1 Gm/100 Ml) 1 gm in 100 mls @ 100 mls/hr IV ONETIME ONE Stop: 04/26/21 23:59 Last Admin: 04/26/21 23:03 Dose: 100 mls/hr Documented by: Sterile Water (Sterile Water For Injection) Confirm Administered Dose 20 mls @ as directed .ROUTE .STK-MED ONE Stop: 04/27/21 03:56 Last Admin: 04/27/21 05:28 Dose: Not Given Documented by: Meropenem (Meropenem 1 Gm Sdv) 1 gm IVPUSH Q8H [facility] Last Admin: 04/26/21 21:00 Dose: Not Given Documented by: Non-Formulary Medication (Arginine/Ascorbate Sod/Carlos A Ac [Arginaid Powder]) 1 each PO BID [facility] Potassium Chloride (Potassium Chloride 10 Meq Tab.Er) 40 meq PO ONETIME ONE Stop: 04/26/21 22:10 Last Admin: 04/26/21 22:31 Dose: 40 meq Documented by: Potassium Chloride (Potassium Chloride 10 Meq Tab.Er) 40 meq PO BEDTIME JOSLYN Stop: 04/27/21 23:59 Last Admin: 04/27/21 21:08 Dose: 40 meq Documented by: Potassium Chloride (Potassium Chloride 10 Meq Tab.Er) 40 meq PO ONETIME ONE Stop: 04/29/21 08:16 Last Admin: 04/29/21 09:31 Dose: 40 meq Documented by: - Exam Quality Assessment: No: Supplemental Oxygen General: Alert, Oriented, Cooperative HEENT: EOMI Lungs: Clear to Auscultation, Normal Respiratory Effort Cardiovascular: Regular Rate, Regular Rhythm GI/Abdominal Exam: Soft, Non-Tender Extremities: Pedal Edema (mild) Skin: Warm, Dry Neurological: No New Focal Deficit Psy/Mental Status: Alert, Normal Affect - Patient Data Lab Results Last 24 hrs: Laboratory Results - last 24 hr 04/29/21 04/29/21 Range/Units 05:30 05:30 WBC 6.3 (5.0-10.0) 10^3/uL RBC 3.47 L (4.6-6.2) 10^6/uL Hgb 10.6 L (14.0-18.0) g/dL Hct 33.4 L (40.0-54.0) % MCV 96.3 (80-100) fL MCH 30.5 (27.0-34.0) pg MCHC 31.7 L (33.0-35.0) g/dL Plt Count 290 (150-450) 10^3/uL Neut % (Auto) 64.9 (42.2-75.2) % Lymph % (Auto) 17.6 L (20.5-50.1) % [place] % (Auto) 13.9 H (2-8) % Eos % (Auto) 2.2 (1.0-3.0) % Baso % (Auto) 1.4 H (0.0-1.0) % Sodium 141 (136-145) mmol/L Potassium 3.6 (3.5-5.1) mmol/L Chloride 107 (98-107) mmol/L Carbon Dioxide 26 (21-32) mmol/L Anion Gap 11.6 (7-13) mEq/L BUN 12 (7-18) mg/dL Creatinine 0.94 (0.70-1.30) mg/dL Est Cr Clr Drug Dosing 62.51 mL/min Estimated GFR (MDRD) > 60 Glucose 82 (70-99) mg/dL Calcium 8.0 L (8.5-10.1) mg/dL Result Diagrams: 04/29/21 05:30 04/29/21 05:30 [place] Results Last 24 hrs: Microbiology 04/26/21 20:00 Aerobic Blood Culture - Preliminary Blood - Arm, Right NO GROWTH AFTER 2 DAYS Anaerobic Blood Culture - Preliminary NO GROWTH AFTER 2 DAYS 04/26/21 19:51 Aerobic Blood Culture - Preliminary Blood - Arm, Left NO GROWTH AFTER 2 DAYS Anaerobic Blood Culture - Preliminary NO GROWTH AFTER 2 DAYS 04/26/21 12:06 Urine Culture - Final Urine, Catheterized NO GROWTH AFTER 2 DAYS Sepsis Event Note - Evaluation Sepsis Screening Result: No Definite Risk - Focused Exam Vital Signs: Vital Signs Temp Pulse Pulse Resp BP BP BP 04/29/21 09:27 77 109/58 L 04/29/21 08:00 98.5 F 77 18 109/58 L 04/29/21 04:00 98.8 F 94 20 114/59 L 04/28/21 23:30 98.6 F 65 20 101/54 L Pulse Ox 04/29/21 09:27 04/29/21 08:00 98 04/29/21 04:00 94 L 04/28/21 23:30 97 - Problem List Review Problem List Initiated/Reviewed/Updated: No - My Orders Last 24 Hours: My Active Orders 04/28/21 16:13 Acetaminophen/HYDROcodone [Ozone 325-5 MG] 1 tab PO Q6H PRN 04/30/21 05:11 BASIC METABOLIC PANEL,BMP [CHEM] AM CBC WITH AUTO DIFF [HEME] AM 05/01/21 05:11 BASIC METABOLIC PANEL,BMP [CHEM] AM CBC WITH AUTO DIFF [HEME] AM 05/02/21 05:11 BASIC METABOLIC PANEL,BMP [CHEM] AM CBC WITH AUTO DIFF [HEME] AM 05/03/21 05:11 BASIC METABOLIC PANEL,BMP [CHEM] AM CBC WITH AUTO DIFF [HEME] AM - Plan Plan:: Left hip injury / post fall at home: CT scan showed no fx. Advanced MS/ Bed bound, inability to care for self independently. [facility] is working with pt and his sons for possible placement. SVT on 04/26: resolved after Adenosine. DC Cardizem and resume home Lopressor. Post recent Severe sepsis due to UTI with Enterobacter and enterococcus: completed his treatment last admission. His Cult were neg on discharge. Chronic Whyte: Whyte was last changed on Apr 2304/2021. 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 Post MAIA: ATN/ hypovolemia ( last admission Cr improved from 7.44 on admission to 1.05 on discharge). Back to [place]. B hydronephrosis. ??? midline obstruction. was adviseed to f/u oupt urology. Skin lesion to RT knee : for outpt dermatology evaluation. Depression: started on Celexa. Decubitus prophylaxis: to continue care at home. DNR/ DNI
[2021-04-29] MEDS: Zolpidem 5 MG Tab PO PRN (19:50)
[2021-04-30] MEDS: Melatonin 3 MG Tab PO PRN (00:17)
[2021-04-30] MEDS: Sodium Chloride 0.9% 10 ML Syringe FLUSH PRN ×3 (04:37→11:58)
[2021-04-30] MEDS: Ampicillin 2 GM in Sodium Chloride 0.9% 100 ML IV SCH ×4 (04:38→21:29)
[2021-04-30] MEDS: Acetaminophen/HYDROcodone 325-5 MG Tab PO PRN ×3 (04:53→20:47)
[2021-04-30] MEDS: Meropenem 1 GM in Sodium Chloride 0.9% 100 ML IV SCH ×3 (05:16→21:54)
[2021-04-30 06:43] LABS: ANION GAP 11.9 mEq/L (7-13); CHLORIDE,CL 106 mmol/L (98-107); SODIUM,NA 141 mmol/L (136-145)
[2021-04-30] MEDS: Metoprolol Tartrate 25 MG Tab PO SCH ×2 (09:31→20:38)
[2021-04-30] MEDS: Citalopram 20 MG Tab PO SCH (09:32)
[2021-04-30] MEDS: Enoxaparin 40 MG/0.4 ML Syringe SUBCUT SCH (09:33)
--- NOTE | 2021-04-30 11:38 | PCM.PN ---
- General Info Date of Service: 04/30/21 Functional Status: Reports: Pain Controlled, Tolerating Diet - Review of Systems General: Denies: Fever, Weakness Pulmonary: Denies: Shortness of Breath Cardiovascular: Denies: Chest Pain Gastrointestinal: Denies: Abdominal Pain Neurological: Denies: Confusion Psychiatric: Denies: Confusion - Patient Data Vitals - Most Recent: Last Vital Signs Temp 98.3 F 04/30/21 08:00 Pulse 71 04/30/21 09:31 Resp 18 04/30/21 08:00 BP 110/61 04/30/21 09:31 Pulse Ox 94 L 04/30/21 08:00 Weight - Most Recent: 203 lb 4.8 oz I&O - Last 24 Hours: Intake & Output 04/29/21 04/30/21 04/30/21 22:59 06:59 14:59 Intake Total 640 400 Output Total 2050 1000 Balance -1410 -600 Lab Results Last 24 Hours: Laboratory Results - last 24 hr 04/30/21 04/30/21 Range/Units 05:35 05:35 WBC 6.0 (5.0-10.0) 10^3/uL RBC 3.43 L (4.6-6.2) 10^6/uL Hgb 10.5 L (14.0-18.0) g/dL Hct 32.9 L (40.0-54.0) % MCV 95.9 (80-100) fL MCH 30.6 (27.0-34.0) pg MCHC 31.9 L (33.0-35.0) g/dL Plt Count 259 (150-450) 10^3/uL Neut % (Auto) 60.9 (42.2-75.2) % Lymph % (Auto) 20.4 L (20.5-50.1) % [place] % (Auto) 14.6 H (2-8) % Eos % (Auto) 2.8 (1.0-3.0) % Baso % (Auto) 1.3 H (0.0-1.0) % Sodium 141 (136-145) mmol/L Potassium 3.9 (3.5-5.1) mmol/L Chloride 106 (98-107) mmol/L Carbon Dioxide 27 (21-32) mmol/L Anion Gap 11.9 (7-13) mEq/L BUN 12 (7-18) mg/dL Creatinine 0.98 (0.70-1.30) mg/dL Est Cr Clr Drug Dosing 59.95 mL/min Estimated GFR (MDRD) > 60 Glucose 82 (70-99) mg/dL Calcium 8.0 L (8.5-10.1) mg/dL [place] Results Last 24 Hours: Microbiology 04/26/21 20:00 Aerobic Blood Culture - Preliminary Blood - Arm, Right NO GROWTH AFTER 3 DAYS Anaerobic Blood Culture - Preliminary NO GROWTH AFTER 3 DAYS 04/26/21 19:51 Aerobic Blood Culture - Preliminary Blood - Arm, Left NO GROWTH AFTER 3 DAYS Anaerobic Blood Culture - Preliminary NO GROWTH AFTER 3 DAYS Med Orders - Current: Current Medications Acetaminophen (Acetaminophen 325 Mg Tab) 650 mg PO Q4H PRN PRN Reason: Pain (Mild 1-3)/fever Last Admin: 04/27/21 21:08 Dose: 650 mg Documented by: Hydrocodone Bitart/Acetaminophen (Acetaminophen/Hydrocodone 325-5 Mg Tab) 1 tab PO Q6H PRN PRN Reason: Pain (moderate 4-6) Last Admin: 04/30/21 04:53 Dose: 1 tab Documented by: Albuterol/Ipratropium (Albuterol/Ipratropium 3.0-0.5 Mg/3 Ml Neb Soln) 3 ml NEB Q4H PRN PRN Reason: shortness of breath/wheezing Bacitracin (Bacitracin Oint 28.35 Gm Tube) 10 gm TOP DAILY [facility] Bisacodyl (Bisacodyl 5 Mg Tab) 5 mg PO DAILY PRN PRN Reason: Constipation Citalopram Hydrobromide (Citalopram 20 Mg Tab) 20 mg PO DAILY [facility] Last Admin: 04/30/21 09:32 Dose: 20 mg Documented by: Docusate Sodium (Docusate Sodium 100 Mg Cap) 100 mg PO BID PRN PRN Reason: Constipation Enoxaparin Sodium (Enoxaparin 40 Mg/0.4 Ml Syringe) 40 mg SUBCUT DAILY [facility] Last Admin: 04/30/21 09:33 Dose: 40 mg Documented by: Meropenem 1 gm/ Sodium (Chloride) 100 mls @ 200 mls/hr IV Q8HR [facility] Last Infusion: 04/30/21 06:03 Dose: Infused Documented by: Ampicillin Sodium 2 gm/ Sodium (Chloride) 100 mls @ 200 mls/hr IV Q6H [facility] Last Admin: 04/30/21 04:38 Dose: 200 mls/hr Documented by: Melatonin (Melatonin 3 Mg Tab) 3 mg PO BEDTIME PRN PRN Reason: Insomnia Last Admin: 04/30/21 00:17 Dose: 3 mg Documented by: Metoprolol Tartrate (Metoprolol Tartrate 25 Mg Tab) 75 mg PO BID [facility] Last Admin: 04/30/21 09:31 Dose: 75 mg Documented by: Nystatin (Nystatin Topical Powder 30 Gm Bottle) 0 gm TOP BID [facility] Last Admin: 04/29/21 20:02 Dose: 1 applic Documented by: Ondansetron HCl (Ondansetron 4 Mg/2 Ml Sdv) 4 mg IVPUSH Q6H PRN PRN Reason: Nausea/Vomiting Polyethylene Glycol (Polyethylene Glycol 3350 Powder 17 Gm Packet) 17 gm PO DAILY PRN PRN Reason: Constipation Senna/Docusate Sodium (Docusate Sodium/Sennosides 50-8.6 Mg Tab) 1 tab PO BEDTIME PRN PRN Reason: Constipation Sodium Chloride (Sodium Chloride 0.9% 10 Ml Syringe) 10 ml FLUSH ASDIRECTED PRN PRN Reason: IV Use Last Admin: 04/30/21 05:16 Dose: 10 ml Documented by: Zolpidem Tartrate (Zolpidem 5 Mg Tab) 5 mg PO BEDTIME PRN PRN Reason: Sleep Last Admin: 04/29/21 19:50 Dose: 5 mg Documented by: Discontinued Medications Acetaminophen (Acetaminophen 500 Mg Tab) 1,000 mg PO ONETIME ONE Stop: 04/26/21 12:54 Last Admin: 04/26/21 13:41 Dose: 1,000 mg Documented by: Adenosine (Adenosine 6 Mg/2 Ml Sdv) 6 mg IVPUSH NOW ONE Stop: 04/26/21 20:24 Last Admin: 04/26/21 20:40 Dose: 6 mg Documented by: Diltiazem HCl (Diltiazem 25 Mg/5 Ml Sdv) Confirm Administered Dose 25 mg .ROUTE .STK-MED ONE Stop: 04/26/21 20:22 Last Admin: 04/26/21 20:41 Dose: 25 mg Documented by: Ampicillin Sodium 2 gm/ Sodium (Chloride) 100 mls @ 200 mls/hr IV Q6H JOSLYN Last Admin: 04/29/21 15:18 Dose: Not Given Documented by: Piperacillin Sod/Tazobactam (Sod 3.375 gm/ Sodium Chloride) 100 mls @ 200 mls/hr IV ONETIME ONE Stop: 04/26/21 15:22 Last Admin: 04/29/21 15:18 Dose: Not Given Documented by: Sodium Chloride (Normal Saline) 1,000 mls @ 60 mls/hr IV ASDIRECTED [facility] Last Admin: 04/26/21 20:03 Dose: 60 mls/hr Documented by: Ampicillin Sodium 1 gm/ Sodium (Chloride) 100 mls @ 200 mls/hr IV Q8H JOSLYN Last Admin: 04/27/21 05:30 Dose: Not Given Documented by: Meropenem 1 gm/ Sodium (Chloride) 100 mls @ 200 mls/hr IV Q8HR JOSLYN Diltiazem HCl 125 mg/ Sodium (Chloride) 125 mls @ 5 mls/hr IV TITRATE [facility]; Protocol Last Admin: 04/26/21 20:42 Dose: 5 mg/hr, 5 mls/hr Documented by: Sodium Chloride (Normal Saline) 1,000 mls @ 999 mls/hr IV BOLUS ONE Stop: 04/26/21 21:24 Last Admin: 04/26/21 20:21 Dose: 999 mls/hr Documented by: Ampicillin Sodium 2 gm/ Sodium (Chloride) 100 mls @ 200 mls/hr IV Q6H [facility] Last Admin: 04/27/21 10:28 Dose: 200 mls/hr Documented by: Magnesium Sulfate/Dextrose (Magnesium Sulfate In D5w 1 Gm/100 Ml) 1 gm in 100 mls @ 100 mls/hr IV ONETIME ONE Stop: 04/26/21 23:59 Last Admin: 04/26/21 23:03 Dose: 100 mls/hr Documented by: Sterile Water (Sterile Water For Injection) Confirm Administered Dose 20 mls @ as directed .ROUTE .STK-MED ONE Stop: 04/27/21 03:56 Last Admin: 04/27/21 05:28 Dose: Not Given Documented by: Meropenem (Meropenem 1 Gm Sdv) 1 gm IVPUSH Q8H [facility] Last Admin: 04/26/21 21:00 Dose: Not Given Documented by: Non-Formulary Medication (Arginine/Ascorbate Sod/Carlos A Ac [Arginaid Powder]) 1 each PO BID JOSLYN Potassium Chloride (Potassium Chloride 10 Meq Tab.Er) 40 meq PO ONETIME ONE Stop: 04/26/21 22:10 Last Admin: 04/26/21 22:31 Dose: 40 meq Documented by: Potassium Chloride (Potassium Chloride 10 Meq Tab.Er) 40 meq PO BEDTIME JOSLYN Stop: 04/27/21 23:59 Last Admin: 04/27/21 21:08 Dose: 40 meq Documented by: Potassium Chloride (Potassium Chloride 10 Meq Tab.Er) 40 meq PO ONETIME ONE Stop: 04/29/21 08:16 Last Admin: 04/29/21 09:31 Dose: 40 meq Documented by: - Exam Quality Assessment: No: Supplemental Oxygen General: Alert, Oriented, Cooperative Neck: No JVD Lungs: Clear to Auscultation, Normal Respiratory Effort Cardiovascular: Regular Rate, Regular Rhythm GI/Abdominal Exam: Soft, Non-Tender Extremities: Pedal Edema (trace) Neurological: No New Focal Deficit Psy/Mental Status: Alert, Normal Affect - Patient Data Lab Results Last 24 hrs: Laboratory Results - last 24 hr 04/30/21 04/30/21 Range/Units 05:35 05:35 WBC 6.0 (5.0-10.0) 10^3/uL RBC 3.43 L (4.6-6.2) 10^6/uL Hgb 10.5 L (14.0-18.0) g/dL Hct 32.9 L (40.0-54.0) % MCV 95.9 (80-100) fL MCH 30.6 (27.0-34.0) pg MCHC 31.9 L (33.0-35.0) g/dL Plt Count 259 (150-450) 10^3/uL Neut % (Auto) 60.9 (42.2-75.2) % Lymph % (Auto) 20.4 L (20.5-50.1) % [place] % (Auto) 14.6 H (2-8) % Eos % (Auto) 2.8 (1.0-3.0) % Baso % (Auto) 1.3 H (0.0-1.0) % Sodium 141 (136-145) mmol/L Potassium 3.9 (3.5-5.1) mmol/L Chloride 106 (98-107) mmol/L Carbon Dioxide 27 (21-32) mmol/L Anion Gap 11.9 (7-13) mEq/L BUN 12 (7-18) mg/dL Creatinine 0.98 (0.70-1.30) mg/dL Est Cr Clr Drug Dosing 59.95 mL/min Estimated GFR (MDRD) > 60 Glucose 82 (70-99) mg/dL Calcium 8.0 L (8.5-10.1) mg/dL Result Diagrams: 04/30/21 05:35 04/30/21 05:35 [place] Results Last 24 hrs: Microbiology 04/26/21 20:00 Aerobic Blood Culture - Preliminary Blood - Arm, Right NO GROWTH AFTER 3 DAYS Anaerobic Blood Culture - Preliminary NO GROWTH AFTER 3 DAYS 04/26/21 19:51 Aerobic Blood Culture - Preliminary Blood - Arm, Left NO GROWTH AFTER 3 DAYS Anaerobic Blood Culture - Preliminary NO GROWTH AFTER 3 DAYS Sepsis Event Note - Evaluation Sepsis Screening Result: No Definite Risk - Focused Exam Vital Signs: Vital Signs Temp Pulse Pulse Resp BP BP BP 04/30/21 09:31 71 110/61 04/30/21 08:00 98.3 F 76 18 110/61 04/30/21 04:30 98 F 76 20 103/50 L Pulse Ox 04/30/21 09:31 04/30/21 08:00 94 L 04/30/21 04:30 94 L - Problem List Review Problem List Initiated/Reviewed/Updated: No - My Orders Last 24 Hours: My Active Orders 04/30/21 11:45 Bacitracin [Bacitracin Oint] 10 gm TOP DAILY - Plan Plan:: Left hip injury / post fall at home: CT scan showed no fx. Advanced MS/ Bed bound, inability to care for self independently. [facility] is working with pt and his sons for possible placement. SVT on 04/26: resolved after Adenosine. DC Cardizem and resume home Lopressor. Post recent Severe sepsis due to UTI with Enterobacter and enterococcus: completed his treatment last admission. His Cult were neg on discharge. w ll DC antibiotics in AM. Chronic Whyte: Whyte was last changed on Apr 2304/2021. TO f/u with PCP Herpes labialis: completed treatment with acyclovir.. Post MAIA: ATN/ hypovolemia ( last admission Cr improved from 7.44 on admission to 1.05 on discharge). Back to [place]. B hydronephrosis. ??? midline obstruction. was advised to f/u oupt urology. Skin lesion to RT knee : for outpt dermatology evaluation. Depression: started on Celexa. Decubitus prophylaxis: to continue care at home. DNR/ DNI
[2021-04-30] MEDS: Bacitracin Oint 28.35 GM Tube TOP SCH (11:59)
[2021-04-30] MEDS: Nystatin Topical Powder 30 GM Bottle TOP SCH ×2 (12:04→20:39)
[2021-05-01] MEDS: Ampicillin 2 GM in Sodium Chloride 0.9% 100 ML IV SCH ×2 (04:50→15:33)
[2021-05-01] MEDS: Acetaminophen/HYDROcodone 325-5 MG Tab PO PRN ×2 (04:56→10:36)
[2021-05-01] MEDS: Meropenem 1 GM in Sodium Chloride 0.9% 100 ML IV SCH (06:21)
[2021-05-01] MEDS: Citalopram 20 MG Tab PO SCH (09:52)
[2021-05-01] MEDS: Metoprolol Tartrate 25 MG Tab PO SCH ×2 (09:52→20:22)
[2021-05-01] MEDS: Bacitracin Oint 28.35 GM Tube TOP SCH (09:53)
[2021-05-01] MEDS: Enoxaparin 40 MG/0.4 ML Syringe SUBCUT SCH (09:53)
[2021-05-01] MEDS: Nystatin Topical Powder 30 GM Bottle TOP SCH ×2 (10:34→20:27)
--- NOTE | 2021-05-01 11:55 | PCM.PN ---
- General Info Date of Service: 05/01/21 Functional Status: Reports: Pain Controlled, Tolerating Diet - Review of Systems General: Denies: Fever Pulmonary: Denies: Shortness of Breath Cardiovascular: Denies: Chest Pain Gastrointestinal: Denies: Abdominal Pain Neurological: Reports: No Symptoms. Denies: Confusion Psychiatric: Denies: Confusion - Patient Data Vitals - Most Recent: Last Vital Signs Temp 97.7 F 05/01/21 08:00 Pulse 76 05/01/21 09:52 Resp 18 05/01/21 08:00 BP 138/69 05/01/21 09:52 Pulse Ox 94 L 05/01/21 08:00 Weight - Most Recent: 202 lb 14.4 oz I&O - Last 24 Hours: Intake & Output 04/30/21 05/01/21 05/01/21 22:59 06:59 14:59 Intake Total 410 Output Total 1000 1100 Balance -590 -1100 [place] Results Last 24 Hours: Microbiology 04/26/21 20:00 Aerobic Blood Culture - Preliminary Blood - Arm, Right NO GROWTH AFTER 4 DAYS Anaerobic Blood Culture - Preliminary NO GROWTH AFTER 4 DAYS 04/26/21 19:51 Aerobic Blood Culture - Preliminary Blood - Arm, Left NO GROWTH AFTER 4 DAYS Anaerobic Blood Culture - Preliminary NO GROWTH AFTER 4 DAYS Med Orders - Current: Current Medications Acetaminophen (Acetaminophen 325 Mg Tab) 650 mg PO Q4H PRN PRN Reason: Pain (Mild 1-3)/fever Last Admin: 04/27/21 21:08 Dose: 650 mg Documented by: Hydrocodone Bitart/Acetaminophen (Acetaminophen/Hydrocodone 325-5 Mg Tab) 1 tab PO Q6H PRN PRN Reason: Pain (moderate 4-6) Last Admin: 05/01/21 10:36 Dose: 1 tab Documented by: Albuterol/Ipratropium (Albuterol/Ipratropium 3.0-0.5 Mg/3 Ml Neb Soln) 3 ml NEB Q4H PRN PRN Reason: shortness of breath/wheezing Bacitracin (Bacitracin Oint 28.35 Gm Tube) 0 gm TOP DAILY JOSLYN Last Admin: 05/01/21 09:53 Dose: 1 applic Documented by: Bisacodyl (Bisacodyl 5 Mg Tab) 5 mg PO DAILY PRN PRN Reason: Constipation Citalopram Hydrobromide (Citalopram 20 Mg Tab) 20 mg PO DAILY [facility] Last Admin: 05/01/21 09:52 Dose: 20 mg Documented by: Docusate Sodium (Docusate Sodium 100 Mg Cap) 100 mg PO BID PRN PRN Reason: Constipation Enoxaparin Sodium (Enoxaparin 40 Mg/0.4 Ml Syringe) 40 mg SUBCUT DAILY [facility] Last Admin: 05/01/21 09:53 Dose: 40 mg Documented by: Melatonin (Melatonin 3 Mg Tab) 3 mg PO BEDTIME PRN PRN Reason: Insomnia Last Admin: 04/30/21 00:17 Dose: 3 mg Documented by: Metoprolol Tartrate (Metoprolol Tartrate 25 Mg Tab) 75 mg PO BID [facility] Last Admin: 05/01/21 09:52 Dose: 75 mg Documented by: Nystatin (Nystatin Topical Powder 30 Gm Bottle) 0 gm TOP BID [facility] Last Admin: 05/01/21 10:34 Dose: 1 applic Documented by: Ondansetron HCl (Ondansetron 4 Mg/2 Ml Sdv) 4 mg IVPUSH Q6H PRN PRN Reason: Nausea/Vomiting Polyethylene Glycol (Polyethylene Glycol 3350 Powder 17 Gm Packet) 17 gm PO DAILY PRN PRN Reason: Constipation Senna/Docusate Sodium (Docusate Sodium/Sennosides 50-8.6 Mg Tab) 1 tab PO BEDTIME PRN PRN Reason: Constipation Sodium Chloride (Sodium Chloride 0.9% 10 Ml Syringe) 10 ml FLUSH ASDIRECTED PRN PRN Reason: IV Use Last Admin: 04/30/21 11:58 Dose: 10 ml Documented by: Zolpidem Tartrate (Zolpidem 5 Mg Tab) 5 mg PO BEDTIME PRN PRN Reason: Sleep Last Admin: 04/29/21 19:50 Dose: 5 mg Documented by: Discontinued Medications Acetaminophen (Acetaminophen 500 Mg Tab) 1,000 mg PO ONETIME ONE Stop: 04/26/21 12:54 Last Admin: 04/26/21 13:41 Dose: 1,000 mg Documented by: Adenosine (Adenosine 6 Mg/2 Ml Sdv) 6 mg IVPUSH NOW ONE Stop: 04/26/21 20:24 Last Admin: 04/26/21 20:40 Dose: 6 mg Documented by: Diltiazem HCl (Diltiazem 25 Mg/5 Ml Sdv) Confirm Administered Dose 25 mg .ROUTE .STK-MED ONE Stop: 04/26/21 20:22 Last Admin: 04/26/21 20:41 Dose: 25 mg Documented by: Ampicillin Sodium 2 gm/ Sodium (Chloride) 100 mls @ 200 mls/hr IV Q6H [facility] Last Admin: 04/29/21 15:18 Dose: Not Given Documented by: Piperacillin Sod/Tazobactam (Sod 3.375 gm/ Sodium Chloride) 100 mls @ 200 mls/hr IV ONETIME ONE Stop: 04/26/21 15:22 Last Admin: 04/29/21 15:18 Dose: Not Given Documented by: Sodium Chloride (Normal Saline) 1,000 mls @ 60 mls/hr IV ASDIRECTED [facility] Last Admin: 04/26/21 20:03 Dose: 60 mls/hr Documented by: Ampicillin Sodium 1 gm/ Sodium (Chloride) 100 mls @ 200 mls/hr IV Q8H [facility] Last Admin: 04/27/21 05:30 Dose: Not Given Documented by: Meropenem 1 gm/ Sodium (Chloride) 100 mls @ 200 mls/hr IV Q8HR [facility] Diltiazem HCl 125 mg/ Sodium (Chloride) 125 mls @ 5 mls/hr IV TITRATE [facility]; Protocol Last Admin: 04/26/21 20:42 Dose: 5 mg/hr, 5 mls/hr Documented by: Sodium Chloride (Normal Saline) 1,000 mls @ 999 mls/hr IV BOLUS ONE Stop: 04/26/21 21:24 Last Admin: 04/26/21 20:21 Dose: 999 mls/hr Documented by: Ampicillin Sodium 2 gm/ Sodium (Chloride) 100 mls @ 200 mls/hr IV Q6H [facility] Last Admin: 04/27/21 10:28 Dose: 200 mls/hr Documented by: Meropenem 1 gm/ Sodium (Chloride) 100 mls @ 200 mls/hr IV Q8HR [facility] Last Admin: 05/01/21 06:21 Dose: 200 mls/hr Documented by: Magnesium Sulfate/Dextrose (Magnesium Sulfate In D5w 1 Gm/100 Ml) 1 gm in 100 mls @ 100 mls/hr IV ONETIME ONE Stop: 04/26/21 23:59 Last Admin: 04/26/21 23:03 Dose: 100 mls/hr Documented by: Sterile Water (Sterile Water For Injection) Confirm Administered Dose 20 mls @ as directed .ROUTE .STK-MED ONE Stop: 04/27/21 03:56 Last Admin: 04/27/21 05:28 Dose: Not Given Documented by: Ampicillin Sodium 2 gm/ Sodium (Chloride) 100 mls @ 200 mls/hr IV Q6H [facility] Last Admin: 05/01/21 04:50 Dose: 200 mls/hr Documented by: Meropenem (Meropenem 1 Gm Sdv) 1 gm IVPUSH Q8H [facility] Last Admin: 04/26/21 21:00 Dose: Not Given Documented by: Non-Formulary Medication (Arginine/Ascorbate Sod/Carlos A Ac [Arginaid Powder]) 1 each PO BID [facility] Potassium Chloride (Potassium Chloride 10 Meq Tab.Er) 40 meq PO ONETIME ONE Stop: 04/26/21 22:10 Last Admin: 04/26/21 22:31 Dose: 40 meq Documented by: Potassium Chloride (Potassium Chloride 10 Meq Tab.Er) 40 meq PO BEDTIME [facility] Stop: 04/27/21 23:59 Last Admin: 04/27/21 21:08 Dose: 40 meq Documented by: Potassium Chloride (Potassium Chloride 10 Meq Tab.Er) 40 meq PO ONETIME ONE Stop: 04/29/21 08:16 Last Admin: 04/29/21 09:31 Dose: 40 meq Documented by: - Exam Quality Assessment: No: Supplemental Oxygen General: Alert, Oriented, Cooperative Neck: No JVD Lungs: Normal Respiratory Effort Cardiovascular: Regular Rate, Regular Rhythm GI/Abdominal Exam: Soft, Non-Tender Extremities: Pedal Edema, Limited Range of Motion Skin: Warm, Dry Neurological: No New Focal Deficit Psy/Mental Status: Alert, Normal Affect - Patient Data Result Diagrams: 04/30/21 05:35 04/30/21 05:35 [place] Results Last 24 hrs: Microbiology 04/26/21 20:00 Aerobic Blood Culture - Preliminary Blood - Arm, Right NO GROWTH AFTER 4 DAYS Anaerobic Blood Culture - Preliminary NO GROWTH AFTER 4 DAYS 04/26/21 19:51 Aerobic Blood Culture - Preliminary Blood - Arm, Left NO GROWTH AFTER 4 DAYS Anaerobic Blood Culture - Preliminary NO GROWTH AFTER 4 DAYS Sepsis Event Note - Evaluation Sepsis Screening Result: No Definite Risk - Focused Exam Vital Signs: Vital Signs Temp Pulse Pulse Resp BP BP Pulse Ox 05/01/21 09:52 76 138/69 05/01/21 08:00 97.7 F 76 18 139/68 94 L 05/01/21 04:00 98.7 F 76 20 109/57 L 95 - Problem List Review Problem List Initiated/Reviewed/Updated: No - My Orders Last 24 Hours: My Active Orders 04/30/21 11:45 Bacitracin [Bacitracin Oint] 0 gm TOP DAILY - Plan Plan:: Left hip injury / post fall at home: CT scan showed no fx. Advanced MS/ Bed bound, inability to care for self independently. [facility] is working with pt and his sons for possible placement,. However, no available beds so far. SVT on 04/26: resolved after Adenosine. DC Cardizem and resume home Lopressor. Post recent Severe sepsis due to UTI with Enterobacter and enterococcus: completed his treatment last admission. His Cult were neg on discharge. completed his antibiotics. Chronic Whyte: Whyte was last changed on Apr 2304/2021. TO f/u with PCP Herpes labialis: completed treatment with acyclovir.. Post MAIA: ATN/ hypovolemia ( last admission Cr improved from 7.44 on admission to 1.05 on discharge). Back to [place]. B hydronephrosis. ??? midline obstruction. was advised to f/u oupt urology. Wt loss: pt states that he is trying to lose wt to less than 200 Lbs by his intention. Skin lesion to RT knee : for outpt dermatology evaluation. Depression: started on Celexa. Decubitus prophylaxis: to continue care at home. DNR/ DNI
[2021-05-01] MEDS: Acetaminophen 325 MG Tab PO PRN (20:22)
[2021-05-01] MEDS: Melatonin 3 MG Tab PO PRN (20:23)
[2021-05-02] MEDS: Acetaminophen/HYDROcodone 325-5 MG Tab PO PRN ×2 (08:05→19:19)
[2021-05-02] MEDS: Metoprolol Tartrate 25 MG Tab PO SCH ×2 (09:30→21:08)
[2021-05-02] MEDS: Citalopram 20 MG Tab PO SCH (09:31)
[2021-05-02] MEDS: Bacitracin Oint 28.35 GM Tube TOP SCH (09:31)
[2021-05-02] MEDS: Nystatin Topical Powder 30 GM Bottle TOP SCH ×2 (09:31→21:08)
[2021-05-02] MEDS: Enoxaparin 40 MG/0.4 ML Syringe SUBCUT SCH (09:31)
[2021-05-02] MEDS: Sodium Chloride 0.9% 10 ML Syringe FLUSH PRN (09:33)
[2021-05-02] MEDS: Zolpidem 5 MG Tab PO PRN (21:08)
[2021-05-03] MEDS: Sodium Chloride 0.9% 10 ML Syringe FLUSH PRN (05:44)
[2021-05-03] MEDS: Citalopram 20 MG Tab PO SCH (08:01)
[2021-05-03] MEDS: Metoprolol Tartrate 25 MG Tab PO SCH (08:01)
[2021-05-03] MEDS: Enoxaparin 40 MG/0.4 ML Syringe SUBCUT SCH (08:03)
[2021-05-03] MEDS: Bacitracin Oint 28.35 GM Tube TOP SCH (08:03)
--- NOTE | 2021-05-03 08:03 | PCM.DCSUM1 ---
Discharge Summary - Hospital Course Free Text/Narrative:: Luan is a 76-year-old man who has had multiple hospitalizations recently. He has advancing multiple sclerosis, and was recently admitted to this facility with urosepsis. He was discharged home on home health, but apparently over the last 10 days had done increasingly poorly at home, was having difficulties with any of his ADLs. He had another fall at home 5 days ago, and was readmitted to the hospital here. Upon his admission, he had physical and Occupational Therapy visit him frequently, but it was increasingly obvious that he would not be able to gain enough strength and mobility functioning back to be able to live independently at home. He and his family made the difficult decision to admit him to a local residential. Placement was found, and on day of discharge, he was overall doing well, although still very weak and requiring assistance with all of his ADLs. - Discharge Data Discharge Date: 05/03/21 Discharge Disposition: DC/Tfer to [facility] Condition: Fair - Referral to Home Health Date of Face to Face Encounter: 05/03/21 Primary Care Physician: PCP None - Patient Summary/Data Consults: Consultations 04/26/21 15:37 Consult to Case Management/[place] Tab [CONS] Routine - Discharge Plan *PRESCRIPTION DRUG MONITORING PROGRAM REVIEWED*: Not Applicable *COPY OF PRESCRIPTION DRUG MONITORING REPORT IN PATIENT [place]: Not Applicable Prescriptions/Med Rec: Arginine/Ascorbate Sod/Carlos A AC [Arginaid Powder] 1 each PO BID #60 powd.pack Citalopram [Citalopram HBr] 20 mg PO DAILY #90 tablet Albuterol/Ipratropium [DuoNeb 3.0-0.5 MG/3 ML] 3 ml NEB Q4H PRN #360 ml PRN Reason: shortness of breath/wheezing Metoprolol Tartrate 75 mg PO BID #60 polyethylene glycoL 3350 [MiraLAX] 17 gm PO DAILY PRN #30 packet PRN Reason: Constipation Nystatin [Nystop] 0 gm TOP BID #1 bottle Docusate Sodium/Sennosides [Senna Plus] 1 tab PO BEDTIME PRN #30 tablet PRN Reason: Constipation Acetaminophen [Tylenol Arthritis] 650 mg PO Q6H PRN #120 tablet.er PRN Reason: Pain Home Medications: Home Meds Acetaminophen [Tylenol Arthritis] 650 mg PO Q6H PRN #120 tablet.er 05/03/21 [Rx] Albuterol/Ipratropium [DuoNeb 3.0-0.5 MG/3 ML] 3 ml NEB Q4H PRN #360 ml 05/03/21 [Rx] Arginine/Ascorbate Sod/Carlos A AC [Arginaid Powder] 1 each PO BID #60 powd.pack 05/03/21 [Rx] Citalopram [Citalopram HBr] 20 mg PO DAILY #90 tablet 05/03/21 [Rx] Docusate Sodium/Sennosides [Senna Plus] 1 tab PO BEDTIME PRN #30 tablet 05/03/21 [Rx] Metoprolol Tartrate 75 mg PO BID #60 05/03/21 [Rx] Nystatin [Nystop] 0 gm TOP BID #1 bottle 05/03/21 [Rx] polyethylene glycoL 3350 [MiraLAX] 17 gm PO DAILY PRN #30 packet 05/03/21 [Rx] - Discharge Summary/Plan Comment DC Time >30 min.: No Total # of Minutes for Discharge Time: 15 Discharge Summary/Plan Comment: Discharge diagnoses: 1. 76-year-old man with advancing multiple sclerosis, with worsening weakness 2. Multiple recent falls at home Discharge plan: 1. He is being discharged to a local residential for further rehabilitation and care. He will be following up with his primary care physician sometime next week. - General Info Date of Service: 05/03/21 Admission Dx/Problem (Free Text: Admission Diagnosis/Problem Admission Diagnosis/Problem Falls Subjective Update: See discharge summary - Patient Data Vitals - Most Recent: Last Vital Signs Temp 98.5 F 05/03/21 03:12 Pulse 76 05/03/21 03:12 Resp 20 05/03/21 03:12 BP 116/56 L 05/03/21 03:12 Pulse Ox 94 L 05/03/21 03:12 Weight - Most Recent: 192 lb 4.8 oz I&O - Last 24 hours: Intake & Output 05/02/21 05/03/21 05/03/21 22:59 06:59 14:59 Intake Total 420 150 Output Total 775 1100 Balance -355 -950 Lab Results - Last 24 hrs: Laboratory Results - last 24 hr 05/03/21 Range/Units 05:45 SARS-CoV-2 RNA (DAYAMI) Negative (NEGATIVE) Med Orders - Current: Current Medications Acetaminophen (Acetaminophen 325 Mg Tab) 650 mg PO Q4H PRN PRN Reason: Pain (Mild 1-3)/fever Last Admin: 05/01/21 20:22 Dose: 650 mg Documented by: Hydrocodone Bitart/Acetaminophen (Acetaminophen/Hydrocodone 325-5 Mg Tab) 1 tab PO Q6H PRN PRN Reason: Pain (moderate 4-6) Last Admin: 05/02/21 19:19 Dose: 1 tab Documented by: Albuterol/Ipratropium (Albuterol/Ipratropium 3.0-0.5 Mg/3 Ml Neb Soln) 3 ml NEB Q4H PRN PRN Reason: shortness of breath/wheezing Bacitracin (Bacitracin Oint 28.35 Gm Tube) 0 gm TOP DAILY COUNT INCLUDES THE [facility] Last Admin: 05/02/21 09:31 Dose: 1 applic Documented by: Bisacodyl (Bisacodyl 5 Mg Tab) 5 mg PO DAILY PRN PRN Reason: Constipation Citalopram Hydrobromide (Citalopram 20 Mg Tab) 20 mg PO DAILY COUNT INCLUDES THE [facility] Last Admin: 05/02/21 09:31 Dose: 20 mg Documented by: Docusate Sodium (Docusate Sodium 100 Mg Cap) 100 mg PO BID PRN PRN Reason: Constipation Enoxaparin Sodium (Enoxaparin 40 Mg/0.4 Ml Syringe) 40 mg SUBCUT DAILY COUNT INCLUDES THE [facility] Last Admin: 05/02/21 09:31 Dose: 40 mg Documented by: Melatonin (Melatonin 3 Mg Tab) 3 mg PO BEDTIME PRN PRN Reason: Insomnia Last Admin: 05/01/21 20:23 Dose: 3 mg Documented by: Metoprolol Tartrate (Metoprolol Tartrate 25 Mg Tab) 75 mg PO BID COUNT INCLUDES THE [facility] Last Admin: 05/02/21 21:08 Dose: 75 mg Documented by: Nystatin (Nystatin Topical Powder 30 Gm Bottle) 0 gm TOP BID COUNT INCLUDES THE [facility] Last Admin: 05/02/21 21:08 Dose: 1 applic Documented by: Ondansetron HCl (Ondansetron 4 Mg/2 Ml Sdv) 4 mg IVPUSH Q6H PRN PRN Reason: Nausea/Vomiting Last Admin: 05/03/21 05:44 Dose: 4 mg Documented by: Polyethylene Glycol (Polyethylene Glycol 3350 Powder 17 Gm Packet) 17 gm PO DAILY PRN PRN Reason: Constipation Senna/Docusate Sodium (Docusate Sodium/Sennosides 50-8.6 Mg Tab) 1 tab PO B EDTIME PRN PRN Reason: Constipation Sodium Chloride (Sodium Chloride 0.9% 10 Ml Syringe) 10 ml FLUSH ASDIRECTED PRN PRN Reason: IV Use Last Admin: 05/03/21 05:44 Dose: 10 ml Documented by: Zolpidem Tartrate (Zolpidem 5 Mg Tab) 5 mg PO BEDTIME PRN PRN Reason: Sleep Last Admin: 05/02/21 21:08 Dose: 5 mg Documented by: Discontinued Medications Acetaminophen (Acetaminophen 500 Mg Tab) 1,000 mg PO ONETIME ONE Stop: 04/26/21 12:54 Last Admin: 04/26/21 13:41 Dose: 1,000 mg Documented by: Adenosine (Adenosine 6 Mg/2 Ml Sdv) 6 mg IVPUSH NOW ONE Stop: 04/26/21 20:24 Last Admin: 04/26/21 20:40 Dose: 6 mg Documented by: Diltiazem HCl (Diltiazem 25 Mg/5 Ml Sdv) Confirm Administered Dose 25 mg .ROUTE .STK-MED ONE Stop: 04/26/21 20:22 Last Admin: 04/26/21 20:41 Dose: 25 mg Documented by: Ampicillin Sodium 2 gm/ Sodium (Chloride) 100 mls @ 200 mls/hr IV Q6H COUNT INCLUDES THE [facility] Last Admin: 04/29/21 15:18 Dose: Not Given Documented by: Piperacillin Sod/Tazobactam (Sod 3.375 gm/ Sodium Chloride) 100 mls @ 200 mls/hr IV ONETIME ONE Stop: 04/26/21 15:22 Last Admin: 04/29/21 15:18 Dose: Not Given Documented by: Sodium Chloride (Normal Saline) 1,000 mls @ 60 mls/hr IV ASDIRECTED COUNT INCLUDES THE [facility] Last Admin: 04/26/21 20:03 Dose: 60 mls/hr Documented by: Ampicillin Sodium 1 gm/ Sodium (Chloride) 100 mls @ 200 mls/hr IV Q8H COUNT INCLUDES THE [facility] Last Admin: 04/27/21 05:30 Dose: Not Given Documented by: Meropenem 1 gm/ Sodium (Chloride) 100 mls @ 200 mls/hr IV Q8HR COUNT INCLUDES THE [facility] Diltiazem HCl 125 mg/ Sodium (Chloride) 125 mls @ 5 mls/hr IV TITRATE JOSLYN; Protocol Last Admin: 04/26/21 20:42 Dose: 5 mg/hr, 5 mls/hr Documented by: Sodium Chloride (Normal Saline) 1,000 mls @ 999 mls/hr IV BOLUS ONE Stop: 04/26/21 21:24 Last Admin: 04/26/21 20:21 Dose: 999 mls/hr Documented by: Ampicillin Sodium 2 gm/ Sodium (Chloride) 100 mls @ 200 mls/hr IV Q6H COUNT INCLUDES THE [facility] Last Admin: 04/27/21 10:28 Dose: 200 mls/hr Documented by: Meropenem 1 gm/ Sodium (Chloride) 100 mls @ 200 mls/hr IV Q8HR COUNT INCLUDES THE [facility] Last Admin: 05/01/21 06:21 Dose: 200 mls/hr Documented by: Magnesium Sulfate/Dextrose (Magnesium Sulfate In D5w 1 Gm/100 Ml) 1 gm in 100 mls @ 100 mls/hr IV ONETIME ONE Stop: 04/26/21 23:59 Last Admin: 04/26/21 23:03 Dose: 100 mls/hr Documented by: Sterile Water (Sterile Water For Injection) Confirm Administered Dose 20 mls @ as directed .ROUTE .STK-MED ONE Stop: 04/27/21 03:56 Last Admin: 04/27/21 05:28 Dose: Not Given Documented by: Ampicillin Sodium 2 gm/ Sodium (Chloride) 100 mls @ 200 mls/hr IV Q6H COUNT INCLUDES THE [facility] Last Admin: 05/01/21 15:33 Dose: Not Given Documented by: Meropenem (Meropenem 1 Gm Sdv) 1 gm IVPUSH Q8H COUNT INCLUDES THE [facility] Last Admin: 04/26/21 21:00 Dose: Not Given Documented by: Non-Formulary Medication (Arginine/Ascorbate Sod/Carlos A Ac [Arginaid Powder]) 1 each PO BID COUNT INCLUDES THE [facility] Potassium Chloride (Potassium Chloride 10 Meq Tab.Er) 40 meq PO ONETIME ONE Stop: 04/26/21 22:10 Last Admin: 04/26/21 22:31 Dose: 40 meq Documented by: Potassium Chloride (Potassium Chloride 10 Meq Tab.Er) 40 meq PO BEDTIME JOSLYN Stop: 04/27/21 23:59 Last Admin: 04/27/21 21:08 Dose: 40 meq Documented by: Potassium Chloride (Potassium Chloride 10 Meq Tab.Er) 40 meq PO ONETIME ONE Stop: 04/29/21 08:16 Last Admin: 04/29/21 09:31 Dose: 40 meq Documented by: - Exam Physical Findings Comments:: Discharge exam: Luan is a 76-year-old man in no acute distress Oropharynx is clear, mucous membranes are moist Heart: Regular rate and rhythm, 1 out of 6 to 2 out of 6 systolic murmur best heard over the left sternal border Lungs: Clear to auscultation throughout Neurological: Neurological exam is difficult because of his multiple sclerosis. I do not see any new deficits or any concerning advancing symptoms
[2021-05-03] MEDS: Nystatin Topical Powder 30 GM Bottle TOP SCH (08:04)
--- NOTE | 2021-05-06 13:25 | PCM.PN ---
- General Info Date of Service: 05/02/21 Admission Dx/Problem (Free Text): Admission Diagnosis/Problem Admission Diagnosis/Problem Falls Subjective Update: Luan is continuing to do fairly well. He really has not made any progress with his strengthening or his ability to do his ADLs for himself. He has snf placement pending tomorrow. Nursing has no further concerns at this time. - Patient Data Vitals - Most Recent: Last Vital Signs Temp 100.2 F 05/03/21 08:00 Pulse 83 05/03/21 08:01 Resp 18 05/03/21 08:00 BP 102/58 L 05/03/21 08:01 Pulse Ox 94 L 05/03/21 08:00 Weight - Most Recent: 192 lb 4.8 oz Med Orders - Current: Current Medications Discontinued Medications Acetaminophen (Acetaminophen 500 Mg Tab) 1,000 mg PO ONETIME ONE Stop: 04/26/21 12:54 Last Admin: 04/26/21 13:41 Dose: 1,000 mg Documented by: Acetaminophen (Acetaminophen 325 Mg Tab) 650 mg PO Q4H PRN PRN Reason: Pain (Mild 1-3)/fever Last Admin: 05/01/21 20:22 Dose: 650 mg Documented by: Hydrocodone Bitart/Acetaminophen (Acetaminophen/Hydrocodone 325-5 Mg Tab) 1 tab PO Q6H PRN PRN Reason: Pain (moderate 4-6) Last Admin: 05/02/21 19:19 Dose: 1 tab Documented by: Adenosine (Adenosine 6 Mg/2 Ml Sdv) 6 mg IVPUSH NOW ONE Stop: 04/26/21 20:24 Last Admin: 04/26/21 20:40 Dose: 6 mg Documented by: Albuterol/Ipratropium (Albuterol/Ipratropium 3.0-0.5 Mg/3 Ml Neb Soln) 3 ml NEB Q4H PRN PRN Reason: shortness of breath/wheezing Bacitracin (Bacitracin Oint 28.35 Gm Tube) 0 gm TOP DAILY JOSLYN Last Admin: 05/03/21 08:03 Dose: 1 applic Documented by: Bisacodyl (Bisacodyl 5 Mg Tab) 5 mg PO DAILY PRN PRN Reason: Constipation Citalopram Hydrobromide (Citalopram 20 Mg Tab) 20 mg PO DAILY JOSLYN Last Admin: 05/03/21 08:01 Dose: 20 mg Documented by: Diltiazem HCl (Diltiazem 25 Mg/5 Ml Sdv) Confirm Administered Dose 25 mg .ROUTE .STK-MED ONE Stop: 04/26/21 20:22 Last Admin: 04/26/21 20:41 Dose: 25 mg Documented by: Docusate Sodium (Docusate Sodium 100 Mg Cap) 100 mg PO BID PRN PRN Reason: Constipation Enoxaparin Sodium (Enoxaparin 40 Mg/0.4 Ml Syringe) 40 mg SUBCUT DAILY [facility] Last Admin: 05/03/21 08:03 Dose: 40 mg Documented by: Ampicillin Sodium 2 gm/ Sodium (Chloride) 100 mls @ 200 mls/hr IV Q6H [facility] Last Admin: 04/29/21 15:18 Dose: Not Given Documented by: Piperacillin Sod/Tazobactam (Sod 3.375 gm/ Sodium Chloride) 100 mls @ 200 mls/hr IV ONETIME ONE Stop: 04/26/21 15:22 Last Admin: 04/29/21 15:18 Dose: Not Given Documented by: Sodium Chloride (Normal Saline) 1,000 mls @ 60 mls/hr IV ASDIRECTED [facility] Last Admin: 04/26/21 20:03 Dose: 60 mls/hr Documented by: Ampicillin Sodium 1 gm/ Sodium (Chloride) 100 mls @ 200 mls/hr IV Q8H [facility] Last Admin: 04/27/21 05:30 Dose: Not Given Documented by: Meropenem 1 gm/ Sodium (Chloride) 100 mls @ 200 mls/hr IV Q8HR [facility] Diltiazem HCl 125 mg/ Sodium (Chloride) 125 mls @ 5 mls/hr IV TITRATE [facility]; Protocol Last Admin: 04/26/21 20:42 Dose: 5 mg/hr, 5 mls/hr Documented by: Sodium Chloride (Normal Saline) 1,000 mls @ 999 mls/hr IV BOLUS ONE Stop: 04/26/21 21:24 Last Admin: 04/26/21 20:21 Dose: 999 mls/hr Documented by: Ampicillin Sodium 2 gm/ Sodium (Chloride) 100 mls @ 200 mls/hr IV Q6H [facility] Last Admin: 04/27/21 10:28 Dose: 200 mls/hr Documented by: Meropenem 1 gm/ Sodium (Chloride) 100 mls @ 200 mls/hr IV Q8HR [facility] Last Admin: 05/01/21 06:21 Dose: 200 mls/hr Documented by: Magnesium Sulfate/Dextrose (Magnesium Sulfate In D5w 1 Gm/100 Ml) 1 gm in 100 mls @ 100 mls/hr IV ONETIME ONE Stop: 04/26/21 23:59 Last Admin: 04/26/21 23:03 Dose: 100 mls/hr Documented by: Sterile Water (Sterile Water For Injection) Confirm Administered Dose 20 mls @ as directed .ROUTE .STK-MED ONE Stop: 04/27/21 03:56 Last Admin: 04/27/21 05:28 Dose: Not Given Documented by: Ampicillin Sodium 2 gm/ Sodium (Chloride) 100 mls @ 200 mls/hr IV Q6H [facility] Last Admin: 05/01/21 15:33 Dose: Not Given Documented by: Melatonin (Melatonin 3 Mg Tab) 3 mg PO BEDTIME PRN PRN Reason: Insomnia Last Admin: 05/01/21 20:23 Dose: 3 mg Documented by: Meropenem (Meropenem 1 Gm Sdv) 1 gm IVPUSH Q8H [facility] Last Admin: 04/26/21 21:00 Dose: Not Given Documented by: Metoprolol Tartrate (Metoprolol Tartrate 25 Mg Tab) 75 mg PO BID [facility] Last Admin: 05/03/21 08:01 Dose: 75 mg Documented by: Non-Formulary Medication (Arginine/Ascorbate Sod/Carlos A Ac [Arginaid Powder]) 1 each PO BID [facility] Nystatin (Nystatin Topical Powder 30 Gm Bottle) 0 gm TOP BID [facility] Last Admin: 05/03/21 08:04 Dose: 1 applic Documented by: Ondansetron HCl (Ondansetron 4 Mg/2 Ml Sdv) 4 mg IVPUSH Q6H PRN PRN Reason: Nausea/Vomiting Last Admin: 05/03/21 05:44 Dose: 4 mg Documented by: Polyethylene Glycol (Polyethylene Glycol 3350 Powder 17 Gm Packet) 17 gm PO DAILY PRN PRN Reason: Constipation Potassium Chloride (Potassium Chloride 10 Meq Tab.Er) 40 meq PO ONETIME ONE Stop: 04/26/21 22:10 Last Admin: 04/26/21 22:31 Dose: 40 meq Documented by: Potassium Chloride (Potassium Chloride 10 Meq Tab.Er) 40 meq PO BEDTIME JOSLYN Stop: 04/27/21 23:59 Last Admin: 04/27/21 21:08 Dose: 40 meq Documented by: Potassium Chloride (Potassium Chloride 10 Meq Tab.Er) 40 meq PO ONETIME ONE Stop: 04/29/21 08:16 Last Admin: 04/29/21 09:31 Dose: 40 meq Documented by: Senna/Docusate Sodium (Docusate Sodium/Sennosides 50-8.6 Mg Tab) 1 tab PO BEDTIME PRN PRN Reason: Constipation Sodium Chloride (Sodium Chloride 0.9% 10 Ml Syringe) 10 ml FLUSH ASDIRECTED PRN PRN Reason: IV Use Last Admin: 05/03/21 05:44 Dose: 10 ml Documented by: Zolpidem Tartrate (Zolpidem 5 Mg Tab) 5 mg PO BEDTIME PRN PRN Reason: Sleep Last Admin: 05/02/21 21:08 Dose: 5 mg Documented by: - Exam Physical Findings Comments:: General: Luan is a 76-year-old man in no acute distress Oropharynx is clear, mucous membranes are moist Heart: Regular rate and rhythm, 1 out of 6 to 2 out of 6 systolic murmur best heard over the left sternal border Lungs: Clear to auscultation throughout - Patient Data Result Diagrams: 04/30/21 05:35 04/30/21 05:35 Sepsis Event Note - Evaluation Sepsis Screening Result: No Definite Risk - Problem List & Annotations (1) Falls SNOMED Code(s): 6406085, 326151840 Code(s): W19.XXXA - UNSPECIFIED FALL, INITIAL ENCOUNTER Status: Acute Qualifiers: Encounter type: initial encounter Qualified Code(s): W19.XXXA - Unspecified fall, initial encounter (2) Left leg weakness SNOMED Code(s): 105459642, 006267384 Code(s): R29.898 - OTH SYMPTOMS AND SIGNS INVOLVING THE MUSCULOSKELETAL SYSTEM Status: Acute (3) Personal history of multiple sclerosis SNOMED Code(s): 226391634 Code(s): G35 - MULTIPLE SCLEROSIS Status: Acute - Problem List Review Problem List Initiated/Reviewed/Updated: Yes - Assessment Assessment:: 1. 76-year-old man with significant weakness and debilitation, secondary to advancing multiple sclerosis 2. Recent urosepsis, resolved 3. Global muscle weakness and atrophy secondary to #1 - Plan Plan:: 1. He is due to be discharged to the snf tomorrow. We will make sure he gets all of his appropriate medications and prescriptions sent there for him.
== END 2021-05-03 09:00 | DRG 913 ==
LOC: DL.ED 11:52 → DL.MS 14:51 → DL.ED 15:00
PROVIDERS: ADMIT Internal Medicine; ATTEND Internal Medicine
DX: R31.9 Hematuria, unspecified (principal); W19.XXXA Unspecified fall, initial encounter; Z93.6 Other artificial openings of urinary tract status; S79.912A Unspecified injury of left hip, initial encounter; N17.0 Acute kidney failure with tubular necrosis; N39.0 Urinary tract infection, site not specified; I47.1 Supraventricular tachycardia; R32 Unspecified urinary incontinence; R33.9 Retention of urine, unspecified; Z88.8 Allergy status to other drugs, medicaments and biological substances; Z79.899 Other long term (current) drug therapy; N13.30 Unspecified hydronephrosis; G35 Multiple sclerosis; Z66 Do not resuscitate; W18.30XA Fall on same level, unspecified, initial encounter; F32.9 Major depressive disorder, single episode, unspecified; B00.1 Herpesviral vesicular dermatitis; Z20.822 Contact with and (suspected) exposure to COVID-19; K59.09 Other constipation; Z90.89 Acquired absence of other organs; Y92.009 Unspecified place in unspecified non-institutional (private) residence as the place of occurrence of the external cause; Z90.49 Acquired absence of other specified parts of digestive tract; Z95.1 Presence of aortocoronary bypass graft; Z95.5 Presence of coronary angioplasty implant and graft; Z98.890 Other specified postprocedural states
CPT/HCPCS: 36415; 72192; 73502; 80053; 81001; 82550; 83605; 83735; 85025; 86140; 87086; 99285; A9270; U0002; 80048; 87040; 93005; J0153; J0290; J1650; J2185; J2405; J3475; J3490; J7030